=== PATIENT | male | born 1970 | race Asian ===

== ENCOUNTER 2021-02-11 09:55 | Outpatient (REF) | payer OTHER, SELFPAY ==
[2021-02-11 10:48] LABS: MANUAL DIFF FLAG NO
[2021-02-11 11:00] LABS: Basophils Absolute Auto 0.1 X10*3/uL (0.0-0.2); Basophils Percent Auto 0.9 % (0-2); Eosinophils Absolute Auto 0.2 X10*3/uL (0.0-0.4); Hematocrit 44.3 % (42-52); Hemoglobin 14.7 g/dl (14.0-18.0); Imm Gran Abs Auto 0.03 X10*3/uL (0.00-0.03); Imm Gran Pct Auto 0.6 % (0.0-0.4); Lymphocytes Absolute Auto 1.6 X10*3/uL (1.2-4.9); Lymphocytes Percent Auto 28.9 % (20-40); Mean Corpuscular HGB Conc 33.2 g/dl (31.0-36.0); Mean Corpuscular Hemoglobin 30.5 pg (27.0-33.0); Mean Corpuscular Volume 91.9 fL (80-98); Mean Platelet Volume 9.4 fL (9.4-12.4); Monocytes Absolute Auto 0.6 X10*3/uL (0.1-1.2); Monocytes Percent Auto 11.1 % (2-11); Neutrophils Percent Auto 55.5 % (45-73); Platelet Count 200 X10*3/uL (160-400); Red Blood Count 4.82 X10*6/uL (4.60-5.80); White Blood Count 5.4 X10*3/uL (4.8-10.8)
[2021-02-11 11:37] LABS: Alanine Aminotransferase 35 U/L (0-40); Albumin Level 4.6 g/dL (3.5-5.0); Alkaline Phosphatase 63 U/L (39-117); Anion Gap 9 (12-20); Aspartate Amino Transferase 26 U/L (5-37); Bilirubin Total 0.5 mg/dL (0.0-1.0); Blood Urea Nitrogen 16 mg/dL (9-16); Calcium 9.6 mg/dL (8.4-10.2); Carbon Dioxide 29 mmol/L (22-29); Chloride 106 mmol/L (96-108); Cholesterol 199 mg/dL; Estimated Glomerular Filt Rate > 60; Glucose Fasting 105 mg/dL (60-99); HDL Cholesterol 41 mg/dL; LDL Cholesterol Calculated 138 mg/dl; Potassium 4.1 mmol/L (3.3-5.1); Sodium 140 mmol/L (135-145); Total Protein 8.2 g/dL (6.5-8.0); Triglycerides 101 mg/dL
[2021-02-11 11:50] LABS: Prostate Specific Antigen Scr 0.73 ng/mL (<0.05-4.0); TSH reflex Free T4 1.68 uIU/mL (0.32-4.0)
[2021-02-11 13:03] LABS: Appearance Urine CLEAR; Color Urine YELLOW; Glucose Urine UA NEG (NEG); Leukocyte Esterase Urine NEG (NEG); Nitrite Urine NEG (NEG); Specific Gravity - Urine 1.025 (1.005-1.025); Urine Blood NEG (NEG); Urine Ketones NEG (NEG); Urine Protein NEG (NEG-TRACE)
== END 2021-02-11 09:56 | disposition home or self-care (01) ==
LOC: HO.LAB 09:55
PROVIDERS: PCP Internal Medicine; Visit Provider Internal Medicine
DX: Z00.00 Encounter for general adult medical examination without abnormal findings (principal); Z12.5 Encounter for screening for malignant neoplasm of prostate; E66.3 Overweight; I10 Essential (primary) hypertension; J30.9 Allergic rhinitis, unspecified; K21.9 Gastro-esophageal reflux disease without esophagitis
CPT/HCPCS: 36415; 80053; 80061; 81003; 84153; 84443; 85025

== ENCOUNTER 2021-04-07 16:34 | Outpatient (REF) | payer OTHER, SELFPAY ==
[2021-04-07 17:31] LABS: Influenza A PCR NEGATIVE (Negative); Influenza B PCR NEGATIVE (Negative); Resp Syncy Virus RNA Qual PCR NEGATIVE (Negative); SARS COV2 PCR INHOUSE NEGATIVE (Negative)
== END 2021-04-07 16:35 | disposition home or self-care (01) ==
LOC: HO.LNP 16:34
PROVIDERS: Visit Provider Internal Medicine
DX: R43.9 Unspecified disturbances of smell and taste (principal); Z20.822 Contact with and (suspected) exposure to COVID-19
CPT/HCPCS: 0241U

== ENCOUNTER → 2021-09-08 07:09 | Outpatient (BNVA) | payer OTHER, SELFPAY | PROVIDERS: PCP Internal Medicine; Referring Provider Internal Medicine; Visit Provider Physician Assistant | DX: Z12.11 Encounter for screening for malignant neoplasm of colon (principal); K21.9 Gastro-esophageal reflux disease without esophagitis | CPT/HCPCS: 99202 ==

== ENCOUNTER 2021-09-16 08:40 | Outpatient (REF) | payer OTHER, SELFPAY ==
--- NOTE | ~2021-09-16 | XR_ITS ---
EXAMINATION: XR CHEST CLINICAL INFORMATION: Cough COMPARISON: None TECHNIQUE: 2 views of the chest were obtained. FINDINGS: The cardiac and mediastinal contours are normal. The lungs are clear. There is no pleural effusion or pneumothorax. There are degenerative changes of the spine. There is slight loss of height of the T12 and L1 vertebral bodies questionable for mild old compression fractures. The stomach does not appear dilated. There is question of wall thickening of the stomach. XR/XR chest 2V IMPRESSION: No evidence for acute disease in the chest. Question wall thickening of the stomach.
[2021-09-16 09:32] LABS: Binax Internal Control QC Valid; Binax Now Covid-19 Ag Negative (Negative); Binax Performed by: HO.BONILM
== END 2021-09-16 08:41 | disposition home or self-care (01) ==
LOC: HO.HMGCX 08:40
PROVIDERS: Visit Provider Internal Medicine
DX: R05.9 Cough, unspecified (principal); J06.9 Acute upper respiratory infection, unspecified
CPT/HCPCS: 71046

== ENCOUNTER 2021-10-13 08:01 | Outpatient (REF) | payer OTHER, SELFPAY ==
--- NOTE | ~2021-10-13 | FL_ITS ---
EXAMINATION: XR FLUOROSCOPY UPPER GI WITH AIR CLINICAL INFORMATION: Question wall thickening of the stomach COMPARISON: Previous chest x-ray September 2021 TECHNIQUE: Upper GI was performed using thin and thick barium and effervescent granules FINDINGS: There is mild gastroesophageal reflux. There is mild mucosal irregularity of the esophagus questionable for mild esophagitis. No mass, stricture or hernia is seen. The stomach is difficult to adequately distend. There is mild fold thickening of the stomach. No mass or ulcer is appreciated. FLUOROSCOPY TIME: 1.1 minutes DOSE AREA PRODUCT: 12 flanagan per centimeter squared. 34 saved fluoroscopic images. FL/FL upper GI w air IMPRESSION: Mild gastroesophageal reflux and question mild esophagitis. Mild fold thickening of the stomach. The stomach is difficult to distend air.
== END 2021-10-13 08:02 | disposition home or self-care (01) ==
LOC: HO.XRAY 08:01
PROVIDERS: Visit Provider Internal Medicine
DX: R93.5 Abnormal findings on diagnostic imaging of other abdominal regions, including retroperitoneum (principal)
CPT/HCPCS: 74246

== ENCOUNTER 2022-02-02 08:34 | Outpatient (REF) | payer OTHER, SELFPAY ==
[2022-02-02 08:49] LABS: MANUAL DIFF FLAG NO
[2022-02-02 09:02] LABS: Basophils Percent Auto 0.8 % (0-2); Eosinophils Absolute Auto 0.2 X10*3/uL (0.0-0.4); Eosinophils Percent Auto 5.1 % (0-4); Hemoglobin 13.9 g/dl (14.0-18.0); Imm Gran Abs Auto 0.02 X10*3/uL (0.00-0.03); Imm Gran Pct Auto 0.5 % (0.0-0.4); Lymphocytes Absolute Auto 0.9 X10*3/uL (1.2-4.9); Lymphocytes Percent Auto 23.7 % (20-40); Mean Corpuscular HGB Conc 33.9 g/dl (31.0-36.0); Mean Corpuscular Hemoglobin 30.8 pg (27.0-33.0); Mean Corpuscular Volume 90.7 fL (80.0-98.0); Mean Platelet Volume 9.4 fL (9.4-12.4); Monocytes Absolute Auto 0.5 X10*3/uL (0.1-1.2); Monocytes Percent Auto 12.8 % (2-11); Neutrophils Absolute Auto 2.2 x10*3/uL (2.0-8.3); Neutrophils Percent Auto 57.1 % (45-73); Platelet Count 168 X10*3/uL (160-400); Red Blood Count 4.52 X10*6/uL (4.60-5.80); Red Cell Distribution Width 12.9 % (11.0-16.0); White Blood Count 3.8 X10*3/uL (4.8-10.8)
[2022-02-02 09:39] LABS: Alanine Aminotransferase 29 U/L (0-40); Albumin Level 4.1 g/dL (3.5-5.0); Alkaline Phosphatase 61 U/L (39-117); Anion Gap 13 (12-20); Aspartate Amino Transferase 23 U/L (5-37); Bilirubin Total 0.5 mg/dL (0.0-1.0); Blood Urea Nitrogen 16 mg/dL (9-16); Calcium 8.6 mg/dL (8.4-10.2); Carbon Dioxide 24 mmol/L (22-29); Chloride 107 mmol/L (96-108); Cholesterol 168 mg/dL; Estimated Glomerular Filt Rate > 60; Glucose Fasting 106 mg/dL (60-99); HDL Cholesterol 33 mg/dL; LDL Cholesterol Calculated 116 mg/dl; Potassium 4.1 mmol/L (3.3-5.1); Sodium 140 mmol/L (135-145); Total Protein 7.5 g/dL (6.5-8.0); Triglycerides 97 mg/dL
[2022-02-02 10:00] LABS: TSH reflex Free T4 2.55 uIU/mL (0.32-4.0)
[2022-02-02 11:43] LABS: Appearance Urine Clear; Color Urine Yellow; Glucose Urine UA Negative (Negative); Leukocyte Esterase Urine Negative (Negative); Nitrite Urine Negative (Negative); Specific Gravity - Urine 1.025 (1.005-1.025); Urine Blood Negative (Negative); Urine Ketones Negative (Negative); Urine Protein Trace mg/dL (Neg-Trace)
== END 2022-02-02 08:35 | disposition home or self-care (01) ==
LOC: HO.LAB 08:34
PROVIDERS: PCP Internal Medicine; Visit Provider Internal Medicine
DX: Z00.00 Encounter for general adult medical examination without abnormal findings (principal); E55.9 Vitamin D deficiency, unspecified; E78.00 Pure hypercholesterolemia, unspecified; I10 Essential (primary) hypertension
CPT/HCPCS: 36415; 80053; 80061; 81003; 82306; 84443; 85025

== ENCOUNTER 2022-03-09 11:02 | Day surgery (SDC) | payer OTHER, SELFPAY ==
[2022-03-04 14:29] VITALS: BMI 28.2
--- NOTE | 2022-03-06 12:49 | P.CONAN_ITS ---
Documented by User: Shilpa Briceno NP 03/06/22 12:50 HPI - Anesthesia Eval Consult details Narrative: 51yo M for Upper Endoscopy and Colonoscopy [facility] Active Problems Active Problems: All Active Problems (Updated 02/06/22 @ 09:19 by Juan Brooke MD) Pruritus (Acute) Onychomycosis (Acute) Vitamin D deficiency (Acute) Abnormal x-ray of abdomen (Acute) Impaired fasting glucose (Acute) Tendinitis (Acute) Annual physical exam (Acute) Upper respiratory tract infection (Acute) Pure hypercholesterolemia (Acute) Colon cancer screening (Acute) Overweight (BMI 25.0-29.9) (Acute) Allergic rhinitis (Acute) GERD without esophagitis (Acute) Benign essential hypertension (Acute) Past Medical History Medical History Allergic rhinitis Benign essential hypertension GERD without esophagitis Overweight (BMI 25.0-29.9) Pure hypercholesterolemia Vitamin D deficiency Family History Family History Sister Lupus Surgical History Surgical History (Updated 03/09/22 @ 12:00 by Princess Reyes RN) Hx of esophagogastroduodenoscopy Social History Social History Housing: House Alcohol intake: current Alcohol intake frequency: holidays/special occasions only Patient Tobacco Use Status: Never used Tobacco Second Hand Smoke Exposure: No Use of substances other than those prescribed or required for medical reasons: No Are you DNR?: No Advance Directives: No Advance Directives Information Provided: Yes service: No Current occupational status: employed Cognitive needs: No Hearing needs: No Vision needs: No Meds Allergies Allergy/AdvReac Type Severity Reaction Status Date / Time No Known Allergies Allergy Verified 03/09/22 12:13 Exam Exam Date and Time: March 06, 2022 1249 Height,Weight and Vital Signs: Height 5 ft 9 in Weight 86.636 kg Pertinent Lab Results Pertinent Lab Results: Laboratory Tests 02/02/22 02/02/22 08:48 08:48 WBC 3.8 L Hgb 13.9 L Hct 41.0 L Plt Count 168 Sodium 140 Potassium 4.1 Chloride 107 Carbon Dioxide 24 BUN 16 Creatinine 0.70 Assessment and Plan Assessment Anesthesia Assessment: Chart Reviewed Documented by User: Nnamdi Urbina MD 03/09/22 12:45 PMFSH Past Medical History Medical History Allergic rhinitis Benign essential hypertension GERD without esophagitis Overweight (BMI 25.0-29.9) Pure hypercholesterolemia Vitamin D deficiency Family History Family History Sister Lupus Family history of problems with anesthesia: No Surgical History Surgical History (Updated 03/09/22 @ 12:00 by Princess Reyes RN) Hx of esophagogastroduodenoscopy History of Problems with Anesthesia: No Social History Social History Housing: House Alcohol intake: current Alcohol intake frequency: holidays/special occasions only Patient Tobacco Use Status: Never used Tobacco Second Hand Smoke Exposure: No Use of substances other than those prescribed or required for medical reasons: No Are you DNR?: No Advance Directives: No Advance Directives Information Provided: Yes service: No Current occupational status: employed Cognitive needs: No Hearing needs: No Vision needs: No Meds Allergies Allergy/AdvReac Type Severity Reaction Status Date / Time No Known Allergies Allergy Verified 03/09/22 12:13 Exam Airway Mallampati Class: II TM Dist: >3cm Neck ROM: Full Loose/Missing/Broken Teeth: No Heart: rrr Lungs: clear Assessment and Plan Final Anesthetic Review Family History of Problems with Anesthesia: No History of Problems with Anesthesia: No NPO: Yes ASA Class: II Final Preanesthetic Review: No Changes in Pt Med Stat, Meds/Allgs Chart Reviewed, Consent Obtained/Reviewed and Anes Risks/Benef Reviewed Patient Risk: Intermediate Procedure Risk: Low Anesthetic Plan Anesthetic Plan: MAC: Disposition: Standard PACU
[2022-03-09 12:16] VITALS: BP 146/101; PULSE 70; RESP 15; TEMP 36.7; O2SAT 99
[2022-03-09] MEDS: Lactated Ringers 1,000 ML 100 ML IVCONT (12:23)
--- NOTE | 2022-03-09 13:46 | MHC.SHP ---
Pre-Procedural Eval Section A Date of Service: 03/09/22 The patient is an INPATIENT: No The History & Physical has been completed within 30 days and I have reviewed it.: No Section B Chief Complaint: colon cancer screening, GERD Relevant Family History (Specify if Yes): No Relevant Social History: None Present Medications: see Short Stay Collaborative assessment Medical History: Significant History (Allergic rhinitis Benign essential hypertension GERD without esophagitis Overweight (BMI 25.0-29.9) Pure hypercholesterolemia) History of Previous Operations: No relevant previous surgery Allergies: Allergies Allergy/AdvReac Type Severity Reaction Status Date / Time No Known Allergies Allergy Verified 03/09/22 12:13 Review of Systems Sugical H&P ROS: Negative: Constitution, Cardiovascular and Respiratory and Yes, Specify: Gastrointestinal (GERD) Exam Surgical H&P Exam: Normal: Heart, Normal: Lungs, Normal: Extremities and Normal: Abdomen Plan Diagnosis/Plan: Unchanged I have reviewed the history and physical and performed a pertinent physical examination on my patient. No changes have occurred unless specified.
--- NOTE | 2022-03-09 13:47 | PM.OP ---
Brief Operative Note Date of Service: 03/09/22 Pre-op diagnosis: Colon cancer screening, GERD Post-op diagnosis: other (GERD, gastritis, prominent gastric folds, colon polyp, diverticulosis, hemorrhoid) Procedure: FLEXIBLE TRANSORAL UPPER GASTROINTESTINAL ENDOSCOPY WITH BIOPSIES AND COLONOSCOPY TILL CECUM WITH SNARE POLYPECTOMY UPPER ENDOSCOPY Consent: Indications for the procedure and potential complications of bleeding, perforation, reaction to medications and missed diagnosis were discussed with the patient and informed consent was obtained. Instrument: Olympus GIF H 190 mid size upper endoscope Monitoring: Vital signs and clinical assessment, continuous EKG monitoring, Pulse oximetry, Carbon Dioxide monitoring and blood pressure monitoring were done throughout the procedure. Procedure: The patient was placed in the left lateral decubitis position and pre-procedure medications were administered and a bite block was placed. The endoscope was inserted into the mouth and advanced under direct vision to the third part of duodenum. A careful inspection was made as the upper endoscope was withdrawn including a retroflexed examination of the proximal stomach; Findings and interventions are described below. Findings: Larynx: Edema of arytenoid cartilages suggestive of LPRD Esophagus: GE junction at 40 cms, irregular Z line - biopsied to check for Mullen's. Stomach: Prominent gastric folds in the body of the stomach - biopsies were obtained. Mild gastric antral erythema. Biopsies were obtained. Grade 2 flap valve on retroflexed examination of the cardia. Duodenum: Normal bulb and descending duodenum Intervention: Biopsies as noted above COLONOSCOPY PROCEDURE NOTE Consent: Indications for the procedure and potential complications of bleeding, perforation, reaction to medications and missed diagnosis were discussed with the patient and informed consent was obtained. Instrument: Olympus PCF H 190 L variable stiffness pediatric colonoscope Monitoring: Vital signs and clinical assessment, intermittent blood pressure monitoring, continuous EKG monitoring, Pulse oximetry and Carbon Dioxide monitoring were done throughout the procedure. Colon withdrawl time was 18 minutes. Procedure: The patient was placed in the left lateral decubitis position and pre-procedure medications were administered. After a digital rectal examination of the ano-rectum, the video colonoscope was inserted into the rectum and advanced through the colon to the cecum. The colonoscope was slowly withdrawn in a retrograde panoramic fashion and the colon mucosa was carefully examined including a retroflexed view of the rectum. Findings and interventions are described below. Procedure Difficulty: : Without difficulty Findings: Terminal Ileum: Not evaluated Cecum: Partially evaluated due to undigested vegetable matter which could not be suctioned. A 10-12 mm sessile polyp adjacent to the appendicular orifice removed with a hot snare. Ascending Colon: Normal Transverse Colon: Normal Descending Colon: Normal Sigmoid Colon: Moderate diverticulosis Rectum: Normal Ano-rectum: Moderate internal hemorrhoids Colon preparation: Good in the transverse and left colon and fair in the cecum and right colon Impression and Post Procedure Diagnosis: Endoscopy Findings: LARYNX: Changes suggestive of LPRD ESOPHAGUS: GE junction at 40 cms, irregular Z line - biopsied to check for Mullen's. STOMACH: Prominent gastric folds in the body of the stomach - biopsies were obtained. Mild gastric antral erythema. Biopsies were obtained. Colonoscopy Findings: One medium sized polyp removed Moderate diverticulosis seen in the sigmoid colon Moderate hemorrhoids on retroflexed exam. Plan: Await pathology results Patient has an appointment on 03/23/22 in the GI Clinic with MARILUZ Moncada . Repeat Colonoscopy interval based on path results - in 3 years if polyps are adenomatous and due to fair prep. Above findings were reviewed with the patient and colon polyps and GERD handouts were given in the discharge area Surgeon: Carson Rios MD Anesthesia: MAC Was an Mortgage Funder used for this Procedure?: No Mortgage Funder: Shaji Horn Estimated blood loss (mL): 0 Pathology: other ( A: GASTRIC ANTRUM BXS R/O BARRETTS B: GASTRIC BODY BXS C:GE JUNCTION BXS R/O BARRETTS D: CECAL POLYP) Condition: stable Disposition: PACU
--- NOTE | 2022-03-09 13:47 | W.PM.OPN ---
Operative Note Operative Note Date of Service: 03/09/22 Narrative: Pre-op diagnosis: Colon cancer screening, GERD Post-op diagnosis:?other (GERD, gastritis, prominent gastric folds, colon polyp, diverticulosis, hemorrhoid) Procedure: FLEXIBLE TRANSORAL UPPER GASTROINTESTINAL ENDOSCOPY WITH BIOPSIES AND COLONOSCOPY TILL CECUM WITH SNARE POLYPECTOMY UPPER ENDOSCOPY Consent:?Indications for the procedure and potential complications of bleeding, perforation, reaction to medications and missed diagnosis were discussed with the patient and informed consent was obtained. Instrument:?Olympus GIF H 190 mid size upper endoscope Monitoring: Vital signs and clinical assessment, continuous EKG monitoring, Pulse oximetry, Carbon Dioxide monitoring and blood pressure monitoring were done throughout the procedure. Procedure:?The patient was placed in the left lateral decubitis position and pre-procedure medications were administered and a bite block was placed. The endoscope was inserted into the mouth and advanced under direct vision to the third part of duodenum. A careful inspection was made as the upper endoscope was withdrawn including a retroflexed examination of the proximal stomach; Findings and interventions are described below. Findings: Larynx:? Edema of arytenoid cartilages suggestive of LPRD Esophagus:?GE junction at 40 cms, irregular Z line - biopsied to check for Mullen's. Stomach:?Prominent gastric folds in the body of the stomach - biopsies were obtained. Mild gastric antral erythema. Biopsies were obtained. Grade 2 flap valve on retroflexed examination of the cardia. Duodenum:?Normal bulb and descending duodenum Intervention:?Biopsies as noted above COLONOSCOPY PROCEDURE NOTE Consent:?Indications for the procedure and potential complications of bleeding, perforation, reaction to medications and missed diagnosis were discussed with the patient and informed consent was obtained. Instrument:?Olympus PCF H 190 L variable stiffness pediatric colonoscope Monitoring:?Vital signs and clinical assessment, intermittent blood pressure monitoring, continuous EKG monitoring, Pulse oximetry and Carbon Dioxide monitoring were done throughout the procedure. Colon withdrawl time was 18 minutes. Procedure:?The patient was placed in the left lateral decubitis position and pre-procedure medications were administered. After a digital rectal examination of the ano-rectum, the video colonoscope was inserted into the rectum and advanced through the colon to the cecum. The colonoscope was slowly withdrawn in a retrograde panoramic fashion and the colon mucosa was carefully examined including a retroflexed view of the rectum. Findings and interventions are described below. Procedure Difficulty:?: Without difficulty Findings: Terminal Ileum: Not evaluated Cecum:? Partially evaluated due to undigested vegetable matter which could not be suctioned. A 10-12 mm sessile polyp adjacent to the appendicular orifice removed with a hot snare. Ascending Colon:??Normal Transverse Colon:??Normal Descending Colon:? Normal Sigmoid Colon:??Moderate diverticulosis Rectum:??Normal Ano-rectum:??Moderate internal hemorrhoids Colon preparation:? Good in the transverse and left colon and fair in the cecum and right colon Impression and Post Procedure Diagnosis: Endoscopy Findings: LARYNX: Changes suggestive of LPRD ESOPHAGUS: GE junction at 40 cms, irregular Z line - biopsied to check for Mullen's. STOMACH:? Prominent gastric folds in the body of the stomach - biopsies were obtained. Mild gastric antral erythema. Biopsies were obtained. Colonoscopy Findings: One medium sized polyp removed Moderate diverticulosis seen in the sigmoid colon Moderate hemorrhoids on retroflexed exam. Plan: Await pathology results Patient has an appointment on 03/23/22 in the GI Clinic with MARILUZ Moncada . Repeat Colonoscopy interval based on path results - in 3 years if polyps are adenomatous and due to fair prep. Above findings were reviewed with the patient and colon polyps and GERD handouts were given in the discharge area. Pt was advised to increase Omeprazole to 20 mg twice daily since he continues to have GERD symptoms and cough. Surgeon: Carson Rios MD Anesthesia:?MAC Was an Classified Copy Control Clerk used for this Procedure?:?No Classified Copy Control Clerk:?Shaji Horn Estimated blood loss (mL):?0 Pathology:?other ( A: GASTRIC ANTRUM BXS R/O BARRETTS? B: GASTRIC BODY BXS? C:GE JUNCTION BXS R/O BARRETTS? D: CECAL POLYP) Condition:?stable Disposition:?PACU
[2022-03-09 14:40] VITALS: BP 123/84; PULSE 67; RESP 16; TEMP 36.4; O2SAT 100
[2022-03-09 14:55] VITALS: BP 130/84; PULSE 62; RESP 16; O2SAT 99
[2022-03-09 15:10] VITALS: BP 136/100; PULSE 67; RESP 16; TEMP 36.4; O2SAT 99
--- NOTE | 2022-03-09 16:08 | PC.NURSE ---
PATIENT STATED HIS RIDE WAS DOWNSTAIRS AND THE FUEL TESTING TECHNICIAN BROUGHT PATIENT DOWN TO THE MAIN EXTRANCE. PT GOT UP AND REPORTEDLY WENT TO HIS OWN CAR AND DROVE AWAY.
== END 2022-03-09 16:11 | disposition home or self-care (01) ==
PROVIDERS: PCP Internal Medicine; Visit Provider Internal Medicine Gastroenterology
PROC: (CPT 45385; principal; 2022-03-09 13:40)
DX: Z12.11 Encounter for screening for malignant neoplasm of colon (principal); D12.0 Benign neoplasm of cecum; K57.30 Diverticulosis of large intestine without perforation or abscess without bleeding; K64.8 Other hemorrhoids; K21.9 Gastro-esophageal reflux disease without esophagitis; K29.50 Unspecified chronic gastritis without bleeding; B96.81 Helicobacter pylori [H. pylori] as the cause of diseases classified elsewhere; I10 Essential (primary) hypertension; E78.00 Pure hypercholesterolemia, unspecified; J30.9 Allergic rhinitis, unspecified; E66.3 Overweight; Z68.28 Body mass index [BMI] 28.0-28.9, adult; Z79.51 Long term (current) use of inhaled steroids; Z79.899 Other long term (current) drug therapy
CPT/HCPCS: 45385; 43239; 88305; 88342

== ENCOUNTER → 2022-03-23 08:35 | Outpatient (BNVA) | payer OTHER, SELFPAY | PROVIDERS: PCP Internal Medicine; Visit Provider Physician Assistant | DX: A04.8 Other specified bacterial intestinal infections (principal); K63.5 Polyp of colon; K64.9 Unspecified hemorrhoids; K57.30 Diverticulosis of large intestine without perforation or abscess without bleeding | CPT/HCPCS: 99212 ==

== ENCOUNTER 2022-04-27 16:29 | Outpatient (REF) | payer OTHER, SELFPAY ==
[2022-04-27 17:19] LABS: Influenza A PCR NEGATIVE (Negative); Influenza B PCR NEGATIVE (Negative); Resp Syncy Virus RNA Qual PCR POSITIVE (Negative); SARS COV2 PCR INHOUSE NEGATIVE (Negative)
== END 2022-04-27 16:30 | disposition home or self-care (01) ==
LOC: HO.LNP 16:29
PROVIDERS: Visit Provider Internal Medicine
DX: Z20.822 Contact with and (suspected) exposure to COVID-19 (principal); R43.9 Unspecified disturbances of smell and taste
CPT/HCPCS: 0241U

== ENCOUNTER → 2022-05-04 07:53 | Outpatient (BNVA) | payer OTHER, SELFPAY | PROVIDERS: PCP Internal Medicine; Referring Provider Internal Medicine; Visit Provider Physician Assistant | DX: Z11.0 Encounter for screening for intestinal infectious diseases (principal) | CPT/HCPCS: 83013; 99211 ==

== ENCOUNTER 2022-05-04 16:06 | Outpatient (REF) | payer OTHER, SELFPAY ==
[2022-05-05 11:43] LABS: H Pylori Breath Test Negative (Negative)
== END 2022-05-04 16:07 | disposition home or self-care (01) ==
LOC: HO.LNP 16:06
PROVIDERS: Visit Provider Physician Assistant
DX: Z13.89 Encounter for screening for other disorder (principal)
CPT/HCPCS: 83013

== ENCOUNTER 2022-08-06 11:27 | Outpatient (REF) | payer OTHER, SELFPAY ==
[2022-08-06 11:38] LABS: MANUAL DIFF FLAG NO
[2022-08-06 12:54] LABS: Basophils Percent Auto 0.9 % (0-2); Eosinophils Absolute Auto 0.1 X10*3/uL (0.0-0.4); Eosinophils Percent Auto 2.8 % (0-4); Hematocrit 44.4 % (42.0-52.0); Hemoglobin 14.6 g/dl (14.0-18.0); Imm Gran Abs Auto 0.04 X10*3/uL (0.00-0.03); Imm Gran Pct Auto 0.9 % (0.0-0.4); Lymphocytes Absolute Auto 0.9 X10*3/uL (1.2-4.9); Lymphocytes Percent Auto 18.7 % (20-40); Mean Corpuscular HGB Conc 32.9 g/dl (31.0-36.0); Mean Corpuscular Volume 91.4 fL (80.0-98.0); Mean Platelet Volume 9.5 fL (9.4-12.4); Monocytes Absolute Auto 0.4 X10*3/uL (0.1-1.2); Monocytes Percent Auto 9.2 % (2-11); Neutrophils Absolute Auto 3.2 x10*3/uL (2.0-8.3); Neutrophils Percent Auto 67.5 % (45-73); Platelet Count 180 X10*3/uL (160-400); Red Blood Count 4.86 X10*6/uL (4.60-5.80); Red Cell Distribution Width 12.9 % (11.0-16.0); White Blood Count 4.7 X10*3/uL (4.8-10.8)
[2022-08-06 13:05] LABS: Appearance Urine Clear; Color Urine Yellow; Glucose Urine UA Negative (Negative); Leukocyte Esterase Urine Negative (Negative); Nitrite Urine Negative (Negative); Specific Gravity - Urine 1.025 (1.005-1.025); Urine Blood Negative (Negative); Urine Ketones Negative (Negative); Urine Protein Trace mg/dL (Neg-Trace)
[2022-08-06 14:02] LABS: Alanine Aminotransferase 30 U/L (0-40); Albumin Level 4.3 g/dL (3.5-5.0); Alkaline Phosphatase 64 U/L (39-117); Anion Gap 13 (12-20); Aspartate Amino Transferase 23 U/L (5-37); Bilirubin Total 0.7 mg/dL (0.0-1.0); Blood Urea Nitrogen 16 mg/dL (9-16); Calcium 8.6 mg/dL (8.4-10.2); Carbon Dioxide 27 mmol/L (22-29); Chloride 105 mmol/L (96-108); Cholesterol 172 mg/dL; Estimated Glomerular Filt Rate > 60; Glucose Fasting 95 mg/dL (60-99); HDL Cholesterol 34 mg/dL; LDL Cholesterol Calculated 120 mg/dl; Potassium 4.4 mmol/L (3.3-5.1); Sodium 141 mmol/L (135-145); Total Protein 7.8 g/dL (6.5-8.0); Triglycerides 90 mg/dL
[2022-08-06 14:04] LABS: Estimated Average Glucose 120 mg/dL; Hemoglobin A1C 150.8151 umol/L; Hemoglobin A1c % 5.8 %
[2022-08-06 14:19] LABS: TSH reflex Free T4 1.68 uIU/mL (0.32-4.0); Vitamin D 25-OH Total 31.5 ng/mL (>30)
== END 2022-08-06 11:28 | disposition home or self-care (01) ==
LOC: HO.LAB 11:27
PROVIDERS: PCP Internal Medicine; Visit Provider Internal Medicine
DX: E78.00 Pure hypercholesterolemia, unspecified (principal); E55.9 Vitamin D deficiency, unspecified; I10 Essential (primary) hypertension; R73.01 Impaired fasting glucose
CPT/HCPCS: 36415; 80053; 80061; 81003; 82306; 83036; 84443; 85025

== ENCOUNTER 2022-08-13 09:49 | Outpatient (REF) | payer OTHER, SELFPAY ==
--- NOTE | ~2022-08-13 | XR_ITS ---
EXAMINATION: X-RAY RIGHT ELBOW X-RAY LEFT ELBOW CLINICAL INFORMATION: Pain. COMPARISON: None. TECHNIQUE: 3 views of each elbow. FINDINGS: No evidence of acute fractures or subluxation. Degenerative osteophytes are noted in the medial and lateral epicondyles of both elbows, larger on the left side. No erosions or chondrocalcinosis. No joint effusion. No unexpected radiopaque foreign bodies. XR/XR elbow RT min 3V IMPRESSION: 1. No acute fractures or subluxation. 2. Mild degenerative osteoarthritis of both elbows.
--- NOTE | ~2022-08-13 | XR_ITS ---
EXAMINATION: XR LUMBOSACRAL SPINE CLINICAL INFORMATION: Low back pain. COMPARISON: None TECHNIQUE: Three views of the lumbosacral spine. FINDINGS: Age indeterminate compression deformities at T12, L1 and L2. Minimal grade 1 degenerative retrolisthesis of L5 on S1. Moderate intervertebral disc height loss at L5-S1 with facet arthropathy and some degree of neural foraminal encroachment/central canal stenosis. Small multilevel anterior osteophytes. SI joints are symmetric. No significant soft tissue findings. XR/XR lumbar spine 2-3V IMPRESSION: 1. Age indeterminate compression deformities at T12, L1 and L2. Correlate for point tenderness. 2. Moderate spondylosis at L5-S1 with some degree of central canal stenosis and neural foraminal encroachment. If indicated, consider further evaluation with an MR of the lumbar spine. The report will be called to the ordering clinician by a [facility] Physician Character Artist.
--- NOTE | ~2022-08-13 | XR_ITS ---
EXAMINATION: X-RAY RIGHT ELBOW X-RAY LEFT ELBOW CLINICAL INFORMATION: Pain. COMPARISON: None. TECHNIQUE: 3 views of each elbow. FINDINGS: No evidence of acute fractures or subluxation. Degenerative osteophytes are noted in the medial and lateral epicondyles of both elbows, larger on the left side. No erosions or chondrocalcinosis. No joint effusion. No unexpected radiopaque foreign bodies. XR/XR elbow LT min 3V IMPRESSION: 1. No acute fractures or subluxation. 2. Mild degenerative osteoarthritis of both elbows.
== END 2022-08-13 09:50 | disposition home or self-care (01) ==
LOC: HO.XRAY 09:49
PROVIDERS: PCP Internal Medicine; Visit Provider Internal Medicine
DX: M54.50 Low back pain, unspecified (principal); M25.521 Pain in right elbow; M25.522 Pain in left elbow
CPT/HCPCS: 72100; 73080

== ENCOUNTER 2022-10-08 07:25 | Outpatient (REF) | payer OTHER, SELFPAY ==
--- NOTE | ~2022-10-08 | MR_ITS ---
EXAMINATION: MR LUMBAR SPINE WITHOUT CONTRAST CLINICAL INFORMATION: Low back pain COMPARISON: Lumbar spine radiographs 08/13/2022 TECHNIQUE: MRI of the lumbar spine was obtained using routine sequences without contrast. FINDINGS: Redemonstrated chronic upper endplate fracture deformities at T12, L1, and L2 with associated Schmorl's nodes and resultant mild central height loss. There is mild anterior wedging at T12 and L1. There is focal minimal kyphotic angulation at T12-L1. There is chronic subjacent fatty endplate change associated with the chronic fracture deformities with minimal marginal edema associated with the T12 superior endplate Schmorl's node. No new compression fracture deformity. Normal lumbar lordosis is preserved. Trace retrolisthesis of L5 on S1. There is no suspicious osseous lesion. L2 level disc desiccation with partial mineralization of the T12-L1 disc space where there is mild disc height loss. Mild L2-L3 and L5-S1 disc height loss with mixed type I/II Modic endplate change at L5-S1. Ventral disc osteophytes at the thoracolumbar junction.There are multilevel degenerative changes with level by level detail as follows: L1-L2: Trace annular disc bulge. No spinal canal or neural foraminal stenosis. L2-L3: Small annular disc bulge with mild bilateral facet arthrosis. No spinal canal or neural foraminal stenosis. L3-L4: Mild bilateral facet arthrosis without spinal canal or neural foraminal stenosis. L4-L5: Annular disc bulge with superimposed broad-based central disc protrusion and mild bilateral facet arthrosis. No spinal canal stenosis. Minimal right without specific and left neural foraminal encroachment. L5-S1: Trace retrolisthesis with annular disc bulge and superimposed broad-based central disc protrusion. Mild to moderate bilateral facet arthrosis and ligamentum flavum thickening. No spinal canal stenosis, noting asymmetric left subarticular zone narrowing and abutment along the traversing left S1 nerve root. Mild to moderate bilateral neural foraminal stenosis with contact along the exiting L5 nerve roots. The conus medullaris terminates at the level of L1-L2. The distal spinal cord is normal in appearance. . No epidural fluid collection, hematoma, or mass. No significant abnormalities of the paraspinal musculature. Limited evaluation of the intra-abdominal structures without significant abnormalities. The abdominal aorta is of normal contour and caliber. MR/MR lumbar spine wo con IMPRESSION: 1. Chronic upper endplate fracture deformities at T12, L1, and L2 with associated superior endplate Schmorl's nodes and resultant mild central height loss. No new compression fracture deformity. 2. Mild multilevel lumbar spondylosis without significant spinal canal stenosis. At L5-S1 a broad-based central disc protrusion causes asymmetric left subarticular zone narrowing with abutment along the traversing left S1 nerve root. Mild to moderate bilateral L5-S1 neural foraminal stenosis with contact along the exiting L5 nerve roots.
== END 2022-10-08 07:26 | disposition home or self-care (01) ==
LOC: HO.MRI 07:25
PROVIDERS: PCP Internal Medicine; Visit Provider Nurse Practitioner Family
DX: M54.50 Low back pain, unspecified (principal)
CPT/HCPCS: 72148

== ENCOUNTER → 2022-10-15 10:18 | Outpatient (BNVA) | payer OTHER, SELFPAY | PROVIDERS: PCP Internal Medicine; Visit Provider Physician Assistant | DX: M77.11 Lateral epicondylitis, right elbow (principal); M77.12 Lateral epicondylitis, left elbow | CPT/HCPCS: 20550; 20551; 99202; J1100 ==

== ENCOUNTER 2022-11-27 08:00 | Outpatient (RCR) | payer OTHER, SELFPAY ==
--- NOTE | 2022-09-18 08:46 | MHC.PT.EP ---
[facility] [place] Office [place] Office [place] Office [address] Riaz Lora [address] [phone] F: [phone] F: [phone] F: [phone] F: [phone] Physical Therapy Plan of Care Date of Evaluation: Date of Surgery: N/A Diagnosis: low back pain Assessment: pt is a 51 y/o male presenting to physical therapy w/ referring diagnosis of low back pain. pt does have 3 chronic compression fractures localized to T12, L1 and L2. He was educated in a core and pelvic stability program. Impairments include pain, decreased range of motion, decreased strength, impaired functional mobility, impaired postural awareness, and altered ambulation mechanics. pt is a good candidate for skilled PT due to age, potential remediation of impairments, typical disease/condition progression and prognosis, comorbidities, and motivation. pt would benefit from skilled PT intervention to provide a tailored strengthening and stretching exercise program, functional training, gait training, postural re-training, neuromuscular re-education, modalities as needed for pain, equipment safety demonstration. Frequency and Duration: The patient will be seen 1x/wk for 2 wks Short Term Goals: pt will be I w/ HEP to promote self-management of condition. pt will demo proper core bracing w/ functional mobility to protect spine. 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 Manual therapy to restore motion and function. Therapeutic exercise to improve strength and flexibility. Neuromuscular re-education for posture and balance. Therapeutic activities to return to functional activities of daily living. Electronically signed by: Anel Franks PT, DPT Please sign and return to therapist. Thank you for your referral.
--- NOTE | 2022-11-27 08:32 | MHC.PT.DC ---
[facility] [place] Office [place] Office [place] Office [address] Riaz Lora [address] [phone] F: [phone] F: [phone] F: [phone] F: [phone] Physical Therapy Discharge Report Diagnosis: low back pain Date of Surgery: N/A Date of Evaluation: 09/18/22 Date of Discharge: 11/27/22 Treatments to Date: 3 Cancellations to Date: 0 No Shows to Date: 0 Discharge Status: Improved Function Independent with HEP Discharge Summary: The patient reported he is noticing an improvement in his pain. He is independent with his exercise program. He was educated in neutral spine for bed mobility, lifting mechanics, and sitting posture. He would like to be discharged from physical therapy at this time. He is now discharged per his request to his home exercise program. Electronically signed by: Anel Nelson PT, DPT Please sign and return to therapist. Thank you for your referral.
== END 2022-11-27 08:32 | disposition home or self-care (01) ==
LOC: HO.PT 08:00
PROVIDERS: PCP Internal Medicine; Visit Provider Nurse Practitioner Family
DX: M54.50 Low back pain, unspecified (principal)
CPT/HCPCS: 97110; 97161; 97530

== ENCOUNTER 2023-02-09 08:50 | Outpatient (REF) | payer OTHER, SELFPAY ==
[2023-02-09 09:11] LABS: MANUAL DIFF FLAG NO
[2023-02-09 09:57] LABS: Basophils Absolute Auto 0.1 X10*3/uL (0.0-0.2); Eosinophils Absolute Auto 0.2 X10*3/uL (0.0-0.4); Eosinophils Percent Auto 3.4 % (0-4); Hematocrit 42.9 % (42.0-52.0); Hemoglobin 14.4 g/dl (14.0-18.0); Imm Gran Abs Auto 0.04 X10*3/uL (0.00-0.03); Imm Gran Pct Auto 0.8 % (0.0-0.4); Lymphocytes Absolute Auto 1.1 X10*3/uL (1.2-4.9); Mean Corpuscular HGB Conc 33.6 g/dl (31.0-36.0); Mean Corpuscular Hemoglobin 31.3 pg (27.0-33.0); Mean Corpuscular Volume 93.3 fL (80.0-98.0); Monocytes Absolute Auto 0.5 X10*3/uL (0.1-1.2); Monocytes Percent Auto 9.3 % (2-11); Neutrophils Absolute Auto 3.3 x10*3/uL (2.0-8.3); Neutrophils Percent Auto 64.5 % (45-73); Platelet Count 198 X10*3/uL (160-400); Red Cell Distribution Width 13.2 % (11.0-16.0); White Blood Count 5.1 X10*3/uL (4.8-10.8)
[2023-02-09 10:52] LABS: Appearance Urine Clear; Color Urine Yellow; Glucose Urine UA Negative (Negative); Leukocyte Esterase Urine Negative (Negative); Nitrite Urine Negative (Negative); PH 5.5 (5.0-9.0); Specific Gravity - Urine 1.025 (1.005-1.025); Urine Blood Negative (Negative); Urine Ketones Negative (Negative); Urine Protein Negative (Neg-Trace)
[2023-02-09 11:59] LABS: Alanine Aminotransferase 27 U/L (0-40); Alkaline Phosphatase 60 U/L (39-117); Anion Gap 12 (12-20); Aspartate Amino Transferase 20 U/L (5-37); Bilirubin Total 0.8 mg/dL (0.0-1.0); Blood Urea Nitrogen 15 mg/dL (9-16); Calcium 9.2 mg/dL (8.4-10.2); Carbon Dioxide 25 mmol/L (22-29); Chloride 107 mmol/L (96-108); Cholesterol 158 mg/dL (<200); Estimated Glomerular Filt Rate > 60; Glucose Fasting 115 mg/dL (60-99); HDL Cholesterol 39 mg/dL (>40); LDL Cholesterol Calculated 111 mg/dL (<100); Potassium 4.2 mmol/L (3.3-5.1); Sodium 140 mmol/L (135-145); Total Protein 7.6 g/dL (6.5-8.0); Triglycerides 44 mg/dL (<150); Vitamin D 25-OH Total 33.4 ng/mL (>30)
== END 2023-02-09 08:51 | disposition home or self-care (01) ==
LOC: HO.LAB 08:50
PROVIDERS: PCP Internal Medicine; Visit Provider Internal Medicine
DX: R30.0 Dysuria (principal); E78.00 Pure hypercholesterolemia, unspecified; E55.9 Vitamin D deficiency, unspecified; I10 Essential (primary) hypertension
CPT/HCPCS: 36415; 80053; 80061; 81003; 82306; 85025

== ENCOUNTER 2023-02-17 08:54 | Outpatient (AMB) | payer OTHER, SELFPAY ==
--- NOTE | 2023-02-17 08:58 | A.OFFPC_ITS ---
Vital Signs 02/17/23 09:01 Height 5 ft 6 in Weight 185 lb BMI 29.9 BP 160/98 H Blood Pressure Location Lt brachial Position Sitting Intake Visit Reasons: 6mth f/u Intake Note: Patient here for a 6 month follow up Childcare Provider Required: No Accompanied by: Self / Same As Patient Allergies No Known Allergies Allergy (Verified 02/17/23 09:08) Medication List - Last Reconciled 02/17/23 by Juan Brooke MD cholecalciferol (vitamin D3) 50 mcg PO DAILY 90 days fluticasone propionate 50 mcg/actuation 1 spray intranasal DAILY loratadine 10 mg PO DAILY PRN 90 days losartan 25 mg PO DAILY nabumetone 500 mg PO BID PRN 30 days omeprazole 20 mg PO DAILY 90 days Tobacco use date assessed: 10/08/22 Dental Screening Dental Screen Date: 02/17/23 Did you have a dental visit in the last 12 months?: Yes Did you have a dental problem in the last 6 months where you did not have access to dental care?: No Was dental information given to patient?: Patient has dentist HPI 6mth f/u HPI Details Patient comes in today for his follow up visit States that he has been experiencing increased pain over his right knee for the past few weeks now Notes that his knee pain feels worse when he is walking and when he puts his weight on his knee Does not recall any recent injury or trauma to his knee and denies any history of knee injury States that he has not been able to sleep well at night lately due to the pain Has not noticed any swelling of his knee He denies any headaches or dizziness Denies any chest pains, no SOB No nausea/vomiting, no abdominal pain No change in bowel habits noted Needs a few of his Rx refilled Had his follow up labs done last week - to discuss his results [facility] Medical History (Updated 02/17/23 @ 09:46 by Juan Brooke MD) Lumbar spondylosis Obesity (BMI 30-39.9) H. 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 occupational status: employed 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[employer] Current occupational exposures/hazards: No Cognitive needs: No Hearing needs: No Vision needs: No Questionnaire Thrive Questionnaire Date Thrive assessed: 10/08/22 ROB-7 AMB Questionnaire ROB-7 Date ROB - 7 assessed: 02/17/23 Feeling nervous, anxious, or on edge: 0 = Not at all Not being able to stop or control worryin = Not at all Worrying too much about different things: 0 = Not at all Trouble relaxin = Not at all Being so restless that it is hard to sit still: 0 = Not at all Becoming easily annoyed or irritable: 0 = Not at all Feeling afraid as if something awful might happen: 0 = Not at all Total ROB-7 score (0-4 normal; 5-9 mild; 10-14 moderate; 15-21 severe): 0 Source: Developed by Drs. Steven Oquendo, Aminta Rodriguez, Eliu Roe and colleagues, with an educational deneen from [email or web address]. Review of Systems Const Reports difficulty sleeping (lately - due to increasing pain in the right knee), Reports fatigue, Denies fever(s) and Denies headache(s) ENT Denies dysphagia, Denies dizziness, Denies otalgia, Denies headache(s), Denies neck pain, Denies odynophagia and Denies sore throat Card Denies chest pain, Denies rapid heart rate, Denies irregular heart rhythm, Denies palpitations and Denies dyspnea Resp Denies cough, Denies dyspnea and Denies wheezing GI Denies abdominal pain, Denies constipation, Denies dysphagia, Denies heartburn, Denies diarrhea, Denies nausea, Denies odynophagia and Denies vomiting Musc Reports back pain (recurrent, over the lower back ), Reports arthralgias (increasing over the right knee), Denies joint swelling and Denies neck pain Skin/Breast Denies rash Neuro Denies dizziness, Denies headache(s) and Denies paresthesias Endo Reports fatigue and Denies palpitations Aller/Immun Reports seasonal rhinorrhea (mostly in the spring) and Denies wheezing Physical exam (Primary Care) Vital Signs: Last Vital Signs BP 160/98 H 02/17/23 09:01 BMI result Body Mass Index 29.9 Tobacco/Smoking Status: Tobacco use Status Tobacco use date assessed 10/08/22 02/17/23 09:00 Patient Tobacco Use Status Never used Tobacco 02/17/23 09:00 e-Cigarette/Vaping Use Never Used 02/17/23 09:00 Thrive Assessment: Date of Thrive Assessment Date Thrive assessed 10/08/22 02/17/23 09:00 Const General: no acute distress and alert HENMT Ears: TM's normal bilaterally and EAC's normal Throat: Yes posterior oropharynx normal and Yes tonsils normal Neck Neck: Yes no lymphadenopathy and Yes supple Resp Auscultation: clear to auscultation bilaterally, no rales and no wheezes Cardio Rate: regular rate Rhythm: regular rhythm Heart sounds: no murmurs GI Palpation (GI): Soft to palpation and nontender Auscultation: normal bowel sounds Back/Spine/Pelvis Thoracic/Lumbar Spine: lumbar spinal tenderness Skin Rashes: no rashes Extrem General: Yes no clubbing, cyanosis or edema Right lower extremity: knee Details: tenderness Location: of the pre-patellar area and of the infrapatellar area and normal ROM; no swelling Assessment and Plan Assessment & Plan (1) Right knee pain: Code(s): M25.561 - Pain in right knee Qualifiers: Chronicity: acute Qualified Code(s): M25.561 - Pain in right knee Plan: Is most likely due to patellar tendinitis or osteoarthritis Will send patient for x-rays of the right knee for further evaluation Will start him for now on Meloxicam 15 mg QD with food PRN for pain Will refer him again to orthopedics for further evaluation and management; may benefit from cortisone injection if appropriate but advised that it will be up to orthopedics to decide if it is an option or not (2) Benign essential hypertension: Code(s): I10 - Essential (primary) hypertension Plan: Reinforced low sodium diet - goal is systolic BP of 120 mm or less His BP is high today - patient states that this is most likely due to the fact that he has not been able to sleep well for a few days now due to his knee pain Will continue him on Losartan 25 mg QD for now He is advised to monitor his blood pressure closely for the next week or two - BP monitor Rx sent to pharmacy (3) Pure hypercholesterolemia: Code(s): E78.00 - Pure hypercholesterolemia, unspecified Plan: Results of his labs done last week reviewed and discussed with patient - advised that his cholesterol levels have improved slightly from previous Reinforced low cholesterol diet He still does not really require cholesterol-lowering Rx at this time Will recheck his labs and fasting lipids in 6 months for follow up (4) GERD without esophagitis: Comment: EGD- Barretts surveillance- r/o esophagitis, PUD, non ulcer dyspepsia- avoid culprits- continue ppi- daily Code(s): K21.9 - Gastro-esophageal reflux disease without esophagitis Plan: Dietary restrictions reinforced Continue Omeprazole 20 mg QD PRN - Rx refilled (5) H. pylori infection: Comment: Quadruple therapy SHAHID 6 weeks Code(s): A04.8 - Other specified bacterial intestinal infections Plan: (+) H. pylori on Bx from EGD in March 2022 - S/P treatment with 14 days of quadruple therapy (Bismuth subsalicylate, Metronidazole, Tetracycline and Omeprazole) (6) Impaired fasting glucose: Code(s): R73.01 - Impaired fasting glucose Plan: HgbA1c was normal at 5.8% when checked a few months ago FBS is again elevated on his recent labs at 115 mg/dl; will continue to monitor his blood sugar regularly for now and recheck his HgbA1c in 6 months Reinforced low calorie/low carb diet (7) Allergic rhinitis: Code(s): J30.9 - Allergic rhinitis, unspecified Qualifiers: Allergic rhinitis trigger: unspecified Allergic rhinitis seasonality: unspecified Qualified Code(s): J30.9 - Allergic rhinitis, unspecified Plan: Continue Loratadine 10 mg QD PRN and Fluticasone 50 mcg nasal spray QD PRN - Rx refilled (8) Vitamin D deficiency: Code(s): E55.9 - Vitamin D deficiency, unspecified Plan: Corrected - continue Vitamin D3 2000 units QD (9) Lumbar spondylosis: Code(s): M47.816 - Spondylosis without myelopathy or radiculopathy, lumbar region Plan: Patient has been experiencing recurrent low back pain since he slipped on ice/snow and fell on his driveway a couple of years ago Lumbar spine x-rays done in August 2022 revealed (+) age indeterminate compression deformities at T12, L1 and L2 and moderate spondylosis at L5-S1 with some degree of central canal stenosis and neural foraminal encroachment Lumbar spine MRI done in October 2022 revealed chronic upper endplate fracture deformities at T12, L1, and L2 with associated superior endplate Schmorl's nodes and resultant mild central height loss. No new compression fracture deformity. Also (+) mild multilevel lumbar spondylosis without significant spinal canal stenosis. At L5-S1, a broad-based central disc protrusion causes asymmetric left subarticular zone narrowing with abutment along the traversing left S1 nerve root. Mild to moderate bilateral L5-S1 neural foraminal stenosis with contact along the exiting L5 nerve roots Advised that if his low back pain continues to increase or progress, can consider referring him to neurosurgery for further evaluation and management Patient states that his low back pain seems to have calmed down a lot lately and he wishes to hold off on referral for now but will call if his back starts to act up again Reinforced activity and weight-lifting restrictions to avoid aggravating his lower back injury (10) Lateral epicondylitis of both elbows: Code(s): M77.11 - Lateral epicondylitis, right elbow; M77.12 - Lateral epicondylitis, left elbow Plan: Resolved - states that his elbow pain have improved significantly with cortisone injections from orthopedics a few months ago and are no longer bothering him lately (11) Overweight (BMI 25.0-29.9): Code(s): E66.3 - Overweight Plan: Reinforced diet/exercise as tolerated/lose weight Plan To return in 6 months for his next annual physical examination Orders: Orders Hemoglobin A1c 6 Months R73.01 - Impaired fasting glucose UA CC w/rflx Micro + Cult 6 Months R30.0 - Dysuria Vitamin D 25-OH Total 6 Months E55.9 - Vitamin D deficiency, unspecified XR knee RT 4V Today M25.561 - Pain in right knee Complete Blood Count Auto Diff 6 Months I10 - Essential (primary) hypertension Comprehensive Medicine Bow. Panel Fast 6 Months E78.00 - Pure hypercholesterolemia, unspecified Lipid Panel 6 Months E78.00 - Pure hypercholesterolemia, unspecified TSH reflex Free T4 6 Months E78.00 - Pure hypercholesterolemia, unspecified Prostate Specific Antigen Scr 6 Months Z00.00 - Encounter for general adult medical examination without abnormal findings Referrals Orthopedics Referral M25.561 - Pain in right knee Medications: New blood pressure monitor As directed 1 ea 0RF I10 - Essential (primary) hypertension meloxicam Take with food, only as needed 15 mg PO DAILY PRN 15 tabs 0RF knee pain Refilled fluticasone propionate 50 mcg/actuation administer into each nostril 1 spray intranasal DAILY 16 grams 5RF losartan 25 mg PO DAILY 90 tabs 1RF I10 - Essential (primary) hypertension cholecalciferol (vitamin D3) 50 mcg PO DAILY 90 days 90 caps 3RF E55.9 - Vitamin D deficiency, unspecified omeprazole 20 mg PO DAILY 90 days 90 caps 3RF Coding Level of Care Code Est Pt Level 4 (16534) Diagnoses Acute pain of right knee M25.561 Chronicity: acute Benign essential hypertension I10 Pure hypercholesterolemia E78.00 GERD without esophagitis K21.9 H. pylori infection A04.8 Impaired fasting glucose R73.01 Allergic rhinitis, unspecified seasonality, unspecified trigger J30.9 Allergic rhinitis trigger: unspecified Allergic rhinitis seasonality: unspecified Vitamin D deficiency E55.9 Lumbar spondylosis M47.816 Lateral epicondylitis of both elbows M77.11; M77.12 Overweight (BMI 25.0-29.9) E66.3
[2023-02-17 09:01] VITALS: BP 160/98; BMI 29.9
== END 2023-02-17 09:28 | disposition home or self-care (01) ==
PROVIDERS: PCP Internal Medicine; Visit Provider Internal Medicine
DX: I10 Essential (primary) hypertension (principal); K21.9 Gastro-esophageal reflux disease without esophagitis; E55.9 Vitamin D deficiency, unspecified; M25.561 Pain in right knee; E78.00 Pure hypercholesterolemia, unspecified; A04.8 Other specified bacterial intestinal infections; R73.01 Impaired fasting glucose; J30.9 Allergic rhinitis, unspecified; M47.816 Spondylosis without myelopathy or radiculopathy, lumbar region; M77.11 Lateral epicondylitis, right elbow; M77.12 Lateral epicondylitis, left elbow; E66.3 Overweight
CPT/HCPCS: 99214

== ENCOUNTER 2023-02-17 09:38 | Outpatient (REF) | payer OTHER, SELFPAY ==
--- NOTE | ~2023-02-17 | XR_ITS ---
EXAMINATION: XR KNEE, RIGHT CLINICAL INFORMATION: Pain. COMPARISON: None available. TECHNIQUE: AP, lateral, tunnel, and sunrise views of the right knee. FINDINGS: Bony alignment and mineralization are normal. The lateral, medial and patellofemoral joint space compartments are well-maintained. No fracture, dislocation or unusual degenerative change is seen. There is a moderate right knee joint effusion. An enthesophyte is seen at the upper pole of the patella at the quadriceps tendon insertion. No foreign body is seen. XR/XR knee RT 4V IMPRESSION: 1. No fracture, dislocation or unusual degenerative change is seen. 2. A moderate right knee joint effusion is seen.
== END 2023-02-17 09:39 | disposition home or self-care (01) ==
LOC: HO.XRAY 09:38
PROVIDERS: PCP Internal Medicine; Visit Provider Internal Medicine
DX: M25.561 Pain in right knee (principal)
CPT/HCPCS: 73564

== ENCOUNTER 2023-04-07 08:04 | Outpatient (REF) | payer MEDICAID, SELFPAY ==
--- NOTE | ~2023-04-07 | XR_ITS ---
EXAMINATION: XR KNEE AP STANDING CLINICAL INFORMATION: Pain COMPARISON: Right knee radiograph from 02/17/2023 TECHNIQUE: AP bilateral standing view of the knees was obtained. FINDINGS: No acute visible fracture or dislocation. Mild narrowing of the bilateral medial femorotibial compartments. Soft tissues are unremarkable. XR/XR knee standing BI IMPRESSION: 1. No acute visible fracture or dislocation. 2. Mild narrowing of the bilateral medial femorotibial compartments.
== END 2023-04-07 08:05 | disposition home or self-care (01) ==
LOC: HO.HOSX 08:04
PROVIDERS: Visit Provider Physician Assistant
DX: M17.11 Unilateral primary osteoarthritis, right knee (principal); M25.562 Pain in left knee
CPT/HCPCS: 73565; 99212

== ENCOUNTER 2023-04-07 09:14 | Outpatient (AMB) | payer MEDICAID, SELFPAY ==
--- NOTE | 2023-04-07 09:24 | A.OFFVIS_ITS ---
Intake Vital Signs 04/07/23 09:26 Height 5 ft 6 in Weight 185 lb BMI 29.9 Intake Visit Reasons: new prob- Pain in right knee Intake Note: Rain Morgan a 52 year old male presents today as a new patient for an evaluation of right knee pain. Patient reports pain presented suddenly about 2 months ago. Pain is located at the anterior aspect of knee. States his pain increases with walking. He was seen by his PCP who referred him to orthopedic. He was prescribed meloxicam by PCP which does not provide him relief. Denies injury. 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 He states he has pain at the anterior aspect of his knee which is aggravated with walking, standing and stair use. He was seen by his PCP who prescribed meloxicam which did not provide him any relief and he was referred our office. He denies any knee locking or giving out. He has not had any injury in the past. 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 [facility] Medical History (Updated 04/07/23 @ 09:48 by Cleveland Rodriguez PA-C) Lumbar spondylosis Obesity (BMI 30-39.9) H. 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 Lateral retropatellar tenderness present. Full ROM with crepitus. Negative Conner?s. No ligamentous laxity. NVI. Results Reviewed Results Reviewed: Xrays were obtained in the office today and personally reviewed by me of the right knee show milf of oa Assessment & Plan Assessment & Plan (1) Patellofemoral arthritis of right knee: Code(s): M17.11 - Unilateral primary osteoarthritis, right knee Plan We discussed options which include PT, NSAIDs and injections. The patient will defer on the injection today and proceed with PT and NSAIDs. He was also fit for a Genumed knee brace in the office today. If symptoms persist, the patient will contact me for an injection, otherwise, PRN. Orders: Orders PT Evaluation and Treatment Today M17.11 - Unilateral primary osteoarthritis, right knee XR knee standing BI Today M25.561 - Pain in right knee, M25.562 - Pain in left knee Patient Instructions: Scribed for Cleveland Rodriguez PA-C, by Damien Cruz medical front desk specialist, on 04/07/2023 at 9:30 AM LC. Cleveland Spivey PA-C, have personally reviewed and agree with the information entered by the scribe. Coding Level of Care Code Est Pt Level 3 (71663) Diagnoses Patellofemoral arthritis of right knee M17.11
[2023-04-07 09:26] VITALS: BMI 29.9
== END 2023-04-07 10:12 | disposition home or self-care (01) ==
PROVIDERS: PCP Internal Medicine; Visit Provider Physician Assistant
DX: M17.11 Unilateral primary osteoarthritis, right knee (principal)
CPT/HCPCS: 99213

== ENCOUNTER 2023-06-16 08:07 | Outpatient (AMB) | payer OTHER, SELFPAY ==
--- NOTE | 2023-06-16 08:50 | AM.OFFWIN_ITS ---
Intake Vital Signs 06/16/23 09:05 Height 5 ft 6 in Weight 190 lb BMI 30.7 BP 120/84 Blood Pressure Location Rt brachial Position Sitting Pulse 78 Pulse Source Pulse Oximeter Temp 97.4 F Temp Source Temporal Artery Scan Pulse Oximetry (%) 98 Oxygen Delivery Method Room Air Intake Visit Reasons: EP RT side pain [id number] Intake Note: Pt is here c/o right side abdominal pain that started two weeks ago. Patient Tobacco Use Status: Never used Tobacco Allergies No Known Allergies Allergy (Verified 06/16/23 09:19) Do you need a note to return to daycare/school/sports/work: Yes HPI EP RT side pain [id number] HPI Details 52-year-old male presents to the office for a sick visit. Patient is complaining of abdominal pain for the past 2 weeks. Pain is constant and on on the right side of the abdomen. He was taking nonsteroidals for pain in his foot. No fevers or chills. No nausea or vomiting. No change in bowel habits. [facility] Medical History (Updated 04/07/23 @ 09:48 by Cleveland Rodriguez PA-C) Lumbar spondylosis Obesity (BMI 30-39.9) H. 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 Current occupational exposures/hazards: No Cognitive needs: No Hearing needs: No Vision needs: No Physical Exam Vital Signs: Last Vital Signs Temp 97.4 F 06/16/23 09:05 Pulse 78 06/16/23 09:05 BP 120/84 06/16/23 09:05 Pulse Ox 98 06/16/23 09:05 Oxygen Delivery Method Room Air 06/16/23 09:05 BMI result Body Mass Index 30.7 Const General: cooperative and healthy appearing Nutritional Appearance: well nourished Orientation/consciousness: patient oriented x3 Limitations: no limitations HEENT Head: Yes normal to inspection Eyes General: appearance normal, both eyes and all related structures Neck Neck: Yes normal visual inspection Chest Chest palpation & inspection: normal palpation of entire chest wall Resp Effort & Inspection: normal respiratory effort Neuro General: patient oriented x3 Results AMB Urinalysis, Automated UA Leukoctes 0 Aydin/uL Last Edit by Mary Estrada CMA on 06/16/23 09:30 UA Nitrite Negative Last Edit by Mary Estrada CMA on 06/16/23 09:30 UA Urobilinogen 0.2 mg/dL Last Edit by Mary Estrada, KYLAH on 06/16/23 09:30 UA Protein 0 mg/dL Last Edit by Mary Estrada, KYLAH on 06/16/23 09:30 UA pH 6.0 Last Edit by Mary Estrada, KYLAH on 06/16/23 09:30 UA Blood 0 Al/uL Last Edit by Mary Estrada, KYLAH on 06/16/23 09:30 UA Specific [place] 1.030 Last Edit by Mary Estrada CMA on 06/16/23 09:3 0 UA Ketone Negative Last Edit by Mary Estrada CMA on 06/16/23 09:30 UA Bilirubin 0 mg/dL Last Edit by Mary Estrada CMA on 06/16/23 09:30 UA Glucose 0 mg/dL Last Edit by Mary Estrada CMA on 06/16/23 09:30 Results Reviewed Results Reviewed: Laboratory Last Values Urine pH (Auto) 6.0 06/16/23 09:28 Specific [place] (Auto) 1.030 06/16/23 09:28 Urine Protein (Auto) 0 mg/dL 06/16/23 09:28 Glucose (UA)(Auto) 0 mg/dL 06/16/23 09:28 Urine Ketones (Auto) Negative 06/16/23 09:28 Urine Blood (Auto) 0 Al/uL 06/16/23 09:28 Urine Nitrite (Auto) Negative 06/16/23 09:28 Urine Bilirubin (Auto) 0 mg/dL 06/16/23 09:28 Urine Urobilinogen (Auto) 0.2 mg/dL 06/16/23 09:28 Leukocyte Esterase (Auto) 0 Aydin/uL 06/16/23 09:28 Assessment & Plan Assessment & Plan (1) Abdominal pain: Code(s): R10.9 - Unspecified abdominal pain Plan: Could represent gastritis. Patient was asked to discontinue the nonsteroidals. Ppi called in. Blood work was done to assess the liver functions. Orders: Orders AMB Urinalysis Automated Today Z13.9 - Encounter for screening, unspecified Basic Metabolic Panel Today R10.9 - Unspecified abdominal pain Complete Blood Count no Diff Today R10.9 - Unspecified abdominal pain Liver Panel Today R10.9 - Unspecified abdominal pain Erythrocyte Sedimentation Rate Today R10.9 - Unspecified abdominal pain Coding Level of Care Code Est Pt Level 3 (97897) Diagnoses Abdominal pain R10.9
[2023-06-16 09:05] VITALS: BP 120/84; PULSE 78; TEMP 36.3; O2SAT 98; BMI 30.7
== END 2023-06-16 09:41 | disposition home or self-care (01) ==
PROVIDERS: PCP Internal Medicine; Visit Provider Internal Medicine
DX: R10.9 Unspecified abdominal pain (principal)
CPT/HCPCS: 81003; 99213

== ENCOUNTER 2023-06-16 09:36 | Outpatient (REF) | payer OTHER, SELFPAY ==
[2023-06-16 11:46] LABS: Hematocrit 42.9 % (42.0-52.0); Hemoglobin 14.4 g/dl (14.0-18.0); Mean Corpuscular HGB Conc 33.6 g/dl (31.0-36.0); Mean Corpuscular Hemoglobin 30.5 pg (27.0-33.0); Mean Corpuscular Volume 90.9 fL (80.0-98.0); Mean Platelet Volume 9.5 fL (9.4-12.4); Platelet Count 209 X10*3/uL (160-400); Red Blood Count 4.72 X10*6/uL (4.60-5.80); Red Cell Distribution Width 12.9 % (11.0-16.0); White Blood Count 5.7 X10*3/uL (4.8-10.8)
[2023-06-16 12:20] LABS: Erythrocyte Sedimentation Rate 10 MM/HR (0-15)
[2023-06-16 12:24] LABS: Alanine Aminotransferase 30 U/L (0-40); Albumin Level 4.2 g/dL (3.5-5.0); Alkaline Phosphatase 60 U/L (39-117); Anion Gap 12 (12-20); Aspartate Amino Transferase 21 U/L (5-37); Bilirubin Direct 0.1 mg/dL (0.0-0.5); Bilirubin Total 0.4 mg/dL (0.0-1.0); Blood Urea Nitrogen 18 mg/dL (9-16); Calcium 9.2 mg/dL (8.4-10.2); Carbon Dioxide 23 mmol/L (22-29); Chloride 108 mmol/L (96-108); Estimated Glomerular Filt Rate > 60; Glucose Random 135 mg/dL (60-115); Potassium 4.1 mmol/L (3.3-5.1); Sodium 139 mmol/L (135-145); Total Protein 7.8 g/dL (6.5-8.0)
== END 2023-06-16 09:37 | disposition home or self-care (01) ==
LOC: HO.HMGCLDS 09:36
PROVIDERS: Internal Medicine; PCP Internal Medicine; Visit Provider Internal Medicine
DX: R10.9 Unspecified abdominal pain (principal)
CPT/HCPCS: 36415; 80048; 80076; 85027; 85652

== ENCOUNTER 2023-06-30 14:05 | Outpatient (AMB) | payer OTHER, SELFPAY ==
--- NOTE | 2023-06-30 14:10 | MHC.OFFWIV ---
Intake Vital Signs 06/30/23 14:12 Height 5 ft 6 in Weight 193 lb BMI 31.1 BP 140/80 H Blood Pressure Location Lt brachial Position Sitting Pulse 76 Pulse Source Pulse Oximeter Temp 97.9 F Temp Source Oral Pulse Oximetry (%) 98 Intake Visit Reasons: EP RT Lower RT side/back pain Intake Note: pt is here for c.o right lower abd pain, goes into back. pt denies injury Patient Tobacco Use Status: Never used Tobacco Allergies No Known Allergies Allergy (Verified 06/30/23 15:12) Medication List - Last Reconciled 06/30/23 by Sergio Colbert MD blood pressure monitor As directed cholecalciferol (vitamin D3) 50 mcg PO DAILY 90 days fluticasone propionate 50 mcg/actuation 1 spray intranasal DAILY loratadine 10 mg PO DAILY PRN 90 days losartan 25 mg PO DAILY nabumetone 500 mg PO BID PRN 30 days pantoprazole 40 mg PO DAILY Do you need a note to return to daycare/school/sports/work: Yes HPI EP RT Lower RT side/back pain HPI Details 52 yr old male presents to the office for a sick visit. Continues to have discomfirt in the right side of the abdomen. PPI started in the last visit has not been effective. He stopped the NSAIDS he was taking for back pain. No belching or burping. BM are regular [facility] Medical History (Updated 04/07/23 @ 09:48 by Cleveland Rodriguez PA-C) Lumbar spondylosis Obesity (BMI 30-39.9) H. 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 occupational status: employed 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 Current occupational exposures/hazards: No Cognitive needs: No Hearing needs: No Vision needs: No Physical Exam Vital Signs: Last Vital Signs Temp 97.9 F 06/30/23 14:12 Pulse 76 06/30/23 14:12 BP 140/80 H 06/30/23 14:12 Pulse Ox 98 06/30/23 14:12 BMI result Body Mass Index 31.1 Const General: cooperative and healthy appearing Nutritional Appearance: well nourished Orientation/consciousness: patient oriented x3 Limitations: no limitations HEENT Head: Yes normal to inspection Eyes General: appearance normal, both eyes and all related structures Neck Neck: Yes normal visual inspection Chest Chest palpation & inspection: normal palpation of entire chest wall Resp Effort & Inspection: normal respiratory effort GI Other: Abd: BS well heard. No organomegaly. Neuro General: patient oriented x3 Assessment & Plan Assessment & Plan (1) Abdominal pain: Code(s): R10.9 - Unspecified abdominal pain Plan: Previous visit revd. BW was in range. Todays physical exam is benign. I have asked him to follow up with his PCP for further testing including an ultrasound. He wanted the tests from here, I encouraged him to see his PCP. Coding Level of Care Code Est Pt Level 3 (39698) Diagnoses Abdominal pain R10.9
[2023-06-30 14:12] VITALS: BP 140/80; PULSE 76; TEMP 36.6; O2SAT 98; BMI 31.1
== END 2023-06-30 16:04 | disposition home or self-care (01) ==
PROVIDERS: PCP Internal Medicine; Visit Provider Internal Medicine
DX: R10.9 Unspecified abdominal pain (principal)
CPT/HCPCS: 99213

== ENCOUNTER 2023-07-01 13:56 | Outpatient (REF) | payer OTHER, SELFPAY ==
[2023-07-01 14:04] LABS: MANUAL DIFF FLAG NO
[2023-07-01 14:45] LABS: Basophils Percent Auto 0.8 % (0-2); Eosinophils Absolute Auto 0.1 X10*3/uL (0.0-0.4); Eosinophils Percent Auto 2.3 % (0-4); Hematocrit 44.1 % (42.0-52.0); Hemoglobin 14.5 g/dl (14.0-18.0); Imm Gran Abs Auto 0.06 X10*3/uL (0.00-0.03); Imm Gran Pct Auto 1.2 % (0.0-0.4); Lymphocytes Absolute Auto 1.2 X10*3/uL (1.2-4.9); Lymphocytes Percent Auto 24.5 % (20-40); Mean Corpuscular HGB Conc 32.9 g/dl (31.0-36.0); Mean Corpuscular Hemoglobin 30.2 pg (27.0-33.0); Mean Corpuscular Volume 91.9 fL (80.0-98.0); Mean Platelet Volume 9.2 fL (9.4-12.4); Monocytes Absolute Auto 0.5 X10*3/uL (0.1-1.2); Monocytes Percent Auto 9.8 % (2-11); Neutrophils Percent Auto 61.4 % (45-73); Platelet Count 208 X10*3/uL (160-400); White Blood Count 4.8 X10*3/uL (4.8-10.8)
[2023-07-01 14:57] LABS: Appearance Urine Clear; Color Urine Yellow; Glucose Urine UA Negative (Negative); Leukocyte Esterase Urine Negative (Negative); Nitrite Urine Negative (Negative); Urine Blood Negative (Negative); Urine Ketones Negative (Negative); Urine Protein Negative (Neg-Trace)
[2023-07-01 15:27] LABS: Alanine Aminotransferase 24 U/L (0-40); Albumin Level 4.3 g/dL (3.5-5.0); Alkaline Phosphatase 65 U/L (39-117); Anion Gap 10 (12-20); Aspartate Amino Transferase 18 U/L (5-37); Bilirubin Total 0.4 mg/dL (0.0-1.0); Blood Urea Nitrogen 19 mg/dL (9-16); Calcium 9.4 mg/dL (8.4-10.2); Carbon Dioxide 28 mmol/L (22-29); Chloride 104 mmol/L (96-108); Estimated Glomerular Filt Rate > 60; Glucose Random 161 mg/dL (60-115); Sodium 138 mmol/L (135-145); Total Protein 8.2 g/dL (6.5-8.0)
== END 2023-07-01 13:57 | disposition home or self-care (01) ==
LOC: HO.LAB 13:56
PROVIDERS: PCP Internal Medicine; Visit Provider Internal Medicine
DX: R30.0 Dysuria (principal); R10.9 Unspecified abdominal pain; D64.9 Anemia, unspecified
CPT/HCPCS: 36415; 80053; 81003; 85025

== ENCOUNTER 2023-07-02 08:35 | Outpatient (REF) | payer OTHER, SELFPAY ==
--- NOTE | ~2023-07-02 | US_ITS ---
EXAMINATION: US ABDOMEN COMPLETE CLINICAL INFORMATION: Abdominal pain. COMPARISON: None available. TECHNIQUE: Real-time imaging of the abdominal viscera. FINDINGS: PANCREAS: Head and body the pancreas are normal. The tail is not well visualized due to bowel gas. ABDOMINAL AORTA: The proximal, mid, and distal segments are normal in caliber. INFERIOR VENA CAVA: Visualized portions are normal. LIVER: Liver echotexture is increased. The liver is normal in size. The liver contour is normal. No focal hepatic lesion. There is no intrahepatic biliary duct dilatation seen. GALLBLADDER: Normal. The gallbladder is physiologically distended without evidence of stones, sludge, polyps, wall thickening or pericholecystic fluid. COMMON BILE DUCT: Normal in caliber measuring 0.2 cm in diameter. RIGHT KIDNEY: Mild fullness of the right renal pelvis. No definite hydronephrosis. No renal calculi or focal parenchymal lesions. The kidney measures 12 cm in maximum dimension. LEFT KIDNEY: Normal. No hydronephrosis. No renal calculi or focal parenchymal lesions. The kidney measures 13 cm in maximum dimension. SPLEEN: Normal. The spleen measures 10.6 cm in maximum dimension. FREE FLUID: None. US/US abdomen complete IMPRESSION: Echogenic liver. Differential would include fatty infiltration and hepatocellular disease. Mild fullness of the right renal pelvis. Limited visualization of the tail of the pancreas.
--- NOTE | ~2023-07-02 | US_ITS ---
EXAMINATION: US pelvic, LIMITED/FOLLOW UP CLINICAL INFORMATION: Right lower quadrant pain COMPARISON: None available. TECHNIQUE: Grayscale and color imaging of the right lower quadrant using a linear and curved transducer FINDINGS: No abnormality in the right lower quadrant is a seen by ultrasound. No hernia. No mass. Appendix not seen. US/US pelvic limited IMPRESSION: No right lower quadrant abnormality seen by ultrasound.
== END 2023-07-02 08:36 | disposition home or self-care (01) ==
LOC: HO.HMGCX 08:35
PROVIDERS: PCP Internal Medicine; Visit Provider Internal Medicine
DX: R10.9 Unspecified abdominal pain (principal)
CPT/HCPCS: 76700; 76857

== ENCOUNTER 2023-07-07 13:48 | Outpatient (AMB) | payer OTHER, SELFPAY ==
[2023-07-07 13:52] VITALS: BP 124/86; PULSE 84; O2SAT 96; BMI 31.1
--- NOTE | 2023-07-07 13:52 | A.OFFPC_ITS ---
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 Required: No Accompanied by: Self / Same As Patient Allergies No Known Allergies Allergy (Verified 07/07/23 14:23) Medication List - Last Reconciled 07/07/23 by Juan Brooke MD blood pressure monitor As directed cholecalciferol (vitamin D3) 50 mcg PO DAILY 90 days fluticasone propionate 50 mcg/actuation 1 spray intranasal DAILY loratadine 10 mg PO DAILY PRN 90 days losartan 25 mg PO DAILY meloxicam 15 mg PO DAILY PRN pantoprazole 40 mg PO DAILY Tobacco use date assessed: 07/07/23 Dental Screening Dental Screen Date: 07/07/23 Did you have a dental visit in the last 12 months?: Yes Did you have a dental problem in the last 6 months where you did not have access to dental care?: No Was dental information given to patient?: Patient has dentist HPI abdominal pain HPI Details Patient comes in today for further evaluation/follow up of his right- sided abdominal pain and discomfort, which he states has been going on for 2 to 3 weeks now Notes that the pain feels more prominent when he is lying down in bed at night and with straining although he does not recall any recent injury or trauma to the right side of his abdomen States that he works at a [employer] and is on his feet and moving around constantly all day long He recently had some labs and abdominal and pelvic US done - labs came back okay but US showed (+) fullness of the right renal pelvis and echogenic liver States that the pain is not affected when he eats or drinks or moves his bowels or bladder He denies any fever Denies any nausea or vomiting Adds that he has been experiencing recurrent multiple joint pains and low back pain and that his Nabumetone has not been helping - would like to try getting something stronger [facility] Medical History Lumbar spondylosis Obesity (BMI 30-39.9) H. 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 1. Little interest or pleasure in doing things: not at all 2. Feeling down, depressed, or hopeless: not at all 3. Trouble falling or staying asleep, or sleeping too much: not at all 4. Feeling tired or having little energy: not at all 5. Poor appetite or overeating: not at all 6. Feeling bad about yourself - or that you are a failure or have let yourself or your family down: not at all 7. Trouble concentrating on things, such as reading the newspaper or watching television: not at all 8. Moving or speaking so slowly that other people could have noticed. Or the opposite - being so fidgety or restless that you have been moving around a lot more than usual: not at all 9. Thoughts that you would be better off or of hurting yourself in some way: not at all Total score: 0 Depression Screening Interpretation: Negative Depression Screening Done: Yes [id number] - PHQ-9 Billing: Yes Source: Developed by Drs. Steven Oquendo, Aminta Rodriguez, Eliu Roe and colleagues, with an educational deneen from [employer]. Thrive Questionnaire Date Thrive assessed: 07/07/23 I am a: Patient What is your living situation today?: I have a steady place to live Within the past 12 months, did the food you bought not last and you didn't have the money to get more?: Never true Within the past 12 months, did you worry whether your food would run out before you got money to buy more?: Never true Do you have trouble paying for medicines?: No Do you have trouble getting transportation to medical appointments?: No Do you have trouble paying your heating and electricity bill?: No Do you have trouble taking care of your child, family member or friend?: No Do you have trouble with day-to-day activities such as bathing, preparing meals, shopping, managing finances, etc.?: No Are you currently unemployed and looking for a job?: No Are you interested in more education?: No Please select the resources that you would like help with: None Currently or been in a relationship where the following occur: no concerns reported THRIVE Score: 0 AUDIT C Alcohol Use Questionnaire (AUDIT-C) 1. How often do you have a drink containing alcohol?: Never 2. How many drinks containing alcohol do you have on a typical day when you are drinking?: 1 or 2 3. How often do you have six or more drinks on one occasion?: Never Total Score: 0 Score Reviewed/Action Taken: Yes ROB-7 AMB Questionnaire ROB-7 Date ROB - 7 assessed: 07/07/23 Feeling nervous, anxious, or on edge: 0 = Not at all Not being able to stop or control worryin = Not at all Worrying too much about different things: 0 = Not at all Trouble relaxin = Not at all Being so restless that it is hard to sit still: 0 = Not at all Becoming easily annoyed or irritable: 0 = Not at all Feeling afraid as if something awful might happen: 0 = Not at all Total ROB-7 score (0-4 normal; 5-9 mild; 10-14 moderate; 15-21 severe): 0 Source: Developed by Drs. Steven Oquendo, Aminta Rodriguez, Eliu Roe and colleagues, with an educational deneen from [employer]. Review of Systems Const Denies chills, Denies fatigue, Denies fever(s), Denies headache(s) and Denies weight loss ENT Denies dysphagia, Denies dizziness, Denies otalgia, Denies headache(s), Denies neck pain, Denies odynophagia and Denies sore throat Card Denies chest pain, Denies palpitations and Denies dyspnea Resp Denies cough and Denies dyspnea GI Reports abdominal pain (right-sided - see HPI for details), Denies hematochezia, Denies constipation, Denies dysphagia, Denies heartburn, Denies diarrhea, Denies nausea, Denies odynophagia and Denies vomiting Denies hematuria, Denies dysuria, Denies nocturia and Denies urinary frequency Musc Reports back pain (over the lower back), Reports arthralgias (involving multiple joints, including both knees and elbows) and Denies neck pain Skin/Breast Denies rash Neuro Denies dizziness and Denies headache(s) Endo Denies fatigue and Denies palpitations Physical exam (Primary Care) Vital Signs: Last Vital Signs Pulse 84 07/07/23 13:52 BP 124/86 07/07/23 13:52 Pulse Ox 96 07/07/23 13:52 Oxygen Delivery Method Room Air 07/07/23 13:52 BMI result Body Mass Index 31.1 Tobacco/Smoking Status: Tobacco use Status Tobacco use date assessed 07/07/23 07/07/23 13:53 Patient Tobacco Use Status Never used Tobacco 07/07/23 13:53 e-Cigarette/Vaping Use Never Used 07/07/23 13:53 PHQ-9: PHQ-9 Score PHQ-9: Total score 0 07/07/23 13:59 Depression Screening Interpretation: Negative Thrive Assessment: Date of Thrive Assessment Date Thrive assessed 07/07/23 07/07/23 13:53 Currently or been in a relationship where the following occur: no concerns reported Const General: no acute distress and alert Neck Neck: Yes no lymphadenopathy and Yes supple Resp Auscultation: clear to auscultation bilaterally, no rales and no wheezes Cardio Rate: regular rate Rhythm: regular rhythm Heart sounds: no murmurs GI Palpation (GI): Soft to palpation, Tenderness to palpation present (GI) (over the entire right side of the abdomen), no guarding, not rigid, No hepatosplenomegaly present, no masses and No Rebound tenderness present General: Yes no CVA tenderness Back/Spine/Pelvis Back: no CVA tenderness Thoracic/Lumbar Spine: lumbar spinal tenderness Skin Rashes: no rashes Extrem General: Yes no clubbing, cyanosis or edema Results Reviewed Results Reviewed: Laboratory Tests 06/16/23 07/01/23 07/01/23 09:45 14:03 14:03 WBC 4.8 Hgb 14.5 Hct 44.1 Plt Count 208 ESR 10 Sodium 138 Potassium 4.0 Creatinine 0.80 Estimated GFR > 60 Random Glucose 161 H Calcium 9.4 Total Bilirubin 0.4 AST 18 ALT Total Protein Ur Specific [place] Urine Protein Urine Glucose (UA) Urine Blood Urine Nitrite Ur Leukocyte Esterase 07/01/23 07/01/23 07/01/23 14:03 14:03 14:27 WBC Hgb Hct Plt Count ESR Sodium Potassium Creatinine Estimated GFR Random Glucose Calcium Total Bilirubin AST ALT 24 Total Protein 8.2 H Ur Specific [place] 1.020 Urine Protein Negative Urine Glucose (UA) Urine Blood Urine Nitrite Ur Leukocyte Esterase 07/01/23 14:27 WBC Hgb Hct Plt Count ESR Sodium Potassium Creatinine Estimated GFR Random Glucose Calcium Total Bilirubin AST ALT Total Protein Ur Specific [place] Urine Protein Urine Glucose (UA) Negative Urine Blood Negative Urine Nitrite Negative Ur Leukocyte Esterase Negative Assessment and Plan Assessment & Plan (1) Right sided abdominal pain: Code(s): R10.9 - Unspecified abdominal pain (2) Renal pelvis enlarged on ultrasound: Code(s): R93.41 - Abnormal radiologic findings on diagnostic imaging of renal pelvis, ureter, or bladder (3) Lumbar spondylosis: Code(s): M47.816 - Spondylosis without myelopathy or radiculopathy, lumbar region Plan: Reinforced activity and weight-lifting restrictions (4) Arthralgia: Code(s): M25.50 - Pain in unspecified joint Qualifiers: Joint pain location: unspecified Qualified Code(s): M25.50 - Pain in unspecified joint Plan Patient is advised that his labs done last week all came out normal/unrevealing His pelvic US done recently came out normal/negative; abdominal US revealed (+) echogenic liver and also (+) fullness of the right renal pelvis, which raises some concerns Will send patient for abdominal and pelvic CT MARIZOL for further evaluation Will have him continue for now on Pantoprazole 40 mg QD Per request, will switch him from Nabumetone 500 mg BID to Meloxicam 15 mg QD PRN with food for his joint pains as he states that Nabumetone have not helped much Have also advised him to try some OTC Salonpas patches PRN for symptomatic relief To return as scheduled in August 2023 for his annual physical examination Orders: Orders CT abdomen pelvis wo IV con Today R10.9 - Unspecified abdominal pain, R93.41 - Abnormal radiologic findings on diagnostic imaging of renal pelvis, ureter, or bladder Medications: New meloxicam take with food 15 mg PO DAILY PRN 30 tabs 1RF joint pain Discontinued nabumetone Discontinued Reason: Doctor's Order 500 mg PO BID 30 days PRN 60 tabs 3RF for joint pain Coding Level of Care Code Est Pt Level 4 (11453) Diagnoses Right sided abdominal pain R10.9 Renal pelvis enlarged on ultrasound R93.41 Lumbar spondylosis M47.816 Arthralgia, unspecified joint M25.50 Joint pain location: unspecified
== END 2023-07-07 14:21 | disposition home or self-care (01) ==
PROVIDERS: PCP Internal Medicine; Visit Provider Internal Medicine
DX: R10.9 Unspecified abdominal pain (principal); R93.41 Abnormal radiologic findings on diagnostic imaging of renal pelvis, ureter, or bladder; M47.816 Spondylosis without myelopathy or radiculopathy, lumbar region; M25.50 Pain in unspecified joint
CPT/HCPCS: 99214

== ENCOUNTER 2023-07-08 14:00 | Outpatient (RCR) | payer OTHER, SELFPAY ==
--- NOTE | 2023-06-10 08:48 | MHC.PT.EP ---
[facility] [place] Office [place] Office [place] Office [address] [phone] F: [phone] F: [phone] F: [phone] F: [phone] Physical Therapy Plan of Care Date of Evaluation: 06/09/23 Date of Surgery: Diagnosis: PF OA of R knee Assessment: Pt is a 52 y/o male referred to PT for eval and treat of PF OA of R knee resulting in decreased tolerance and ability for standing and walking for duration secondary to decreased R knee and B hip strength, increased quad and hamstring tissue tension, mild gait abnormality, and pain. Pt is deemed an appropriate candidate to receive skilled PT services to address their physical impairments in order to improve their functional ability. Frequency and Duration: The patient will be seen 1 x / wk x 5 wks. Short Term Goals: initiate home program improve baseline pain with standing for duration to < 2/10; initial: 3/10. Building Services Engineer Goals: I with home program. Pt will be able to stand > 1 hour with managed Sx. Improve LEFI outcome measure by at least 9 points. Improve B hip abd MMT by at least 1/2 MMT grade. Improve R knee ext strength by at least 1/2 MMT grade. Treatment Plan: Modalities to reduce pain, spasms and effusion. Manual therapy to restore motion and function. Therapeutic exercise to improve strength and flexibility. Neuromuscular re-education for posture and balance. Therapeutic activities to return to functional activities of daily living. Electronically signed by: José Miguel Ward PT. Please sign and return to therapist. Thank you for your referral.
--- NOTE | 2023-09-10 10:18 | MHC.PT.DC ---
[facility] [place] Office [place] Office [place] Office [address] Riaz Lora [address] [phone] F: [phone] F: [phone] F: [phone] F: [phone] Physical Therapy Discharge Report Diagnosis: PF OA of R knee Date of Surgery: Date of Evaluation: 06/09/23 Date of Discharge: 09/10/23 Treatments to Date: 2 Cancellations to Date: No Shows to Date: Discharge Status: Patient Elected to Stop Discharge Summary: Pt tolerated review of hep and some progression; trialed bike w/o pain- He will try a bike at his gym. No adverse effects. Electronically signed by: José Miguel Ward PT. Please sign and return to therapist. Thank you for your referral.
== END 2023-10-25 13:15 | disposition home or self-care (01) ==
LOC: HO.PT 14:00
PROVIDERS: PCP Internal Medicine; Visit Provider Physician Assistant
DX: M17.11 Unilateral primary osteoarthritis, right knee (principal)
CPT/HCPCS: 97110; 97161

== ENCOUNTER 2023-08-04 13:46 | Outpatient (REF) | payer OTHER, SELFPAY ==
[2023-08-04 14:09] LABS: MANUAL DIFF FLAG NO
[2023-08-04 15:16] LABS: Basophils Percent Auto 0.5 % (0-2); Eosinophils Absolute Auto 0.1 X10*3/uL (0.0-0.4); Eosinophils Percent Auto 2.4 % (0-4); Hematocrit 41.6 % (42.0-52.0); Hemoglobin 13.8 g/dl (14.0-18.0); Imm Gran Abs Auto 0.06 X10*3/uL (0.00-0.03); Lymphocytes Absolute Auto 1.2 X10*3/uL (1.2-4.9); Lymphocytes Percent Auto 20.4 % (20-40); Mean Corpuscular HGB Conc 33.2 g/dl (31.0-36.0); Mean Corpuscular Hemoglobin 29.9 pg (27.0-33.0); Mean Platelet Volume 8.9 fL (9.4-12.4); Monocytes Absolute Auto 0.5 X10*3/uL (0.1-1.2); Monocytes Percent Auto 9.1 % (2-11); Neutrophils Absolute Auto 3.8 x10*3/uL (2.0-8.3); Neutrophils Percent Auto 66.6 % (45-73); Platelet Count 231 X10*3/uL (160-400); Red Blood Count 4.62 X10*6/uL (4.60-5.80); Red Cell Distribution Width 13.2 % (11.0-16.0); White Blood Count 5.7 X10*3/uL (4.8-10.8)
[2023-08-04 16:06] LABS: Estimated Average Glucose 126 mg/dL
[2023-08-04 17:16] LABS: Appearance Urine Clear; Color Urine Yellow; Glucose Urine UA Negative (Negative); Leukocyte Esterase Urine Negative (Negative); Nitrite Urine Negative (Negative); Specific Gravity - Urine 1.015 (1.005-1.025); Urine Blood Negative (Negative); Urine Ketones Negative (Negative); Urine Protein Negative (Neg-Trace)
[2023-08-04 17:41] LABS: Alanine Aminotransferase 33 U/L (0-40); Alkaline Phosphatase 60 U/L (39-117); Anion Gap 11 (12-20); Aspartate Amino Transferase 25 U/L (5-37); Bilirubin Total 0.4 mg/dL (0.0-1.0); Blood Urea Nitrogen 15 mg/dL (9-16); Calcium 9.2 mg/dL (8.4-10.2); Carbon Dioxide 27 mmol/L (22-29); Chloride 105 mmol/L (96-108); Cholesterol 172 mg/dL (<200); Estimated Glomerular Filt Rate > 60; Glucose Fasting 86 mg/dL (60-99); HDL Cholesterol 34 mg/dL (>40); LDL Cholesterol Calculated 118 mg/dL (<100); Potassium 3.9 mmol/L (3.3-5.1); Sodium 139 mmol/L (135-145); Total Protein 7.8 g/dL (6.5-8.0); Triglycerides 103 mg/dL (<150)
[2023-08-04 17:57] LABS: Prostate Specific Antigen Scr 0.86 ng/mL (<0.05-4.0)
[2023-08-04 18:01] LABS: TSH reflex Free T4 1.81 uIU/mL (0.32-4.0); Vitamin D 25-OH Total 41.8 ng/mL (>30)
== END 2023-08-04 13:47 | disposition home or self-care (01) ==
LOC: HO.LAB 13:46
PROVIDERS: PCP Internal Medicine; Visit Provider Internal Medicine
DX: Z00.00 Encounter for general adult medical examination without abnormal findings (principal); Z12.5 Encounter for screening for malignant neoplasm of prostate; R73.01 Impaired fasting glucose; R30.0 Dysuria; E78.00 Pure hypercholesterolemia, unspecified; E55.9 Vitamin D deficiency, unspecified; I10 Essential (primary) hypertension
CPT/HCPCS: 36415; 80053; 80061; 81003; 82306; 83036; 84153; 84443; 85025

== ENCOUNTER 2023-08-19 09:01 | Outpatient (AMB) | payer OTHER, SELFPAY ==
[2023-08-19 09:04] VITALS: BP 130/84; PULSE 75; O2SAT 99; BMI 29.8
--- NOTE | 2023-08-19 09:04 | MHC.PC.OV ---
Vital Signs 08/19/23 09:04 Height 5 ft 6 in Weight 184 lb 8 oz BMI 29.8 BP 130/84 Blood Pressure Location Lt brachial Position Sitting Pulse 75 Pulse Source Pulse Oximeter Pulse Oximetry (%) 99 Oxygen Delivery Method Room Air Intake Visit Reasons: Annual exam Relay Checker Required: No Accompanied by: Self / Same As Patient Allergies No Known Allergies Allergy (Verified 08/19/23 09:22) Medication List - Last Reconciled 08/19/23 by Juan Brooke MD blood pressure monitor As directed cholecalciferol (vitamin D3) 50 mcg PO DAILY 90 days fluticasone propionate 50 mcg/actuation 1 spray intranasal DAILY loratadine 10 mg PO DAILY PRN 90 days losartan 25 mg PO DAILY meloxicam 15 mg PO DAILY PRN pantoprazole 40 mg PO DAILY Tobacco use date assessed: 08/19/23 Dental Screening Dental Screen Date: 08/19/23 Did you have a dental visit in the last 12 months?: No Did you have a dental problem in the last 6 months where you did not have access to dental care?: No Was dental information given to patient?: No HPI Annual exam HPI Details Patient comes in today for his annual physical examination States that he feels okay except for increased right knee pain and aching often lately Relates that he has arthritis in both knees (seen on knee x-rays done a few months ago) and thinks that his arthritis in the right knee is acting up now Still takes Meloxicam as needed but states that it has not helped much over the past few days He denies any headaches or dizziness Denies any chest pains, no SOB No nausea/vomiting; states that he still has some right-sided abdominal pain but the pain has subsided somewhat and has been more tolerable lately He is scheduled for abdominal CT next month on 09/08/2023 for further evaluation of his abdominal symptoms No change in bowel habits noted Denies any acute urinary symptoms Had his follow up labs done a couple of weeks ago - to discuss his results He is up-to-date with his colon cancer screening - will be due for repeat colonoscopy next year (2024) [facility] Medical History Lumbar spondylosis Obesity (BMI 30-39.9) H. 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 1. Little interest or pleasure in doing things: not at all 2. Feeling down, depressed, or hopeless: not at all 3. Trouble falling or staying asleep, or sleeping too much: not at all 4. Feeling tired or having little energy: not at all 5. Poor appetite or overeating: not at all 6. Feeling bad about yourself - or that you are a failure or have let yourself or your family down: not at all 7. Trouble concentrating on things, such as reading the newspaper or watching television: not at all 8. Moving or speaking so slowly that other people could have noticed. Or the opposite - being so fidgety or restless that you have been moving around a lot more than usual: not at all 9. Thoughts that you would be better off or of hurting yourself in some way: not at all Total score: 0 Depression Screening Interpretation: Negative Depression Screening Done: Yes 62437 - PHQ-9 Billing: Yes Source: Developed by Drs. Steven Oquendo, Aminta Rodriguez, Eliu Roe and colleagues, with an educational deneen from [employer]. Thrive Questionnaire Date Thrive assessed: 08/19/23 I am a: Patient What is your living situation today?: I have a steady place to live Within the past 12 months, did the food you bought not last and you didn't have the money to get more?: Never true Within the past 12 months, did you worry whether your food would run out before you got money to buy more?: Never true Do you have trouble paying for medicines?: No Do you have trouble getting transportation to medical appointments?: No Do you have trouble paying your heating and electricity bill?: No Do you have trouble taking care of your child, family member or friend?: No Do you have trouble with day-to-day activities such as bathing, preparing meals, shopping, managing finances, etc.?: No Are you currently unemployed and looking for a job?: No Are you interested in more education?: No Please select the resources that you would like help with: None Currently or been in a relationship where the following occur: no concerns reported THRIVE Score: 0 AUDIT C Alcohol Use Questionnaire (AUDIT-C) 1. How often do you have a drink containing alcohol?: Never 2. How many drinks containing alcohol do you have on a typical day when you are drinking?: 1 or 2 3. How often do you have six or more drinks on one occasion?: Never Total Score: 0 Score Reviewed/Action Taken: Yes ROB-7 AMB Questionnaire ROB-7 Date ROB - 7 assessed: 08/19/23 Feeling nervous, anxious, or on edge: 0 = Not at all Not being able to stop or control worryin = Not at all Worrying too much about different things: 0 = Not at all Trouble relaxin = Not at all Being so restless that it is hard to sit still: 0 = Not at all Becoming easily annoyed or irritable: 0 = Not at all Feeling afraid as if something awful might happen: 0 = Not at all Total ROB-7 score (0-4 normal; 5-9 mild; 10-14 moderate; 15-21 severe): 0 Source: Developed by Drs. Steven Oquendo, Aminta Rodriguez, Eliu Roe and colleagues, with an educational deneen from [employer]. Review of Systems Const Denies chills, Denies fatigue, Denies fever(s), Denies headache(s), Denies malaise and Denies weakness Eyes Denies blurry vision, Denies change in vision, Denies irritation and Denies itchy eyes ENT Denies dysphagia, Denies dizziness, Denies otalgia, Denies headache(s), Denies nasal congestion, Denies neck pain, Denies odynophagia and Denies sore throat Card Denies chest pain, Denies rapid heart rate, Denies irregular heart rhythm, Denies palpitations and Denies dyspnea Resp Denies chest congestion, Denies cough, Denies dyspnea and Denies wheezing GI Reports abdominal pain (over the right side of the abdomen - see HPI), Denies bloating, Denies constipation, Denies dysphagia, Denies heartburn, Denies diarrhea, Denies nausea, Denies odynophagia and Denies vomiting Denies hematuria, Denies difficulty urinating, Denies dysuria, Denies urinary frequency and Denies urinary urgency Musc Reports back pain (occasionally), Reports arthralgias (increased over the right knee lately), Denies joint swelling, Denies muscle weakness and Denies neck pain Skin/Breast Denies change in pigmentation, Denies lesions, Denies rash and Denies unusual bruising Neuro Denies dizziness, Denies headache(s), Denies paresthesias and Denies weakness Endo Denies fatigue and Denies palpitations Aller/Immun Denies itchy eyes and Denies wheezing Physical exam (Primary Care) Vital Signs: Last Vital Signs Pulse 75 08/19/23 09:04 BP 130/84 08/19/23 09:04 Pulse Ox 99 08/19/23 09:04 Oxygen Delivery Method Room Air 08/19/23 09:04 BMI result Body Mass Index 29.8 Tobacco/Smoking Status: Tobacco use Status Tobacco use date assessed 08/19/23 08/19/23 09:07 Patient Tobacco Use Status Never used Tobacco 08/19/23 09:07 e-Cigarette/Vaping Use Never Used 08/19/23 09:07 PHQ-9: PHQ-9 Score PHQ-9: Total score 0 08/19/23 09:27 Depression Screening Interpretation: Negative Thrive Assessment: Date of Thrive Assessment Date Thrive assessed 08/19/23 08/19/23 09:07 Currently or been in a relationship where the following occur: no concerns reported Const General: no acute distress, alert and awake Orientation/consciousness: patient oriented x3 HENMT Head: Yes normocephalic and Yes atraumatic Ears: external ears normal, TM's normal bilaterally and EAC's normal General nose exam: No nasal discharge present Face and sinus: Yes normal facial exam and Yes sinuses nontender Teeth and gingiva: dentition normal Throat: Yes posterior oropharynx normal and Yes tonsils normal (no TP congestion) Eyes Eyelids: Yes eyelids normal Conjunctivae: conjunctivae normal Pupils: Equal, round and reactive pupils present EOM: EOMs intact bilaterally Neck Neck: Yes no lymphadenopathy and Yes supple Thyroid: Thyroid normal Resp Auscultation: clear to auscultation bilaterally, no rales and no wheezes Cardio Rate: regular rate Rhythm: regular rhythm Heart sounds: no murmurs GI Palpation (GI): Soft to palpation, Tenderness to palpation present (GI) (mild - over the right side of the abdomen), no guarding, not rigid, No hepatosplenomegaly present and No Rebound tenderness present Auscultation: normal bowel sounds General: Yes no CVA tenderness Back/Spine/Pelvis Back: no CVA tenderness Thoracic/Lumbar Spine: thoracic and lumbar spine normal to inspection and lumbar spinal tenderness (mild) Skin Lesions: no lesions Rashes: no rashes Neuro General: patient oriented x3, moves all extremities, no focal motor deficits and CN's II-XI intact bilaterally Cranial nerves: Yes Equal, round and reactive pupils present Cognition (Neuro): normal cognition Gait exam (Neuro): Normal gait present Extrem General: Yes no clubbing, cyanosis or edema Right lower extremity: knee Details: tenderness Location: of the pre-patellar area and crepitus (mild) Location: at the patella Results Reviewed Results Reviewed: Laboratory Tests 08/04/23 08/04/23 14:06 Unknown WBC 5.7 Hgb 13.8 L Hct 41.6 L Plt Count 231 Sodium 139 Potassium 3.9 Creatinine 0.67 Estimated GFR > 60 Fasting Glucose 86 Hemoglobin A1c % 6.0 Calcium 9.2 AST 25 ALT 33 Triglycerides 103 Cholesterol 172 LDL Cholesterol, Calc 118 H HDL Cholesterol 34 L PSA Screen 0.86 25-OH Vitamin D Total 41.8 TSH 1.81 Urine pH 7.0 Ur Specific [place] 1.015 Urine Protein Negative Urine Glucose (UA) Negative Urine Blood Negative Urine Nitrite Negative Ur Leukocyte Esterase Negative Assessment and Plan Assessment & Plan (1) Annual physical exam: Code(s): Z00.00 - Encounter for general adult medical examination without abnormal findings Plan: Results of his labs done a couple of weeks ago reviewed and discussed with patient He is up-to-date with his colon cancer screening - will be due for repeat colonoscopy next year (2024) (2) Right sided abdominal pain: Code(s): R10.9 - Unspecified abdominal pain Plan: US done recently revealed (+) mild fullness of the right renal pelvis; also (+) hepatosteatosis and no other abnormalities noted He is scheduled for abdominal and pelvic CT next month on 09/08/2023 for further evaluation (3) Renal pelvis enlarged on ultrasound: Code(s): R93.41 - Abnormal radiologic findings on diagnostic imaging of renal pelvis, ureter, or bladder Plan: He is scheduled for abdominal and pelvic CT next month on 09/08/2023 for further evaluation (4) Lumbar spondylosis: Code(s): M47.816 - Spondylosis without myelopathy or radiculopathy, lumbar region Plan: Patient has been experiencing recurrent low back pain since he slipped on ice/snow and fell on his driveway a couple of years ago Lumbar spine x-rays done in August 2022 revealed (+) age indeterminate compression deformities at T12, L1 and L2 and moderate spondylosis at L5-S1 with some degree of central canal stenosis and neural foraminal encroachment Lumbar spine MRI done in October 2022 revealed chronic upper endplate fracture deformities at T12, L1, and L2 with associated superior endplate Schmorl's nodes and resultant mild central height loss. No new compression fracture deformity. Also (+) mild multilevel lumbar spondylosis without significant spinal canal stenosis. At L5-S1, a broad-based central disc protrusion causes asymmetric left subarticular zone narrowing with abutment along the traversing left S1 nerve root. Mild to moderate bilateral L5-S1 neural foraminal stenosis with contact along the exiting L5 nerve roots He is again advised that if his low back pain continues to increase or progress, can consider referring him to neurosurgery for further evaluation and management Patient states that his low back pain has calmed down a lot since and will call if his back starts to act up again Reinforced activity and weight-lifting restrictions to avoid aggravating his lower back injury (5) Arthralgia: Code(s): M25.50 - Pain in unspecified joint Qualifiers: Joint pain location: unspecified Qualified Code(s): M25.50 - Pain in unspecified joint Plan: Reports experiencing increased pain in his right knee lately X-rays of the knee done back in April 2023 revealed (+) mild narrowing of the bilateral medial femorotibial compartments Will start him for now on Diclofenac 1% topical gel to the right knee QID PRN; continue Meloxicam 15 mg QD PRN Advised that if this still does not get his knee pain to calm down, will then need to consider referring to orthopedics for consideration for cortisone injection (6) Benign essential hypertension: Code(s): I10 - Essential (primary) hypertension Plan: Reinforced low sodium diet - goal is systolic BP of 120 mm or less Continue Losartan 25 mg QD He is reminded to continue monitoring his blood pressure regularly (7) Pure hypercholesterolemia: Code(s): E78.00 - Pure hypercholesterolemia, unspecified Plan: Reinforced low cholesterol diet He still does not really require cholesterol-lowering Rx at this time although his numbers have gone up slightly from previous Will recheck his labs and fasting lipids in a few months for follow up (8) GERD without esophagitis: Comment: EGD- Barretts surveillance- r/o esophagitis, PUD, non ulcer dyspepsia- avoid culprits- continue ppi- daily Code(s): K21.9 - Gastro-esophageal reflux disease without esophagitis Plan: Dietary restrictions reinforced Continue Omeprazole 20 mg QD PRN (9) Impaired fasting glucose: Code(s): R73.01 - Impaired fasting glucose Plan: Advised that his HgbA1c has increased slightly to 6.0% on his recent labs (was normal previously at 5.8% a few months ago) Reinforced low calorie/low carb diet - advised that he now has borderline diabetes and should try to watch his diet better - diabetic info provided to patient Advised that exercising can help but he states that it would be difficult at this time due to his knee issue (10) Allergic rhinitis: Code(s): J30.9 - Allergic rhinitis, unspecified Qualifiers: Allergic rhinitis seasonality: unspecified Allergic rhinitis trigger: unspecified Qualified Code(s): J30.9 - Allergic rhinitis, unspecified Plan: Continue Loratadine 10 mg QD PRN and Fluticasone 50 mcg nasal spray QD PRN (11) Vitamin D deficiency: Code(s): E55.9 - Vitamin D deficiency, unspecified Plan: Corrected - continue Vitamin D3 2000 units QD (12) Overweight (BMI 25.0-29.9): Code(s): E66.3 - Overweight Plan: Reinforced diet/exercise as tolerated/lose weight Plan Follow up as scheduled next month after his abdominal and pelvic CT is done Medications: New diclofenac sodium 1% (Arthritis Pain (diclofenac)) apply to single knee, ankle, foot as needed for pain; for foot includes sole/toes/top of foot 4 grams topical QID PRN 100 grams 3RF joint pain Coding Level of Care Code Est Pt Prev Care 40-64y(97687) Diagnoses Annual physical exam Z00.00 Right sided abdominal pain R10.9 Renal pelvis enlarged on ultrasound R93.41 Lumbar spondylosis M47.816 Arthralgia, unspecified joint M25.50 Joint pain location: unspecified Benign essential hypertension I10 Pure hypercholesterolemia E78.00 GERD without esophagitis K21.9 Impaired fasting glucose R73.01 Allergic rhinitis, unspecified seasonality, unspecified trigger J30.9 Allergic rhinitis seasonality: unspecified Allergic rhinitis trigger: unspecified Vitamin D deficiency E55.9 Overweight (BMI 25.0-29.9) E66.3
== END 2023-08-19 10:09 | disposition home or self-care (01) ==
PROVIDERS: PCP Internal Medicine; Visit Provider Internal Medicine
DX: Z00.00 Encounter for general adult medical examination without abnormal findings (principal); R10.9 Unspecified abdominal pain; R93.41 Abnormal radiologic findings on diagnostic imaging of renal pelvis, ureter, or bladder; M47.816 Spondylosis without myelopathy or radiculopathy, lumbar region; M25.50 Pain in unspecified joint; I10 Essential (primary) hypertension; E78.00 Pure hypercholesterolemia, unspecified; K21.9 Gastro-esophageal reflux disease without esophagitis; R73.01 Impaired fasting glucose; J30.9 Allergic rhinitis, unspecified; E55.9 Vitamin D deficiency, unspecified; E66.3 Overweight
CPT/HCPCS: 99396

== ENCOUNTER 2023-08-26 10:20 | Outpatient (AMB) | payer OTHER, SELFPAY ==
--- NOTE | 2023-08-26 10:23 | A.OFFVIS_ITS ---
Intake Vital Signs 08/26/23 10:38 Height 5 ft 6 in Weight 184 lb BMI 29.7 Intake Visit Reasons: ov- Pain in right knee Intake Note: Rain Morgan a 52 year old male presents today for a follow up of right knee pain. Patient reports PT helped a little as well as the genumed knee brace however brace causes itchiness. He continues to have pain and would like to discuss cortisone injection. Search Engine Optimizer Required: Yes Search Engine Optimizer Name: Marisela Edwards ID#[id number] Allergies No Known Allergies Allergy (Verified 08/26/23 10:36) HPI ov- Pain in right knee HPI Details 52-year-old male who returns to the [facility] today with an restoration officer for a follow-up of right knee pain. He had attended physical therapy and used a knee brace which provided him mild relief. He currently states he has pain in his knee as well as itchiness due to the brace. He would like to discuss about having a cortisone injection. [facility] Medical History Lumbar spondylosis Obesity (BMI 30-39.9) H. 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 Lateral retropatellar tenderness present. Full ROM with crepitus. Negative Conner?s. No ligamentous laxity. NVI. Office Procedures Joint Injection/Drain Joint Injection/Drain Primary Site: right knee Prep: site was prepped using aseptic technique, ethochloride spray was applied and injection warnings given Injected: 80 mg of, DepoMedrol, with 8 mL of, 1% plain lidocaine and in the joint Approach Used: anterolateral Procedure: The patient tolerated the procedure well and there was some relief with the local anesthesia Coding 50508 - Glenohumeral/Tronchanteric Bursa/Intraarticular Procedure code (CPT) selection complete Assessment & Plan Assessment & Plan (1) Patellofemoral arthritis of right knee: Code(s): M17.11 - Unilateral primary osteoarthritis, right knee Plan We discussed options today which include steroid injection. They did consent to move forward with the right knee injection, which was tolerated well. I recommended rest, ice and elevation and OTC anti-inflammatories PRN for discomfort. If symptoms persist or worsens over the next 6-8 weeks, patient will contact the office, otherwise follow-up as needed. Patient Instructions: Scribed for Cleveland Rodriguez PA-C, by Damien Cruz medical billing coordinator, on 08/26/2023 at 10:30 AM LC. Cleveland Spivey PA-C, have personally reviewed and agree with the information entered by the scribe. Coding Level of Care Code Est Pt Level 3 (67395) Diagnoses Patellofemoral arthritis of right knee M17.11 CPT Codes Coding - Joint 7: 91061 - Glenohumeral/Tronchanteric Bursa/Intraarticular ([id number])
[2023-08-26 10:38] VITALS: BMI 29.7
== END 2023-08-26 11:39 | disposition home or self-care (01) ==
LOC: HO.HOS 10:20
PROVIDERS: PCP Internal Medicine; Visit Provider Physician Assistant
DX: M17.11 Unilateral primary osteoarthritis, right knee (principal)
CPT/HCPCS: 20610; 99213

== ENCOUNTER → 2023-08-26 10:20 | Outpatient (BNVA) | payer OTHER, SELFPAY | PROVIDERS: PCP Internal Medicine; Visit Provider Physician Assistant | DX: M17.11 Unilateral primary osteoarthritis, right knee (principal) | CPT/HCPCS: 20610; 99212; J1040 ==

== ENCOUNTER 2023-09-08 07:45 | Outpatient (REF) | payer OTHER, SELFPAY ==
--- NOTE | ~2023-09-08 | CT_ITS ---
EXAMINATION: CT ABDOMEN AND PELVIS WITH CONTRAST CLINICAL INFORMATION: Ultrasound revealed right renal pelvis fullness. COMPARISON: Abdominal ultrasound 07/02/2023. TECHNIQUE: Multidetector volumetric images were obtained from the superior aspect of the liver through the pubic symphysis following administration 85 mL of Omnipaque 350 intravenous contrast. Sagittal and coronal reformatted images were obtained on the technologist's workstation. Oral contrast: No This CT examination was performed using dose optimization techniques as appropriate, variously including the following: *Automated exposure control *Adjustment of mA and/or kV according to patient size (this includes techniques or standardized protocols for targeted exams where dose is matched to indication/reason for exam; i.e. extremities or head) *Use of iterative reconstruction technique DLP: 351 mGy-cm FINDINGS: LUNG BASES: The visualized lung bases are unremarkable. LIVER, GALLBLADDER, AND BILIARY TREE: The liver is normal in size, shape, and attenuation. No focal hepatic lesion or biliary ductal dilatation is present. The gallbladder is unremarkable with no evidence of radiopaque gallstones, gallbladder wall thickening, or obvious pericholecystic inflammatory changes. PANCREAS: No discrete mass or ductal dilatation. SPLEEN: Spleen appears normal. ADRENAL GLANDS: No adrenal mass. KIDNEYS AND URETERS: The kidneys are normal in size, shape, and attenuation. No hydronephrosis, hydroureter, or calculi seen. No perinephric stranding. BLADDER: Unremarkable. GASTROINTESTINAL TRACT: Small and large bowel are normal in caliber. Mild colonic diverticulosis without evidence of acute diverticulitis. The appendix is normal. ABDOMINAL WALL: No significant hernia is appreciated. LYMPH NODES: No lymphadenopathy. VASCULAR: Minimal aortoiliac atherosclerosis. No aortic aneurysm. Retroaortic left renal vein. PELVIC VISCERA: Unremarkable. OSSEOUS STRUCTURES: Degenerative changes in the spine. CT/CT abdomen pelvis w IV con IMPRESSION: No hydronephrosis. Fleischner guidelines were followed.
[2023-09-08] MEDS: iohexoL 350 MG/ML 100 ML INFUS..BTL IV (10:30)
== END 2023-09-08 07:46 | disposition home or self-care (01) ==
LOC: HO.CT 07:45
PROVIDERS: PCP Internal Medicine; Visit Provider Internal Medicine
DX: R10.9 Unspecified abdominal pain (principal)
CPT/HCPCS: 74177; Q9967

== ENCOUNTER 2023-09-15 14:26 | Outpatient (AMB) | payer OTHER, SELFPAY ==
[2023-09-15 14:30] VITALS: BP 140/92; PULSE 78; O2SAT 97
--- NOTE | 2023-09-15 14:30 | A.OFFPC_ITS ---
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: No Allergies No Known Allergies Allergy (Verified 09/16/23 04:44) Medication List - Last Reconciled 09/16/23 by Juan Brooke MD amoxicillin-pot clavulanate 875-125 mg 1 tab PO BID 10 days blood pressure monitor As directed cholecalciferol (vitamin D3) 50 mcg PO DAILY 90 days diclofenac sodium 1% (Arthritis Pain (diclofenac)) 4 grams topical QID PRN fluticasone propionate 50 mcg/actuation 1 spray intranasal DAILY loratadine 10 mg PO DAILY PRN 90 days losartan 25 mg PO DAILY meloxicam 15 mg PO DAILY PRN pantoprazole 40 mg PO DAILY Tobacco use date assessed: 09/15/23 Dental Screening Dental Screen Date: 08/19/[address] scan follow up HPI Details Patient comes in today mainly to follow up on his abdominal CT results - abdominal CT was done last week to further evaluate a rifht renal pelvis fullness seen on US back in June 2023 Patient adds that he has been experiencing increasing chest congestion and on and off cough for almost a week now Feels that his chest is tight at times and that his cough is mostly non- productive States that his throat also feels sore at times He has been using his Fluticasone nasal spray and taking his Loratadine for the past couple of weeks but states that these do not help with his current symptoms - states that he will need these refilled for his allergies He denies any fever, headaches or dizziness Denies any chest pains No nausea/vomiting, no abdominal pain No change in bowel habits noted PFSH Medical History Lumbar spondylosis Obesity (BMI 30-39.9) H. 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 occupational status: employed Current occupation: [employer] Current occupational exposures/hazards: No Cognitive needs: No Hearing needs: No Vision needs: No Questionnaire Thrive Questionnaire Date Thrive assessed: 08/19/23 AUDIT C Alcohol Use Questionnaire (AUDIT-C) 1. How often do you have a drink containing alcohol?: Never 2. How many drinks containing alcohol do you have on a typical day when you are drinking?: 1 or 2 3. How often do you have six or more drinks on one occasion?: Never Total Score: 0 Score Reviewed/Action Taken: Yes ROB-7 AMB Questionnaire ROB-7 Date ROB - 7 assessed: 08/19/23 Source: Developed by Drs. Steven Oquendo, Aminta Rodriguez, Eliu Roe and colleagues, with an educational deneen from [employer]. Review of Systems Const Denies chills, Denies fatigue, Denies fever(s) and Denies headache(s) ENT Denies dysphagia, Denies dizziness, Denies otalgia, Denies headache(s), Reports nasal congestion (on and off), Denies odynophagia and Reports sore throat (on and off) Card Denies chest pain, Denies palpitations and Denies dyspnea Resp Reports chest congestion (states that his chest feels tight at times), Reports cough (recurrent, non-productive), Denies excessive phlegm production, Denies pain with cough, Denies dyspnea and Denies wheezing GI Denies abdominal pain, Denies constipation, Denies dysphagia, Denies heartburn, Denies diarrhea, Denies nausea, Denies odynophagia and Denies vomiting Denies dysuria, Denies nocturia and Denies urinary frequency Musc Reports back pain (on and off) Skin/Breast Denies rash Neuro Denies dizziness and Denies headache(s) Endo Denies fatigue and Denies palpitations Aller/Immun Denies wheezing Physical exam (Primary Care) Vital Signs: Last Vital Signs Pulse 78 09/15/23 14:30 BP 140/92 H 09/15/23 14:30 Pulse Ox 97 09/15/23 14:30 Oxygen Delivery Method Room Air 09/15/23 14:30 BMI result Body Mass Index 30.0 Tobacco/Smoking Status: Tobacco use Status Tobacco use date assessed 09/15/23 09/15/23 14:35 Patient Tobacco Use Status Never used Tobacco 09/15/23 14:35 e-Cigarette/Vaping Use Never Used 09/15/23 14:35 Thrive Assessment: Date of Thrive Assessment Date Thrive assessed 08/19/23 09/15/23 14:35 Const General: no acute distress and alert HENMT Ears: TM's normal bilaterally and EAC's normal Throat: Yes posterior oropharynx normal and Yes tonsils normal (no TP congestion) Neck Neck: Yes no lymphadenopathy and Yes supple Thyroid: Thyroid normal Resp Auscultation: no crackles, no rales, rhonchi (scattered) throughout, no wheezes, diminished lung sounds (slightly) bilateral and bronchial breath sounds (occasional) bilateral Cardio Rate: regular rate Rhythm: regular rhythm Heart sounds: no murmurs GI Palpation (GI): Soft to palpation and nontender Auscultation: normal bowel sounds Back/Spine/Pelvis Thoracic/Lumbar Spine: lumbar spinal tenderness Skin Rashes: no rashes Extrem General: Yes no clubbing, cyanosis or edema Assessment and Plan Assessment & Plan (1) Renal pelvis enlarged on ultrasound: Code(s): R93.41 - Abnormal radiologic findings on diagnostic imaging of renal pelvis, u reter, or bladder Plan: Results of his abdominal and pelvic CT done last week reviewed and discussed with patient - he is reassured that his CT came back normal and the pelvic fullness on his right kidney seen on previous US is not present Advised that no other follow up exams or interventions are indicated (2) Bronchitis: Code(s): J40 - Bronchitis, not specified as acute or chronic Plan: Will start him on Augmentin 875 mg BID x 10 days (3) Lumbar spondylosis: Code(s): M47.816 - Spondylosis without myelopathy or radiculopathy, lumbar region Plan: Reinforced activity and weight-lifting restrictions to avoid aggravating his lower back injury States that his low back pain has been fairly well-controlled lately (4) Benign essential hypertension: Code(s): I10 - Essential (primary) hypertension Plan: Reinforced low sodium diet - goal is systolic BP of 120 mm or less Continue Losartan 25 mg QD He is reminded to continue monitoring his blood pressure regularly (5) Pure hypercholesterolemia: Code(s): E78.00 - Pure hypercholesterolemia, unspecified Plan: Reinforced low cholesterol diet He still does not really require cholesterol-lowering Rx at this time although his numbers have gone up slightly from previous Will recheck his labs and fasting lipids in 6 months for follow up (6) GERD without esophagitis: Comment: EGD- Barretts surveillance- r/o esophagitis, PUD, non ulcer dyspepsia- avoid culprits- continue ppi- daily Code(s): K21.9 - Gastro-esophageal reflux disease without esophagitis Plan: Dietary restrictions reinforced Continue Omeprazole 20 mg QD PRN (7) Impaired fasting glucose: Code(s): R73.01 - Impaired fasting glucose Plan: He is reminded that his HgbA1c has increased slightly to 6.0% on his recent labs (was normal previously at 5.8%) Reinforced low calorie/low carb diet (8) Allergic rhinitis: Code(s): J30.9 - Allergic rhinitis, unspecified Qualifiers: Allergic rhinitis trigger: unspecified Allergic rhinitis seasonality: unspecified Qualified Code(s): J30.9 - Allergic rhinitis, unspecified Plan: Continue Loratadine 10 mg QD PRN and Fluticasone 50 mcg nasal spray QD PRN - Rx refilled (9) Vitamin D deficiency: Code(s): E55.9 - Vitamin D deficiency, unspecified Plan: Continue Vitamin D3 2000 units QD (10) Overweight (BMI 25.0-29.9): Code(s): E66.3 - Overweight Plan: Reinforced diet/exercise as tolerated/lose weight Plan To return in 6 months for his next annual physical examination Orders: Orders Comprehensive [place]. Panel Fast 6 Months E78.00 - Pure hypercholesterolemia, unspecified TSH reflex Free T4 6 Months E78.00 - Pure hypercholesterolemia, unspecified Vitamin D 25-OH Total 6 Months E55.9 - Vitamin D deficiency, unspecified Prostate Specific Antigen Scr 6 Months Z00.00 - Encounter for general adult medical examination without abnormal findings Complete Blood Count Auto Diff 6 Months D64.9 - Anemia, unspecified Lipid Panel 6 Months E78.00 - Pure hypercholesterolemia, unspecified UA CC w/rflx Micro + Cult 6 Months R30.0 - Dysuria Medications: New amoxicillin-pot clavulanate 875-125 mg 1 tab PO BID 10 days 20 tabs 0RF Refilled fluticasone propionate 50 mcg/actuation administer into each nostril 1 spray intranasal DAILY 16 grams 5RF Coding Level of Care Code Est Pt Level 4 (08687) Diagnoses Renal pelvis enlarged on ultrasound R93.41 Bronchitis J40 Lumbar spondylosis M47.816 Benign essential hypertension I10 Pure hypercholesterolemia E78.00 GERD without esophagitis K21.9 Impaired fasting glucose R73.01 Allergic rhinitis, unspecified seasonality, unspecified trigger J30.9 Allergic rhinitis trigger: unspecified Allergic rhinitis seasonality: unspecified Vitamin D deficiency E55.9 Overweight (BMI 25.0-29.9) E66.3
== END 2023-09-15 15:05 | disposition home or self-care (01) ==
PROVIDERS: PCP Internal Medicine; Visit Provider Internal Medicine
DX: R93.41 Abnormal radiologic findings on diagnostic imaging of renal pelvis, ureter, or bladder (principal); J40 Bronchitis, not specified as acute or chronic; M47.816 Spondylosis without myelopathy or radiculopathy, lumbar region; I10 Essential (primary) hypertension; E78.00 Pure hypercholesterolemia, unspecified; K21.9 Gastro-esophageal reflux disease without esophagitis; R73.01 Impaired fasting glucose; J30.9 Allergic rhinitis, unspecified; E55.9 Vitamin D deficiency, unspecified; E66.3 Overweight
CPT/HCPCS: 99214

== ENCOUNTER 2023-10-12 08:01 | Outpatient (AMB) | payer OTHER, SELFPAY ==
[2023-10-12 08:36] VITALS: BP 144/90; PULSE 77; TEMP 36.1; O2SAT 97
--- NOTE | 2023-10-12 08:36 | AM.OFFWIN_ITS ---
Intake Vital Signs 10/12/23 08:36 Height 5 ft 6 in Weight 186 lb BMI 30.0 BP 144/90 H Blood Pressure Location Rt brachial Position Sitting Pulse 77 Pulse Source Pulse Oximeter Temp 97.0 F Temp Source Temporal Artery Scan Pulse Oximetry (%) 97 Oxygen Delivery Method Room Air Intake Visit Reasons: EP sore throat / coughing Intake Note: pt is here today for sore throat coughing started 1 week ago Patient Tobacco Use Status: Never used Tobacco Allergies No Known Allergies Allergy (Verified 10/12/23 08:42) Medication List - Last Reconciled 10/12/23 by NAS Ramos blood pressure monitor As directed cholecalciferol (vitamin D3) 50 mcg PO DAILY 90 days diclofenac sodium 1% (Arthritis Pain (diclofenac)) 4 grams topical QID PRN fluticasone propionate 50 mcg/actuation 1 spray intranasal DAILY loratadine 10 mg PO DAILY PRN 90 days losartan 25 mg PO DAILY meloxicam 15 mg PO DAILY PRN pantoprazole 40 mg PO DAILY Do you need a note to return to daycare/school/sports/work: No HPI HPI Comments History of Present Illness Details Patient is a 52-year-old male in today for a sick visit. He states that for the past 7 days he has developed symptoms of sore throat, cough, chills, chest tightness. He has used [id number] DayQuil NyQuil with mild effect. Denies shortness of breath, chest pain, nausea, vomiting, diarrhea. He has many sick contacts at work, elderly population. In office rapid strep negative. Will obtain URI swab. Patient likely has viral upper respiratory infection. [facility] Medical History Lumbar spondylosis Obesity (BMI 30-39.9) H. 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 occupational status: employed Current occupation: [employer] Current occupational exposures/hazards: No Cognitive needs: No Hearing needs: No Vision needs: No Review of Systems Const All systems reviewed & are unremarkable except as noted in HPI and below Physical Exam Vital Signs: BMI result Body Mass Index 30.0 Const Other: Appearance: Alert.? Oriented X3.? Head: Normocephalic. Eyes: Pupils equal, round and reactive to light.? ENT: Pharynx erythema to uvula and anterior pillar. + clear nasal discharge. TM intact and pearly flanagan. Neck: Normal inspection.? Neck supple.?Full ROM. CVS: Normal heart rate and rhythm.? Pulses normal.? Respiratory: No respiratory distress.? Breath sounds normal.? Neuro: Oriented X 3.? Results AMB Rapid Strep AMB Rapid Strep Negative Last Edit by Perfecto Yang CMA on 10/12/23 08 :52 Assessment & Plan Assessment & Plan (1) Upper respiratory tract infection: Comment: Obtained URI swab in office. Will give patient prednisone and albuterol. Patient has been advised he can utilize [id number] cepacol throat drops. Cough may also be adversely affected by GERD. Code(s): J06.9 - Acute upper respiratory infection, unspecified Qualifiers: URI type: unspecified URI Qualified Code(s): J06.9 - Acute upper respiratory infection, unspecified Plan: Take your medications as prescribed. If you were prescribed antibiotics today, it is important that you take your medication to their entirety, do not skip any doses, do not finish them early. Follow-up with your primary care provider this week. Return to the emergency department with new or worsening symptoms. Such as fevers, chills, chest pain, shortness of breath, nausea, vomiting, dizziness, headache, vision changes, lethargy In case of emergency call 911 Plan follow up with PCP. Orders: Orders AMB Rapid Strep Screen Today Z13.9 - Encounter for screening, unspecified SARS-CoV2/FLU/RSV Today J06.9 - Acute upper respiratory infection, unspecified Medications: New benzocaine-menthol 15-3.6 mg (Cepacol Sore Throat (benzocaine-menthol)) 1 ethan mucous membrane Q2-4H PRN 16 ea 0RF sore throat prednisone 20 mg PO BID 10 tabs 0RF benzonatate 100 mg PO BID PRN 20 caps 0RF cough albuterol sulfate 90 mcg/actuation 2 puffs inhalation Q6H PRN 6.7 grams 0RF shortness of breath or wheezing Coding Level of Care Code Est Pt Level 3 (04002) Diagnoses Upper respiratory tract infection, unspecified type J06.9 URI type: unspecified URI Time Spent (min) 27
== END 2023-10-12 09:15 | disposition home or self-care (01) ==
PROVIDERS: PCP Internal Medicine; Visit Provider Nurse Practitioner Primary Care
DX: J06.9 Acute upper respiratory infection, unspecified (principal); J02.9 Acute pharyngitis, unspecified
CPT/HCPCS: 87880; 99213

== ENCOUNTER 2023-10-12 10:26 | Outpatient (REF) | payer OTHER, SELFPAY ==
[2023-10-12 11:16] LABS: Influenza A PCR NEGATIVE (Negative); Influenza B PCR NEGATIVE (Negative); Resp Syncy Virus RNA Qual PCR NEGATIVE (Negative); SARS COV2 PCR INHOUSE NEGATIVE (Negative)
== END 2023-10-12 10:27 | disposition home or self-care (01) ==
LOC: HO.LNP 10:26
PROVIDERS: Visit Provider Nurse Practitioner Primary Care
DX: J06.9 Acute upper respiratory infection, unspecified (principal)
CPT/HCPCS: 0241U

== ENCOUNTER 2023-10-20 15:08 | Outpatient (AMB) | payer OTHER, SELFPAY ==
[2023-10-20 15:24] VITALS: BP 132/90; PULSE 78; TEMP 36.7; O2SAT 97
--- NOTE | 2023-10-20 15:24 | MHC.OFFWIV ---
Intake Vital Signs 10/20/23 15:24 Height 5 ft 6 in Weight 186 lb BMI 30.0 BP 132/90 H Blood Pressure Location Rt brachial Position Sitting Pulse 78 Pulse Source Pulse Oximeter Temp 98.0 F Temp Source Temporal Artery Scan Pulse Oximetry (%) 97 Intake Visit Reasons: EST/cough and runny nose (lobby masked) Intake Note: pt is here for cough and runny nose Patient Tobacco Use Status: Never used Tobacco Allergies No Known Allergies Allergy (Verified 10/20/23 15:24) Do you need a note to return to daycare/school/sports/work: No HPI HPI Comments History of Present Illness Details 52 y/o male patient who presents to walk in clinic with c/o URI symptoms x 7 days now. Pt was seen here on 10/11 for similar concerns and was treated with Prednisone and cough medicine. Today Pt reports not feeling any better. SARs was negative last week. [facility] Medical History Lumbar spondylosis Obesity (BMI 30-39.9) H. 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 Current occupational exposures/hazards: No Cognitive needs: No Hearing needs: No Vision needs: No Review of Systems Const All systems reviewed & are unremarkable except as noted in HPI and below Physical Exam Vital Signs: Last Vital Signs Temp 98.0 F 10/20/23 15:24 Pulse 78 10/20/23 15:24 BP 132/90 H 10/20/23 15:24 Pulse Ox 97 10/20/23 15:24 BMI result Body Mass Index 30.0 Const General: comfortable and no acute distress Nutritional Appearance: overweight Orientation/consciousness: patient oriented x3 HEENT Head: Yes normocephalic Ears: external ears normal and TM's normal bilaterally General nose exam: Normal nasal mucous membranes and turbinates present Face and sinus: Yes sinuses nontender Mouth: moist mucous membranes and Abnormal oral and palatal mucosa present erythematous (upper palate) and white patches Resp Effort & Inspection: normal respiratory effort and able to speak in complete sentences Auscultation: clear to auscultation bilaterally, no crackles, no rales, no rhonchi and no wheezes Cardio Rate: regular rate Rhythm: regular rhythm Neuro General: patient oriented x3 Assessment & Plan Assessment & Plan (1) Acute nasopharyngitis (common cold): Code(s): J00 - Acute nasopharyngitis [common cold] Plan: - Will start abx today. - Rest and hydrate with warm fluids and honey - Acetaminophen for pain relief. Medications: New amoxicillin-pot clavulanate 875-125 mg 1 tab PO Q12H 10 days 20 tabs 0RF J00 - Acute nasopharyngitis [common cold] Coding Level of Care Code Est Pt Level 3 (26604) Diagnoses Acute nasopharyngitis (common cold) J00 Time Spent (min) 15
== END 2023-10-20 16:13 | disposition home or self-care (01) ==
PROVIDERS: PCP Internal Medicine; Visit Provider Nurse Practitioner Family
DX: J00 Acute nasopharyngitis [common cold] (principal)
CPT/HCPCS: 99213

== ENCOUNTER 2023-10-28 16:16 | Outpatient (AMB) | payer OTHER, SELFPAY ==
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
[2023-10-28 16:20] VITALS: BP 138/90; PULSE 78; TEMP 36.7; O2SAT 98
== END 2023-10-28 16:35 | disposition home or self-care (01) ==
PROVIDERS: PCP Internal Medicine; Visit Provider Nurse Practitioner Family
DX: T30.0 Burn of unspecified body region, unspecified degree (principal)
CPT/HCPCS: 99213

== ENCOUNTER 2023-12-13 08:37 | Outpatient (AMB) | payer OTHER, SELFPAY ==
--- NOTE | 2023-12-13 08:41 | A.OFFVIS_ITS ---
Vital Signs 12/13/23 08:53 Height 5 ft 6 in Weight 186 lb BMI 30.0 Intake Visit Reasons: O/V RT knee s/p injection 08/26/23 Intake Note: Rain Morgan a 52 year old male who presents today for a follow up of right knee pain, requesting a cortisone injection. Patient reports last injection on 08/26/23 provided him with relief, stating his pain returned about 2-3 weeks ago. He also requesting knee exercises as well as prescribed topical cream. 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: Yes Computer Recycling Worker Name: Steve ID#[id number] Allergies No Known Allergies Allergy (Verified 12/13/23 08:48) Medication List - Last Reconciled 12/13/23 by Cleveland Rodriguez PA-C albuterol sulfate 90 mcg/actuation 2 puffs inhalation Q6H PRN blood pressure monitor As directed cholecalciferol (vitamin D3) 50 mcg PO DAILY 90 days diclofenac sodium 1% (Arthritis Pain (diclofenac)) 4 grams topical QID PRN fluticasone propionate 50 mcg/actuation 1 spray intranasal DAILY loratadine 10 mg PO DAILY PRN 90 days losartan 25 mg PO DAILY meloxicam 15 mg PO DAILY PRN pantoprazole 40 mg PO DAILY HPI HPI O/V RT knee s/p injection 08/26/23: Details: 53-year-old male who returns to the office today for a follow-up of right knee pain. He had his last injection on 08/26/23 that provided him relief until about 3 weeks ago. He would like to repeat the injection today. He would also like to have knee exercises as well as a prescription of topical cream. [facility] Medical History Lumbar spondylosis Obesity (BMI 30-39.9) H. 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 Lateral retropatellar tenderness present. Full ROM with crepitus. Negative Conner?s. No ligamentous laxity. NVI. Office Procedures Joint Injection/Drain Joint Injection/Drain Primary Site: right knee Prep: site was prepped using aseptic technique, ethochloride spray was applied and injection warnings given Injected: 80 mg of, DepoMedrol, with 8 mL of, 1% plain lidocaine and in the joint Approach Used: anterolateral Procedure: The patient tolerated the procedure well and there was some relief with the local anesthesia Coding 49331 - Glenohumeral/Tronchanteric Bursa/Intraarticular Procedure code (CPT) selection complete Assessment & Plan Assessment & Plan (1) Patellofemoral arthritis of right knee: Code(s): M17.11 - Unilateral primary osteoarthritis, right knee Category: Medical Plan We discussed options today, which include steroid injection. The patient did consent to move forward with the right knee injection, which was tolerated well. I recommended rest, ice, and elevation and OTC anti-inflammatories as needed for discomfort. He was given a handout of knee exercises and a prescription for compound cream was also sent to the office today. If symptoms persist or worsen over the next 6-8 weeks, patient will contact the office, otherwise follow-up as needed. Patient Instructions: Scribed for Cleveland Rodriguez PA-C, by Damien Cruz back office medical assistant, on 12/13/2023 at 8:30 AM EST.? I, Cleveland Rordiguez PA-C, have personally reviewed and agree with the information entered by the scribe. Coding Level of Care Code Est Pt Level 3 (67705) Diagnoses Patellofemoral arthritis of right knee M17.11 CPT Codes Coding - Joint 7: 91925 - Glenohumeral/Tronchanteric Bursa/Intraarticular ([id number])
== END 2023-12-13 09:25 | disposition home or self-care (01) ==
PROVIDERS: PCP Internal Medicine; Visit Provider Physician Assistant
DX: M17.11 Unilateral primary osteoarthritis, right knee (principal)
CPT/HCPCS: 20610; 99213

== ENCOUNTER → 2023-12-13 08:37 | Outpatient (BNVA) | payer OTHER, SELFPAY | PROVIDERS: PCP Internal Medicine; Visit Provider Physician Assistant | DX: M17.11 Unilateral primary osteoarthritis, right knee (principal) | CPT/HCPCS: 20610; 99212; J1010 ==

== ENCOUNTER 2024-01-12 10:04 | Outpatient (AMB) | payer OTHER, SELFPAY ==
--- NOTE | 2024-01-12 10:05 | A.OFFPC_ITS ---
Intake Visit Reasons: CoughFeelingSick Allergies No Known Allergies Allergy (Verified 01/12/24 10:31) Medication List - Last Reconciled 01/12/24 by Juan Brooke MD albuterol sulfate 90 mcg/actuation 2 puffs inhalation Q6H PRN blood pressure monitor As directed cholecalciferol (vitamin D3) 50 mcg PO DAILY 90 days diclofenac sodium 1% (Arthritis Pain (diclofenac)) 4 grams topical QID PRN fluticasone propionate 50 mcg/actuation 1 spray intranasal DAILY loratadine 10 mg PO DAILY PRN 90 days losartan 25 mg PO DAILY meloxicam 15 mg PO DAILY PRN pantoprazole 40 mg PO DAILY Tobacco use date assessed: 09/15/23 Dental Screening Dental Screen Date: 08/19/23 HPI CoughFeelingSick HPI Details Patient's follow up visit / consultation today is done over video conference ([email or web address]) - this is a TELEHEALTH visit Patient's current medications have been reviewed and verified with patient and/or caregiver/proxy and have been updated accordingly in the medication list Patient states that he's had increased cough/cold symptoms for over a week now Feels that he's had a mild fever lately but denies any chills Relates (+) mild sore throat but he denies any dysphagia or increased SOB States that he has been coughing a lot lately but he is only coughing up minimal thicl whitish to yellowish phlegm at times; cough also seems to be worse at night Thinks that he may have caught a cold because of the extremes of temperature that he is exposed to everyday - 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 Steven Oquendo, Aminta Rodriguez, Eliu Roe and colleagues, with an educational deneen from [employer]. Review of Systems Const Denies chills, Reports fatigue, Reports fever(s) (mild) and Reports headache(s) (on and off) ENT Denies dysphagia, Denies dizziness, Denies otalgia, Reports headache(s) (on and off), Reports nasal congestion, Denies neck pain, Denies odynophagia, Denies sinus pain and Reports sore throat (mild) Card Denies chest pain, Denies palpitations and Denies dyspnea Resp Reports chest congestion (mild), Reports cough (coughs up thick whitish to yellowish phlegm, cough feels worse at night), Denies dyspnea and Denies wheezing GI Denies abdominal pain, Denies constipation, Denies dysphagia, Denies heartburn, Denies diarrhea and Denies odynophagia Denies dysuria, Denies nocturia and Denies urinary frequency Musc Reports back pain (on and off lately), Denies arthralgias and Denies neck pain Skin/Breast Denies rash Neuro Denies dizziness and Reports headache(s) (on and off) Endo Reports fatigue and Denies palpitations Aller/Immun Denies wheezing Physical exam (Primary Care) Vital Signs: Physical examination is not performed as visit / consultation today is done over videoconference - Telehealth visit All physical findings indicated here, if present, are as per patient's and / or caregivers / proxy's report and visual inspection over videoconference, if appropriate or applicable Tobacco/Smoking Status: Tobacco use Status Tobacco use date assessed 09/15/23 01/12/24 10:06 Patient Tobacco Use Status Never used Tobacco 01/12/24 10:06 e-Cigarette/Vaping Use Never Used 01/12/24 10:06 Thrive Assessment: Date of Thrive Assessment Date Thrive assessed 08/19/23 01/12/24 10:06 Telehealth Telehealth Telehealth Platform: Other (please specify) ([employer]) Location of provider rendering services: practice address Location of patient: address on file Patient Identification confirmed using: Name, : Yes Telehealth method: video (Facetime) Patient verbally consented to treatment: Yes Patient verbally consented to billing insurance company: Yes Patient informed of any privacy concerns related to visit: Yes Minutes spent on Phone/Video with Pt.: 16 Assessment and Plan Assessment & Plan (1) Acute bronchitis: Code(s): J20.9 - Acute bronchitis, unspecified Qualifiers: Bronchitis organism: unspecified organism Qualified Code(s): J20.9 - Acute bronchitis, unspecified Plan: Will start patient empirically on Azithromycin QD x 5 days Have advised him to continue on his current OTC cough/cold meds PRN for symptomatic relief and to call if his symptoms persist or get worse despite his Rx Plan Follow up as scheduled in March 2024 Medications: Refilled azithromycin (Zithromax Z-Parveen) 2 pills day one then 1 pill per day x 4 days 250 mg PO DAILY 5 days 6 tabs 0RF Coding Level of Care Code Tele Est Pt Level 3 (88553) Diagnoses Acute bronchitis, unspecified organism J20.9 Bronchitis organism: unspecified organism
== END 2024-01-12 10:50 | disposition home or self-care (01) ==
LOC: HO.HMGH 10:04
PROVIDERS: PCP Internal Medicine; Visit Provider Internal Medicine
DX: J20.9 Acute bronchitis, unspecified (principal)
CPT/HCPCS: 99213

== ENCOUNTER 2024-02-16 14:50 | Outpatient (AMB) | payer OTHER, SELFPAY ==
--- NOTE | 2024-02-16 14:52 | AM.OFFWIN_ITS ---
Intake Vital Signs 02/16/24 14:54 Height 5 ft 6 in Weight 187 lb BMI 30.2 BP 144/98 H Blood Pressure Location Rt brachial Position Sitting Pulse 81 Pulse Source Pulse Oximeter Temp 98.3 F Temp Source Oral Pulse Oximetry (%) 97 Oxygen Delivery Method Room Air Intake Visit Reasons: EP-coughing, rolling nose, sour throat Intake Note: PT c/o cough, runny nose, sore throat. Started 1 week ago Patient Tobacco Use Status: Never used Tobacco Allergies No Known Allergies Allergy (Verified 02/16/24 14:54) Do you need a note to return to daycare/school/sports/work: No HPI HPI Comments History of Present Illness Details Patient is a 53-year-old male complaining of 2 weeks of a dry cough and a sore throat. States he has some minor sinus pain and minor headaches. He denies any shortness of breath, nausea, vomiting, diarrhea or fevers or ear pain. He denies any sick contacts at home. He is not tested for COVID. He has been taking NyQuil with some relief. He denies a history of asthma or COPD. [facility] Medical History Lumbar spondylosis Obesity (BMI 30-39.9) H. 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 Current occupational exposures/hazards: No Cognitive needs: No Hearing needs: No Vision needs: No Review of Systems Const All systems reviewed & are unremarkable except as noted in HPI and below Physical Exam Vital Signs: Last Vital Signs Temp 98.3 F 02/16/24 14:54 Pulse 81 02/16/24 14:54 BP 144/98 H 02/16/24 14:54 Pulse Ox 97 02/16/24 14:54 Oxygen Delivery Method Room Air 02/16/24 14:54 BMI result Body Mass Index 30.2 Const General: cooperative, healthy appearing, comfortable and no acute distress Orientation/consciousness: patient oriented x3 Limitations: no limitations HEENT Head: Yes normal to inspection Ears: hearing grossly normal bilaterally, external ears normal and TM's normal bilaterally General nose exam: Normal external nose present, Normal nares present and No nasal discharge present Face and sinus: Yes normal facial exam and Yes sinuses nontender Mouth: Normal oral and palatal mucosa present and moist mucous membranes Throat: Yes tonsils normal, Yes uvula midline and Yes posterior oropharynx abnormal (Erythema) Eyes General: appearance normal, both eyes and all related structures Neck Neck: Yes normal visual inspection Resp Effort & Inspection: normal respiratory effort, able to speak in complete senten raymundo, no respiratory distress, not tachypneic, no tripod positioning and no use of accessory muscles Auscultation: clear to auscultation bilaterally Cardio Rate: regular rate Rhythm: regular rhythm Heart sounds: normal S1 and S2 Skin General skin exam: no rashes or lesions noted Neuro General: patient oriented x3 Extrem General: Yes normal to inspection and Yes no clubbing, cyanosis or edema Results AMB Rapid Strep AMB Rapid Strep Negative Last Edit by Micah Avendano CMA on 02/16/24 15:08 Assessment & Plan Assessment & Plan (1) Atypical pneumonia: Code(s): J18.9 - Pneumonia, unspecified organism Plan: Rapid strep in office negative, sent flu COVID and RSV. Sent z-barney for likely walking pneumonia. Recommended patient continue with [id number] medications for symptomatic care. Plan See above Orders: Orders SARS-CoV2/FLU/RSV Today J06.9 - Acute upper respiratory infection, unspecified AMB Rapid Strep Screen Today Z13.9 - Encounter for screening, unspecified Medications: New azithromycin For 250 mg dose pack: take 500 mg today (day 1), then 250 mg for 4 days (days 2-5) PO 6 tabs 0RF Coding Level of Care Code Est Pt Level 3 (84682) Diagnoses Atypical pneumonia J18.9
[2024-02-16 14:54] VITALS: BP 144/98; PULSE 81; TEMP 36.8; O2SAT 97; BMI 30.2
== END 2024-02-16 15:14 | disposition home or self-care (01) ==
PROVIDERS: PCP Internal Medicine; Visit Provider Physician Assistant
DX: J18.9 Pneumonia, unspecified organism (principal); J02.9 Acute pharyngitis, unspecified
CPT/HCPCS: 87880; 99213

== ENCOUNTER 2024-02-16 15:07 | Outpatient (REF) | payer OTHER, SELFPAY ==
[2024-02-16 17:31] LABS: Influenza A PCR NEGATIVE (Negative); Influenza B PCR NEGATIVE (Negative); Resp Syncy Virus RNA Qual PCR NEGATIVE (Negative); SARS COV2 PCR INHOUSE NEGATIVE (Negative)
== END 2024-02-16 15:08 | disposition home or self-care (01) ==
LOC: HO.LAB 15:07
PROVIDERS: Visit Provider Physician Assistant
DX: J06.9 Acute upper respiratory infection, unspecified (principal)
CPT/HCPCS: 0241U

== ENCOUNTER 2024-02-23 13:46 | Outpatient (AMB) | payer OTHER, SELFPAY ==
--- NOTE | 2024-02-23 13:52 | AM.OFFWIN_ITS ---
Intake Vital Signs 02/23/24 13:53 Height 5 ft 6 in Weight 187 lb BMI 30.2 BP 128/90 H Blood Pressure Location Rt brachial Position Sitting Pulse 73 Pulse Source Pulse Oximeter Temp 98.1 F Temp Source Oral Pulse Oximetry (%) 98 Oxygen Delivery Method Room Air Intake Visit Reasons: EP cough, runny nose Intake Note: pt c/o cough and runny nose. Started 2 weeks ago Patient Tobacco Use Status: Never used Tobacco Allergies No Known Allergies Allergy (Verified 02/23/24 13:53) Do you need a note to return to daycare/school/sports/work: No HPI EP cough, runny nose HPI Details This note is constructed using voice recognition software. While every effort has been made to ensure accuracy, surgical elastic knitter errors may have been included. The patient is a 53 year old male who presents to the clinic today with ongoing cough and runny nose. He was treated last in the clinic on 02/16/2024 for walking pneumonia with azithromycin. He notes since that time his symptoms have drastically improved. He denies fever, chills, dyspnea, ear pain, body aches. He has not tried anything additional to make it better other than the antibiotics initially prescribed for the pneumonia. Cough seems to be worse when he lays down to go to bed at night. ON LICENSE OF [facility] Medical History Lumbar spondylosis Obesity (BMI 30-39.9) H. 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 Current occupational exposures/hazards: No Cognitive needs: No Hearing needs: No Vision needs: No Review of Systems Const All systems reviewed & are unremarkable except as noted in HPI and below Physical Exam Vital Signs: Last Vital Signs Temp 98.1 F 02/23/24 13:53 Pulse 73 02/23/24 13:53 BP 128/90 H 02/23/24 13:53 Pulse Ox 98 02/23/24 13:53 Oxygen Delivery Method Room Air 02/23/24 13:53 BMI result Body Mass Index 30.2 Const General: cooperative, healthy appearing, comfortable and no acute distress Orientation/consciousness: patient oriented x3 Limitations: no limitations HEENT Head: Yes normal to inspection Ears: hearing grossly normal bilaterally, external ears normal and TM abnormal retracted General nose exam: Normal external nose present, No nasal discharge present and Abnormal mucous membranes and turbinates present boggy and pale Face and sinus: Yes normal facial exam and Yes sinuses nontender Mouth: Normal oral and palatal mucosa present and moist mucous membranes Throat: Yes tonsils normal, Yes uvula midline, Yes posterior oropharynx abnormal (Erythema), Yes postnasal drainage and Yes cobblestoning Eyes General: appearance normal, both eyes and all related structures Neck Neck: Yes normal visual inspection Resp Effort & Inspection: normal respiratory effort, able to speak in complete sentences, Actively coughing, no respiratory distress, not tachypneic, no tripod positioning and no use of accessory muscles Auscultation: clear to auscultation bilaterally Cardio Rate: regular rate Rhythm: regular rhythm Heart sounds: normal S1 and S2 Skin General skin exam: no rashes or lesions noted Neuro General: patient oriented x3 Extrem General: Yes normal to inspection and Yes no clubbing, cyanosis or edema Assessment & Plan Assessment & Plan (1) Allergic rhinitis: Code(s): J30.9 - Allergic rhinitis, unspecified Qualifiers: Allergic rhinitis trigger: unspecified Allergic rhinitis seasonality: unspecified Qualified Code(s): J30.9 - Allergic rhinitis, unspecified Plan: Supportive measures encouraged and reviewed. Advised patient to try a Flonase nasal spray and second-generation antihistamine such as Zyrtec, Claritin, Marcela or similar. Advised consideration of sinus rinse if needed. Advised patient to follow up with primary care provider with worsening or failure to resolve. Plan See above for full details and plan. Orders: Orders SARS-CoV2/FLU/RSV Today J06.9 - Acute upper respiratory infection, unspecified Coding Level of Care Code Est Pt Level 3 (23631) Diagnoses Allergic rhinitis, unspecified seasonality, unspecified trigger J30.9 Allergic rhinitis trigger: unspecified Allergic rhinitis seasonality: unspecified
[2024-02-23 13:53] VITALS: BP 128/90; PULSE 73; TEMP 36.7; O2SAT 98; BMI 30.2
== END 2024-02-23 14:30 | disposition home or self-care (01) ==
PROVIDERS: PCP Internal Medicine; Visit Provider Registered Nurse
DX: J30.9 Allergic rhinitis, unspecified (principal)

== ENCOUNTER 2024-02-23 13:46 | Outpatient (REF) | payer OTHER, SELFPAY ==
[2024-02-23 17:33] LABS: Influenza A PCR NEGATIVE (Negative); Influenza B PCR NEGATIVE (Negative); Resp Syncy Virus RNA Qual PCR NEGATIVE (Negative); SARS COV2 PCR INHOUSE NEGATIVE (Negative)
== END 2024-02-23 13:47 | disposition home or self-care (01) ==
LOC: HO.LAB 13:46
PROVIDERS: Registered Nurse; PCP Internal Medicine
DX: J06.9 Acute upper respiratory infection, unspecified (principal); J30.9 Allergic rhinitis, unspecified
CPT/HCPCS: 0241U; 99212

== ENCOUNTER 2024-03-08 09:25 | Outpatient (REF) | payer OTHER, SELFPAY ==
[2024-03-08 09:56] LABS: MANUAL DIFF FLAG NO
[2024-03-08 10:29] LABS: Basophils Absolute Auto 0.1 X10*3/uL (0.0-0.2); Basophils Percent Auto 1.2 % (0-2); Eosinophils Absolute Auto 0.3 X10*3/uL (0.0-0.4); Eosinophils Percent Auto 6.5 % (0-4); Hematocrit 42.3 % (42.0-52.0); Imm Gran Abs Auto 0.05 X10*3/uL (0.00-0.03); Imm Gran Pct Auto 1.2 % (0.0-0.4); Lymphocytes Absolute Auto 1.1 X10*3/uL (1.2-4.9); Lymphocytes Percent Auto 26.8 % (20-40); Mean Corpuscular HGB Conc 33.1 g/dl (31.0-36.0); Mean Corpuscular Hemoglobin 30.2 pg (27.0-33.0); Mean Corpuscular Volume 91.4 fL (80.0-98.0); Mean Platelet Volume 9.3 fL (9.4-12.4); Monocytes Absolute Auto 0.6 X10*3/uL (0.1-1.2); Monocytes Percent Auto 13.8 % (2-11); Neutrophils Absolute Auto 2.1 x10*3/uL (2.0-8.3); Neutrophils Percent Auto 50.5 % (45-73); Platelet Count 190 X10*3/uL (160-400); Red Blood Count 4.63 X10*6/uL (4.60-5.80); Red Cell Distribution Width 13.5 % (11.0-16.0); White Blood Count 4.1 X10*3/uL (4.8-10.8)
[2024-03-08 10:45] LABS: Appearance Urine Clear; Color Urine Yellow; Glucose Urine UA Negative (Negative); Leukocyte Esterase Urine Negative (Negative); Nitrite Urine Negative (Negative); Specific Gravity - Urine 1.025 (1.005-1.025); Urine Blood Negative (Negative); Urine Ketones Negative (Negative); Urine Protein Negative (Neg-Trace)
[2024-03-08 10:58] LABS: Alanine Aminotransferase 24 U/L (0-40); Alkaline Phosphatase 60 U/L (39-117); Anion Gap 12 (12-20); Aspartate Amino Transferase 19 U/L (5-37); Bilirubin Total 0.6 mg/dL (0.0-1.0); Blood Urea Nitrogen 16 mg/dL (9-16); Calcium 8.9 mg/dL (8.4-10.2); Carbon Dioxide 24 mmol/L (22-29); Chloride 109 mmol/L (96-108); Cholesterol 167 mg/dL (<200); Estimated Glomerular Filt Rate > 60; Glucose Fasting 103 mg/dL (60-99); HDL Cholesterol 32 mg/dL (>40); LDL Cholesterol Calculated 117 mg/dL (<100); Potassium 4.2 mmol/L (3.3-5.1); Sodium 141 mmol/L (135-145); Total Protein 7.6 g/dL (6.5-8.0); Triglycerides 91 mg/dL (<150)
[2024-03-08 11:10] LABS: Prostate Specific Antigen Scr 0.79 ng/mL (<0.05-4.0)
[2024-03-08 11:17] LABS: TSH reflex Free T4 3.24 uIU/mL (0.32-4.0); Vitamin D 25-OH Total 44.8 ng/mL (>30)
== END 2024-03-08 09:26 | disposition home or self-care (01) ==
LOC: HO.LAB 09:25
PROVIDERS: PCP Internal Medicine; Visit Provider Internal Medicine
DX: Z00.00 Encounter for general adult medical examination without abnormal findings (principal); E55.9 Vitamin D deficiency, unspecified; E78.00 Pure hypercholesterolemia, unspecified; D64.9 Anemia, unspecified; R30.0 Dysuria
CPT/HCPCS: 36415; 80053; 80061; 81003; 82306; 84153; 84443; 85025

== ENCOUNTER 2024-03-20 09:01 | Outpatient (AMB) | payer OTHER, SELFPAY ==
[2024-03-20 09:07] VITALS: BP 132/84; PULSE 76; O2SAT 98; BMI 30.9
--- NOTE | 2024-03-20 09:07 | MHC.PC.OV ---
Vital Signs 03/20/24 09:07 Height 5 ft 6 in Weight 191 lb 6 oz BMI 30.9 BP 132/84 Blood Pressure Location Lt brachial Position Sitting Pulse 76 Pulse Source Pulse Oximeter Pulse Oximetry (%) 98 Oxygen Delivery Method Room Air Intake Visit Reasons: 6 months f/u [employer] Truck [employer] Required: No Accompanied by: Self / Same As Patient Allergies No Known Allergies Allergy (Verified 03/20/24 09:19) Medication List - Last Reconciled 03/20/24 by Juan Brooke MD albuterol sulfate 90 mcg/actuation 2 puffs inhalation Q6H PRN blood pressure monitor As directed cholecalciferol (vitamin D3) 50 mcg PO DAILY 90 days diclofenac sodium 1% (Arthritis Pain (diclofenac)) 4 grams topical QID PRN fluticasone propionate 50 mcg/actuation 1 spray intranasal DAILY loratadine 10 mg PO DAILY PRN 90 days losartan 25 mg PO DAILY meloxicam 15 mg PO DAILY PRN pantoprazole 40 mg PO DAILY Tobacco use date assessed: 03/20/24 Dental Screening Dental Screen Date: 03/20/24 Did you have a dental visit in the last 12 months?: Yes Did you have a dental problem in the last 6 months where you did not have access to dental care?: No Was dental information given to patient?: Patient has dentist HPI 6 months f/u HPI Details Patient comes in today for his follow up visit States that he feels okay except for increased right knee pain often lately He denies any headaches or dizziness Denies any chest pains, no SOB although he still has on and off non-productive cough, which I have noticed during his visit today He denies any sore throat or fever and states that his chest does not feel congested No nausea/vomiting, no abdominal pain No change in bowel habits noted Needs a couple of his Rx refilled He had his follow up labs done last week - to discuss his results [facility] Medical History (Updated 03/20/24 @ 09:46 by Juan Brooke MD) Obesity, class 1 Lumbar spondylosis Obesity (BMI 30-39.9) H. 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 occupational status: employed Current occupation: [employer], [employer] Current occupational exposures/hazards: No Cognitive needs: No Hearing needs: No Vision needs: No Questionnaire PHQ-9 Over the last 2 weeks, how often have you been bothered by any of the following problems? 1. Little interest or pleasure in doing things: not at all 2. Feeling down, depressed, or hopeless: not at all 3. Trouble falling or staying asleep, or sleeping too much: not at all 4. Feeling tired or having little energy: not at all 5. Poor appetite or overeating: not at all 6. Feeling bad about yourself - or that you are a failure or have let yourself or your family down: not at all 7. Trouble concentrating on things, such as reading the newspaper or watching television: not at all 8. Moving or speaking so slowly that other people could have noticed. Or the opposite - being so fidgety or restless that you have been moving around a lot more than usual: not at all 9. Thoughts that you would be better off or of hurting yourself in some way: not at all Total score: 0 Depression Screening Interpretation: Negative Depression Screening Done: Yes 67022 - PHQ-9 Billing: Yes Source: Developed by Drs. Steven Oquendo, Aminta Rodriguez, lEiu Roe and colleagues, with an educational deneen from [employer]. Thrive Questionnaire Date Thrive assessed: 03/20/24 I am a: Patient What is your living situation today?: I have a steady place to live Within the past 12 months, did the food you bought not last and you didn't have the money to get more?: Never true Within the past 12 months, did you worry whether your food would run out before you got money to buy more?: Never true Do you have trouble paying for medicines?: No Do you have trouble getting transportation to medical appointments?: No Do you have trouble paying your heating and electricity bill?: No Do you have trouble taking care of your child, family member or friend?: No Do you have trouble with day-to-day activities such as bathing, preparing meals, shopping, managing finances, etc.?: No Are you currently unemployed and looking for a job?: Yes Are you interested in more education?: No Please select the resources that you would like help with: None Currently or been in a relationship where the following occur: No concerns reported THRIVE Score: 0 AUDIT C Alcohol Use Questionnaire (AUDIT-C) 1. How often do you have a drink containing alcohol?: Never 2. How many drinks containing alcohol do you have on a typical day when you are drinking?: 1 or 2 3. How often do you have six or more drinks on one occasion?: Never Total Score: 0 Score Reviewed/Action Taken: Yes ROB-7 AMB Questionnaire ROB-7 Date ORB - 7 assessed: 03/20/24 Feeling nervous, anxious, or on edge: 0 = Not at all Not being able to stop or control worryin = Not at all Worrying too much about different things: 0 = Not at all Trouble relaxin = Not at all Being so restless that it is hard to sit still: 0 = Not at all Becoming easily annoyed or irritable: 0 = Not at all Feeling afraid as if something awful might happen: 0 = Not at all Total ROB-7 score (0-4 normal; 5-9 mild; 10-14 moderate; 15-21 severe): 0 Source: Developed by Drs. Steven Oquendo, Aminta Rodriguez, Eliu Roe and colleagues, with an educational deneen from [employer]. Review of Systems Const Denies chills, Denies fatigue, Denies fever(s) and Denies headache(s) ENT Denies dysphagia, Denies dizziness, Denies otalgia, Denies headache(s), Denies neck pain, Denies odynophagia and Denies sore throat Card Denies chest pain, Denies palpitations and Denies dyspnea Resp Denies chest congestion, Reports cough (on and off, non-productive), Denies dyspnea and Denies wheezing GI Denies abdominal pain, Denies constipation, Denies dysphagia, Denies heartburn, Denies diarrhea, Denies nausea, Denies odynophagia and Denies vomiting Denies dysuria, Denies nocturia and Denies urinary frequency Musc Denies back pain, Reports arthralgias (increased over the right knee lately) and Denies neck pain Skin/Breast Denies rash Neuro Denies dizziness and Denies headache(s) Endo Denies fatigue and Denies palpitations Aller/Immun Denies wheezing Physical exam (Primary Care) Vital Signs: Last Vital Signs Pulse 76 03/20/24 09:07 BP 132/84 03/20/24 09:07 Pulse Ox 98 03/20/24 09:07 Oxygen Delivery Method Room Air 03/20/24 09:07 BMI result Body Mass Index 30.9 Tobacco/Smoking Status: Tobacco use Status Tobacco use date assessed 03/20/24 03/20/24 09:11 Patient Tobacco Use Status Never used Tobacco 03/20/24 09:11 e-Cigarette/Vaping Use Never Used 03/20/24 09:11 PHQ-9: PHQ-9 Score PHQ-9: Total score 0 03/20/24 09:14 Depression Screening Interpretation: Negative Thrive Assessment: Date of Thrive Assessment Date Thrive assessed 03/20/24 03/20/24 09:11 Currently or been in a relationship where the following occur: No concerns reported Const General: no acute distress and alert HENMT Ears: TM's normal bilaterally and EAC's normal Throat: Yes posterior oropharynx normal and Yes tonsils normal (no TP congestion) Neck Neck: Yes no lymphadenopathy and Yes supple Thyroid: Thyroid normal Resp Auscultation: clear to auscultation bilaterally, no rales and no wheezes Cardio Rate: regular rate Rhythm: regular rhythm Heart sounds: no murmurs GI Palpation (GI): Soft to palpation and nontender Auscultation: normal bowel sounds General: Yes no CVA tenderness Back/Spine/Pelvis Back: no CVA tenderness Thoracic/Lumbar Spine: No lumbar spinal tenderness Skin Rashes: no rashes Extrem General: Yes no clubbing, cyanosis or edema Right lower extremity: knee Details: tenderness Location: of the patella Details: superiorly and of the pre-patellar area and normal ROM; no swelling Office Procedures Flu Questionnaire Does the patient have a severe egg allergy?: No Immunizations Fluarix Triv [id number] (PF) 45 mcg (15 mcg x 3)/0.5 mL IM syringe Performing Provider: Juan Brooke MD [facility] [place] [facility] [place] Documented (not given) by: LUKE Shafer on 03/20/24 09:14 Reason Not Given: Received Previously Results Reviewed Results Reviewed: Laboratory Tests 03/08/24 03/08/24 09:33 09:54 WBC 4.1 L Hgb 14.0 Hct 42.3 Plt Count 190 Sodium 141 Potassium 4.2 Creatinine 0.77 Estimated GFR > 60 Fasting Glucose 103 H Calcium 8.9 AST 19 ALT 24 Triglycerides 91 Cholesterol 167 LDL Cholesterol, Calc 117 H HDL Cholesterol 32 L PSA Screen 0.79 25-OH Vitamin D Total 44.8 TSH 3.24 Ur Specific [place] 1.025 Urine Protein Negative Urine Glucose (UA) Negative Urine Blood Negative Urine Nitrite Negative Ur Leukocyte Esterase Negative Coding Level of Care Code Est Pt Level 4 (71146) Complex EM visit Add On G2211 Diagnoses Benign essential hypertension I10 Pure hypercholesterolemia E78.00 GERD without esophagitis K21.9 Impaired fasting glucose R73.01 Allergic rhinitis, unspecified seasonality, unspecified trigger J30.9 Allergic rhinitis trigger: unspecified Allergic rhinitis seasonality: unspecified Vitamin D deficiency E55.9 Upper respiratory tract infection, unspecified type J06.9 URI type: unspecified URI Lumbar spondylosis M47.816 Patellofemoral arthritis of right knee M17.11 Obesity, class 1 E66.811 Assessment & Plan Assessment & Plan (1) Benign essential hypertension: Code(s): I10 - Essential (primary) hypertension Category: Medical Plan: Reinforced low sodium diet - goal is systolic BP of 120 mm or less Continue Losartan 25 mg QD He is reminded to continue monitoring his blood pressure regularly (2) Pure hypercholesterolemia: Code(s): E78.00 - Pure hypercholesterolemia, unspecified Category: Medical Plan: Results of his labs done last week reviewed and discussed with patient Reinforced low cholesterol diet Will recheck his labs and fasting lipids in 6 months for follow up (3) GERD without esophagitis: Comment: EGD- Barretts surveillance- r/o esophagitis, PUD, non ulcer dyspepsia- avoid culprits- continue ppi- daily Code(s): K21.9 - Gastro-esophageal reflux disease without esophagitis Category: Medical Plan: Dietary restrictions reinforced Continue Pantoprazole 40 mg QD - Rx refilled Follow up with GI as scheduled (4) Impaired fasting glucose: Code(s): R73.01 - Impaired fasting glucose Category: Medical Plan: His FBS is still slightly elevated at 103 mg/dl on his labs done last week; his HgbA1c was at 6.0% when last checked back in July 2023 Reinforced low calorie/low carb diet; exercise as tolerated Will recheck his HgbA1c in 6 months for follow up (5) Allergic rhinitis: Code(s): J30.9 - Allergic rhinitis, unspecified Category: Medical Qualifiers: Allergic rhinitis trigger: unspecified Allergic rhinitis seasonality: unspecified Qualified Code(s): J30.9 - Allergic rhinitis, unspecified Plan: Continue Loratadine 10 mg QD PRN and Fluticasone 50 mcg nasal spray QD PRN (6) Vitamin D deficiency: Code(s): E55.9 - Vitamin D deficiency, unspecified Category: Medical Plan: Continue Vitamin D3 2000 units QD (7) Upper respiratory tract infection: Comment: Obtained URI swab in office. Will give patient prednisone and albuterol. Patient has been advised he can utilize [id number] cepacol throat drops. Cough may also be adversely affected by GERD. Code(s): J06.9 - Acute upper respiratory infection, unspecified Category: Medical Qualifiers: URI type: unspecified URI Qualified Code(s): J06.9 - Acute upper respiratory infection, unspecified Plan: Patient still has a recurrent/lingering non-productive cough at this time Have advised him that possible causes may be due to allergies or GERD - he is encouraged to continue on his allergy Rx as well as his Pantoprazole Will start him again on a 5 day course of Azithromycin, which will hopefully clear up his cough and respiratory symptoms completely but have advised him against taking any more Abx in the future unless it is absolutely indicated (8) Lumbar spondylosis: Code(s): M47.816 - Spondylosis without myelopathy or radiculopathy, lumbar region Category: Medical Plan: Reinforced activity and weight-lifting restrictions to avoid aggravating his low back pain He has been experiencing recurrent low back pain since he slipped on ice/snow and fell on his driveway a couple of years ago Lumbar spine x-rays done in August 2022 revealed (+) age indeterminate compression deformities at T12, L1 and L2 and moderate spondylosis at L5-S1 with some degree of central canal stenosis and neural foraminal encroachment Lumbar spine MRI done in October 2022 revealed chronic upper endplate fracture deformities at T12, L1, and L2 with associated superior endplate Schmorl's nodes and resultant mild central height loss. No new compression fracture deformity. Also (+) mild multilevel lumbar spondylosis without significant spinal canal stenosis. At L5-S1, a broad-based central disc protrusion causes asymmetric left subarticular zone narrowing with abutment along the traversing left S1 nerve root. Mild to moderate bilateral L5-S1 neural foraminal stenosis with contact along the exiting L5 nerve roots He is again advised that if his low back pain continues to increase or progress, we can consider referring him to neurosurgery for further evaluation and management Patient states that his low back pain has calmed down a lot since and he will call if his back pain starts to act up again (9) Patellofemoral arthritis of right knee: Code(s): M17.11 - Unilateral primary osteoarthritis, right knee Category: Medical Plan: X-rays of both knee done back in 04/2023 revealed (+) mild narrowing of the bilateral medial femorotibial compartments He has received cortisone injection into his right knee with orthopedics in the past, most recently in December 2023 Continue topical Dicofenac 1% apply to the right knee QID PRN for symptomatic relief As he is on his feet all day when he is at work, have advised him to try wearing a knee brace for added support and this may help keep his knee pain from flaring up too much He is advised to reach out again to orthopedics if his knee pain persists as he may need to get another cortisone injection again soon Follow up with orthopedics as scheduled (10) Obesity, class 1: Code(s): E66.811 - Obesity, class 1 Category: Medical Plan: Reinforced diet/exercise as tolerated/lose weight - he has gained a few pounds since his last visit and he has been cautioned about this Plan To return in 6 months for his next annual physical examination Orders: Orders Influenza [id number] Immunization Today Z23 - Encounter for immunization Lipid Panel 6 Months E78.00 - Pure hypercholesterolemia, unspecified, Z00.00 - Encounter for general adult medical examination without abnormal findings Comprehensive [place]. Panel Fast 6 Months E78.00 - Pure hypercholesterolemia, unspecified, Z00.00 - Encounter for general adult medical examination without abnormal findings Vitamin D 25-OH Total 6 Months E55.9 - Vitamin D deficiency, unspecified, Z00.00 - Encounter for general adult medical examination without abnormal findings Complete Blood Count Auto Diff 6 Months D64.9 - Anemia, unspecified, Z00.00 - Encounter for general adult medical examination without abnormal findings TSH reflex Free T4 6 Months E78.00 - Pure hypercholesterolemia, unspecified, Z00.00 - Encounter for general adult medical examination without abnormal findings UA CC w/rflx Micro + Cult 6 Months R30.0 - Dysuria, Z00.00 - Encounter for general adult medical examination without abnormal findings Hemoglobin A1c 6 Months E11.9 - Type 2 diabetes mellitus without complications, Z00.00 - Encounter for general adult medical examination without abnormal findings Medications: New azithromycin take 500 mg today (day 1), then 250 mg for 4 days (days 2-5) PO 6 tabs 0RF Refilled pantoprazole 40 mg PO DAILY 90 tabs 1RF diclofenac sodium 1% (Arthritis Pain (diclofenac)) apply to single knee, ankle, foot as needed for pain; for foot includes sole/toes/top of foot 4 grams topical QID PRN 100 grams 3RF joint pain
== END 2024-03-20 09:44 | disposition home or self-care (01) ==
PROVIDERS: PCP Internal Medicine; Visit Provider Internal Medicine
DX: I10 Essential (primary) hypertension (principal); E78.00 Pure hypercholesterolemia, unspecified; K21.9 Gastro-esophageal reflux disease without esophagitis; R73.01 Impaired fasting glucose; J30.9 Allergic rhinitis, unspecified; E55.9 Vitamin D deficiency, unspecified; J06.9 Acute upper respiratory infection, unspecified; M47.816 Spondylosis without myelopathy or radiculopathy, lumbar region; M17.11 Unilateral primary osteoarthritis, right knee; E66.811 Obesity, class 1; Z23 Encounter for immunization

== ENCOUNTER → 2024-03-20 09:01 | Outpatient (BNVA) | payer OTHER, SELFPAY | PROVIDERS: PCP Internal Medicine; Visit Provider Internal Medicine | DX: I10 Essential (primary) hypertension (principal); E78.00 Pure hypercholesterolemia, unspecified; K21.9 Gastro-esophageal reflux disease without esophagitis; R73.01 Impaired fasting glucose; J30.9 Allergic rhinitis, unspecified; E55.9 Vitamin D deficiency, unspecified; M47.816 Spondylosis without myelopathy or radiculopathy, lumbar region; M17.11 Unilateral primary osteoarthritis, right knee; E66.811 Obesity, class 1 | CPT/HCPCS: 90471; 96127; 99212 ==

== ENCOUNTER 2024-04-12 09:23 | Outpatient (AMB) | payer OTHER, SELFPAY ==
--- NOTE | 2024-04-12 09:43 | A.OFFVIS_ITS ---
Intake Visit Reasons: OV- RT knee s/p injection 12/13/23 Intake Note: Rain Morgan a 53 year old male who presents today for a follow up of right knee, last injection on 12/13/23. Patient reports injection helped for a couple of months. He would like to discuss moving forward with injections. Allergies No Known Allergies Allergy (Verified 04/12/24 09:53) Medication List - Last Reconciled 04/12/24 by Cleveland Rodriguez PA-C albuterol sulfate 90 mcg/actuation 2 puffs inhalation Q6H PRN blood pressure monitor As directed cholecalciferol (vitamin D3) 50 mcg PO DAILY 90 days diclofenac sodium 1% (Arthritis Pain (diclofenac)) 4 grams topical QID PRN fluticasone propionate 50 mcg/actuation 1 spray intranasal DAILY loratadine 10 mg PO DAILY PRN 90 days losartan 25 mg PO DAILY meloxicam 15 mg PO DAILY PRN pantoprazole 40 mg PO DAILY HPI HPI OV- RT knee s/p injection 12/13/23: Details: 53-year-old male who returns to the office today for a follow-up of right knee pain. He continues to have pain in his right knee that is aggravated with standing. He also experiences a sharp pain with twisting and pivoting motions. He had a right knee injection on 12/13/23 that provided him relief for about 2 months. He would like to repeat the injection. [facility] Medical History (Updated 03/20/24 @ 10:52 by Juan Brooke MD) Renal pelvis enlarged on ultrasound Obesity, class 1 Lumbar spondylosis Obesity (BMI 30-39.9) H. 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 occupational status: employed Current occupation: [employer] Current occupational exposures/hazards: No Cognitive needs: No Hearing needs: No Vision needs: No Review of Systems Const All systems reviewed & are unremarkable except as noted in HPI and below Physical Exam Extrem Other: Right knee: Skin intact, no erythema or joint effusion. Lateral retropatellar tenderness present. Full ROM with crepitus. Negative Conner?s. No ligamentous laxity. NVI. Office Procedures AMB Joint Injection/Aspiration Joint Injection/Aspiration Primary Site: right knee Prep: site was prepped using aseptic technique, ethochloride spray was applied and injection warnings given Injected: 80 mg of, DepoMedrol, with 8 mL of, 1% plain lidocaine and in the joint Approach Used: anterolateral Procedure: The patient tolerated the procedure well and there was some relief with the local anesthesia Coding 35852 - Glenohumeral/Tronchanteric Bursa/Intraarticular Procedure code (CPT) selection complete Assessment & Plan Assessment & Plan (1) Patellofemoral arthritis of right knee: Code(s): M17.11 - Unilateral primary osteoarthritis, right knee Category: Medical Plan We discussed options today, which include steroid injection. The patient did consent to move forward with the right knee injection, which was tolerated well. I recommended rest, ice, and elevation and OTC anti-inflammatories as needed for discomfort. An MRI of the right knee was ordered to further evaluate the source of his pain. If symptoms persist or worsens over the next 6-8 weeks, patient will contact the office, otherwise follow-up as needed. Orders: Orders MR knee RT wo con Today M17.11 - Unilateral primary osteoarthritis, right knee Patient Instructions: Scribed for Cleveland Rodriguez PA-C, by Damien Cruz medical physiologist, on 04/12/2024 at 9:30 AM EST.? I, Cleveland Rodriguez PA-C, have personally reviewed and agree with the information entered by the scribe. Coding Level of Care Code Est Pt Level 3 (17583) Complex EM visit Add On G2211 Diagnoses Patellofemoral arthritis of right knee M17.11 CPT Codes Coding - Joint 7: 37173 - Glenohumeral/Tronchanteric Bursa/Intraarticular ([id number])
== END 2024-04-12 09:58 | disposition home or self-care (01) ==
LOC: HO.HOS 09:24
PROVIDERS: PCP Internal Medicine; Visit Provider Physician Assistant
DX: M17.11 Unilateral primary osteoarthritis, right knee (principal)
CPT/HCPCS: 20610; 99213

== ENCOUNTER → 2024-04-12 09:23 | Outpatient (BNVA) | payer OTHER, SELFPAY | PROVIDERS: PCP Internal Medicine; Visit Provider Physician Assistant | DX: M17.11 Unilateral primary osteoarthritis, right knee (principal) | CPT/HCPCS: 20610; 99212; J1010; J2003 ==

== ENCOUNTER 2024-05-18 11:17 | Outpatient (AMB) | payer OTHER, SELFPAY ==
[2024-05-18 11:49] VITALS: BP 150/96; PULSE 74; O2SAT 98
--- NOTE | 2024-05-18 11:49 | MHC.OFFWIV ---
Intake Vital Signs 05/18/24 11:49 Weight 190 lb BP 150/96 H Blood Pressure Location Rt brachial Position Sitting Pulse 74 Pulse Source Pulse Oximeter Pulse Oximetry (%) 98 Oxygen Delivery Method Room Air Intake Visit Reasons: EP-cough, sore throat Intake Note: Patient here for cough that has been present for a couple of days. Patient Tobacco Use Status: Never used Tobacco Allergies No Known Allergies Allergy (Verified 05/18/24 11:50) Do you need a note to return to daycare/school/sports/work: No HPI EP-cough, sore throat HPI Details This note is constructed using voice recognition software. While every effort has been made to ensure accuracy, hotel staff member errors may have been included. The patient is a 53 year old male who presents to the clinic today with cough, congestion for the past 2 days. He denies fever, chills, shortness of breath, sore throat, ear aches. He does report some body aches. He has been taking cough syrup with Moderate effect. Symptoms remained about the same since onset. [facility] Medical History (Updated 05/18/24 @ 12:38 by Alba Paulson NP) Renal pelvis enlarged on ultrasound Obesity, class 1 Lumbar spondylosis Obesity (BMI 30-39.9) H. 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 Current occupational exposures/hazards: No Cognitive needs: No Hearing needs: No Vision needs: No Review of Systems Const All systems reviewed & are unremarkable except as noted in HPI and below Physical Exam Vital Signs: Last Vital Signs Pulse 74 05/18/24 11:49 BP 150/96 H 05/18/24 11:49 Pulse Ox 98 05/18/24 11:49 Oxygen Delivery Method Room Air 05/18/24 11:49 Const General: cooperative, healthy appearing, comfortable and no acute distress Orientation/consciousness: patient oriented x3 Limitations: no limitations HEENT Head: Yes normal to inspection Ears: hearing grossly normal bilaterally, external ears normal and TM's normal bilaterally General nose exam: Normal external nose present, Normal nares present and No nasal discharge present Face and sinus: Yes normal facial exam and Yes sinuses nontender Mouth: Normal oral and palatal mucosa present and moist mucous membranes Throat: Yes tonsils normal, Yes uvula midline and Yes posterior oropharynx abnormal (Erythema) Eyes General: appearance normal, both eyes and all related structures Neck Neck: Yes normal visual inspection Resp Effort & Inspection: normal respiratory effort, able to speak in complete sentences, Actively coughing, no respiratory distress, not tachypneic, no tripod positioning and no use of accessory muscles Auscultation: clear to auscultation bilaterally Cardio Jugular venous distension: no JVD Rate: regular rate Rhythm: regular rhythm Heart sounds: S1 normal heart sound present, S2 normal heart sound present, no click, no gallops, no murmurs and no rubs Skin General skin exam: no rashes or lesions noted, elasticity normal and turgor normal Neuro General: patient oriented x3 Extrem General: Yes normal to inspection and Yes no clubbing, cyanosis or edema Assessment & Plan Assessment & Plan (1) Upper respiratory tract infection: Code(s): J06.9 - Acute upper respiratory infection, unspecified Qualifiers: URI type: unspecified URI Qualified Code(s): J06.9 - Acute upper respiratory infection, unspecified Plan: Viral swab obtained to rule out Covid, Influenza, and RSV based on symptoms. Advised mask wearing while symptomatic and quarantine per current CDC guidelines. Reviewed at home support methods including hydration, humidification, vix vapor rub, sinus rinse, and otc treatment options. Advised follow up with worsening symptoms such as dyspnea at rest, which would require emergent evaluation. Plan See above for full details and plan. Orders: Orders SARS-CoV2/FLU/RSV Today J06.9 - Acute upper respiratory infection, unspecified Coding Level of Care Code Est Pt Level 3 (24745) Diagnoses Upper respiratory tract infection, unspecified type J06.9 URI type: unspecified URI
== END 2024-05-18 12:31 | disposition home or self-care (01) ==
PROVIDERS: PCP Internal Medicine; Visit Provider Registered Nurse
DX: J06.9 Acute upper respiratory infection, unspecified (principal)

== ENCOUNTER 2024-05-18 11:17 | Outpatient (REF) | payer OTHER, SELFPAY ==
--- OUTSIDE RECORDS SUMMARY | 2024-05-18 12:32 | XMS_ITS ---
Author Organization [facility] Address [address] [facility] [place] [address] Care Team Providers Care Critical Care Physician Assistant Name Role Phone Maritza Dawson Unavailable [phone] ALLERGIES, ADVERSE REACTIONS, ALERTS None MEDICATIONS Medication Code Code System Start Date Stop Date Route Dosage Directions Fill Instructions LOSARTAN POTASSIUM 25 MG TAB RxNorm 11/11/2022 PROBLEMS Problem Name Code Code System Start Date End Date Stat us Essential (primary) hypertension 92035600 [facility] Active Otalgia, right ear 444499732 [facility] 04/26/2024 Active ENCOUNTERS Encounter Diagnosis Code Code System Date Stat us Sprain of other specified pa rts of right knee, initial encounter 79814269516028444 [facility] 02/10/2023 Active IMMUNIZATIONS * None VITAL SIGNS Code Code System Vitals Name Date Value and Un its 8462-4 [facility] Blood Pressure-Diastolic 02/10/2023 98 mmHg 8480-6 [facility] Blood Pressure-Systolic 02/10/2023 1 42 mmHg 8867-4 [facility] Heart Rate 02/10/2023 83 /min 9279-1 [facility] Respiratory Rate 02/10/2023 18 /min 8310-5 [facility] Body Temperature 02/10/2023 98.0 F 83347-4 [facility] Oxygen Saturation 02/10/2023 97 % SOCIAL HISTORY * None PROCEDURES * None MEDICAL EQUIPMENT * Patient has no history of implantable devices ASSESSMENT * None TREATMENT PLAN Type Description Date MEDICATION Take 600 mg tablet 02/10/2023 ORDERS You were evaluated f or an injury to your knee. Use a neoprene sleeve (you can purchase this at a pharmacy, [employer] or [employer]) for the next 7-10 days. Use Motrin/Advil (ibuprofen) 400-600 mg every 6 to 8 hours as needed for pain if not contra-indicated. In addition, You can use Tylenol (acetaminophen) 650 mg every 6 hrs as needed for pain. Do not take more than 3000 mg in one day! Use intermittent ice 4 or 5 times a day, 20 minutes at a time, for a few days. Elevate the extremity as much as possible Go to the ED for increased or uncontrolled pain, numbness, tingling, or weakness of extremities. Please see the orthopedist in follow-up if not improving over the next week. Please call to make an appointment. The two offices below will take same day urgent care visits. [facility] Address: [address], [place] [address] [facility] Address: [address] [facility] [address], [place] [address] 02/10/2023 APPOINTMENT If not feeling jed r in 3 day(s), please see your primary care physician. If you do not have a primary care physician, please return to this clinic. 02/10/2023 Lab Tests None GOALS * None HEALTH CONCERNS * No Health Concerns FUNCTIONAL AND COGNITIVE STATUS * None CONSULTATION NOTES * None DISCHARGE SUMMARY NOTES * None HISTORY AND PHYSICAL NOTES * None IMAGING NOTES * None LABORATORY REPORT NARRATIVE NOTES * None PATHOLOGY REPORT NARRATIVE NOTES * None PROGRESS NOTES * None
--- OUTSIDE RECORDS SUMMARY | 2024-05-18 12:32 | XMS_ITS ---
Author Organization [facility] Address 5 [facility] [place] [address] Care Team Providers Care Aluminum Container Tester Name Role Phone Maritza Dawson Unavailable [phone] ALLERGIES, ADVERSE REACTIONS, ALERTS None MEDICATIONS Medication Code Code System Start Date Stop Date Route Dosage Directions Fill Instructions LOSARTAN POTASSIUM 25 MG TAB RxNorm 11/11/2022 PROBLEMS Problem Name Code Code System Start Date End Date Stat us Essential (primary) hypertension 97952861 [facility] Active Otalgia, right ear 349208544 [facility] 04/26/2024 Active ENCOUNTERS Encounter Diagnosis Code Code System Date Stat us Otalgia, right ear 907852248 [facility] 04/26/2024 Active IMMUNIZATIONS * None VITAL SIGNS Code Code System Vitals Name Date Value and Un its 8462-4 [facility] Blood Pressure-Diastolic 04/26/2024 93 mmHg 8480-6 [facility] Blood Pressure-Systolic 04/26/2024 1 38 mmHg 8867-4 inc Heart Rate 04/26/2024 81 /min 9279-1 [facility] Respiratory Rate 04/26/2024 18 /min 8310-5 [facility] Body Temperature 04/26/2024 97.2 F 45210-0 [facility] Oxygen Saturation 04/26/2024 97 % SOCIAL HISTORY * None PROCEDURES * None MEDICAL EQUIPMENT * Patient has no history of implantable devices ASSESSMENT * None TREATMENT PLAN Type Description Date ORDERS As discussed your sy mptoms are likely due to a blocked eustachian tube which helps to drain fluid from your inner ear into the back of your throat. Your packet of patient and information will help further describe your diagnosis. As discussed, you should buy a saline nasal spray and use it in your nose as needed at least 3 times a day. Also use Claritin daily for the next 5 to 7 days. If your symptoms do not improve in 5 to 7 days then you should make an appointment with an web search evaluator for further evaluationEar, Nose & Throat of [id number] [place], [phone] 04/26/2024 APPOINTMENT If not feeling jed r in 3 day(s), please see your primary care physician. If you do not have a primary care physician, please return to this clinic. 04/26/2024 Lab Tests None GOALS * None HEALTH CONCERNS * No Health Concerns FUNCTIONAL AND COGNITIVE STATUS * None CONSULTATION NOTES * None DISCHARGE SUMMARY NOTES * None HISTORY AND PHYSICAL NOTES * Patient: JAZMINE GILLETTE, Sex: M (ID# [id number]) Date of : 1970 (53 years) Visit on 04/26/2024 (Log# [id number]) Historian: Self History of Present Illness: Complaint: The patient presents with a chief complaint of ear pain of the left ear and right ear since 1 day ago. Review of Systems: The patient complains of the following recent symptoms: ENT and Mouth: ear pain: See HPI The patient denies the following recent symptoms: Constitutional: denies fever Neurological: denies headache Psychiatric: denies anxiety/nerves, depression, sleep difficulties Eyes: denies eye pain Respiratory: denies congestion, cough GI: denies diarrhea, nausea, vomiting Musculoskeletal: denies swelling Allergies: patient specifies no known allergies Medications: LOSARTAN POTASSIUM 25 MG TAB: LOSARTAN POTASSIUM 25 MG TAB 25 MG Problem List: Essential (primary) hypertension (status Active) Surgeries: patient specifies no surgeries Social History: Tobacco Use: denies Alcohol: denies Street / Unprescribed Drugs: denies Vitals: 03:44 PM (04/26/2024)Temperature: 97.2 ?F, Pulse: 81 BPM, BP: 138/93, Respirations: 18/min, O2 Saturation: 97%, O2 Delivery: RAFirst entered 04/26/2024 15:44 by Michelle Palomino Physical Exam: The following exam elements were documented to be normal: ENT: oropharynx and tonsils without swelling, erythema, lesion, exudate. ENT: tympanic membranes normal bilaterally. ENT: external ear canal normal bilaterally. General: well developed, well nourished, and in no apparent distress. Lymph: no cervical lymphadenopathy. Diagnoses: Otalgia, right ear (H92.01) Discharge Instructions: Eustachian Tube Dysfunction Plan: If not feeling better in 3 day(s), please see your primary care physician. If you do not have a primary care physician, please return to this clinic. As discussed your symptoms are likely due to a blocked eustachian tube which helps to drain fluid from your inner ear into the back of your throat. Your packet of patient and information will help further describe your diagnosis. As discussed, you should buy a saline nasal spray and use it in your nose as needed at least 3 times a day. Also use Claritin daily for the next 5 to 7 days. If your symptoms do not improve in 5 to 7 days then you should make an appointment with an web search evaluator for further evaluation [facility], N[facility] & Throat of [address] [phone] Visit discharged at 04/26/2024 4:01:02 PM by Maritza Dawson PA-C Signed electronically by Maritza Dawson PA-C on 04/26/2024 4:01:02 PM IMAGING NOTES * None LABORATORY REPORT NARRATIVE NOTES * None PATHOLOGY REPORT NARRATIVE NOTES * None PROGRESS NOTES * None
--- OUTSIDE RECORDS SUMMARY | 2024-05-18 12:33 | XMS_ITS ---
Author Organization [facility] Address [address] [facility] [place] [address] Care Team Providers Care Telecom Engineer Name Role Phone Michelle Palomino Unavailable [phone] ALLERGIES, ADVERSE REACTIONS, ALERTS None MEDICATIONS Medication Code Code System Start Date Stop Date Route Dosage Directions Fill Instructions LOSARTAN POTASSIUM 25 MG TAB RxNorm 11/11/2022 PROBLEMS Problem Name Code Code System Start Date End Date Stat us Essential (primary) hypertension 32133658 [facility] Active Otalgia, right ear 867985295 [facility] 04/26/2024 Active ENCOUNTERS Encounter Diagnosis Code Code System Date Stat us Pain in right knee 35060832 [facility] 11/16/2023 Active IMMUNIZATIONS * None VITAL SIGNS Code Code System Vitals Name Date Value and Un its 8462-4 [facility] Blood Pressure-Diastolic 11/16/2023 88 mmHg 8480-6 [facility] Blood Pressure-Systolic 11/16/2023 1 34 mmHg 8867-4 inc Heart Rate 11/16/2023 79 /min 9279-1 [facility] Respiratory Rate 11/16/2023 18 /min 8310-5 [facility] Body Temperature 11/16/2023 96.9 F 28550-6 [facility] Oxygen Saturation 11/16/2023 96 % SOCIAL HISTORY * None PROCEDURES Code Code System Procedure Date Status Notes L1820 Cpt4 Knee orthosis, Hinged 11/16/2023 complete d MEDICAL EQUIPMENT * Patient has no history of implantable devices ASSESSMENT * None TREATMENT PLAN Type Description Date MEDICATION Take 50 mg tablet 11/16/2023 APPOINTMENT If not feeling jed r in 3 day(s), please see your primary care physician. If you do not have a primary care physician, please return to this clinic. 11/16/2023 Lab Tests None GOALS * None HEALTH CONCERNS * No Health Concerns FUNCTIONAL AND COGNITIVE STATUS * None CONSULTATION NOTES * None DISCHARGE SUMMARY NOTES * None HISTORY AND PHYSICAL NOTES * None IMAGING NOTES * /Eastern History: atraumatic pain. 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 No joint effusion is evident.No acutefracture or subluxation is evident on provided views.There is ossification of the extensor mechanism No radiodense foreign bodies are identified.IMPRESSION:No acute osseous abnormality. LABORATORY REPORT NARRATIVE NOTES * None PATHOLOGY REPORT NARRATIVE NOTES * None PROGRESS NOTES * None
[2024-05-18 18:12] LABS: Influenza A PCR NEGATIVE (Negative); Influenza B PCR NEGATIVE (Negative); Resp Syncy Virus RNA Qual PCR NEGATIVE (Negative); SARS COV2 PCR INHOUSE POSITIVE (Negative)
== END 2024-05-18 11:18 | disposition home or self-care (01) ==
LOC: HO.LAB 11:17
PROVIDERS: Registered Nurse; PCP Internal Medicine
DX: J06.9 Acute upper respiratory infection, unspecified (principal); Z11.52 Encounter for screening for COVID-19
CPT/HCPCS: 0241U; 99212

== ENCOUNTER 2024-05-19 07:12 | Outpatient (REF) | payer OTHER, SELFPAY ==
--- NOTE | ~2024-05-19 | MR_ITS ---
EXAMINATION: MR KNEE WITHOUT CONTRAST RIGHT CLINICAL INFORMATION: Unilateral primary osteoarthritis, right knee M17.11. All over right knee pain since few years. Sometimes numbness. COMPARISON: XR Right knee 02/17/2023 TECHNIQUE: MRI of the knee without contrast was performed using routine sequences on a high-field scanner. FINDINGS: MENISCI: Medial Meniscus: Complex tearing of the meniscal body Lateral Meniscus: Intact LIGAMENTS: Cruciate: Intact Collateral: Intact. Semimembranosus tendinopathy with superficial fluid extending distally which could also be due to rupture of a small Li's cyst. EXTENSOR MECHANISM: Intact. Enthesophyte at the superior pole of the patella. ARTICULAR CARTILAGE/BONE: Patellofemoral Compartment: Peripheral cartilage thinning at the medial aspect of the medial trochlea. Medial Compartment: Cartilage thinning and surface irregularity throughout the weightbearing aspect with foci of full-thickness loss of the femoral condyle and tibia with underlying marrow edema. Small marginal osteophytes. Lateral Compartment: Normal JOINT FLUID AND BURSAE: Small joint effusion. Mild synovitis, localized at the junction of the medial patellar facet and medial trochlea. MR/MR knee RT wo con IMPRESSION: 1. Complex tearing of the medial meniscus body with moderate medial compartment osteoarthritis. 2. Mild patellofemoral compartment osteoarthritis. Small joint effusion with mild synovitis. Localized synovitis at the junction of the medial patellar facet and medial trochlea. 3. Semimembranosus tendinopathy with possible rupture of a small Li's cyst. Electronically signed by: Shelton Brock MD 05/25/2024 10:55 AM LC
--- OUTSIDE RECORDS SUMMARY | 2024-05-19 07:14 | XMS_ITS ---
Author Organization [facility] Address [address] [facility] [address] Care Team Providers Care Cook Vegetable Name Role Phone Michelle Palomino Unavailable [phone] ALLERGIES, ADVERSE REACTIONS, ALERTS None MEDICATIONS Medication Code Code System Start Date Stop Date Route Dosage Directions Fill Instructions LOSARTAN POTASSIUM 25 MG TAB RxNorm 11/11/2022 PROBLEMS Problem Name Code Code System Start Date End Date Stat us Essential (primary) hypertension 12917571 [facility] Active Otalgia, right ear 061921870 [facility] 04/26/2024 Active ENCOUNTERS Encounter Diagnosis Code Code System Date Stat us Pain in right knee 02015100 [facility] 11/16/2023 Active IMMUNIZATIONS * None VITAL SIGNS Code Code System Vitals Name Date Value and Un its 8462-4 [facility] Blood Pressure-Diastolic 11/16/2023 88 mmHg 8480-6 [facility] Blood Pressure-Systolic 11/16/2023 1 34 mmHg 8867-4 inc Heart Rate 11/16/2023 79 /min 9279-1 [facility] Respiratory Rate 11/16/2023 18 /min 8310-5 [facility] Body Temperature 11/16/2023 96.9 F 54408-5 [facility] Oxygen Saturation 11/16/2023 96 % SOCIAL [...] /Eastern History: atraumatic pain. 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
--- OUTSIDE RECORDS SUMMARY | 2024-05-19 07:14 | XMS_ITS ---
Author Organization [facility] Address [address] [facility] [place] [address] Care Team Providers Care Accounting File Clerk Name Role Phone Maritza Dawson Unavailable [phone] ALLERGIES, ADVERSE REACTIONS, ALERTS None MEDICATIONS Medication Code Code System Start Date Stop Date Route Dosage Directions Fill Instructions LOSARTAN POTASSIUM 25 MG TAB RxNorm 11/11/2022 PROBLEMS Problem Name Code Code System Start Date End Date Stat us Essential (primary) hypertension 01587844 [facility] Active Otalgia, right ear 827776811 [facility] 04/26/2024 Active ENCOUNTERS Encounter Diagnosis Code Code System Date Stat us Sprain of other specified pa rts of right knee, initial encounter 32370143053276376 [facility] 02/10/2023 Active IMMUNIZATIONS * None VITAL SIGNS Code Code System Vitals Name Date Value and Un its 8462-4 [facility] Blood Pressure-Diastolic 02/10/2023 98 mmHg 8480-6 [facility] Blood Pressure-Systolic 02/10/2023 1 42 mmHg 8867-4 [facility] Heart Rate 02/10/2023 83 /min 9279-1 [facility] Respiratory Rate 02/10/2023 18 /min 8310-5 [facility] Body Temperature 02/10/2023 98.0 F 59645-4 [facility] Oxygen Saturation 02/10/2023 97 % SOCIAL HISTORY * None PROCEDURES * None MEDICAL EQUIPMENT * Patient has no history of implantable devices ASSESSMENT * None TREATMENT PLAN Type Description Date MEDICATION Take 600 mg tablet 02/10/2023 ORDERS You were evaluated f or an injury to your knee. Use a neoprene sleeve (you can purchase this at a pharmacy, [employer] or [employer]) for the next 7-10 days. Use Motrin/Advil [...] will take same day urgent care visits. [facility] Address: [address], [place] [address] [facility] Address: [address] [facility] [address], [place] [address] 02/10/2023 APPOINTMENT If not feeling jed r [...]
--- OUTSIDE RECORDS SUMMARY | 2024-05-19 07:14 | XMS_ITS ---
Author Organization [facility] Address [address] [facility] [place] [address] Care Team Providers Care Superintendent Concrete Mixing Plant Name Role Phone Maritza Dawson Unavailable [phone] ALLERGIES, ADVERSE REACTIONS, ALERTS None MEDICATIONS Medication Code Code System Start Date Stop Date Route Dosage Directions Fill Instructions LOSARTAN POTASSIUM 25 MG TAB RxNorm 11/11/2022 PROBLEMS Problem Name Code Code System Start Date End Date Stat us Essential (primary) hypertension 01151587 [facility] Active Otalgia, right ear 045723207 [facility] 04/26/2024 Active ENCOUNTERS Encounter Diagnosis Code Code System Date Stat us Otalgia, right ear 221560332 [facility] 04/26/2024 Active IMMUNIZATIONS * None VITAL SIGNS Code Code System Vitals Name Date Value and Un its 8462-4 [facility] Blood Pressure-Diastolic 04/26/2024 93 mmHg 8480-6 [facility] Blood Pressure-Systolic 04/26/2024 1 38 mmHg 8867-4 [facility] Heart Rate 04/26/2024 81 /min 9279-1 [facility] Respiratory Rate 04/26/2024 18 /min 8310-5 [facility] Body Temperature 04/26/2024 97.2 F 51530-4 [facility] Oxygen Saturation 04/26/2024 97 % SOCIAL [...] you should make an appointment with an green chain offbearer for further evaluationEar, Nose & Throat of [id number] [place], [phone] 04/26/2024 APPOINTMENT If not feeling jed r [...] * Patient: JAZMINE GILLETTE, Sex: M (ID# [id number]) Date of : 1970 (53 years) Visit on 04/26/2024 (Log# [id number]) Historian: Self History of Present Illness: Complaint: [...] you should make an appointment with an green chain offbearer for further evaluation [facility], N[facility] & Throat of [address] [phone] Visit discharged at 04/26/2024 4:01:02 PM by Maritza Dawson PA-C Signed electronically by Maritza Dawson PA-C on 04/26/2024 4:01:02 PM IMAGING NOTES * None LABORATORY REPORT NARRATIVE NOTES * None PATHOLOGY REPORT NARRATIVE NOTES * None PROGRESS NOTES * None
--- OUTSIDE RECORDS SUMMARY | 2024-05-19 07:15 | XMS_ITS ---
Author Organization [facility] Address 5 [facility] [place] [address] Care Team Providers Care Kelp Or Seagrass Gatherer Name Role Phone Maritza Dawson Unavailable [phone] ALLERGIES, ADVERSE REACTIONS, ALERTS None MEDICATIONS Medication Code Code System Start Date Stop Date Route Dosage Directions Fill Instructions LOSARTAN POTASSIUM 25 MG TAB RxNorm 11/11/2022 PROBLEMS Problem Name Code Code System Start Date End Date Stat us Essential (primary) hypertension 51349307 [facility] Active Otalgia, right ear 730356071 [facility] 04/26/2024 Active ENCOUNTERS Encounter Diagnosis Code Code System Date Stat us Otalgia, right ear 178099114 [facility] 04/26/2024 Active IMMUNIZATIONS * None VITAL SIGNS Code Code System Vitals Name Date Value and Un its 8462-4 [facility] Blood Pressure-Diastolic 04/26/2024 93 mmHg 8480-6 [facility] Blood Pressure-Systolic 04/26/2024 1 38 mmHg 8867-4 [facility] Heart Rate 04/26/2024 81 /min 9279-1 [facility] Respiratory Rate 04/26/2024 18 /min 8310-5 [facility] Body Temperature 04/26/2024 97.2 F 29299-4 [facility] Oxygen Saturation 04/26/2024 97 % SOCIAL HISTORY [...] you should make an appointment with an manager of learning for further evaluationEar, Nose & Throat of [id number] [place] [facility], [phone] 04/26/2024 APPOINTMENT If not feeling jed r [...] * Patient: JAZMINE GILLETTE, Sex: M (ID# [id number]) Date of : 1970 (53 years) Visit on 04/26/2024 (Log# [id number]) Historian: Self History of Present Illness: Complaint: [...] you should make an appointment with an manager of learning for further evaluation Ear, Nose & Throat of [address] [phone] Visit discharged at 04/26/2024 4:01:02 PM by Maritza Dawson PA-C Signed electronically by Maritza Dawson PA-C on 04/26/2024 4:01:02 PM IMAGING NOTES * None LABORATORY REPORT NARRATIVE NOTES * None PATHOLOGY REPORT NARRATIVE NOTES * None PROGRESS NOTES * None
--- OUTSIDE RECORDS SUMMARY | 2024-05-19 07:15 | XMS_ITS ---
Author Organization [facility] Address 5 [facility] [place] [address] Care Team Providers Care Medical Numerical Control Operator Name Role Phone Maritza Dawson Unavailable [phone] ALLERGIES, ADVERSE REACTIONS, ALERTS None MEDICATIONS Medication Code Code System Start Date Stop Date Route Dosage Directions Fill Instructions LOSARTAN POTASSIUM 25 MG TAB RxNorm 11/11/2022 PROBLEMS Problem Name Code Code System Start Date End Date Stat us Essential (primary) hypertension 77208982 [facility] Active Otalgia, right ear 373161244 [facility] 04/26/2024 Active ENCOUNTERS Encounter Diagnosis Code Code System Date Stat us Sprain of other specified pa rts of right knee, initial encounter 04064772256611075 [facility] 02/10/2023 Active IMMUNIZATIONS * None VITAL SIGNS Code Code System Vitals Name Date Value and Un its 8462-4 [facility] Blood Pressure-Diastolic 02/10/2023 98 mmHg 8480-6 [facility] Blood Pressure-Systolic 02/10/2023 1 42 mmHg 8867-4 [facility] Heart Rate 02/10/2023 83 /min 9279-1 [facility] Respiratory Rate 02/10/2023 18 /min 8310-5 [facility] Body Temperature 02/10/2023 98.0 F 61568-6 [facility] Oxygen Saturation 02/10/2023 97 % SOCIAL HISTORY * None PROCEDURES * None MEDICAL EQUIPMENT * Patient has no history of implantable devices ASSESSMENT * None TREATMENT PLAN Type Description Date MEDICATION Take 600 mg tablet 02/10/2023 ORDERS You were evaluated f or an injury to your knee. Use a neoprene sleeve (you can purchase this at a pharmacy, [employer] or [employer]) for the next 7-10 days. Use Motrin/Advil [...] will take same day urgent care visits. [facility] Address: [address], [place] [address] [facility] Address: [address] [facility] [address], [place] [address] 02/10/2023 APPOINTMENT If not feeling jed r [...]
--- OUTSIDE RECORDS SUMMARY | 2024-05-19 07:15 | XMS_ITS ---
Author Organization [facility] Address [address] [facility] [place] [address] Care Team Providers Care Charge Rn Name Role Phone Michelle Palomino Unavailable [phone] ALLERGIES, ADVERSE REACTIONS, ALERTS None MEDICATIONS Medication Code Code System Start Date Stop Date Route Dosage Directions Fill Instructions LOSARTAN POTASSIUM 25 MG TAB RxNorm 11/11/2022 PROBLEMS Problem Name Code Code System Start Date End Date Stat us Essential (primary) hypertension 74199210 [facility] Active Otalgia, right ear 803419682 [facility] 04/26/2024 Active ENCOUNTERS Encounter Diagnosis Code Code System Date Stat us Pain in right knee 55009374 [facility] 11/16/2023 Active IMMUNIZATIONS * None VITAL SIGNS Code Code System Vitals Name Date Value and Un its 8462-4 [facility] Blood Pressure-Diastolic 11/16/2023 88 mmHg 8480-6 [facility] Blood Pressure-Systolic 11/16/2023 1 34 mmHg 8867-4 inc Heart Rate 11/16/2023 79 /min 9279-1 [facility] Respiratory Rate 11/16/2023 18 /min 8310-5 inc Body Temperature 11/16/2023 96.9 F 84558-0 [facility] Oxygen Saturation 11/16/2023 96 % SOCIAL [...] /Eastern History: atraumatic pain. 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
== END 2024-05-19 07:13 | disposition home or self-care (01) ==
LOC: HO.MRI 07:12
PROVIDERS: PCP Internal Medicine; Visit Provider Physician Assistant
DX: M17.11 Unilateral primary osteoarthritis, right knee (principal)
CPT/HCPCS: 73721

== ENCOUNTER 2024-05-23 12:52 | Outpatient (AMB) | payer OTHER, SELFPAY ==
--- OUTSIDE RECORDS SUMMARY | 2024-05-23 12:54 | XMS_ITS ---
Author Organization [facility] Address [address] [facility] [place] [address] Care Team Providers Care Architectural Sales Consultant Name Role Phone Maritza Dawson Unavailable [phone] ALLERGIES, ADVERSE REACTIONS, ALERTS None MEDICATIONS Medication Code Code System Start Date Stop Date Route Dosage Directions Fill Instructions LOSARTAN POTASSIUM 25 MG TAB RxNorm 11/11/2022 PROBLEMS Problem Name Code Code System Start Date End Date Stat us Essential (primary) hypertension 91547088 [facility] Active Otalgia, right ear 033271424 [facility] 04/26/2024 Active ENCOUNTERS Encounter Diagnosis Code Code System Date Stat us Sprain of other specified pa rts of right knee, initial encounter 10739123686223751 [facility] 02/10/2023 Active IMMUNIZATIONS * None VITAL SIGNS Code Code System Vitals Name Date Value and Un its 8462-4 [facility] Blood Pressure-Diastolic 02/10/2023 98 mmHg 8480-6 [facility] Blood Pressure-Systolic 02/10/2023 1 42 mmHg 8867-4 [facility] Heart Rate 02/10/2023 83 /min 9279-1 [facility] Respiratory Rate 02/10/2023 18 /min 8310-5 [facility] Body Temperature 02/10/2023 98.0 F 56321-3 [facility] Oxygen Saturation 02/10/2023 97 % SOCIAL HISTORY * None PROCEDURES * None MEDICAL EQUIPMENT * Patient has no history of implantable devices ASSESSMENT * None TREATMENT PLAN Type Description Date MEDICATION Take 600 mg tablet 02/10/2023 ORDERS You were evaluated f or an injury to your knee. Use a neoprene sleeve (you can purchase this at a pharmacy, [employer] or [employer]) for the next 7-10 days. Use Motrin/Advil [...] will take same day urgent care visits. [facility] Address: [address], [place] [address] [facility] Address: [address] [facility] [address], [place] [address] 02/10/2023 APPOINTMENT If not feeling jed r [...]
--- OUTSIDE RECORDS SUMMARY | 2024-05-23 12:54 | XMS_ITS ---
Author Organization [facility] Address [address] [facility] [place] [address] Care Team Providers Care Windows Software Developer Name Role Phone Maritza Dawson Unavailable [phone] ALLERGIES, ADVERSE REACTIONS, ALERTS None MEDICATIONS Medication Code Code System Start Date Stop Date Route Dosage Directions Fill Instructions LOSARTAN POTASSIUM 25 MG TAB RxNorm 11/11/2022 PROBLEMS Problem Name Code Code System Start Date End Date Stat us Essential (primary) hypertension 16250150 [facility] Active Otalgia, right ear 374261916 [facility] 04/26/2024 Active ENCOUNTERS Encounter Diagnosis Code Code System Date Stat us Otalgia, right ear 378277631 [facility] 04/26/2024 Active IMMUNIZATIONS * None VITAL SIGNS Code Code System Vitals Name Date Value and Un its 8462-4 [facility] Blood Pressure-Diastolic 04/26/2024 93 mmHg 8480-6 [facility] Blood Pressure-Systolic 04/26/2024 1 38 mmHg 8867-4 [facility] Heart Rate 04/26/2024 81 /min 9279-1 [facility] Respiratory Rate 04/26/2024 18 /min 8310-5 [facility] Body Temperature 04/26/2024 97.2 F 11486-4 [facility] Oxygen Saturation 04/26/2024 97 % SOCIAL HISTORY [...] you should make an appointment with an offbearer sewer pipe for further evaluationEar, Nose & Throat of [id number], [phone] 04/26/2024 APPOINTMENT If not feeling jed r [...] * Patient: JAZMINE GILLETTE, Sex: M (ID# [id number]) Date of : 1970 (53 years) Visit on 04/26/2024 (Log# [id number]) Historian: Self History of Present Illness: Complaint: [...] you should make an appointment with an offbearer sewer pipe for further evaluation [facility], [facility] Thro[facility] of [address] [phone] Visit discharged at 04/26/2024 4:01:02 PM by Maritza Dawson PA-C Signed electronically by Maritza Dawson PA-C on 04/26/2024 4:01:02 PM IMAGING NOTES * None LABORATORY REPORT NARRATIVE NOTES * None PATHOLOGY REPORT NARRATIVE NOTES * None PROGRESS NOTES * None
--- OUTSIDE RECORDS SUMMARY | 2024-05-23 12:54 | XMS_ITS ---
Author Organization [facility] Address [address] [facility] [place] [address] Care Team Providers Care Warehouse Examiner Name Role Phone Maritza Dawson Unavailable [phone] ALLERGIES, ADVERSE REACTIONS, ALERTS None MEDICATIONS Medication Code Code System Start Date Stop Date Route Dosage Directions Fill Instructions LOSARTAN POTASSIUM 25 MG TAB RxNorm 11/11/2022 PROBLEMS Problem Name Code Code System Start Date End Date Stat us Essential (primary) hypertension 65682466 [facility] Active Otalgia, right ear 207762229 [facility] 04/26/2024 Active ENCOUNTERS Encounter Diagnosis Code Code System Date Stat us Otalgia, right ear 660262254 [facility] 04/26/2024 Active IMMUNIZATIONS * None VITAL SIGNS Code Code System Vitals Name Date Value and Un its 8462-4 [facility] Blood Pressure-Diastolic 04/26/2024 93 mmHg 8480-6 [facility] Blood Pressure-Systolic 04/26/2024 1 38 mmHg 8867-4 [facility] Heart Rate 04/26/2024 81 /min 9279-1 [facility] Respiratory Rate 04/26/2024 18 /min 8310-5 [facility] Body Temperature 04/26/2024 97.2 F 49810-4 [facility] Oxygen Saturation 04/26/2024 97 % SOCIAL HISTORY [...] you should make an appointment with an tailor men's ready to wear for further evaluationEar, Nose & Throat of [id number], [phone] 04/26/2024 APPOINTMENT If not feeling jed r [...] * Patient: JAZMINE GILLETTE, Sex: M (ID# [id number]) Date of : 1970 (53 years) Visit on 04/26/2024 (Log# [id number]) Historian: Self History of Present Illness: Complaint: [...] you should make an appointment with an tailor men's ready to wear for further evaluation Ear, Nose & Throat of [address] [phone] Visit discharged at 04/26/2024 4:01:02 PM by Maritza Dawson PA-C Signed electronically by Maritza Dawson PA-C on 04/26/2024 4:01:02 PM IMAGING NOTES * None LABORATORY REPORT NARRATIVE NOTES * None PATHOLOGY REPORT NARRATIVE NOTES * None PROGRESS NOTES * None
--- OUTSIDE RECORDS SUMMARY | 2024-05-23 12:54 | XMS_ITS ---
Author Organization [facility] Address [address] [facility] [place] [address] Care Team Providers Care Carpenter And Joiner Name Role Phone Michelle Palomino Unavailable [phone] ALLERGIES, ADVERSE REACTIONS, ALERTS None MEDICATIONS Medication Code Code System Start Date Stop Date Route Dosage Directions Fill Instructions LOSARTAN POTASSIUM 25 MG TAB RxNorm 11/11/2022 PROBLEMS Problem Name Code Code System Start Date End Date Stat us Essential (primary) hypertension 41743624 [facility] Active Otalgia, right ear 380701667 [facility] 04/26/2024 Active ENCOUNTERS Encounter Diagnosis Code Code System Date Stat us Pain in right knee 91372152 [facility] 11/16/2023 Active IMMUNIZATIONS * None VITAL SIGNS Code Code System Vitals Name Date Value and Un its 8462-4 [facility] Blood Pressure-Diastolic 11/16/2023 88 mmHg 8480-6 [facility] Blood Pressure-Systolic 11/16/2023 1 34 mmHg 8867-4 inc Heart Rate 11/16/2023 79 /min 9279-1 [facility] Respiratory Rate 11/16/2023 18 /min 8310-5 inc Body Temperature 11/16/2023 96.9 F 32496-9 [facility] Oxygen Saturation 11/16/2023 96 % SOCIAL [...] /Eastern History: atraumatic pain. 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
--- OUTSIDE RECORDS SUMMARY | 2024-05-23 12:55 | XMS_ITS ---
Author Organization [facility] Address [address] [facility] [place] [address] Care Team Providers Care Play Therapist Name Role Phone Maritza Dawson Unavailable [phone] ALLERGIES, ADVERSE REACTIONS, ALERTS None MEDICATIONS Medication Code Code System Start Date Stop Date Route Dosage Directions Fill Instructions LOSARTAN POTASSIUM 25 MG TAB RxNorm 11/11/2022 PROBLEMS Problem Name Code Code System Start Date End Date Stat us Essential (primary) hypertension 47326665 [facility] Active Otalgia, right ear 071687745 [facility] 04/26/2024 Active ENCOUNTERS Encounter Diagnosis Code Code System Date Stat us Sprain of other specified pa rts of right knee, initial encounter 91949234832984037 [facility] 02/10/2023 Active IMMUNIZATIONS * None VITAL SIGNS Code Code System Vitals Name Date Value and Un its 8462-4 [facility] Blood Pressure-Diastolic 02/10/2023 98 mmHg 8480-6 [facility] Blood Pressure-Systolic 02/10/2023 1 42 mmHg 8867-4 [facility] Heart Rate 02/10/2023 83 /min 9279-1 [facility] Respiratory Rate 02/10/2023 18 /min 8310-5 [facility] Body Temperature 02/10/2023 98.0 F 27433-4 [facility] Oxygen Saturation 02/10/2023 97 % SOCIAL HISTORY * None PROCEDURES * None MEDICAL EQUIPMENT * Patient has no history of implantable devices ASSESSMENT * None TREATMENT PLAN Type Description Date MEDICATION Take 600 mg tablet 02/10/2023 ORDERS You were evaluated f or an injury to your knee. Use a neoprene sleeve (you can purchase this at a pharmacy, [employer] or [employer]) for the next 7-10 days. Use Motrin/Advil [...] will take same day urgent care visits. [facility] Address: [address], [place] [address] [facility] Address: [address] [facility] [address], [place] [address] 02/10/2023 APPOINTMENT If not feeling jed r [...]
--- OUTSIDE RECORDS SUMMARY | 2024-05-23 12:55 | XMS_ITS ---
Author Organization [facility] Address [address] [facility] [place] [address] Care Team Providers Care Guest Services Coordinator Name Role Phone Michelle Palomino Unavailable [phone] ALLERGIES, ADVERSE REACTIONS, ALERTS None MEDICATIONS Medication Code Code System Start Date Stop Date Route Dosage Directions Fill Instructions LOSARTAN POTASSIUM 25 MG TAB RxNorm 11/11/2022 PROBLEMS Problem Name Code Code System Start Date End Date Stat us Essential (primary) hypertension 46231255 [facility] Active Otalgia, right ear 857351625 [facility] 04/26/2024 Active ENCOUNTERS Encounter Diagnosis Code Code System Date Stat us Pain in right knee 35395039 [facility] 11/16/2023 Active IMMUNIZATIONS * None VITAL SIGNS Code Code System Vitals Name Date Value and Un its 8462-4 [facility] Blood Pressure-Diastolic 11/16/2023 88 mmHg 8480-6 [facility] Blood Pressure-Systolic 11/16/2023 1 34 mmHg 8867-4 inc Heart Rate 11/16/2023 79 /min 9279-1 [facility] Respiratory Rate 11/16/2023 18 /min 8310-5 inc Body Temperature 11/16/2023 96.9 F 54103-7 [facility] Oxygen Saturation 11/16/2023 96 % SOCIAL [...] /Eastern History: atraumatic pain. 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
--- NOTE | 2024-05-23 14:00 | MHC.OFFWIV ---
Intake Vital Signs 05/23/24 14:06 Height 5 ft 6 in Weight 190 lb BMI 30.7 BP 140/90 H Blood Pressure Location Lt brachial Position Sitting Pulse 76 Pulse Source Pulse Oximeter Temp 98.0 F Temp Source Oral Pulse Oximetry (%) 98 Oxygen Delivery Method Room Air Intake Visit Reasons: EP cough, runny nose Intake Note: Patient here for cough and congestion, he does have covid and has been trying mucinex which is not really helping. Patient Tobacco Use Status: Never used Tobacco Allergies No Known Allergies Allergy (Verified 05/23/24 14:14) Medication List - Last Reconciled 05/23/24 by Sergio Colbert MD albuterol sulfate 90 mcg/actuation 2 puffs inhalation Q6H PRN blood pressure monitor As directed cholecalciferol (vitamin D3) 50 mcg PO DAILY 90 days diclofenac sodium 1% (Arthritis Pain (diclofenac)) 4 grams topical QID PRN fluticasone propionate 50 mcg/actuation 1 spray intranasal DAILY loratadine 10 mg PO DAILY PRN 90 days losartan 25 mg PO DAILY meloxicam 15 mg PO DAILY PRN pantoprazole 40 mg PO DAILY Do you need a note to return to daycare/school/sports/work: No HPI EP cough, runny nose HPI Details Patient presents for a sick visit. Reporting symptoms of sinus congestion, sore throat and difficulty swallowing. Low-grade fever. No family member is sick. No recent travel. Patient reports symptoms of malaise and fatigue. [facility] Medical History (Updated 05/18/24 @ 12:38 by Alba Paulson NP) Renal pelvis enlarged on ultrasound Obesity, class 1 Lumbar spondylosis Obesity (BMI 30-39.9) H. 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 occupational status: employed 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 Current occupational exposures/hazards: No Cognitive needs: No Hearing needs: No Vision needs: No Physical Exam Vital Signs: Last Vital Signs Temp 98.0 F 05/23/24 14:06 Pulse 76 05/23/24 14:06 BP 140/90 H 05/23/24 14:06 Pulse Ox 98 05/23/24 14:06 Oxygen Delivery Method Room Air 05/23/24 14:06 BMI result Body Mass Index 30.7 Const General: cooperative and healthy appearing Nutritional Appearance: well nourished Orientation/consciousness: patient oriented x3 Limitations: no limitations HEENT Head: Yes normal to inspection Eyes General: appearance normal, both eyes and all related structures Neck Neck: Yes normal visual inspection Chest Chest palpation & inspection: normal palpation of entire chest wall Resp Effort & Inspection: normal respiratory effort Neuro General: patient oriented x3 Assessment & Plan Assessment & Plan (1) Upper respiratory tract infection: Code(s): J06.9 - Acute upper respiratory infection, unspecified Qualifiers: URI type: unspecified URI Qualified Code(s): J06.9 - Acute upper respiratory infection, unspecified Plan: Antibiotics ordered. Increase fluid intake. Tylenol for aches and pains. If symptoms worsen, follow-up here for a recheck. Coding Level of Care Code Est Pt Level 3 (46324) Diagnoses Upper respiratory tract infection, unspecified type J06.9 URI type: unspecified URI
[2024-05-23 14:06] VITALS: BP 140/90; PULSE 76; TEMP 36.7; O2SAT 98; BMI 30.7
== END 2024-05-23 14:21 | disposition home or self-care (01) ==
PROVIDERS: PCP Internal Medicine; Visit Provider Internal Medicine
DX: J06.9 Acute upper respiratory infection, unspecified (principal)

== ENCOUNTER → 2024-05-23 12:52 | Outpatient (BNVA) | payer OTHER, SELFPAY | PROVIDERS: PCP Internal Medicine; Visit Provider Internal Medicine | DX: J06.9 Acute upper respiratory infection, unspecified (principal); R05.9 Cough, unspecified | CPT/HCPCS: 99212 ==

== ENCOUNTER → 2024-07-06 10:20 | Outpatient (BNVA) | payer OTHER, SELFPAY | PROVIDERS: PCP Internal Medicine; Visit Provider Orthopaedic Surgery | DX: M17.11 Unilateral primary osteoarthritis, right knee (principal) | CPT/HCPCS: 99212 ==

== ENCOUNTER 2024-08-14 08:58 | Outpatient (AMB) | payer OTHER, SELFPAY ==
--- NOTE | 2024-08-14 09:16 | A.OFFVIS_ITS ---
Intake Visit Reasons: OV- RT knee s/p injection 04/12/24 Intake Note: Rain Morgan is a 53 year old male who presents today for a follow up of right knee OA, last injection 04/12/24. Patient reports his last injection did not provide him with much relief. He would like to discuss repeat of injection. Family Resource Specialist Name: Jayda ID#[id number] Allergies No Known Allergies Allergy (Verified 08/14/24 09:22) Medication List - Last Reconciled 08/15/24 by Cleveland Rodriguez PA-C albuterol sulfate 90 mcg/actuation 2 puffs inhalation Q6H PRN blood pressure monitor As directed cholecalciferol (vitamin D3) 50 mcg PO DAILY 90 days diclofenac sodium 1% (Arthritis Pain (diclofenac)) 4 grams topical QID PRN fluticasone propionate 50 mcg/actuation 1 spray intranasal DAILY loratadine 10 mg PO DAILY PRN 90 days losartan 25 mg PO DAILY meloxicam 15 mg PO DAILY PRN pantoprazole 40 mg PO DAILY prednisone 60 mg (3 x 20 mg) PO DAILY HPI HPI OV- RT knee s/p injection 04/12/24: Details: 53-year-old gentleman returns to the office today for right knee pain. He was previously seen by Dr. Gonzalez were date discuss gel injections and a medial rail car unloader brace. The patient states he is going to be fit for the brace this week. He continues to have discomfort with prolonged standing and stair activities. [facility] Medical History (Updated 07/06/24 @ 15:56 by Fabrizio Gonzalez MD) Renal pelvis enlarged on ultrasound Obesity, class 1 Lumbar spondylosis Obesity (BMI 30-39.9) H. 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 occupational status: employed Current occupation: [employer] Current occupational exposures/hazards: No Cognitive needs: No Hearing needs: No Vision needs: No Review of Systems Const All systems reviewed & are unremarkable except as noted in HPI and below Physical Exam Const General: cooperative and no acute distress Orientation/consciousness: patient oriented x3 Resp Effort & Inspection: normal respiratory effort and able to speak in complete sentences Cardio Peripheral pulses: Peripheral pulses 2+ throughout Neuro General: patient oriented x3 Extrem Other: 0-130 degrees of motion with trace effusion. Tenderness to palpation medial compartment. Otherwise benign exam. Assessment & Plan Assessment & Plan (1) Localized osteoarthritis of right knee: Code(s): M17.11 - Unilateral primary osteoarthritis, right knee Category: Medical Plan: We discussed options today which include cortisone injection versus gel injections. He is interested in the gel injections today which have been ordered. He is also going to receive the medial rail car unloader brace this week. I will see him back once the gel injections are approved. Coding Level of Care Code Est Pt Level 3 (62016) Complex EM visit Add On G2211 Diagnoses Localized osteoarthritis of right knee M17.11
== END 2024-08-14 10:55 | disposition home or self-care (01) ==
PROVIDERS: PCP Internal Medicine; Visit Provider Physician Assistant
DX: M17.11 Unilateral primary osteoarthritis, right knee (principal)
CPT/HCPCS: 99213; G2211

== ENCOUNTER → 2024-08-14 08:58 | Outpatient (BNVA) | payer OTHER, SELFPAY | PROVIDERS: PCP Internal Medicine; Visit Provider Physician Assistant | DX: M17.11 Unilateral primary osteoarthritis, right knee (principal) | CPT/HCPCS: 99212 ==

== ENCOUNTER 2024-09-13 08:54 | Outpatient (AMB) | payer OTHER, SELFPAY ==
--- NOTE | 2024-09-13 09:00 | A.OFFVIS_ITS ---
Intake Visit Reasons: INJ- RT knee Euflexxa #1 Allergies No Known Allergies Allergy (Verified 09/13/24 09:07) HPI HPI INJ- RT knee Euflexxa #1: Details: 53-year-old gentleman returns to the office today for right knee euflexx #1 PFSH Medical History (Updated 07/06/24 @ 15:56 by Fabrizio Gonzalez MD) Renal pelvis enlarged on ultrasound Obesity, class 1 Lumbar spondylosis Obesity (BMI 30-39.9) H. 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 Lateral retropatellar tenderness present. Full ROM with crepitus. Negative Conner?s. No ligamentous laxity. NVI. Office Procedures AMB Joint Injection/Aspiration Joint Injection/Aspiration Details: euflexxa #1 Primary Site: right knee Prep: site was prepped using aseptic technique, ethochloride spray was applied and injection warnings given Injected: in the joint Approach Used: anterolateral Procedure: The patient tolerated the procedure well Coding 13445 - Glenohumeral/Tronchanteric Bursa/Intraarticular Procedure code (CPT) selection complete Assessment & Plan Assessment & Plan (1) Localized osteoarthritis of right knee: Code(s): M17.11 - Unilateral primary osteoarthritis, right knee Category: Medical Plan: We discussed options today, which include steroid injection. The patient did consent to move forward with the injection, which was tolerated well.? I recommended rest, ice and elevation and OTC antiinflammatories prn for disc omfort. He will return in 1 week for Euflexxa #2. Coding Level of Care Code Procedure Only Diagnoses Localized osteoarthritis of right knee M17.11 CPT Codes Coding - Joint 7: 42058 - Glenohumeral/Tronchanteric Bursa/Intraarticular ([id number])
== END 2024-09-13 09:14 | disposition home or self-care (01) ==
LOC: HO.HOS 08:55
PROVIDERS: PCP Internal Medicine; Visit Provider Physician Assistant
DX: M17.11 Unilateral primary osteoarthritis, right knee (principal)
CPT/HCPCS: 20610

== ENCOUNTER → 2024-09-13 08:54 | Outpatient (BNVA) | payer OTHER, SELFPAY | PROVIDERS: PCP Internal Medicine; Visit Provider Physician Assistant | DX: M17.11 Unilateral primary osteoarthritis, right knee (principal) | CPT/HCPCS: 20610; J7323 ==

== ENCOUNTER 2024-09-20 09:04 | Outpatient (AMB) | payer OTHER, SELFPAY ==
--- NOTE | 2024-09-20 09:19 | A.OFFVIS_ITS ---
Vital Signs 09/20/24 09:20 Height 5 ft 6 in Weight 190 lb BMI 30.7 Intake Visit Reasons: INJ- RT knee Euflexxa #2 Allergies No Known Allergies Allergy (Verified 09/20/24 09:20) HPI HPI INJ- RT knee Euflexxa #2: Details: 53-year-old gentleman returns to the office today for right knee euflexx #2 PFSH Medical History (Updated 07/06/24 @ 15:56 by Fabrizio Gonzalez MD) Renal pelvis enlarged on ultrasound Obesity, class 1 Lumbar spondylosis Obesity (BMI 30-39.9) H. 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 Lateral retropatellar tenderness present. Full ROM with crepitus. Negative Conner?s. No ligamentous laxity. NVI. Office Procedures AMB Joint Injection/Aspiration Joint Injection/Aspiration Details: #2 eufelxxa Primary Site: right knee Prep: site was prepped using aseptic technique, ethochloride spray was applied and injection warnings given Injected: in the joint Approach Used: anterolateral Procedure: The patient tolerated the procedure well Coding 89498 - Glenohumeral/Tronchanteric Bursa/Intraarticular Procedure code (CPT) selection complete Assessment & Plan Assessment & Plan (1) Localized osteoarthritis of right knee: Code(s): M17.11 - Unilateral primary osteoarthritis, right knee Category: Medical Plan: We discussed options today, which include steroid injection. The patient did consent to move forward with #2 euflexxa, which was tolerated well.? I recommend ed rest, ice and elevation and OTC antiinflammatories prn for discomfort. He will return in 1 week for Euflexxa #3. Coding Level of Care Code Procedure Only Diagnoses Localized osteoarthritis of right knee M17.11 CPT Codes Coding - Joint 7: 87009 - Glenohumeral/Tronchanteric Bursa/Intraarticular ([id number])
[2024-09-20 09:20] VITALS: BMI 30.7
== END 2024-09-20 09:32 | disposition home or self-care (01) ==
LOC: HO.HOS 09:04
PROVIDERS: PCP Internal Medicine; Visit Provider Physician Assistant
DX: M17.11 Unilateral primary osteoarthritis, right knee (principal)
CPT/HCPCS: 20610

== ENCOUNTER → 2024-09-20 09:04 | Outpatient (BNVA) | payer OTHER, SELFPAY | PROVIDERS: PCP Internal Medicine; Visit Provider Physician Assistant | DX: M17.11 Unilateral primary osteoarthritis, right knee (principal) | CPT/HCPCS: 20610; J7323 ==

== ENCOUNTER 2024-09-27 09:28 | Outpatient (AMB) | payer OTHER, SELFPAY ==
--- NOTE | 2024-09-27 09:32 | A.OFFVIS_ITS ---
Intake Visit Reasons: INJ- RT knee Euflexxa #3 Intake Note: Rain Morgan is a 53 year old male who presents today for his third right knee Euflexxa injection. He reports that he is not yet having significant relief. Allergies No Known Allergies Allergy (Verified 09/27/24 09:33) HPI HPI INJ- RT knee Euflexxa #3: Details: Rain Morgan is a 53 year old male who presents today for his third right knee Euflexxa injection. He reports that he is not yet having significant relief. [facility] Medical History (Updated 07/06/24 @ 15:56 by Fabrizio Gonzalez MD) Renal pelvis enlarged on ultrasound Obesity, class 1 Lumbar spondylosis Obesity (BMI 30-39.9) H. 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 Current occupational exposures/hazards: No Cognitive needs: No Hearing needs: No Vision needs: No Review of Systems Const All systems reviewed & are unremarkable except as noted in HPI and below Office Procedures AMB Joint Injection/Aspiration Joint Injection/Aspiration Secondary Site: right knee Prep: site was prepped using aseptic technique, ethochloride spray was applied and injection warnings given Coding Details: Euflexxa injection 3 - Large joint Procedure code (CPT) selection complete Assessment & Plan Assessment & Plan (1) Localized osteoarthritis of right knee: Code(s): M17.11 - Unilateral primary osteoarthritis, right knee Category: Medical Plan 1. Osteoarthritis of right knee The risks and benefits of a injection including but not limited to risk of damage to blood vessels, nerves, tendons, infection, skin bleaching, failure to improve symptoms, increased pain, and possible need for further injections or other intervention were discussed with the patient and the patient wishes to proceed with the steroid injection. Once consent was obtained, I aseptically prepped the area over the anterolateral joint line of the right knee. I then injected the right knee with Euflexxa. The patient tolerated the procedure well with no complications. If the patient continues to experience symptoms over the following few weeks or months, they can make an appointment to return and discuss alternative treatment measures, such as physical therapy. Follow-up prn Coding Level of Care Code Procedure Only Diagnoses Localized osteoarthritis of right knee M17.11 CPT Codes Coding - 54198 Large joint: 35202 - Large joint ([id number])
== END 2024-09-27 09:41 | disposition home or self-care (01) ==
LOC: HO.HOS 09:28
PROVIDERS: PCP Internal Medicine
DX: M17.11 Unilateral primary osteoarthritis, right knee (principal)
CPT/HCPCS: 20610

== ENCOUNTER → 2024-09-27 09:28 | Outpatient (BNVA) | payer OTHER, SELFPAY | PROVIDERS: PCP Internal Medicine | DX: M17.11 Unilateral primary osteoarthritis, right knee (principal) | CPT/HCPCS: 20610; J7323 ==

== ENCOUNTER 2024-10-03 08:45 | Outpatient (AMB) | payer OTHER, SELFPAY ==
[2024-10-03 08:48] VITALS: BP 126/82; PULSE 73; O2SAT 98; BMI 30.4
--- NOTE | 2024-10-03 08:48 | MHC.PC.OV ---
Vital Signs 10/03/24 08:48 Height 5 ft 6 in Weight 188 lb 6 oz BMI 30.4 BP 126/82 Blood Pressure Location Lt brachial Position Sitting Pulse 73 Pulse Source Pulse Oximeter Pulse Oximetry (%) 98 Oxygen Delivery Method Room Air Intake Visit Reasons: Annual Exam Forcer Maker Required: No Accompanied by: Self / Same As Patient Allergies No Known Allergies Allergy (Verified 10/03/24 09:10) Medication List - Last Reconciled 10/03/24 by Juan Brooke MD albuterol sulfate 90 mcg/actuation 2 puffs inhalation Q6H PRN blood pressure monitor As directed cholecalciferol (vitamin D3) 50 mcg PO DAILY 90 days diclofenac sodium 1% (Arthritis Pain (diclofenac)) 4 grams topical QID PRN fluticasone propionate 50 mcg/actuation 1 spray intranasal DAILY loratadine 10 mg PO DAILY PRN 90 days losartan 25 mg PO DAILY meloxicam 15 mg PO DAILY PRN pantoprazole 40 mg PO DAILY prednisone 60 mg (3 x 20 mg) PO DAILY Tobacco use date assessed: 10/03/24 Dental Screening Dental Screen Date: 10/03/24 Did you have a dental visit in the last 12 months?: Yes Did you have a dental problem in the last 6 months where you did not have access to dental care?: No Was dental information given to patient?: Patient has dentist HPI Annual Exam HPI Details Patient comes in today for his annual physical examination States that he feels okay He denies any headaches or dizziness Denies any chest pains, no SOB No nausea/vomiting, no abdominal pain No change in bowel habits noted Denies any acute urinary symptoms Needs a couple of his Rx refilled He was not able to get his labs done prior to his appointment today - states that he will try to get them done tomorrow morning He had his screening colonoscopy last done in 03/2022 and was recommended for repeat colonoscopy in 3 years ~ 03/2025 COUNT INCLUDES THE [facility] Medical History Renal pelvis enlarged on ultrasound Obesity, class 1 Lumbar spondylosis Obesity (BMI 30-39.9) H. 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 occupational status: employed Current occupation: [employer], [employer] Current occupational exposures/hazards: No Cognitive needs: No Hearing needs: No Vision needs: No Questionnaire PHQ-9 Over the last 2 weeks, how often have you been bothered by any of the following problems? 1. Little interest or pleasure in doing things: not at all 2. Feeling down, depressed, or hopeless: not at all 3. Trouble falling or staying asleep, or sleeping too much: not at all 4. Feeling tired or having little energy: not at all 5. Poor appetite or overeating: not at all 6. Feeling bad about yourself - or that you are a failure or have let yourself or your family down: not at all 7. Trouble concentrating on things, such as reading the newspaper or watching television: not at all 8. Moving or speaking so slowly that other people could have noticed. Or the opposite - being so fidgety or restless that you have been moving around a lot more than usual: not at all 9. Thoughts that you would be better off or of hurting yourself in some way: not at all Total score: 0 Depression Screening Interpretation: Negative Depression Screening Done: Yes 29321 - PHQ-9 Billing: Yes Source: Developed by Drs. Steven Oquendo, Aminta Rodriguez, Eliu Roe and colleagues, with an educational deneen from [employer]. Thrive Questionnaire Date Thrive assessed: 10/03/24 I am a: Patient What is your living situation today?: I have a steady place to live Within the past 12 months, did the food you bought not last and you didn't have the money to get more?: Often true Within the past 12 months, did you worry whether your food would run out before you got money to buy more?: Often true Do you have trouble paying for medicines?: Yes Do you have trouble getting transportation to medical appointments?: Yes Do you have trouble paying your heating and electricity bill?: Yes Do you have trouble taking care of your child, family member or friend?: Yes Do you have trouble with day-to-day activities such as bathing, preparing meals, shopping, managing finances, etc.?: Yes Are you currently unemployed and looking for a job?: Yes Are you interested in more education?: Yes Please select the resources that you would like help with: None Currently or been in a relationship where the following occur: No concerns reported THRIVE Score: 4 AUDIT C Alcohol Use Questionnaire (AUDIT-C) 1. How often do you have a drink containing alcohol?: Never 2. How many drinks containing alcohol do you have on a typical day when you are drinking?: 1 or 2 3. How often do you have six or more drinks on one occasion?: Never Total Score: 0 Score Reviewed/Action Taken: Yes ROB-7 AMB Questionnaire ROB-7 Date ROB - 7 assessed: 10/03/24 Feeling nervous, anxious, or on edge: 0 = Not at all Not being able to stop or control worryin = Not at all Worrying too much about different things: 0 = Not at all Trouble relaxin = Not at all Being so restless that it is hard to sit still: 0 = Not at all Becoming easily annoyed or irritable: 0 = Not at all Feeling afraid as if something awful might happen: 0 = Not at all Total ROB-7 score (0-4 normal; 5-9 mild; 10-14 moderate; 15-21 severe): 0 Source: Developed by Drs. Steven Oquendo, Aminta Rodriguez, Eliu Roe and colleagues, with an educational deneen from [employer]. Review of Systems Const Denies chills, Denies fatigue, Denies fever(s), Denies headache(s), Denies malaise and Denies weakness Eyes Denies blurry vision, Denies change in vision, Denies irritation and Denies itchy eyes ENT Denies dysphagia, Denies dizziness, Denies otalgia, Denies headache(s), Denies nasal congestion, Denies neck pain, Denies odynophagia and Denies sore throat Card Denies rapid heart rate, Denies irregular heart rhythm, Denies palpitations and Denies dyspnea Resp Denies chest congestion, Denies cough, Denies dyspnea and Denies wheezing GI Denies abdominal pain, Denies bloating, Denies constipation, Denies dysphagia, Denies heartburn, Denies diarrhea, Denies nausea, Denies odynophagia and Denies vomiting Denies hematuria, Denies difficulty urinating, Denies dysuria, Denies urinary frequency and Denies urinary urgency Musc Denies back pain, Denies arthralgias, Denies joint swelling, Denies muscle weakness and Denies neck pain Skin/Breast Denies change in pigmentation, Denies lesions, Denies rash and Denies unusual bruising Neuro Denies dizziness, Denies headache(s), Denies paresthesias and Denies weakness Endo Denies fatigue and Denies palpitations Aller/Immun Denies itchy eyes and Denies wheezing Physical exam (Primary Care) Vital Signs: Last Vital Signs Pulse 73 10/03/24 08:48 BP 126/82 10/03/24 08:48 Pulse Ox 98 10/03/24 08:48 Oxygen Delivery Method Room Air 10/03/24 08:48 BMI result Body Mass Index 30.4 Tobacco/Smoking Status: Tobacco use Status Tobacco use date assessed 10/03/24 10/03/24 08:54 Patient Tobacco Use Status Never used Tobacco 10/03/24 08:54 e-Cigarette/Vaping Use Never Used 10/03/24 08:54 PHQ-9: PHQ-9 Score PHQ-9: Total score 0 10/03/24 09:16 Depression Screening Interpretation: Negative Thrive Assessment: Date of Thrive Assessment Date Thrive assessed 10/03/24 10/03/24 08:54 Currently or been in a relationship where the following occur: No concerns reported Const General: no acute distress, alert and awake Orientation/consciousness: patient oriented x3 HENMT Head: Yes normocephalic and Yes atraumatic Ears: external ears normal, TM's normal bilaterally and EAC's normal General nose exam: No nasal discharge present Face and sinus: Yes normal facial exam and Yes sinuses nontender Teeth and gingiva: dentition normal Throat: Yes posterior oropharynx normal and Yes tonsils normal (no TP congestion) Eyes Eyelids: Yes eyelids normal Conjunctivae: conjunctivae normal Pupils: Equal, round and reactive pupils present EOM: EOMs intact bilaterally Neck Neck: Yes no lymphadenopathy and Yes supple Thyroid: Thyroid normal Resp Auscultation: clear to auscultation bilaterally, no rales and no wheezes Cardio Rate: regular rate Rhythm: regular rhythm Heart sounds: no murmurs GI Palpation (GI): Soft to palpation, nontender and No hepatosplenomegaly present Auscultation: normal bowel sounds General: Yes no CVA tenderness Back/Spine/Pelvis Back: no CVA tenderness Thoracic/Lumbar Spine: thoracic and lumbar spine normal to inspection Skin Lesions: no lesions Rashes: no rashes Neuro General: patient oriented x3, moves all extremities, no focal motor deficits and CN's II-XI intact bilaterally Cranial nerves: Yes Equal, round and reactive pupils present Cognition (Neuro): normal cognition Gait exam (Neuro): Normal gait present Extrem General: Yes no clubbing, cyanosis or edema Coding Level of Care Code Est Pt Prev Care 40-64y(69012) Diagnoses Annual physical exam Z00.00 Benign essential hypertension I10 Pure hypercholesterolemia E78.00 GERD without esophagitis K21.9 Impaired fasting glucose R73.01 Allergic rhinitis, unspecified seasonality, unspecified trigger J30.9 Allergic rhinitis seasonality: unspecified Allergic rhinitis trigger: unspecified Vitamin D deficiency E55.9 Lumbar spondylosis M47.816 Patellofemoral arthritis of right knee M17.11 Obesity, class 1 E66.811 Additional Codes PHQ-9 - 90167 - PHQ-9 Billing: Yes ([id number]) Assessment & Plan Assessment & Plan (1) Annual physical exam: Code(s): Z00.00 - Encounter for general adult medical examination without abnormal findings Category: Medical Plan: Check labs He had his screening colonoscopy last done in 03/2022 and was recommended for repeat colonoscopy in 3 years ~ 03/2025 Will refer him to GI for repeat colonoscopy at his next follow up appt in the fall (2) Benign essential hypertension: Code(s): I10 - Essential (primary) hypertension Category: Medical Plan: Reinforced low sodium diet - goal is systolic BP of 120 mm or less Continue Losartan 25 mg QD He is reminded to continue monitoring his blood pressure regularly (3) Pure hypercholesterolemia: Code(s): E78.00 - Pure hypercholesterolemia, unspecified Category: Medical Plan: He was not able to get his labs done prior to his appointment today - states that he will try to get them done tomorrow morning Reinforced low cholesterol diet Will recheck his labs and fasting lipids again in 6 months for follow up (4) GERD without esophagitis: Comment: EGD- Barretts surveillance- r/o esophagitis, PUD, non ulcer dyspepsia- avoid culprits- continue ppi- daily Code(s): K21.9 - Gastro-esophageal reflux disease without esophagitis Category: Medical Plan: Dietary restrictions reinforced Continue Pantoprazole 40 mg QD Follow up with GI as scheduled (5) Impaired fasting glucose: Code(s): R73.01 - Impaired fasting glucose Category: Medical Plan: His FBS was still slightly elevated at 103 mg/dl on his labs done previously; his HgbA1c was at 6.0% when last checked back in July 2023 Reinforced low calorie/low carb diet; exercise as tolerated We will wait and see how his FBS and HgbA1c are when he gets his labs done tomorrow and will address them accordingly, depending on his results (6) Allergic rhinitis: Code(s): J30.9 - Allergic rhinitis, unspecified Category: Medical Qualifiers: Allergic rhinitis seasonality: unspecified Allergic rhinitis trigger: unspecified Qualified Code(s): J30.9 - Allergic rhinitis, unspecified Plan: Continue Loratadine 10 mg QD PRN and Fluticasone 50 mcg nasal spray QD PRN - Rx refilled (7) Vitamin D deficiency: Code(s): E55.9 - Vitamin D deficiency, unspecified Category: Medical Plan: Continue Vitamin D3 2000 units QD (8) Lumbar spondylosis: Code(s): M47.816 - Spondylosis without myelopathy or radiculopathy, lumbar region Category: Medical Plan: Reinforced activity and weight-lifting restrictions to avoid aggravating his low back pain He has been experiencing recurrent low back pain since he slipped on ice/snow and fell on his driveway a couple of years ago Lumbar spine x-rays done in August 2022 revealed (+) age indeterminate compression deformities at T12, L1 and L2 and moderate spondylosis at L5-S1 with some degree of central canal stenosis and neural foraminal encroachment Lumbar spine MRI done in October 2022 revealed chronic upper endplate fracture deformities at T12, L1, and L2 with associated superior endplate Schmorl's nodes and resultant mild central height loss. No new compression fracture deformity. Also (+) mild multilevel lumbar spondylosis without significant spinal canal stenosis. At L5-S1, a broad-based central disc protrusion causes asymmetric left subarticular zone narrowing with abutment along the traversing left S1 nerve root. Mild to moderate bilateral L5-S1 neural foraminal stenosis with contact along the exiting L5 nerve roots Patient states that his low back pain has calmed down a lot since then and he will call if his back pain starts to act up again He has been advised that if his low back pain gets worse, we can consider referring him to neurosurgery for further evaluation and management (9) Patellofemoral arthritis of right knee: Code(s): M17.11 - Unilateral primary osteoarthritis, right knee Category: Medical Plan: X-rays of both knee done back in 04/2023 revealed (+) mild narrowing of the bilateral medial femorotibial compartments He has received cortisone injection into his right knee with orthopedics in the past, most recently in December 2023 Knee MRI done on 05/19/2024 revealed (+) complex tearing of the medial meniscus body with moderate medial compartment osteoarthritis and mild patellofemoral compartment osteoarthritis He was seen by orthopedics last week and had his third Euflexxa injection - patient feels that the injections do help but only partially Continue topical Dicofenac 1% apply to the right knee QID PRN for symptomatic relief As he is on his feet all day when he is at work, we have also advised him to try wearing a knee brace for added support and this may help keep his knee pain from flaring up too much Follow up with orthopedics as scheduled (10) Obesity, class 1: Code(s): E66.811 - Obesity, class 1 Category: Medical Plan: Reinforced diet/exercise as tolerated/lose weight Plan Follow up in 6 months Orders: Orders Complete Blood Count Auto Diff 6 Months D64.9 - Anemia, unspecified Lipid Panel 6 Months E78.00 - Pure hypercholesterolemia, unspecified Comprehensive [place]. Panel Fast 6 Months E78.00 - Pure hypercholesterolemia, unspecified Medications: Refilled fluticasone propionate 50 mcg/actuation administer into each nostril 1 spray intranasal DAILY 16 grams 5RF loratadine 10 mg PO DAILY 90 days PRN 90 tabs 3RF allergy symptoms J30.9 - Allergic rhinitis, unspecified
== END 2024-10-03 09:24 | disposition home or self-care (01) ==
LOC: HO.HMCH 08:46
PROVIDERS: PCP Internal Medicine; Visit Provider Internal Medicine
DX: Z00.00 Encounter for general adult medical examination without abnormal findings (principal); I10 Essential (primary) hypertension; E66.811 Obesity, class 1; Z68.30 Body mass index [BMI] 30.0-30.9, adult; E78.00 Pure hypercholesterolemia, unspecified; K21.9 Gastro-esophageal reflux disease without esophagitis; R73.01 Impaired fasting glucose; J30.9 Allergic rhinitis, unspecified; E55.9 Vitamin D deficiency, unspecified; M47.816 Spondylosis without myelopathy or radiculopathy, lumbar region; M17.11 Unilateral primary osteoarthritis, right knee

== ENCOUNTER → 2024-10-03 08:45 | Outpatient (BNVA) | payer OTHER, SELFPAY | PROVIDERS: PCP Internal Medicine; Visit Provider Internal Medicine | DX: Z00.00 Encounter for general adult medical examination without abnormal findings (principal); I10 Essential (primary) hypertension; E78.00 Pure hypercholesterolemia, unspecified; K21.9 Gastro-esophageal reflux disease without esophagitis; R73.01 Impaired fasting glucose; J30.9 Allergic rhinitis, unspecified; E55.9 Vitamin D deficiency, unspecified; M47.816 Spondylosis without myelopathy or radiculopathy, lumbar region; M17.11 Unilateral primary osteoarthritis, right knee; E66.811 Obesity, class 1; Z68.30 Body mass index [BMI] 30.0-30.9, adult; Z79.899 Other long term (current) drug therapy | CPT/HCPCS: 96127; 99396 ==

== ENCOUNTER 2024-10-04 09:10 | Outpatient (REF) | payer OTHER, SELFPAY ==
[2024-10-04 09:31] LABS: MANUAL DIFF FLAG NO
[2024-10-04 10:31] LABS: Basophils Absolute Auto 0.1 X10*3/uL (0.0-0.2); Basophils Percent Auto 1.2 % (0-2); Eosinophils Absolute Auto 0.2 X10*3/uL (0.0-0.4); Eosinophils Percent Auto 4.1 % (0-4); Hematocrit 40.8 % (42.0-52.0); Hemoglobin 13.7 g/dl (14.0-18.0); Imm Gran Abs Auto 0.03 X10*3/uL (0.00-0.03); Imm Gran Pct Auto 0.7 % (0.0-0.4); Lymphocytes Percent Auto 23.6 % (20-40); Mean Corpuscular HGB Conc 33.6 g/dl (31.0-36.0); Mean Corpuscular Hemoglobin 30.4 pg (27.0-33.0); Mean Corpuscular Volume 90.5 fL (80.0-98.0); Mean Platelet Volume 9.3 fL (9.4-12.4); Monocytes Absolute Auto 0.5 X10*3/uL (0.1-1.2); Monocytes Percent Auto 11.6 % (2-11); Neutrophils Absolute Auto 2.4 x10*3/uL (2.0-8.3); Neutrophils Percent Auto 58.8 % (45-73); Platelet Count 184 X10*3/uL (160-400); Red Blood Count 4.51 X10*6/uL (4.60-5.80); Red Cell Distribution Width 13.3 % (11.0-16.0); White Blood Count 4.2 X10*3/uL (4.8-10.8)
[2024-10-04 10:46] LABS: Estimated Average Glucose 131 mg/dL; Hemoglobin A1C 155.0569 umol/L; Hemoglobin A1c % 6.2 % (<6.0); Total Hemoglobin (HGBA1C) 3543.9301 umol/L
[2024-10-04 11:04] LABS: Appearance Urine Clear; Color Urine Yellow; Glucose Urine UA Negative (Negative); Leukocyte Esterase Urine Negative (Negative); Nitrite Urine Negative (Negative); Specific Gravity - Urine 1.025 (1.005-1.025); Urine Blood Negative (Negative); Urine Ketones Negative (Negative); Urine Protein Negative (Neg-Trace)
[2024-10-04 11:15] LABS: Alanine Aminotransferase 32 U/L (0-40); Albumin Level 4.2 g/dL (3.5-5.0); Alkaline Phosphatase 66 U/L (39-117); Anion Gap 9 (12-20); Aspartate Amino Transferase 24 U/L (5-37); Bilirubin Total 0.6 mg/dL (0.0-1.0); Blood Urea Nitrogen 15 mg/dL (9-16); Calcium 8.8 mg/dL (8.4-10.2); Carbon Dioxide 24 mmol/L (22-29); Chloride 108 mmol/L (96-108); Cholesterol 179 mg/dL (<200); Estimated Glomerular Filt Rate > 60; Glucose Fasting 100 mg/dL (60-99); HDL Cholesterol 41 mg/dL (>40); LDL Cholesterol Calculated 126 mg/dL (<100); Potassium 3.9 mmol/L (3.3-5.1); Sodium 137 mmol/L (135-145); Total Protein 7.5 g/dL (6.5-8.0); Triglycerides 62 mg/dL (<150)
[2024-10-04 11:20] LABS: TSH reflex Free T4 3.91 uIU/mL (0.32-4.0); Vitamin D 25-OH Total 39.5 ng/mL (>30)
== END 2024-10-04 09:11 | disposition home or self-care (01) ==
LOC: HO.LAB 09:10
PROVIDERS: PCP Internal Medicine; Visit Provider Internal Medicine
DX: Z00.00 Encounter for general adult medical examination without abnormal findings (principal); E78.00 Pure hypercholesterolemia, unspecified; D64.9 Anemia, unspecified; R30.0 Dysuria; E55.9 Vitamin D deficiency, unspecified; E11.9 Type 2 diabetes mellitus without complications
CPT/HCPCS: 36415; 80053; 80061; 81003; 82306; 83036; 84443; 85025

== ENCOUNTER 2024-12-28 09:17 | Outpatient (AMB) | payer OTHER, SELFPAY ==
--- NOTE | 2024-12-28 09:23 | MHC.OFFVIS ---
Vital Signs 12/28/24 09:28 Height 5 ft 6 in Weight 188 lb BMI 30.3 Intake Visit Reasons: OV- RT knee Euflexxa f/u Intake Note: Rain Morgan is a 53 year old male who presents today for a follow up of his right knee status post Euflexxa Series 09/13-09/27. Patient reports he is still having constant pain. Pain increases while ambulating stairs and at night. Has tried braces, with no relief. Allergies No Known Allergies Allergy (Verified 12/28/24 09:27) HPI HPI OV- RT knee Euflexxa f/u: Details: This is a 54-year-old gentleman who comes in today for his right knee. He had previously gotten Euflexxa injections which he states were not helpful. He has had steroid injections as well in the past. He has a history of impaired fasting glucose. He does not appear to take medication for diabetes however. He also has a history of hypertension, asthma, GERD and hypercholesterolemia. 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 Is complaint continues to be medial-sided right knee pain. He has states that his pain is present with almost all activities and that he limps while he works and is unable to walk long distances. He feels this is compromised quality of his life. This has been going on for years. He had an MRI and proximally 9 months ago which showed medial compartment osteoarthritis as well as medial meniscus tearing. His symptoms are worse throughout the day. [facility] Medical History Renal pelvis enlarged on ultrasound Obesity, class 1 Lumbar spondylosis Obesity (BMI 30-39.9) H. 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 occupational status: employed 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 Current occupational exposures/hazards: No Cognitive needs: No Hearing needs: No Vision needs: No Physical Exam Vital Signs: BMI result Body Mass Index 30.3 Extrem Other: 0-130 degrees of motion with trace effusion. Tenderness to palpation medial compartment. He has 2+ dorsalis pedis pulse in his skin is clean and healthy appearing. He is stable to varus and valgus stress. Results Reviewed Results Reviewed: I personally reviewed the MR images. Complex tearing of medial meniscus body with moderate to severe medial compartment osteoarthritis. Assessment & Plan Assessment & Plan (1) Localized osteoarthritis of right knee: Code(s): M17.11 - Unilateral primary osteoarthritis, right knee Category: Medical Plan: This is a pleasant 54-year-old gentleman with right knee medial compartment osteoarthritis. He has a good candidate for unicompartmental arthroplasty. I discussed this with him. He has tried injections with brief improvement only. I do not think he would benefit from physical therapy or bracing but I did discuss this with him. He is looking for a more permanent solution. I had a long discussion regarding treatment options and explained the unicompartmental arthroplasty to him. I think this is a good solution for him. He is active and has mild varus knees but good motion. I discussed the risks, benefits and alternatives including but not limited to the risk of pain, infection, stiffness, aseptic loosening and the potential need for further surgery as well as potential medical complications such as blood clots, pulmonary embolism and cardiac complications. I answered his questions to the best of my abilities. We will begin the preoperative clearance process. Orders: Orders CT knee RT wo IV con Today M17.11 - Unilateral primary osteoarthritis, right knee Coding Level of Care Code Est Pt Level 4 (26706) Diagnoses Localized osteoarthritis of right knee M17.11
[2024-12-28 09:28] VITALS: BMI 30.3
== END 2024-12-28 10:17 | disposition home or self-care (01) ==
LOC: HO.HOS 09:18
PROVIDERS: PCP Internal Medicine; Visit Provider Orthopaedic Surgery
DX: M17.11 Unilateral primary osteoarthritis, right knee (principal)
CPT/HCPCS: 99214

== ENCOUNTER → 2024-12-28 09:17 | Outpatient (BNVA) | payer OTHER, SELFPAY | PROVIDERS: PCP Internal Medicine; Visit Provider Orthopaedic Surgery | DX: M17.11 Unilateral primary osteoarthritis, right knee (principal) | CPT/HCPCS: 99212 ==

== ENCOUNTER 2025-01-11 13:18 | Outpatient (AMB) | payer OTHER, SELFPAY ==
--- NOTE | 2025-01-11 13:30 | MHC.PC.OV ---
Vital Signs 01/11/25 13:31 01/11/25 14:19 Height 5 ft 6 in Weight 187 lb BMI 30.2 BP 150/90 H 160/96 H Blood Pressure Location Lt brachial Lt brachial Position Sitting Sitting Pulse 78 Pulse Source Pulse Oximeter Pulse Oximetry (%) 98 Oxygen Delivery Method Room Air Intake Visit Reasons: Elaina REID w/Dr. Gonzalez 03/06/25 Youth Minister Required: Yes Youth Minister Language: Martiniquais - Traditional Accompanied by: Self / Same As Patient Allergies No Known Allergies Allergy (Verified 01/11/25 13:50) Medication List - Last Reconciled 01/11/25 by Eboni Yao PA-C albuterol sulfate 90 mcg/actuation 2 puffs inhalation Q6H PRN betamethasone dipropionate 0.05% 1 appl topical BID 14 days blood pressure monitor As directed cholecalciferol (vitamin D3) 50 mcg PO DAILY 90 days diclofenac sodium 1% (Arthritis Pain (diclofenac)) 4 grams topical QID PRN fluticasone propionate 50 mcg/actuation 1 spray intranasal DAILY loratadine 10 mg PO DAILY PRN 90 days losartan 50 mg PO DAILY 90 days meloxicam 15 mg PO DAILY PRN pantoprazole 40 mg PO DAILY Tobacco use date assessed: 01/11/25 Dental Screening Dental Screen Date: 01/11/25 Did you have a dental visit in the last 12 months?: Yes Did you have a dental problem in the last 6 months where you did not have access to dental care?: No Was dental information given to patient?: Patient has dentist HPI Elaina REID w/Dr. Gonzalez 03/06/25 HPI Details 54-year-old male with past medical history of hypertension, GERD, hypercholesterolemia, impaired fasting glucose, obesity last seen 09/[address] Brooke coming in for preoperative visit. Patient is scheduled to have right UKA with Dr. Gonzalez 03/06/2025. Mandarin oakes machine operator was used for the duration of this visit. Hypertension: Currently on Losartan and blood pressure elevated in the office today which he attributes to anxiety. Plan for 1 week nurse visit to recheck BP. Consider increase in Losartan. Impaired fasting glucose: Ordered for A1c not currently on medical management. Patient dose also have an active fungal infection on the feet and Clotrimazole was given today. [facility] Medical History Renal pelvis enlarged on ultrasound Obesity, class 1 Lumbar spondylosis Obesity (BMI 30-39.9) H. 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 Current occupational exposures/hazards: No Cognitive needs: No Hearing needs: No Vision needs: No Questionnaire Thrive Questionnaire Date Thrive assessed: 01/11/25 I am a: Patient What is your living situation today?: I have a steady place to live Within the past 12 months, did the food you bought not last and you didn't have the money to get more?: Often true Within the past 12 months, did you worry whether your food would run out before you got money to buy more?: Often true Do you have trouble paying for medicines?: Yes THRIVE Score: 2 ROB-7 AMB Questionnaire ROB-7 Date ROB - 7 assessed: 01/11/25 Source: Developed by Drs. Steven Oquendo, Aminta Rodriguez, Eliu Roe and colleagues, with an educational deneen from [employer]. Review of Systems Const Denies body aches, Denies fatigue, Denies fever(s), Denies frequent falls, Denies headache(s) and Denies weakness Eyes Reports no additional complaints and Denies change in vision ENT Denies dysphagia, Denies dizziness, Denies facial pain, Denies headache(s), Denies nasal congestion and Denies odynophagia Card Denies chest pain, Denies syncope, Denies irregular heart rhythm, Denies leg edema, Denies lightheadedness and Denies dyspnea Resp Denies cough and Denies dyspnea GI Denies abdominal pain, Denies dysphagia, Denies dyspepsia, Denies diarrhea, Denies nausea, Denies odynophagia and Denies vomiting Denies dysuria, Denies urinary frequency, Denies urinary hesitancy and Denies urinary urgency Musc Details: right knee pain Denies back pain and Denies myalgias Skin/Breast Details: Itching between the toes Reports system reviewed and no additional complaints, except as documented Neuro Denies dizziness, Denies syncope, Denies frequent falls, Denies headache(s) and Denies weakness Psych Reports no additional complaints Endo Denies fatigue Physical exam (Primary Care) Vital Signs: Last Vital Signs Pulse 78 01/11/25 13:31 BP 160/96 H 01/11/25 14:19 Pulse Ox 98 01/11/25 13:31 Oxygen Delivery Method Room Air 01/11/25 13:31 BMI result Body Mass Index 30.2 Tobacco/Smoking Status: Tobacco use Status Tobacco use date assessed 01/11/25 01/11/25 13:39 Patient Tobacco Use Status Never used Tobacco 01/11/25 13:39 e-Cigarette/Vaping Use Never Used 01/11/25 13:39 Thrive Assessment: Date of Thrive Assessment Date Thrive assessed 01/11/25 01/11/25 13:39 Const General: cooperative, healthy appearing, comfortable and no acute distress Orientation/consciousness: patient oriented x3 HENMT Head: Yes normocephalic Ears: hearing grossly normal bilaterally General nose exam: Normal external nose present Eyes General: appearance normal, both eyes and all related structures Conjunctivae: conjunctivae normal Neck Neck: Yes full ROM and Yes no lymphadenopathy Resp Effort & Inspection: normal respiratory effort Auscultation: clear to auscultation bilaterally, no crackles, no rales, no rhonchi and no wheezes Cardio Rate: regular rate Rhythm: regular rhythm Skin Other: Skin cracking between the toes of bilateral feet with mild erythema General skin exam: no rashes or lesions noted Neuro General: patient oriented x3 Gait exam (Neuro): Normal gait present Extrem General: Yes normal to inspection, Yes full ROM and No edema Psych Affect: normal affect Attitude: cooperative Insight: Good insight present (Psych) Judgement: Good judgement present (Psych) Coding Level of Care Code Est Pt Level 4 (60306) Diagnoses Pre-op evaluation Z01.818 Athletes foot B35.3 Benign essential hypertension I10 Assessment & Plan Assessment & Plan (1) Pre-op evaluation: Code(s): Z01.818 - Encounter for other preprocedural examination Category: Medical Plan: Regarding preop clearance, the patient is at moderate risk for proposed surgery due to age and comorbidities. Reviewed with the patient that no surgery is completely free of risk and that this examination is to assist the surgeon in reviewing informed consent. Ordered for blood work and EKG to be completed prior to pre-operative clearance is given. BP not well controlled today, plan for nurse visit to follow up on blood pressure and consider increase in Losartan for better control. He does also have an active fungal infection on bilateral feet which needs to resolve prior to surgery as well, plan to recheck in 1 week (2) Athletes foot: Code(s): B35.3 - Tinea pedis Category: Medical Plan: Patient was given prescription for clotrimazole to be used for athlete's foot. This infection should be resolved prior to surgery. (3) Benign essential hypertension: Code(s): I10 - Essential (primary) hypertension Category: Medical Plan: Blood pressure not well controlled in the office today on losartan 50 mg. Plan for 1 week follow up with the nurses for blood pressure check. Patient to continue to monitor blood pressure at home once daily and bring this log to your next visit. Plan This note was constructed using voice recognition software. While every effort has been made to ensure accuracy and vp strategic planning, still areas may have been included sometimes these areas may affect the content or meeting of the given symptoms. Total time spent caring for the patient today was 20 minutes. This includes time spent before the visit reviewing the chart, time spent during the visit, and time spent after the visit and documentation. Patient was informed and verbally consented to the use of an ambient scribe for clinic note documentation during this visit. Orders: Orders Complete Blood Count Auto Diff Today Z01.818 - Encounter for other preprocedural examination ECG 12 lead EKG Today Z01.818 - Encounter for other preprocedural examination Comprehensive Met. Panel Today Z01.818 - Encounter for other preprocedural examination Hemoglobin A1c Today Z01.818 - Encounter for other preprocedural examination Medications: New clotrimazole 1% (Athlete's Foot (clotrimazole)) 1 appl topical BID 15 grams 0RF
[2025-01-11 13:31] VITALS: BP 150/90; PULSE 78; O2SAT 98; BMI 30.2
[2025-01-11 14:19] VITALS: BP 160/96
== END 2025-01-11 14:33 | disposition home or self-care (01) ==
LOC: HO.HMCH 13:19
DX: Z01.818 Encounter for other preprocedural examination (principal); B35.3 Tinea pedis; I10 Essential (primary) hypertension

== ENCOUNTER → 2025-01-11 13:18 | Outpatient (REF) | payer OTHER, SELFPAY ==
--- NOTE | 2025-01-11 14:44 | ECG_ITS ---
Test Reason : PREOP Blood Pressure : */* mmHG Vent. Rate : 81 BPM Atrial Rate : 81 BPM P-R Int : 168 ms QRS Dur : 98 ms QT Int : 360 ms P-R-T Axes : 74 41 66 degrees QTcB Int : 418 ms Normal sinus rhythm Nonspecific ST and T wave abnormality Abnormal ECG No previous ECGs available Referred By: Eboni Yao Electronically Signed By: LELAND LOJA
== END ==
LOC: HO.CARD 13:18
PROVIDERS: PCP Internal Medicine
DX: Z01.818 Encounter for other preprocedural examination (principal); I10 Essential (primary) hypertension; K21.9 Gastro-esophageal reflux disease without esophagitis; E78.00 Pure hypercholesterolemia, unspecified; R73.01 Impaired fasting glucose; E66.9 Obesity, unspecified; B35.3 Tinea pedis; Z68.30 Body mass index [BMI] 30.0-30.9, adult; Z79.899 Other long term (current) drug therapy
CPT/HCPCS: 93005; 99212

== ENCOUNTER → 2025-01-11 14:44 | Outpatient (BNV) | payer OTHER, SELFPAY | PROVIDERS: PCP Internal Medicine; Visit Provider Internal Medicine | DX: R94.31 Abnormal electrocardiogram [ECG] [EKG] (principal); Z01.810 Encounter for preprocedural cardiovascular examination | CPT/HCPCS: 93010 ==

== ENCOUNTER 2025-01-18 09:23 | Outpatient (REF) | payer OTHER, SELFPAY ==
[2025-01-18 09:54] LABS: MANUAL DIFF FLAG NO
[2025-01-18 10:15] LABS: Hematocrit 41.4 % (42.0-52.0); Hemoglobin 13.9 g/dl (14.0-18.0); Imm Gran Abs Auto 0.03 X10*3/uL (0.00-0.03); Imm Gran Pct Auto 0.7 % (0.0-0.4); Lymphocytes Absolute Auto 1.2 X10*3/uL (1.2-4.9); Mean Corpuscular HGB Conc 33.6 g/dl (31.0-36.0); Mean Corpuscular Hemoglobin 30.4 pg (27.0-33.0); Mean Corpuscular Volume 90.6 fL (80.0-98.0); NRBC Abs Auto 0.000 X10*3/uL (0.0-0.012); NRBC Pct Auto 0.0 /100WBC (0.0-0.2); Platelet Count 177 X10*3/uL (160-400); Red Blood Count 4.57 X10*6/uL (4.60-5.80); White Blood Count 4.5 X10*3/uL (4.8-10.8)
[2025-01-18 10:33] LABS: Hemoglobin A1C 158.1398 umol/L; Total Hemoglobin (HGBA1C) 3723.4102 umol/L
[2025-01-18 10:44] LABS: Alanine Aminotransferase 28 U/L (0-40); Albumin Level 4.4 g/dL (3.5-5.0); Alkaline Phosphatase 65 U/L (39-117); Anion Gap 10 (12-20); Aspartate Amino Transferase 24 U/L (5-37); Blood Urea Nitrogen 16 mg/dL (9-16); Calcium 8.6 mg/dL (8.4-10.2); Carbon Dioxide 27 mmol/L (22-29); Chloride 107 mmol/L (96-108); Estimated Glomerular Filt Rate > 60; Potassium 4.0 mmol/L (3.3-5.1); Sodium 140 mmol/L (135-145); Total Protein 7.7 g/dL (6.5-8.0)
== END 2025-01-18 09:24 | disposition home or self-care (01) ==
LOC: HO.LAB 09:23
PROVIDERS: PCP Internal Medicine
DX: Z01.818 Encounter for other preprocedural examination (principal)
CPT/HCPCS: 36415; 80053; 83036; 85025; 99499

== ENCOUNTER → 2025-02-01 09:36 | Outpatient (BNVA) | payer OTHER, SELFPAY | DX: I10 Essential (primary) hypertension (principal) | CPT/HCPCS: 99211 ==

== ENCOUNTER 2025-02-03 07:27 | Outpatient (REF) | payer OTHER, SELFPAY ==
--- NOTE | ~2025-02-03 | CT_ITS ---
CLINICAL HISTORY: M17.11 - Unilateral primary osteoarthritis, right knee --- Additional Notes or Special Instructions: Preoperative planning CT right lower extremity without contrast Comparison: MR/ME/SR - MR KNEE WITHOUT IV CONTRAST RIGHT - 05/19/24 07:25 EST CR/SR - XR KNEE 4 OR MORE VIEWS RIGHT - 02/17/23 10:13 EDT Findings: No fracture or dislocation. No aggressive osseous lesion. Mild degenerative change of hip, pubic symphysis and right sacroiliac joint. Moderate to severe medial tibiofemoral compartment joint space narrowing. Mild tricompartmental osteophytosis. Suprapatellar enthesophyte. Mild degenerative change of the ankle. Calcaneal enthesophytes There is no hip or ankle joint effusion. Small2 knee joint effusion There is no fluid collection. The muscles are normal in attenuation and bulk. Unremarkable limited evaluation of the vasculature. No acute intrapelvic pathology. Impression: Moderate to severe degenerative change in the medial tibiofemoral compartment. This document has been electronically signed by: Ruth Booker MD on 02/06/2025 22:29:16
== END 2025-02-03 07:28 | disposition home or self-care (01) ==
LOC: HO.CT 07:27
PROVIDERS: PCP Internal Medicine; Visit Provider Orthopaedic Surgery
DX: M17.11 Unilateral primary osteoarthritis, right knee (principal)
CPT/HCPCS: 73700

== ENCOUNTER → 2025-02-03 07:28 | Outpatient (BNV) | payer OTHER, SELFPAY | PROVIDERS: PCP Internal Medicine; Visit Provider Radiology Diagnostic Radiology | DX: M17.11 Unilateral primary osteoarthritis, right knee (principal) | CPT/HCPCS: 73700 ==

== ENCOUNTER 2025-02-08 08:54 | Outpatient (REF) | payer OTHER, SELFPAY ==
[2025-02-08 11:37] LABS: Appearance Urine Clear; Glucose Urine UA Negative (Negative); PH 8.0 (5.0-9.0); Specific Gravity - Urine 1.010 (1.005-1.025)
== END 2025-02-08 08:55 | disposition home or self-care (01) ==
LOC: HO.LAB 08:54
PROVIDERS: PCP Internal Medicine
DX: I10 Essential (primary) hypertension (principal); R35.89 Other polyuria; R35.0 Frequency of micturition
CPT/HCPCS: 81003; 99211

== ENCOUNTER → 2025-02-16 09:46 | Outpatient (BNVA) | payer OTHER, SELFPAY | PROVIDERS: PCP Internal Medicine | DX: I10 Essential (primary) hypertension (principal) | CPT/HCPCS: 99211 ==

== ENCOUNTER 2025-02-21 08:31 | Outpatient (AMB) | payer OTHER, SELFPAY ==
[2025-02-21 08:36] VITALS: BP 166/98; PULSE 72; O2SAT 98; BMI 27.2
--- NOTE | 2025-02-21 08:36 | HO.NEPHOV_ITS ---
Vital Signs 02/21/25 08:36 Height 5 ft 9 in Weight 184 lb BMI 27.2 BP 166/98 H Blood Pressure Location Lt brachial Position Sitting Pulse 72 Pulse Source Pulse Oximeter Pulse Oximetry (%) 98 Oxygen Delivery Method Room Air Intake Visit Reasons: INP: Essential (primary) hypertension Auto Headlight Mechanic Required: Yes Auto Headlight Mechanic Name: [id number] Dexter Accompanied by: Self / Same As Patient Allergies adhesive tape Allergy (Intermediate, Verified 02/21/25 08:39) Itching/blisters Medication List - Last Reconciled 02/21/25 by Brennon Anna MD amlodipine 5 mg PO DAILY blood pressure monitor As directed cholecalciferol (vitamin D3) 50 mcg PO DAILY 90 days clotrimazole 1% (Athlete's Foot (clotrimazole)) 1 appl topical BID PRN diclofenac sodium 1% (Arthritis Pain (diclofenac)) 4 grams topical QID PRN doxepin orally bedtime PRN; as needed for insomnia/sleep fluticasone propionate 50 mcg/actuation 1 spray intranasal DAILY PRN [Folding Front Wheeled walker Duration: 99 days] loratadine 10 mg PO DAILY PRN 90 days losartan-hydrochlorothiazide 100-12.5 mg 1 tab PO DAILY meloxicam 15 mg PO DAILY PRN pantoprazole 40 mg PO DAILY HPI Comments Details: Pleasant 54-year-old man referred for evaluation of hypertension. He was on losartan 25 mg a day. Recently blood pressure has been elevated. Currently he is on losartan 100 mg with HCTZ 12.5 mg along with amlodipine. Blood pressure is still suboptimal. He is here for further evaluation. Renal function has been stable. He has knee pain currently undergoing orthopedic procedure. He tells me that the pain does increase his blood pressure and he is also anxious about the pain. [facility] Medical History (Updated 02/08/25 @ 10:23 by Eboni Yao PA-C) Renal pelvis enlarged on ultrasound Lumbar spondylosis Obesity (BMI 30-39.9) H. pylori infection Vitamin D deficiency Pure hypercholesterolemia Allergic rhinitis GERD without esophagitis Benign essential hypertension Surgical History Hx of tonsillectomy Hx of colonoscopy (~03/2022) Hx of esophagogastroduodenoscopy Family History Sister Lupus Social History Housing: House Are you a primary adult caregiver to a significant other at home: No Do you presently have visiting nurse or other home services: No Alcohol intake: current Alcohol intake frequency: does not drink Patient Tobacco Use Status: Never used Tobacco e-Cigarette/Vaping Use: Never Used Second Hand Smoke Exposure: No service: No Current occupational status: employed 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, [employer] Current occupational exposures/hazards: No Cognitive needs: No Hearing needs: No Vision needs: No Review of Systems Const Denies anorexia, Denies fever(s) and Denies weakness Eyes Denies blurry vision Card Denies no additional complaints and Denies dyspnea Resp Reports no additional complaints, Reports cough and Denies dyspnea GI Denies melena and Denies diarrhea Denies hematuria Musc Denies tingling Skin/Breast Denies rash Neuro Denies focal weakness, Denies tingling, Denies tremor(s) and Denies weakness Physical Exam Exam Exam: Repeat blood pressure 140/100 mm Hg. Symmetrical in both upper extremities. No orthostatic changes. Vital Signs: Last Vital Signs Pulse 72 02/21/25 08:36 BP 166/98 H 02/21/25 08:36 Pulse Ox 98 02/21/25 08:36 Oxygen Delivery Method Room Air 02/21/25 08:36 BMI result Body Mass Index 27.2 Comfortable Neck supple no JVD. Lungs entry equal no rales. Heart S1-S2 heard no gallop or rub. Abdomen soft nontender. Neuro alert awake oriented. No asterixis. Extremities no edema. Results Reviewed Results Reviewed: Labs reviewed Nephrology Results: Urine Protein, (Neg-Trace) Negative mg/dL 02/08/25 Assessment & Plan Assessment & Plan (1) Benign essential hypertension: Code(s): I10 - Essential (primary) hypertension Category: Medical Plan Middle-aged man with difficult control hypertension. There is no obvious secondary causes at this time. However pain could be a contributing factor. Blood pressure is suboptimal. There could be a component of white coat effect based on previous readings. I will obtain a 24 hour ambulatory blood pressure monitoring. The meantime encouraged him to stand low-sodium diet Continue current medications. Based on ABP M, I will adjust medications as necessary. Further workup will be based on the outcome of the ABP M. Orders: Orders AMB 24 HR B/P Monitor PLACEMENT Today Brennon Anna MD I10 - Essential (primary) hypertension Medications: Changed From fluticasone propionate 50 mcg/actuation administer into each nostril 1 spray intranasal DAILY 16 grams 5RF To fluticasone propionate 50 mcg/actuation administer into each nostril 1 spray intranasal DAILY PRN Juan Brooke MD From clotrimazole 1% (Athlete's Foot (clotrimazole)) 1 appl topical BID 15 grams 0RF To clotrimazole 1% (Athlete's Foot (clotrimazole)) 1 appl topical BID PRN Eboni Yao PA-C From doxepin 1 to 2 capsules daily at bedtime as needed for insomnia/sleep 30 caps 1RF To doxepin orally bedtime PRN; as needed for insomnia/sleep Juan Brooke MD Coding Level of Care Code New Pt Level 4 (67392) Diagnoses Benign essential hypertension I10
== END 2025-02-21 09:01 | disposition home or self-care (01) ==
LOC: HO.HKAS 08:32
PROVIDERS: PCP Internal Medicine; Visit Provider Internal Medicine Hypertension Specialist
DX: I10 Essential (primary) hypertension (principal)
CPT/HCPCS: 99204

== ENCOUNTER → 2025-02-21 08:31 | Outpatient (BNVA) | payer OTHER, SELFPAY | PROVIDERS: PCP Internal Medicine; Visit Provider Internal Medicine Hypertension Specialist | DX: I10 Essential (primary) hypertension (principal) | CPT/HCPCS: 99202 ==

== ENCOUNTER → 2025-03-01 09:15 | Outpatient (BNVA) | payer OTHER, SELFPAY | PROVIDERS: PCP Internal Medicine; Visit Provider Internal Medicine Hypertension Specialist | DX: I10 Essential (primary) hypertension (principal) | CPT/HCPCS: 93786; 93788 ==

== ENCOUNTER 2025-03-07 10:59 | Outpatient (AMB) | payer OTHER, SELFPAY ==
[2025-03-07 11:03] VITALS: BP 142/90; PULSE 86; O2SAT 98; BMI 27.6
--- NOTE | 2025-03-07 11:03 | HO.NEPHOV ---
Vital Signs 03/07/25 11:03 Height 5 ft 9 in Weight 187 lb BMI 27.6 BP 142/90 H Blood Pressure Location Lt brachial Position Sitting Pulse 86 Pulse Source Pulse Oximeter Pulse Oximetry (%) 98 Oxygen Delivery Method Room Air Intake Visit Reasons: 24 HR ABPM FU Power Wheelchair Mechanic Required: Yes Power Wheelchair Mechanic Name: Delores [id number] Accompanied by: Self / Same As Patient Allergies adhesive tape Allergy (Intermediate, Verified 03/07/25 11:06) Itching/blisters HPI Comments Details: Pleasant 54-year-old man referred for evaluation of hypertension. He was on losartan 25 mg a day. Recently blood pressure has been elevated. Currently he is on losartan 100 mg with HCTZ 12.5 mg along with amlodipine. Blood pressure is still suboptimal. He is here for further evaluation. Renal function has been stable. He has knee pain currently undergoing orthopedic procedure. He tells me that the pain does increase his blood pressure and he is also anxious about the pain. 03/07/25 - The patient is a 54-year-old male presenting for follow-up regarding hypertension management. - 24-hour ABPM shows satisfactory control with daytime readings under 140/90 mmHg and nighttime readings under 120/80 mmHg. Average BP was 126/88 - Elevated blood pressure during office visits suggests white coat hypertension. - Scheduled for knee surgery on April 25 [facility] Medical History (Updated 02/21/25 @ 09:27 by Juan Brooke MD) Anxiety Renal pelvis enlarged on ultrasound Lumbar spondylosis Obesity (BMI 30-39.9) H. pylori infection Vitamin D deficiency Pure hypercholesterolemia Allergic rhinitis GERD without esophagitis Benign essential hypertension Surgical History Hx of tonsillectomy Hx of colonoscopy (~03/2022) Hx of esophagogastroduodenoscopy Family History Sister Lupus Social History Housing: House Are you a primary career services coordinator to a significant other at home: No Do you presently have visiting nurse or other home services: No Alcohol intake: current Alcohol intake frequency: does not drink Patient Tobacco Use Status: Never used Tobacco e-Cigarette/Vaping Use: Never Used Second Hand Smoke Exposure: No service: No Current occupational status: employed Current occupation: [employer] Current occupational exposures/hazards: No Cognitive needs: No Hearing needs: No Vision needs: No Physical Exam Vital Signs: Last Vital Signs Pulse 86 03/07/25 11:03 BP 142/90 H 03/07/25 11:03 Pulse Ox 98 03/07/25 11:03 Oxygen Delivery Method Room Air 03/07/25 11:03 BMI result Body Mass Index 27.6 Comfortable Neck supple no JVD. Lungs entry equal no rales. Heart S1-S2 heard no gallop or rub. Abdomen soft nontender. Neuro alert awake oriented. No asterixis. Extremities no edema. Office Procedures 24 B/P Monitor Interpretation Details: WEll cotrolled HTN White coat effect Present CPT: 14241 24 Hour Blood Pressure Monitor Reading Procedure code (CPT) selection complete Results Reviewed Nephrology Results: Urine Protein, (Neg-Trace) Negative mg/dL 02/08/25 Assessment & Plan Assessment & Plan (1) Benign essential hypertension: Code(s): I10 - Essential (primary) hypertension Category: Medical Plan Middle-aged man with difficult control hypertension. There is no obvious secondary causes at this time. However pain could be a contributing factor. Blood pressure is elevated in the office today. There could be a component of white coat effect based on previous readings and 24 hr ABPM 24 hour ambulatory blood pressure monitoring shows well controlled HTN encouraged him to stand low-sodium diet Continue current medications. NO changes in anti hypertensives No absolute contraindication for knee surgery from a renal/hypertension stand point Orders: Orders AMB 24 HR B/P Monitor INTERPRETATION Today I10 - Essential (primary) hypertension Coding Level of Care Code Est Pt Level 4 (04572) Diagnoses Benign essential hypertension I10 CPT Codes - CPT: 29900 24 Hour Blood Pressure Monitor Reading ([id number])
== END 2025-03-07 11:41 | disposition home or self-care (01) ==
LOC: HO.HKAS 10:59
PROVIDERS: PCP Internal Medicine; Visit Provider Internal Medicine Hypertension Specialist
DX: I10 Essential (primary) hypertension (principal)
CPT/HCPCS: 93790; 99214

== ENCOUNTER → 2025-03-07 10:59 | Outpatient (BNVA) | payer OTHER, SELFPAY | PROVIDERS: PCP Internal Medicine; Visit Provider Internal Medicine Hypertension Specialist | DX: I10 Essential (primary) hypertension (principal) | CPT/HCPCS: 99212 ==

== ENCOUNTER 2025-03-14 16:25 | Outpatient (AMB) | payer OTHER, SELFPAY ==
[2025-03-14 16:43] VITALS: BP 126/84; PULSE 72; O2SAT 98; BMI 27.4
--- NOTE | 2025-03-14 16:43 | A.OFFPC_ITS ---
Vital Signs 03/14/25 16:43 Height 5 ft 9 in Weight 185 lb 8 oz BMI 27.4 BP 126/84 Blood Pressure Location Lt brachial Position Sitting Pulse 72 Pulse Source Pulse Oximeter Pulse Oximetry (%) 98 Oxygen Delivery Method Room Air Intake Visit Reasons: BP F/U Children Counselor Required: No Accompanied by: Self / Same As Patient Allergies adhesive tape Allergy (Intermediate, Verified 03/14/25 17:42) Itching/blisters Medication List - Last Reconciled 03/15/25 by Juan Brooke MD amlodipine 5 mg PO DAILY blood pressure monitor As directed cholecalciferol (vitamin D3) 50 mcg PO DAILY 90 days clotrimazole 1% (Athlete's Foot (clotrimazole)) 1 appl topical BID PRN diclofenac sodium 1% (Arthritis Pain (diclofenac)) 4 grams topical QID PRN doxepin 10 mg PO BEDTIME PRN fluoxetine 10 mg PO DAILY 90 days fluticasone propionate 50 mcg/actuation 1 spray intranasal DAILY PRN [Folding Front Wheeled walker Duration: 99 days] loratadine 10 mg PO DAILY PRN 90 days losartan-hydrochlorothiazide 100-12.5 mg 1 tab PO DAILY meloxicam 15 mg PO DAILY PRN pantoprazole 40 mg PO DAILY Tobacco use date assessed: 03/14/25 Dental Screening Dental Screen Date: 03/14/25 Did you have a dental visit in the last 12 months?: Yes Did you have a dental problem in the last 6 months where you did not have access to dental care?: No Was dental information given to patient?: Patient has dentist HPI BP F/U HPI Details Patient comes in today for follow up of his blood pressure AND also for a preoperative medical examination for clearance for surgery at the request of Dr. Fabrizio Gonzalez He is currently scheduled for total right knee arthroplasty under general anesthesia on 04/25/2025 States that he feels okay and that his blood pressure has been under better control since the addition of Amlodipine a few weeks ago He denies any headaches or dizziness Denies any chest pains, no SOB No nausea/vomiting, no abdominal pain No change in bowel habits noted Needs a couple of his Rx refilled PFSH Medical History (Updated 03/15/25 @ 09:45 by Juan Brooke MD) Anxiety Renal pelvis enlarged on ultrasound Lumbar spondylosis Obesity (BMI 30-39.9) H. pylori infection Vitamin D deficiency Pure hypercholesterolemia Allergic rhinitis GERD without esophagitis Benign essential hypertension Surgical History Hx of tonsillectomy Hx of colonoscopy (~03/2022) Hx of esophagogastroduodenoscopy Family History Sister Lupus Social History Housing: House Are you a primary care attendant to a significant other at home: No Do you presently have visiting nurse or other home services: No Alcohol intake: current Alcohol intake frequency: does not drink Patient Tobacco Use Status: Never used Tobacco e-Cigarette/Vaping Use: Never Used Second Hand Smoke Exposure: No service: No Current occupational status: employed 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, 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 Current occupational exposures/hazards: No Cognitive needs: No Hearing needs: No Vision needs: No Questionnaire Thrive Questionnaire Date Thrive assessed: 10/03/24 Do you have trouble getting transportation to medical appointments?: Yes Do you have trouble paying your heating and electricity bill?: I choose not to answer this question Do you have trouble taking care of your child, family member or friend?: I choose not to answer this question Do you have trouble with day-to-day activities such as bathing, preparing meals, shopping, managing finances, etc.?: I choose not to answer this question Are you currently unemployed and looking for a job?: I choose not to answer this question Are you interested in more education?: I choose not to answer this question Please select the resources that you would like help with: None Currently or been in a relationship where the following occur: I choose not to answer THRIVE Score: 1 AUDIT C Alcohol Use Questionnaire (AUDIT-C) 1. How often do you have a drink containing alcohol?: Never 3. How often do you have six or more drinks on one occasion?: Never Total Score: 0 Score Reviewed/Action Taken: Yes ROB-7 AMB Questionnaire ROB-7 Date ROB - 7 assessed: 01/11/25 Feeling nervous, anxious, or on edge: 0 = Not at all Not being able to stop or control worryin = Not at all Worrying too much about different things: 0 = Not at all Trouble relaxin = Not at all Being so restless that it is hard to sit still: 0 = Not at all Becoming easily annoyed or irritable: 0 = Not at all Feeling afraid as if something awful might happen: 0 = Not at all Total ROB-7 score (0-4 normal; 5-9 mild; 10-14 moderate; 15-21 severe): 0 Source: Developed by Drs. Steven Oquendo, Aminta Rodriguez, Eliu Roe and colleagues, with an educational deneen from [employer]. Review of Systems Const Denies chills, Denies fatigue, Denies fever(s) and Denies headache(s) ENT Denies dysphagia, Denies dizziness, Denies otalgia, Denies headache(s), Denies neck pain, Denies odynophagia and Denies sore throat Card Denies rapid heart rate, Denies irregular heart rhythm, Denies palpitations and Denies dyspnea Resp Denies chest congestion, Denies cough and Denies dyspnea GI Denies abdominal pain, Denies constipation, Denies dysphagia, Denies heartburn, Denies diarrhea, Denies nausea, Denies odynophagia and Denies vomiting Denies difficulty urinating, Denies dysuria and Denies urinary frequency Musc Reports back pain (over the lower back, on and off), Reports arthralgias (increasing in the right knee) and Denies neck pain Skin/Breast Denies rash Neuro Denies dizziness, Denies headache(s) and Denies paresthesias Endo Denies fatigue and Denies palpitations Physical exam (Primary Care) Vital Signs: Last Vital Signs Pulse 72 03/14/25 16:43 BP 126/84 03/14/25 16:43 Pulse Ox 98 03/14/25 16:43 Oxygen Delivery Method Room Air 03/14/25 16:43 BMI result Body Mass Index 27.4 Tobacco/Smoking Status: Tobacco use Status Tobacco use date assessed 03/14/25 03/14/25 16:48 Patient Tobacco Use Status Never used Tobacco 03/14/25 16:48 e-Cigarette/Vaping Use Never Used 03/14/25 16:48 Thrive Assessment: Date of Thrive Assessment Date Thrive assessed 10/03/24 03/14/25 16:48 Currently or been in a relationship where the following occur: I choose not to answer Const General: no acute distress and alert HENMT Throat: Yes posterior oropharynx normal and Yes tonsils normal (no TP congestion) Neck Neck: Yes supple and No lymphadenopathy Thyroid: Thyroid normal Resp Auscultation: clear to auscultation bilaterally, no rales and no wheezes Cardio Rate: regular rate Rhythm: regular rhythm Heart sounds: no murmurs GI Palpation (GI): Soft to palpation and nontender Auscultation: normal bowel sounds General: Yes no CVA tenderness Back/Spine/Pelvis Back: no CVA tenderness Thoracic/Lumbar Spine: lumbar spinal tenderness (mild) Skin Rashes: no rashes Extrem General: Yes no clubbing, cyanosis or edema Right lower extremity: knee Details: tenderness Location: of the patella, of the pre-patellar area and of the infrapatellar area and crepitus; no swelling Office Procedures Flu Questionnaire Does the patient have a severe egg allergy?: No Does the patient have severe life threatening allergies?: No Does the patient have a fever or illness today?: No Has the patient ever had Guillain-[place] Syndrome?: No Has the patient ever had any past reaction to a flu shot?: No Immunizations Fluarix [id number] (PF) 45 mcg (15 mcg x 3)/0.5 mL IM syringe Performing Provider: Juan Brooke MD [facility] Administered by: Lynnette Otoole CMA on 03/14/25 17:21 Dose Route Admin Location Dispensed Lot Number Expiration Date [facility] Cigarette Carton Sealer 0.5 mL IM Left Deltoid 0.5 mL [id number] 12/04/25 [id number] [place] VIS Given Date VIS Provided VIS Publication Date 03/14/25 Single Vaccine 24 Eligibility Eligibility Date Funding Source Not [facility] Eligible 03/14/25 Private Coding Level of Care Code Est Pt Level 4 (56101) Diagnoses Preoperative examination Z01.818 Patellofemoral arthritis of right knee M17.11 Benign essential hypertension I10 Pure hypercholesterolemia E78.00 GERD without esophagitis K21.9 Impaired fasting glucose R73.01 Allergic rhinitis, unspecified seasonality, unspecified trigger J30.9 Allergic rhinitis trigger: unspecified Allergic rhinitis seasonality: unspecified Vitamin D deficiency E55.9 Lumbar spondylosis M47.816 Insomnia, unspecified type G47.00 Insomnia type: unspecified Anxiety F41.9 Obesity, class 1 E66.811 Assessment & Plan Assessment & Plan (1) Preoperative examination: Code(s): Z01.818 - Encounter for other preprocedural examination Category: Medical Plan: Patient presents with acceptable risks for planned intermediate cardiac-risk procedure He currently appears to be medically optimized and has no contraindications to undergo planned right knee surgery but he is instructed to go and get some labs done MARIZOL to complete his preop evaluation EKG done in the office a couple of months ago (January 2025) revealed NSR with non-specific ST-T wave changes (2) Patellofemoral arthritis of right knee: Code(s): M17.11 - Unilateral primary osteoarthritis, right knee Category: Medical Plan: He is scheduled for total right knee arthroplasty under general anesthesia on 04/25/[address] Fabrizio Gonzalez at [facility] X-rays of both knee done back in 04/2023 revealed (+) mild narrowing of the bilateral medial femorotibial compartments Knee MRI done on 05/19/2024 revealed (+) complex tearing of the medial meniscus body with moderate medial compartment osteoarthritis and mild patellofemoral compartment osteoarthritis CT of the knee done last month confirmed (+) moderate to severe degenerative change in the medial tibiofemoral compartment Continue Meloxicam 15 mg QD PRN for pain but he is advised to start holding this about 7 days prior to his scheduled surgery (3) Benign essential hypertension: Code(s): I10 - Essential (primary) hypertension Category: Medical Plan: Reinforced low sodium diet - goal is systolic BP of 120 mm or less Continue Losartan-HCT 100-12.5 mg QD and Amlodipine 5 mg QD He is reminded to continue monitoring his blood pressure regularly (4) Pure hypercholesterolemia: Code(s): E78.00 - Pure hypercholesterolemia, unspecified Category: Medical Plan: Reinforced low cholesterol diet (5) GERD without esophagitis: Comment: EGD- Barretts surveillance- r/o esophagitis, PUD, non ulcer dyspepsia- avoid culprits- continue ppi- daily Code(s): K21.9 - Gastro-esophageal reflux disease without esophagitis Category: Medical Plan: Dietary restrictions reinforced Continue Pantoprazole 40 mg QD Follow up with GI as scheduled (6) Impaired fasting glucose: Code(s): R73.01 - Impaired fasting glucose Category: Medical Plan: His serum glucose was most recently still slightly elevated at 104 mg/dl on his labs done a couple of months ago; his HgbA1c was at 6.0% when last checked at the time Reinforced low calorie/low carb diet (7) Allergic rhinitis: Code(s): J30.9 - Allergic rhinitis, unspecified Category: Medical Qualifiers: Allergic rhinitis trigger: unspecified Allergic rhinitis seasonality: unspecified Qualified Code(s): J30.9 - Allergic rhinitis, unspecified Plan: Continue Loratadine 10 mg QD PRN and Fluticasone 50 mcg nasal spray QD PRN (8) Vitamin D deficiency: Code(s): E55.9 - Vitamin D deficiency, unspecified Category: Medical Plan: Continue Vitamin D3 2000 units QD (9) Lumbar spondylosis: Code(s): M47.816 - Spondylosis without myelopathy or radiculopathy, lumbar region Category: Medical Plan: Reinforced activity and weight-lifting restrictions to avoid aggravating his low back pain He has been experiencing recurrent low back pain since he slipped on ice/snow and fell on his driveway a couple of years ago Lumbar spine x-rays done in August 2022 revealed (+) age indeterminate compression deformities at T12, L1 and L2 and moderate spondylosis at L5-S1 with some degree of central canal stenosis and neural foraminal encroachment Lumbar spine MRI done in October 2022 revealed chronic upper endplate fracture deformities at T12, L1, and L2 with associated superior endplate Schmorl's nodes and resultant mild central height loss. No new compression fracture deformity. Also (+) mild multilevel lumbar spondylosis without significant spinal canal stenosis. At L5-S1, a broad-based central disc protrusion causes asymmetric left subarticular zone narrowing with abutment along the traversing left S1 nerve root. Mild to moderate bilateral L5-S1 neural foraminal stenosis with contact along the exiting L5 nerve roots Patient states that his low back pain has calmed down a lot since then and he will call if his back pain starts to act up again He has been advised that if his low back pain gets worse, we can consider referring him to neurosurgery for further evaluation and management (10) Insomnia: Code(s): G47.00 - Insomnia, unspecified Category: Medical Qualifiers: Insomnia type: unspecified Qualified Code(s): G47.00 - Insomnia, unspecified Plan: Sleep hygiene reinforced Continue Doxepin 10 mg Q HS PRN (11) Anxiety: Code(s): F41.9 - Anxiety disorder, unspecified Category: Medical Plan: Continue Fluoxetine 10 mg QD - Rx refilled (12) Obesity, class 1: Code(s): E66.811 - Obesity, class 1 Category: Medical Plan: Reinforced diet/exercise as tolerated/lose weight Plan Patient is currently medically optimized and does not have any absolute contraindications to undergo right knee arthroplasty as planned next month He will go and get some follow up labs done and if these do not show any unexpected results or abnormal results, will then formally clear him for surgery As requested, flu vaccine given today Follow up as scheduled in May 2025 Orders: Orders Influenza [id number] Immunization 03/14/25 Z23 - Encounter for immunization Complete Blood Count Auto Diff Today D64.9 - Anemia, unspecified, Z01.818 - Encounter for other preprocedural examination Hemoglobin A1c Today R73.01 - Impaired fasting glucose Comprehensive Met. Panel Today Z01.818 - Encounter for other preprocedural examination UA CC w/rflx Micro + Cult Today R30.0 - Dysuria, Z01.818 - Encounter for other preprocedural examination Medications: Changed From fluoxetine 10 mg PO DAILY 30 tabs 1RF 30 days F41.9 - Anxiety disorder, unspecified To fluoxetine 10 mg PO DAILY 90 tabs 1RF 90 days F41.9 - Anxiety disorder, unspecified Refilled pantoprazole 40 mg PO DAILY 90 tabs 1RF
== END 2025-03-14 17:23 | disposition home or self-care (01) ==
PROVIDERS: PCP Internal Medicine; Visit Provider Internal Medicine
DX: Z23 Encounter for immunization (principal)

== ENCOUNTER → 2025-03-14 16:25 | Outpatient (BNVA) | payer OTHER, SELFPAY | PROVIDERS: PCP Internal Medicine; Visit Provider Internal Medicine | DX: Z01.818 Encounter for other preprocedural examination (principal); M17.11 Unilateral primary osteoarthritis, right knee; I10 Essential (primary) hypertension; E78.00 Pure hypercholesterolemia, unspecified; K21.9 Gastro-esophageal reflux disease without esophagitis; R73.01 Impaired fasting glucose; J30.9 Allergic rhinitis, unspecified; E55.9 Vitamin D deficiency, unspecified; M47.816 Spondylosis without myelopathy or radiculopathy, lumbar region; G47.00 Insomnia, unspecified; F41.9 Anxiety disorder, unspecified; E66.811 Obesity, class 1; R30.0 Dysuria; D64.9 Anemia, unspecified; Z23 Encounter for immunization; Z68.27 Body mass index [BMI] 27.0-27.9, adult | CPT/HCPCS: 90471; 90656; 99212 ==

== ENCOUNTER 2025-03-15 09:21 | Outpatient (REF) | payer OTHER, SELFPAY ==
[2025-03-15 09:45] LABS: MANUAL DIFF FLAG NO
[2025-03-15 10:13] LABS: Hematocrit 41.5 % (42.0-52.0); Hemoglobin 14.8 g/dl (14.0-18.0); Imm Gran Abs Auto 0.03 X10*3/uL (0.00-0.03); Imm Gran Pct Auto 0.7 % (0.0-0.4); Lymphocytes Absolute Auto 1.1 X10*3/uL (1.2-4.9); Mean Corpuscular HGB Conc 35.7 g/dl (31.0-36.0); Mean Corpuscular Hemoglobin 31.6 pg (27.0-33.0); Mean Corpuscular Volume 88.5 fL (80.0-98.0); NRBC Abs Auto 0.000 X10*3/uL (0.0-0.012); NRBC Pct Auto 0.0 /100WBC (0.0-0.2); Platelet Count 183 X10*3/uL (160-400); Red Blood Count 4.69 X10*6/uL (4.60-5.80); White Blood Count 4.3 X10*3/uL (4.8-10.8)
[2025-03-15 10:48] LABS: Appearance Urine Clear; Glucose Urine UA Negative (Negative); PH 6.5 (5.0-9.0); Specific Gravity - Urine 1.020 (1.005-1.025)
[2025-03-15 10:51] LABS: Alanine Aminotransferase 45 U/L (0-40); Albumin Level 4.5 g/dL (3.5-5.0); Alkaline Phosphatase 65 U/L (39-117); Anion Gap 10 (12-20); Aspartate Amino Transferase 27 U/L (5-37); Blood Urea Nitrogen 16 mg/dL (9-16); Calcium 9.0 mg/dL (8.4-10.2); Carbon Dioxide 26 mmol/L (22-29); Chloride 109 mmol/L (96-108); Cholesterol 163 mg/dL (<200); Estimated Glomerular Filt Rate > 60; HDL Cholesterol 33 mg/dL (>40); Potassium 4.0 mmol/L (3.3-5.1); Sodium 141 mmol/L (135-145); Total Protein 7.8 g/dL (6.5-8.0); Triglycerides 99 mg/dL (<150)
== END 2025-03-15 09:22 | disposition home or self-care (01) ==
LOC: HO.LAB 09:21
PROVIDERS: PCP Internal Medicine; Visit Provider Internal Medicine
DX: Z01.818 Encounter for other preprocedural examination (principal); E78.00 Pure hypercholesterolemia, unspecified; D64.9 Anemia, unspecified; R73.01 Impaired fasting glucose; R30.0 Dysuria
CPT/HCPCS: 36415; 80053; 80061; 81003; 83036; 85025

== ENCOUNTER → 2025-03-16 10:32 | Outpatient (BNVA) | payer OTHER, SELFPAY | PROVIDERS: PCP Internal Medicine | DX: Z01.818 Encounter for other preprocedural examination (principal) ==

== ENCOUNTER 2025-03-20 14:27 | Outpatient (AMB) | payer OTHER, SELFPAY ==
--- NOTE | 2025-03-20 14:56 | MHC.PC.OV ---
Vital Signs 03/20/25 14:57 Height 5 ft 9 in Weight 189 lb 8 oz BMI 28.0 BP 132/70 Blood Pressure Location Lt brachial Position Sitting Pulse 80 Pulse Source Pulse Oximeter Temp 97.5 F Temp Source Temporal Artery Scan Pulse Oximetry (%) 97 Oxygen Delivery Method Room Air Intake Visit Reasons: back and knee pain Intake Note: Patient is here to follow up on Back and knee pain. Meterman Required: No Organ Pipe Finisher: Not Required per policy Accompanied by: Self / Same As Patient Allergies adhesive tape Allergy (Intermediate, Verified 03/20/25 15:38) Itching/blisters Medication List - Last Reconciled 03/20/25 by Xavier Hoover PA-C amlodipine 5 mg PO DAILY blood pressure monitor As directed cholecalciferol (vitamin D3) 50 mcg PO DAILY 90 days clotrimazole 1% (Athlete's Foot (clotrimazole)) 1 appl topical BID PRN diclofenac sodium 1% (Arthritis Pain (diclofenac)) 4 grams topical QID PRN doxepin 10 mg PO BEDTIME PRN fluoxetine 10 mg PO DAILY 90 days fluticasone propionate 50 mcg/actuation 1 spray intranasal DAILY PRN [Folding Front Wheeled walker Duration: 99 days] loratadine 10 mg PO DAILY PRN 90 days losartan-hydrochlorothiazide 100-12.5 mg 1 tab PO DAILY meloxicam 15 mg PO DAILY PRN pantoprazole 40 mg PO DAILY Tobacco use date assessed: 03/20/25 Dental Screening Dental Screen Date: 03/14/25 HPI back and knee pain HPI Details Patient is 54-year-old male here today for problem visit. This is the 1st time I am meeting this 54-year-old male with a past medical history significant for hyperlipidemia, hypertension, osteoarthritis and GERD. He reports over the last 2 3 weeks he has been having low back pain. He reports this has been to in the past and got an injection which has helped him relieve his pain. He does use meloxicam though have not been effective. He is interested in seeing a back specialist/pain management to give him an injection. [facility] Medical History (Updated 03/20/25 @ 15:41 by Xavier Hoover PA-C) Anxiety Renal pelvis enlarged on ultrasound Lumbar spondylosis Obesity (BMI 30-39.9) H. pylori infection Vitamin D deficiency Pure hypercholesterolemia Allergic rhinitis GERD without esophagitis Benign essential hypertension Surgical History Hx of tonsillectomy Hx of colonoscopy (~03/2022) Hx of esophagogastroduodenoscopy Family History Sister Lupus Social History Housing: House Are you a primary hiv/aids care nurse to a significant other at home: No Do you presently have visiting nurse or other home services: No Alcohol intake: current Alcohol intake frequency: does not drink Patient Tobacco Use Status: Never used Tobacco e-Cigarette/Vaping Use: Never Used Second Hand Smoke Exposure: No service: No Current occupational status: employed 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, 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 Current occupational exposures/hazards: No Cognitive needs: No Hearing needs: No Vision needs: No Questionnaire Thrive Questionnaire Date Thrive assessed: 10/03/24 I am a: Patient What is your living situation today?: I have a steady place to live Within the past 12 months, did the food you bought not last and you didn't have the money to get more?: Often true Within the past 12 months, did you worry whether your food would run out before you got money to buy more?: Often true Do you have trouble paying for medicines?: Yes Do you have trouble getting transportation to medical appointments?: Yes Do you have trouble paying your heating and electricity bill?: I choose not to answer this question Do you have trouble taking care of your child, family member or friend?: I choose not to answer this question Do you have trouble with day-to-day activities such as bathing, preparing meals, shopping, managing finances, etc.?: I choose not to answer this question Are you currently unemployed and looking for a job?: I choose not to answer this question Are you interested in more education?: I choose not to answer this question Please select the resources that you would like help with: None Currently or been in a relationship where the following occur: I choose not to answer THRIVE Score: 3 ORB-7 AMB Questionnaire ROB-7 Date ROB - 7 assessed: 01/11/25 Source: Developed by Drs. Steven Oquendo, Aminta Rodriguez, Eliu Roe and colleagues, with an educational deneen from [employer]. Review of Systems Const Denies headache(s) Eyes Denies loss of vision ENT Denies vertigo, Denies dizziness, Denies headache(s) and Denies sore throat Card Denies chest pain, Denies leg edema and Denies lightheadedness Resp Denies cough, Denies hemoptysis and Denies wheezing GI Denies abdominal pain, Denies melena, Denies constipation, Denies diarrhea and Denies vomiting Denies dysuria, Denies urinary frequency and Denies urinary urgency Musc Reports back pain, Denies arthralgias, Denies joint swelling, Denies numbness and Denies tingling Neuro Denies Abnormal speech present, Denies behavioral changes, Denies vertigo, Denies dizziness, Denies headache(s), Denies loss of vision, Denies memory loss, Denies numbness and Denies tingling Psych Denies anxiety, Denies behavioral changes, Denies depression, Denies memory loss and Denies panic attacks Raji/Lymph Denies easy bleeding and Denies easy bruising Aller/Immun Denies wheezing Physical exam (Primary Care) Vital Signs: Last Vital Signs Temp 97.5 F 03/20/25 14:57 Pulse 80 03/20/25 14:57 BP 132/70 03/20/25 14:57 Pulse Ox 97 03/20/25 14:57 Oxygen Delivery Method Room Air 03/20/25 14:57 BMI result Body Mass Index 28.0 Tobacco/Smoking Status: Tobacco use Status Tobacco use date assessed 03/20/25 03/20/25 14:57 Patient Tobacco Use Status Never used Tobacco 03/20/25 14:57 e-Cigarette/Vaping Use Never Used 03/20/25 14:57 Thrive Assessment: Date of Thrive Assessment Date Thrive assessed 10/03/24 03/20/25 14:57 Currently or been in a relationship where the following occur: I choose not to answer Const General: healthy appearing, no acute distress, alert and awake Nutritional Appearance: well nourished Orientation/consciousness: oriented to person, oriented to place and oriented to time HENMT Ears: TM's normal bilaterally General nose exam: Normal nasal mucous membranes and turbinates present Eyes Conjunctivae: conjunctivae normal Sclerae: sclerae normal Pupils: Equal, round and reactive pupils present Neck Neck: Yes no lymphadenopathy and Yes no JVD Thyroid: Thyroid normal Carotids: no bruits Resp Effort & Inspection: normal respiratory effort and not tachypneic Auscultation: no crackles, no rales, no rhonchi and no wheezes Cardio Rate: regular rate Rhythm: regular rhythm Heart sounds: no murmurs and normal S1 and S2 GI Palpation (GI): Soft to palpation, nontender, no hepatomegaly and no splenomegaly Auscultation: normal bowel sounds Skin General skin exam: no rashes or lesions noted and dry skin Neuro General: oriented to person, oriented to place and oriented to time Cranial nerves: Yes Equal, round and reactive pupils present Speech: No Abnormal speech present Gait exam (Neuro): Normal gait present Motor exam (neuro): no tremor noted Extrem Right upper extremity: full ROM Left upper extremity: full ROM Right lower extremity: full ROM; no edema Left lower extremity: full ROM; no edema Psych Mental Status: mental status grossly normal Speech and movement: Normal speech and movement present Affect: normal affect Attitude: cooperative Thought process: Normal thought process present Coding Level of Care Code Est Pt Level 3 (28929) Diagnoses Lumbar spine pain M54.50 Assessment & Plan Assessment & Plan (1) Lumbar spine pain: Code(s): M54.50 - Low back pain, unspecified Category: Medical Plan: Patient has acute on chronic low back pain. He has gotten injections in the past in his interested in seeing pain management for injection in his low back to help him with his pain. Orders: Referrals Pain Management Referral M54.50 - Low back pain, unspecified
[2025-03-20 14:57] VITALS: BP 132/70; PULSE 80; TEMP 36.4; O2SAT 97; BMI 28.0
== END 2025-03-20 15:43 | disposition home or self-care (01) ==
LOC: HO.HMCH 14:28
PROVIDERS: PCP Internal Medicine; Visit Provider Physician Assistant
DX: M54.50 Low back pain, unspecified (principal)

== ENCOUNTER → 2025-03-20 14:27 | Outpatient (BNVA) | payer OTHER, SELFPAY | PROVIDERS: PCP Internal Medicine; Visit Provider Physician Assistant | DX: I10 Essential (primary) hypertension (principal); E78.5 Hyperlipidemia, unspecified; K21.9 Gastro-esophageal reflux disease without esophagitis; M54.50 Low back pain, unspecified | CPT/HCPCS: 99212 ==

== ENCOUNTER → 2025-04-05 18:34 | Outpatient (BNV) | payer OTHER, SELFPAY | PROVIDERS: PCP Internal Medicine; Visit Provider Radiology Diagnostic Radiology | DX: S83.241A Other tear of medial meniscus, current injury, right knee, initial encounter (principal); M76.51 Patellar tendinitis, right knee; M94.261 Chondromalacia, right knee; M17.11 Unilateral primary osteoarthritis, right knee | CPT/HCPCS: 73721 ==

== ENCOUNTER 2025-04-05 18:35 | Outpatient (REF) | payer OTHER, SELFPAY ==
--- NOTE | ~2025-04-05 | MR_ITS ---
CLINICAL HISTORY: M17.11 - Unilateral primary osteoarthritis, right knee MR right knee without contrast Comparison: CT/SR - CT KNEE RT WO IV CON - 02/03/25 07:44 EDT MR/RI/SR - MR KNEE WITHOUT IV CONTRAST RIGHT - 05/19/24 07:25 EST CR/SR - XR KNEE 4 OR MORE VIEWS RIGHT - 02/17/23 10:13 EDT Findings: There is a tear of the body of the medial meniscus with signal abnormality which extends into the anterior and posterior horns, similar to the prior study. There is signal abnormality in the lateral meniscus without definitive tear. The anterior cruciate ligament is increased in size and signal, greater than on the prior study. There is increased signal in the posterior cruciate ligament without discontinuity, unchanged. The medial and lateral collateral ligaments are intact without periligamentous edema. No edema in the posterior lateral corner. The extensor mechanism is intact. Suprapatellar enthesophyte. Mild increased signal in the patellar tendon at its insertion upon the patella, greater than on the prior study. Trace joint fluid. No Li's cyst. There is increased signal within semimembranosus tendon, similar to the prior studies There is a moderate amount of subchondral edema in the medial tibiofemoral compartment involving the medial femoral condyle and medial tibial plateau, similar to the prior study. There is edema in the proximal tibia centered upon lateral tibial spine with associated cystic change, new. 4 mm cystic lesion of the insertion of the anterior cruciate ligament/anterior horn of the lateral meniscus (series 12, image 16) There is full-thickness chondromalacia in the medial tibiofemoral compartment. Partial-thickness chondromalacia in the patellofemoral and lateral tibiofemoral compartments. Impression: Tear of the medial meniscus, similar to the prior study. Anterior cruciate ligament mucoid degeneration, greater than on the prior study. Posterior cruciate ligament partial tear versus mucoid degeneration, unchanged. Mild patellar tendinopathy. Semimembranosus tendinopathy with partial tear, similar to the prior study. Moderate subchondral edema in the medial tibiofemoral compartment with full-thickness chondromalacia, similar to the prior study. New edema and cystic change in the proximal tibia at the lateral tibial spine, degenerative. This document has been electronically signed by: Ruth Booker MD on 04/05/2025 20:22:08
== END 2025-04-05 18:36 | disposition home or self-care (01) ==
LOC: HO.MRI 18:35
PROVIDERS: PCP Internal Medicine; Visit Provider Orthopaedic Surgery
DX: M17.11 Unilateral primary osteoarthritis, right knee (principal)
CPT/HCPCS: 73721

== ENCOUNTER 2025-04-11 14:27 | Outpatient (REF) | payer OTHER, SELFPAY | END 2025-04-11 14:28 | disposition home or self-care (01) | LOC: HO.MRI 14:27 | PROVIDERS: PCP Internal Medicine; Visit Provider Orthopaedic Surgery | DX: Z13.89 Encounter for screening for other disorder (principal) ==

== ENCOUNTER 2025-04-19 09:07 | Outpatient (REF) | payer OTHER, SELFPAY ==
[2025-04-19 10:50] LABS: Hematocrit 40.9 % (42.0-52.0); Hemoglobin 13.8 g/dl (14.0-18.0); Mean Corpuscular HGB Conc 33.7 g/dl (31.0-36.0); Mean Corpuscular Hemoglobin 30.6 pg (27.0-33.0); Mean Corpuscular Volume 90.7 fL (80.0-98.0); NRBC Abs Auto 0.000 X10*3/uL (0.0-0.012); NRBC Pct Auto 0.0 /100WBC (0.0-0.2); Platelet Count 179 X10*3/uL (160-400); Red Blood Count 4.51 X10*6/uL (4.60-5.80); White Blood Count 4.2 X10*3/uL (4.8-10.8)
[2025-04-19 12:01] LABS: Anion Gap 10 (12-20); Blood Urea Nitrogen 21 mg/dL (9-16); Calcium 9.1 mg/dL (8.4-10.2); Carbon Dioxide 28 mmol/L (22-29); Chloride 106 mmol/L (96-108); Estimated Glomerular Filt Rate > 60; Potassium 4.0 mmol/L (3.3-5.1); Sodium 140 mmol/L (135-145)
== END 2025-04-19 09:08 | disposition home or self-care (01) ==
LOC: HO.LAB 09:07
PROVIDERS: Absent Provider Internal Medicine; PCP Internal Medicine; Visit Provider Physician Assistant
DX: Z01.818 Encounter for other preprocedural examination (principal); M17.11 Unilateral primary osteoarthritis, right knee
CPT/HCPCS: 36415; 80048; 85027; 99212

== ENCOUNTER 2025-04-19 09:07 | Outpatient (AMB) | payer OTHER, SELFPAY ==
--- NOTE | 2025-04-19 09:11 | MHC.OFFVIS ---
Vital Signs 04/19/25 09:26 Height 5 ft 9 in Weight 189 lb BMI 27.9 Intake Visit Reasons: Pre-Op:(Biomet)RUKAw/NE 04/25/25 Intake Note: Eddie is a 54 year old male who presents today for a pre op appointment for his R UKA 04/25/25 NE. Patient was given the pain management form to sign. Preschool Assistant Services: Preschool Assistant Present ([id number] ) Allergies adhesive tape Allergy (Intermediate, Verified 04/19/25 09:19) Itching/blisters HPI HPI Pre-Op:(Biomet)RUKAw/NE 04/25/25: Details: Mr. Hernandez is a 54-year-old male with a history of end-stage osteoarthritis of the right knee who is scheduled for a unicompartment knee arthroplasty. They have experienced progressive knee pain for greater than two years, primarily localized to the medial compartment. Pain is described as aching/sharp/throbbing, worsened by prolonged standing, walking, and stair climbing. Conservative treatments including physical therapy, NSAIDs, bracing, activity modification, and corticosteroid injections provided only temporary or minimal relief. The patient reports significant limitations in daily activities and decreased quality of life due to pain and stiffness. No recent history of trauma or infection. They are otherwise in their usual state of health. The patient was seen on 03/14/[address] Brooke, his PCP for preoperative clearance. Dr. Brooke states that the patient is currently medically optimized and has no absolute contraindications to undergo planned right knee unicompartment arthroplasty under general anesthesia and can proceed with surgery. Additionally, patient presented with acceptable risks for planned intermediate cardiac risk procedure. Patient appears to be medically optimized and has no contraindications to undergo planned procedure. An EKG was performed in January of 2025 in the PCP office which revealed NSR with nonspecific ST T wave changes Patient was also seen at [facility] with Dr. Anna for preoperative clearance on 03/07/2025. ?no absolute contraindication for knee surgery from a renal/hypertension standpoint. Lastly, the patient had his PAT on 02/02/2025 in which the following notes has been made: High BP: Has been following with PCP and Nephrology for BP management. BP now optimized. Cleared for surgery by PCP and renal. Fungal infection on both feet PCP prescribed clotrimazole at 01/11/2025 visit. PFSH Medical History (Updated 04/04/25 @ 08:24 by Deisy Madden RN) White coat syndrome with hypertension Anxiety Renal pelvis enlarged on ultrasound Lumbar spondylosis Obesity (BMI 30-39.9) H. pylori infection Vitamin D deficiency Pure hypercholesterolemia Allergic rhinitis GERD without esophagitis Benign essential hypertension Surgical History Hx of tonsillectomy Hx of colonoscopy (~03/2022) Hx of esophagogastroduodenoscopy Family History Sister Lupus Social History Housing: House Are you a primary medicare nurse to a significant other at home: No Do you presently have visiting nurse or other home services: No Alcohol intake: current Alcohol intake frequency: does not drink Patient Tobacco Use Status: Never used Tobacco e-Cigarette/Vaping Use: Never Used Second Hand Smoke Exposure: No service: No Current occupational status: employed Current occupation: [employer], [employer] Current occupational exposures/hazards: No Cognitive needs: No Hearing needs: No Vision needs: No Review of Systems Const All systems reviewed & are unremarkable except as noted in HPI and below Physical Exam Vital Signs: BMI result Body Mass Index 27.9 Const General: cooperative, healthy appearing and no acute distress Resp Effort & Inspection: normal respiratory effort and able to speak in complete sentences Extrem Other: Right knee: 0-130 degrees of motion with trace effusion. Tenderness to palpation medial compartment. He has 2+ dorsalis pedis pulse in his skin is clean and healthy appearing. He is stable to varus and valgus stress. Psych Appearance: grossly normal Mental Status: mental status grossly normal Attitude: cooperative Assessment & Plan Assessment & Plan (1) Localized osteoarthritis of right knee: Code(s): M17.11 - Unilateral primary osteoarthritis, right knee Category: Medical Plan Mr. Hernandez is a 54-year-old male with a history of end-stage osteoarthritis of the right knee who is scheduled for a unicompartment knee arthroplasty. They have experienced progressive knee pain for greater than two years, primarily localized to the medial compartment. Pain is described as aching/sharp/throbbing, worsened by prolonged standing, walking, and stair climbing. Conservative treatments including physical therapy, NSAIDs, bracing, activity modification, and corticosteroid injections provided only temporary or minimal relief. The patient reports significant limitations in daily activities and decreased quality of life due to pain and stiffness. No recent history of trauma or infection. They are otherwise in their usual state of health. The patient was seen on 03/14/25 [facility] Dr. Brooke, his PCP for preoperative clearance. Dr. Brooke states that the patient is currently medically optimized and has no absolute contraindications to undergo planned right knee unicompartment arthroplasty under general anesthesia and can proceed with surgery. Additionally, patient presented with acceptable risks for planned intermediate cardiac risk procedure. Patient appears to be medically optimized and has no contraindications to undergo planned procedure. An EKG was performed in January of 2025 in the PCP office which revealed NSR with nonspecific ST T wave changes Patient was also seen at [facility] with Dr. Anna for preoperative clearance on 03/07/2025. ?no absolute contraindication for knee surgery from a renal/hypertension standpoint. Lastly, the patient had his PAT on 02/02/2025 in which the following notes has been made: High BP: Has been following with PCP and Nephrology for BP management. BP now optimized. Cleared for surgery by PCP and renal. Fungal infection on both feet PCP prescribed clotrimazole at 01/11/2025 visit. I discussed in detail the procedure and what to expect pre and post operatively. We discussed the risks, benefits and alternatives to the surgery as well as the rehabilitation course. The following topics were reviewed in detail with the patient: Risks: Risks include, but are not limited to infection, bleeding, blood clots, nerve injury, ongoing pain, ongoing swelling, ongoing stiffness, perioperative risk of injury to bones and soft tissues, prosthesis loosening or wear, anesthesia related complications, revision surgery, amputation, and mortality. Expected Benefits: Improved function, reduced pain, better quality of life. Alternatives: Continued non-operative treatment, joint injections, bracing, physical therapy or no surgery. Risks of not moving forward with surgery: Progression of joint disease and damage, worsening function, fracture, and/or pain. The patient had ample opportunity to ask questions. All questions were answered to the patient's satisfaction. The patient verbalized understanding and agreed to move forward with right knee unicompartment arthroplasty with Dr. Gonzalez. The patient demonstrates understanding of the risks, benefits and alternatives. The surgical consent form was given to the patient for additional review and signed by the patient with myself as a witness. postoperative recovery notes: -ASA for DVT ppx -[place] [facility] -Walker prescription and instruction on how to obtain was given to the patient while in the office today. -he will obtain the walker prior to surgery. -Sent for preoperative labs. Orders: Orders Basic Metabolic Panel Today Z01.818 - Encounter for other preprocedural examination Complete Blood Count no Diff Today Z01.818 - Encounter for other preprocedural examination Type and Screen Today Z01.818 - Encounter for other preprocedural examination Medications: Refilled [Folding Front Wheeled walker] Duration: 99 days 1 ea 0RF M17.11 - Unilateral primary osteoarthritis, right knee Coding Level of Care Code Global (41941) Diagnoses Localized osteoarthritis of right knee M17.11
[2025-04-19 09:26] VITALS: BMI 27.9
== END 2025-04-19 09:57 | disposition home or self-care (01) ==
LOC: HO.HOS 09:07
PROVIDERS: PCP Internal Medicine; Visit Provider Physician Assistant
DX: M17.11 Unilateral primary osteoarthritis, right knee (principal)
CPT/HCPCS: 99024

== ENCOUNTER 2025-04-23 08:48 | Outpatient (AMB) | payer OTHER, SELFPAY ==
--- NOTE | 2025-04-23 08:50 | MHC.OFFVIS ---
Vital Signs 04/23/25 08:51 Height 5 ft 9 in Weight 188 lb BMI 27.8 BP 147/91 H Blood Pressure Location Rt brachial Position Sitting Respiration 16 Pulse 82 Pulse Source Pulse Oximeter Pulse Oximetry (%) 97 Oxygen Delivery Method Room Air Intake Visit Reasons: Low Back Pain Entry Rep Required: Yes Entry Rep Name: Marycarmen [id number] Accompanied by: Self / Same As Patient Allergies adhesive tape Allergy (Intermediate, Verified 04/23/25 08:57) Itching/blisters HPI Comments Details: The patient is a 54-year-old male presenting with chronic low back pain. The back pain has been present since between 1999 and 2004, initially triggered by a fall from a roof. He has a history of significant arthritis in his back, with discogenic and degenerative changes noted on an MRI from 2022. The patient also has a chronic upper endplate fracture deformity at T12, L1, and L2, with associated Schmorl's nodes. Multilevel lumbar spondylosis is present without significant spinal canal stenosis, but with a broad-based central disc protrusion at L5-S1 causing left subarticular zone narrowing. There is mild to moderate bilateral L5-S1 neural foraminal stenosis with contact along the exiting L5 nerve roots. The patient reports that his back pain does not radiate to his legs, and he experiences separate right knee pain. 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 He has tried meloxicam without relief and previously received an injection in the back that provided temporary pain relief. 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 - Relieving factors: Previous injection provided temporary relief - Affect: No specific impact on mood or psychological wellbeing discussed - Analgesia: Currently using meloxicam without relief; previous injection provided temporary relief - Adverse Effects: None reported from current medications - Activities of Daily Living: Pain affects ability to stand for long periods, impacting 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 pylori infection Vitamin D deficiency Pure hypercholesterolemia Allergic rhinitis GERD without esophagitis Benign essential hypertension Surgical History (Updated 04/19/25 @ 10:33 by Gayatri Mendoza PA-C) Hx of tonsillectomy Hx of colonoscopy (~03/2022) Hx of esophagogastroduodenoscopy Family History Sister Lupus Social History Housing: House Are you a primary primary care nurse to a significant other at home: No Do you presently have visiting nurse or other home services: No Alcohol intake: current Alcohol intake frequency: does not drink Patient Tobacco Use Status: Never used Tobacco e-Cigarette/Vaping Use: Never Used Second Hand Smoke Exposure: No service: No Current occupational status: employed 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, 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 Current occupational exposures/hazards: No Cognitive needs: No Hearing needs: No Vision needs: No Review of Systems Const Details: - Musculoskeletal: Reports chronic low back pain, denies radiation to legs - Musculoskeletal: Reports separate right knee pain, wears knee breace All systems reviewed & are unremarkable except as noted in HPI and below Physical Exam Vital Signs: Last Vital Signs Pulse 82 04/23/25 08:51 Resp 16 04/23/25 08:51 BP 147/91 H 04/23/25 08:51 Pulse Ox 97 04/23/25 08:51 Oxygen Delivery Method Room Air 04/23/25 08:51 BMI result Body Mass Index 27.8 General: Appears afebrile. Alert and oriented. Mood and affect appropriate. Follows and participates in conversation appropriately. Respiratory effort is unlabored. No cough. Able to transition from sit to stand unassisted. Ambulates with bilaterally normal heel strike and toe off. General: Yes no CVA tenderness Back/Spine/Pelvis Other: Limited lumbar ROM due to pain. Lumbar extension and axial rotations reproduce moderate to severe pain, flexion forward reproduces mild pain. No midline TTP in cervical, thoracic or lumbar regions. Demonstrates 5/5 strength of quadriceps bilaterally as well as flexion/dorsiflexion of bilateral feet against resistance. 2+ pedal pulses bilaterally. Straight leg rise with dorsiflexion negative bilaterally. +2 patellar and achilles reflexes bilaterally. Facet loading test positive bilaterally. Dong?s, Pelvic compression and Stinchfield tests are negative bilaterally. No groin pain with I/E hip rotations. Valsalva maneuver negative. Back: no CVA tenderness Cervical Spine: cervical ROM normal, cervical muscular tenderness, No Cervical spine scars present and No Cervical spine tenderness Thoracic/Lumbar Spine: thoracic and lumbar spine normal to inspection, No Thoracic/lumbar spine scar(s), Lasegue's sign negative, straight leg raise negative bilaterally, pain with thoraco-lumbar ROM, paraspinal muscle tenderness, thoraco-lumbar ROM limited, No thoracic spinal tenderness and No lumbar spinal tenderness Sacroiliac joints: bilaterally nontender Extrem General: Yes capillary refill normal, Yes no clubbing, cyanosis or edema and Yes no calf tenderness Results Reviewed Results Reviewed: MR LUMBAR SPINE WITHOUT CONTRAST 10/08/22 CLINICAL INFORMATION: Low back pain COMPARISON: Lumbar spine radiographs 08/13/2022 TECHNIQUE: MRI of the lumbar spine was obtained using routine sequences without contrast. FINDINGS: Redemonstrated chronic upper endplate fracture deformities at T12, L1, and L2 with associated Schmorl's nodes and resultant mild central height loss. There is mild anterior wedging at T12 and L1. There is focal minimal kyphotic angulation at T12-L1. There is chronic subjacent fatty endplate change associated with the chronic fracture deformities with minimal marginal edema associated with the T12 superior endplate Schmorl's node. No new compression fracture deformity. Normal lumbar lordosis is preserved. Trace retrolisthesis of L5 on S1. There is no suspicious osseous lesion. L2 level disc desiccation with partial mineralization of the T12-L1 disc space where there is mild disc height loss. Mild L2-L3 and L5-S1 disc height loss with mixed type I/II Modic endplate change at L5-S1. Ventral disc osteophytes at the thoracolumbar junction.There are multilevel degenerative changes with level by level detail as follows: L1-L2: Trace annular disc bulge. No spinal canal or neural foraminal stenosis. L2-L3: Small annular disc bulge with mild bilateral facet arthrosis. No spinal canal or neural foraminal stenosis. L3-L4: Mild bilateral facet arthrosis without spinal canal or neural foraminal stenosis. L4-L5: Annular disc bulge with superimposed broad-based central disc protrusion and mild bilateral facet arthrosis. No spinal canal stenosis. Minimal right without specific and left neural foraminal encroachment. L5-S1: Trace retrolisthesis with annular disc bulge and superimposed broad-based central disc protrusion. Mild to moderate bilateral facet arthrosis and ligamentum flavum thickening. No spinal canal stenosis, noting asymmetric left subarticular zone narrowing and abutment along the traversing left S1 nerve root. Mild to moderate bilateral neural foraminal stenosis with contact along the exiting L5 nerve roots. The conus medullaris terminates at the level of L1-L2. The distal spinal cord is normal in appearance. . No epidural fluid collection, hematoma, or mass. No significant abnormalities of the paraspinal musculature. Limited evaluation of the intra-abdominal structures without significant abnormalities. The abdominal aorta is of normal contour and caliber. IMPRESSION: 1. Chronic upper endplate fracture deformities at T12, L1, and L2 with associated superior endplate Schmorl's nodes and resultant mild central height loss. No new compression fracture deformity. 2. Mild multilevel lumbar spondylosis without significant spinal canal stenosis. At L5-S1 a broad-based central disc protrusion causes asymmetric left subarticular zone narrowing with abutment along the traversing left S1 nerve root. Mild to moderate bilateral L5-S1 neural foraminal stenosis with contact along the exiting L5 nerve roots. XR LUMBOSACRAL SPINE 08/13/22 CLINICAL INFORMATION: Low back pain. FINDINGS: Age indeterminate compression deformities at T12, L1 and L2. Minimal grade 1 degenerative retrolisthesis of L5 on S1. Moderate intervertebral disc height loss at L5-S1 with facet arthropathy and some degree of neural foraminal encroachment/central canal stenosis. Small multilevel anterior osteophytes. SI joints are symmetric. No significant soft tissue findings. IMPRESSION: 1. Age indeterminate compression deformities at T12, L1 and L2. Correlate for point tenderness. 2. Moderate spondylosis at L5-S1 with some degree of central canal stenosis and neural foraminal encroachment. Assessment & Plan Assessment & Plan (1) Lumbar spondylosis: Code(s): M47.816 - Spondylosis without myelopathy or radiculopathy, lumbar region Category: Medical (2) Lumbar degenerative disc disease: Code(s): M51.36 - Other intervertebral disc degeneration, lumbar region Category: Medical (3) Chronic low back pain without sciatica: Code(s): M54.50 - Low back pain, unspecified; G89.29 - Other chronic pain Category: Medical Plan The plan includes performing diagnostic lumbar medial branch blocks to assess the patient's response to axial low back pain relief. If the nerve blocks provide temporary relief, further procedures such as radiofrequency ablation or peripheral nerve stimulation may be considered for longer-term pain management. The patient received educational materials about these procedures. Schedule diagnostic bilateral L3-L4 DR L5 medial branch blocks with local and fluoroscopy. Expectations, risks and benefits were reviewed. Patient is aware he will be contacted to schedule this procedure. All questions and concerns have been answered and patient agreed with the treatment plan. Follow up after injections and sooner as needed. Patient was informed and verbally consented to the use of an ambient scribe for clinic note documentation during this visit. Coding Level of Care Code New Pt Level 4 (90742) Diagnoses Lumbar spondylosis M47.816 Lumbar degenerative disc disease M51.36 Chronic low back pain without sciatica M54.50; G89.29
[2025-04-23 08:51] VITALS: BP 147/91; PULSE 82; RESP 16; O2SAT 97; BMI 27.8
== END 2025-04-23 09:18 | disposition home or self-care (01) ==
LOC: HO.PMC 08:49
PROVIDERS: PCP Physician Assistant; Referring Provider Physician Assistant; Visit Provider Nurse Practitioner Family
DX: M47.816 Spondylosis without myelopathy or radiculopathy, lumbar region (principal); M51.369 Other intervertebral disc degeneration, lumbar region without mention of lumbar back pain or lower extremity pain; M54.50 Low back pain, unspecified; G89.29 Other chronic pain
CPT/HCPCS: 99204

== ENCOUNTER → 2025-04-23 08:48 | Outpatient (BNVA) | payer OTHER, SELFPAY | PROVIDERS: PCP Physician Assistant; Referring Provider Physician Assistant; Visit Provider Nurse Practitioner Family | DX: M47.816 Spondylosis without myelopathy or radiculopathy, lumbar region (principal); M51.360 Other intervertebral disc degeneration, lumbar region with discogenic back pain only; G89.29 Other chronic pain | CPT/HCPCS: 99202 ==

== ENCOUNTER 2025-04-25 08:12 | Day surgery (SDC) | payer OTHER, SELFPAY ==
[2025-02-02 12:17] VITALS: BP 191/107; PULSE 72; RESP 20; O2SAT 98; BMI 27.8
--- NOTE | 2025-02-02 12:41 | P.CONAN_ITS ---
Documented by User: Rosie Hernandez NP 04/04/25 10:44 HPI - Anesthesia Eval Consult details Narrative: 54 yr old male for right knee replacement uni-compartmental, scheduled for re- scheduled for 04/25/25, seen in [facility] High BPs: Has been following with PCP & nephrology for BP management, BP now optimized, cleared for surgery by PCP & renal. Fungal infection on feet: PCP prescribed clotrimazole at 01/11/25 visit No recent illness No CP or SOB with minimal exercise due to job working at [employer] Active Problems Active Problems: All Active Problems (Updated 02/01/25 @ 14:10 by Deisy Madden RN) Athletes foot (Acute) Pre-op evaluation (Acute) Localized osteoarthritis of right knee (Acute) Obesity, class 1 (Acute) Atypical pneumonia (Acute) Acute bronchitis (Acute) Bronchitis (Acute) Arthralgia (Acute) Right sided abdominal pain (Acute) Abdominal pain (Acute) Patellofemoral arthritis of right knee (Acute) Right knee pain (Acute) Lateral epicondylitis of both elbows (Acute) Elbow pain (Acute) Low back pain (Acute) Recurrent nonproductive cough (Acute) Upper respiratory tract infection (Acute) Hemorrhoids (Acute) Diverticulosis of colon (Acute) Sessile colonic polyp (Acute) Pruritus (Acute) Onychomycosis (Acute) Abnormal x-ray of abdomen (Acute) Impaired fasting glucose (Acute) Tendinitis (Acute) Annual physical exam (Acute) Upper respiratory tract infection (Acute) Colon cancer screening (Acute) Overweight (BMI 25.0-29.9) (Acute) Lumbar spondylosis (Acute) Obesity (BMI 30-39.9) (Acute) H. pylori infection (Acute) Vitamin D deficiency (Acute) Pure hypercholesterolemia (Acute) Allergic rhinitis (Acute) GERD without esophagitis (Acute) Benign essential hypertension (Acute) Past Medical History Medical History White coat syndrome with hypertension Anxiety Renal pelvis enlarged on ultrasound Lumbar spondylosis Obesity (BMI 30-39.9) H. pylori infection Vitamin D deficiency Pure hypercholesterolemia Allergic rhinitis GERD without esophagitis Benign essential hypertension Family History Family History Sister Lupus Family history of problems with anesthesia: No Surgical History Surgical History Hx of tonsillectomy Hx of colonoscopy (~03/2022) Hx of esophagogastroduodenoscopy History of Problems with Anesthesia: No Social History Social History Housing: House Are you a primary home health caregiver to a significant other at home: No Do you presently have visiting nurse or other home services: No Alcohol intake: current Alcohol intake frequency: does not drink Patient Tobacco Use Status: Never used Tobacco e-Cigarette/Vaping Use: Never Used Second Hand Smoke Exposure: No Use of substances other than those prescribed or required for medical reasons: No Have you been hit, kicked, punched, or otherwise hurt by someone within the past year? If so, by whom?: No Spiritual Healthcare Practices: no Denominational Healthcare Practices: no Cultural Healthcare Practices: no Are you DNR?: No Advance Directives on File: No Poor oral hygiene: No service: No Current occupational status: employed Current occupation: [employer] Current occupational exposures/hazards: No Cognitive needs: No Hearing needs: No Vision needs: No Meds Allergies Allergy/AdvReac Type Severity Reaction Status Date / Time adhesive tape Allergy Intermediate Itching/bli Verified 04/23/25 08:57 sters Home Medications ?Medication ?Instructions ?Recorded ?Confirmed ?Last Taken ?Type clotrimazole 1 % topical cream 1 appl topical BID PRN Rash 02/21/25 04/04/25 Unknown History (Athlete's Foot (clotrimazole)) fluticasone propionate 50 1 spray intranasal DAILY PRN Nasal 02/21/25 04/04/25 Unknown History mcg/actuation nasal Congestion spray,suspension doxepin 10 mg capsule 10 mg PO BEDTIME PRN insomni a 03/15/25 04/04/25 Unknown History Exam Height,Weight and Vital Signs: Height 5 ft 9 in Weight 85.275 kg Last Vital Signs Pulse 72 02/02/25 12:17 Resp 20 02/02/25 12:17 BP 191/107 H 02/02/25 12:17 Pulse Ox 98 02/02/25 12:17 O2 Del Method Room Air 02/02/25 12:17 Pertinent Lab Results Pertinent Lab Results: Laboratory Tests 01/18/25 09:54 WBC 4.5 L RBC 4.57 L Hgb 13.9 L Hct 41.4 L Plt Count 177 Sodium 140 Potassium 4.0 BUN 16 Creatinine 0.75 Laboratory Tests 03/15/25 09:44 WBC 4.3 L RBC 4.69 Hgb 14.8 Hct 41.5 L Plt Count 183 Sodium 141 Potassium 4.0 BUN 16 Creatinine 0.69 Narrative Narrative: EKG 01/2025 Vent. Rate : 81 BPM Atrial Rate : 81 BPM P-R Int : 168 ms QRS Dur : 98 ms QT Int : 360 ms P-R-T Axes : 74 41 66 degrees QTcB Int : 418 ms Normal sinus rhythm Nonspecific ST and T wave abnormality Abnormal ECG No previous ECGs available Airway Mallampati Class: III TM Dist: >3cm Neck ROM: Full Loose/Missing/Broken Teeth: No Heart: RRR Lungs: CTAB Assessment and Plan Final Anesthetic Review Family History of Problems with Anesthesia: No History of Problems with Anesthesia: No Documented by User: Guadalupe Brown MD 04/25/25 08:32 PMFSH Past Medical History Medical History White coat syndrome with hypertension Anxiety Renal pelvis enlarged on ultrasound Lumbar spondylosis Obesity (BMI 30-39.9) H. pylori infection Vitamin D deficiency Pure hypercholesterolemia Allergic rhinitis GERD without esophagitis Benign essential hypertension Family History Family History Sister Lupus Surgical History Surgical History Hx of tonsillectomy Hx of colonoscopy (~03/2022) Hx of esophagogastroduodenoscopy Social History Social History Housing: House Are you a primary home health caregiver to a significant other at home: No Do you presently have visiting nurse or other home services: No Alcohol intake: current Alcohol intake frequency: does not drink Patient Tobacco Use Status: Never used Tobacco e-Cigarette/Vaping Use: Never Used Second Hand Smoke Exposure: No Use of substances other than those prescribed or required for medical reasons: No Have you been hit, kicked, punched, or otherwise hurt by someone within the past year? If so, by whom?: No Spiritual Healthcare Practices: no Denominational Healthcare Practices: no Cultural Healthcare Practices: no Are you DNR?: No Advance Directives on File: No Poor oral hygiene: No service: No Current occupational status: employed Current occupation: [employer] Current occupational exposures/hazards: No Cognitive needs: No Hearing needs: No Vision needs: No Meds Allergies Allergy/AdvReac Type Severity Reaction Status Date / Time adhesive tape Allergy Intermediate Itching/bli Verified 04/23/25 08:57 sters Home Medications ?Medication ?Instructions ?Recorded ?Confirmed ?Last Taken ?Type clotrimazole 1 % topical cream 1 appl topical BID PRN Rash 02/21/25 04/04/25 Unknown History (Athlete's Foot (clotrimazole)) fluticasone propionate 50 1 spray intranasal DAILY PRN Nasal 02/21/25 04/04/25 Unknown History mcg/actuation nasal Congestion spray,suspension doxepin 10 mg capsule 10 mg PO BEDTIME PRN insomni a 03/15/25 04/04/25 Unknown History Assessment and Plan Assessment Anesthesia Assessment: Anesthesia Plan Discussed and Chart Reviewed Final Anesthetic Review NPO: Yes ASA Class: II Final Preanesthetic Review: No Changes in Pt Med Stat, Meds/Allgs Chart Reviewed, Consent Obtained/Reviewed and Anes Risks/Benef Reviewed Patient Risk: Low Procedure Risk: Intermediate Anesthetic Plan Anesthetic Plan: GA, MAC:, Spinal, Neuraxial Block:, Regional Block and Agree w/ Assess. and Plan Disposition: Standard PACU
[2025-02-02 15:10] LABS: MRSA Nasal PCR NEGATIVE (Negative); SA Nasal PCR POSITIVE (Negative)
[2025-04-25] VITALS (14 sets, daily range): BP systolic 112–164; BP diastolic 69–103; PULSE 66–89; RESP 12–20; TEMP 36.1–37.3; O2SAT 96–98
--- NOTE | ~2025-04-25 | XR_ITS ---
EXAMINATION: XR KNEE 1-2 VIEWS RIGHT HISTORY: s/p rt knee unicompartment arthroplasty COMPARISON: Comparison is made with the prior examination dated 04/07/2023. FINDINGS: AP and lateral portable views of the right knee are submitted from the operating room at 5:42 PM. The patient is status post medial hemiarthroplasty. The orthopedic elements are in anatomic alignment. A small osseous density projects centrally in the joint space on the AP view may represent a loose body. Postoperative changes are noted in the soft tissues. XR/XR knee RT 2V IMPRESSION: Status post right total knee arthroplasty. Possible loose body in the central portion of the joint space. Follow-up is recommended. Electronically signed by: Steven Nixon MD 04/26/2025 07:03 AM LC MORENO
[2025-04-25] MEDS: Lactated Ringers 1,000 ML 100 ML IVCONT ×3 (09:05→22:56)
[2025-04-25 09:23] LABS: Hematocrit 42.8 % (42.0-52.0); Hemoglobin 14.6 g/dl (14.0-18.0)
--- NOTE | 2025-04-25 10:10 | MHC.SHP ---
Pre-Procedural Eval Section A - 24 Hr Update-Section A only Date of Service: 04/25/25 The patient is an INPATIENT: No Changes since office visit: No Cold of Flu in the past 2 weeks, No New Medical Problems, No Changes in Medication and No Patient answered all questions The patient has been examined within 24 hours of the surgical procedure. The History & Physical has been completed within 30 days and I have reviewed it.: Yes Section B - Complete if H&P > 30 days Chief Complaint: Unilateral primary osteoarthritis, right knee Allergies: Allergies Allergy/AdvReac Type Severity Reaction Status Date / Time adhesive tape Allergy Intermediate Itching/bli Verified 04/23/25 08:57 sters Plan I have reviewed the history and physical and performed a pertinent physical examination on my patient. No changes have occurred unless specified. Time Spent With Patient Time: Total time managing care of this patient today ____ minutes.
--- NOTE | 2025-04-25 12:36 | PM.OP ---
Brief Operative Note Date of Service: 04/25/25 Pre-op diagnosis: Right knee medial compartment OA Post-op diagnosis: same Procedure: Right knee UKA Implants: Biomet [id number] cemented UKA Surgeon: Fabrizio Gonzalez MD Anesthesia: regional and spinal Was an Automotive Metalsmith used for this Procedure?: Yes Automotive Metalsmith: Gayatri Mendoza Estimated blood loss (mL): 25 Tourniquet time (min): 100 IV fluids (mL): 1,000 Pathology: other Condition: stable Disposition: PACU
[2025-04-25] MEDS: oxyCODONE HCl ER 10 MG TAB.ER.12H PO (20:14)
[2025-04-25] MEDS: 0.9 % Sodium Chloride Flush 3 ML SYRINGE IVFLUSH (22:57)
[2025-04-26 02:58] VITALS: BP 119/75; PULSE 74; RESP 15; TEMP 36.8; O2SAT 95
--- NOTE | 2025-04-26 03:44 | PC.NURSE ---
Addendum entered by Óscar Montano RN 04/26/25 06:34: VOIDED ADDITIONAL 300ml YELLOW URINE IN URINAL AT 3PM..DENIES DISCOMFORT OVERNIGHT..RIGHT KNEE/LEG DRESSING DRY INTACT..PALPABLE PEDAL PULSES AND RIGHT FOOT PINK AND WARM Original Note: CARE ASSUMED 7PM..ALERT..ORIENTED X3...VSS....RIGHT KNEE/LOWER LEG ALISE WRAP DRY/INTACT..RIGHT FOOT WARM WITH PALPABLE PEDAL PULSES...REPORTED MINIMAL 2-3/10 SURGICAL PAIN..SCHEDULED OXYCONTIN 10MG PO PER AUG WITH RELIEF OF DISCOMFORT..RESTFUL OVERNIGHT..LR 100 CC/HR..DRINKING PO FLUIDS W/O DIFFICULTY..PER REPORT STRAIGHT CATH'D 930ML YELLOW URINE 2:30PM..VOIDED 600ML IN URINAL AT SHIFT CHANGE..HAD RECEIVED SPINAL BLOCK INTRA-OP PER REPORT..PATIENT REPORTS RETURN OF ALL SENSATION AND ABILITY TO VOID
[2025-04-26 06:12] LABS: MANUAL DIFF FLAG NO
[2025-04-26 06:17] LABS: Hematocrit 37.7 % (42.0-52.0); Hemoglobin 13.0 g/dl (14.0-18.0); Imm Gran Abs Auto 0.04 X10*3/uL (0.00-0.03); Imm Gran Pct Auto 0.4 % (0.0-0.4); Lymphocytes Absolute Auto 1.1 X10*3/uL (1.2-4.9); Mean Corpuscular HGB Conc 34.5 g/dl (31.0-36.0); Mean Corpuscular Hemoglobin 30.7 pg (27.0-33.0); Mean Corpuscular Volume 89.1 fL (80.0-98.0); NRBC Abs Auto 0.000 X10*3/uL (0.0-0.012); NRBC Pct Auto 0.0 /100WBC (0.0-0.2); Platelet Count 189 X10*3/uL (160-400); Red Blood Count 4.23 X10*6/uL (4.60-5.80); White Blood Count 9.9 X10*3/uL (4.8-10.8)
[2025-04-26 06:33] LABS: Anion Gap 12 (12-20); Blood Urea Nitrogen 15 mg/dL (9-16); Calcium 8.6 mg/dL (8.4-10.2); Carbon Dioxide 22 mmol/L (22-29); Chloride 109 mmol/L (96-108); Creatinine Clr Calc Pharmacy 132.4; Estimated Glomerular Filt Rate > 60; Potassium 3.9 mmol/L (3.3-5.1); Sodium 139 mmol/L (135-145)
[2025-04-26 07:35] VITALS: BP 135/80; PULSE 79; RESP 18; TEMP 37; O2SAT 96
[2025-04-26] MEDS: oxyCODONE HCl ER 10 MG TAB.ER.12H PO (08:02)
[2025-04-26] MEDS: Lactated Ringers 1,000 ML 100 ML IVCONT (08:02)
--- NOTE | 2025-04-26 08:13 | W.MHC.F2F ---
Service Date Service Date: 04/26/25 Encounter Date of encounter: 04/26/25 Reasons for Services Signs and symptoms assessed: Weakness, poor balance, poor gait mechanics Reason for physical therapy: home safety and mobility, therapeutic exercises, restore joint function, gait/transfer training, ADL training and energy conservation Reason for occupational therapy: home safety and mobility, therapeutic exercises, restore joint function, gait/transfer training, ADL training and energy conservation Overseeing Care: Fabrizio Gonzalez Homebound: Leaving the home is medically contraindicated at this time without the asist of a device and/or another person due th the listed conditions above and below. Reason homebound: unsteady gait / fall risk, pain with ambulation, poor balance / fall risk and unable to drive Homebound supporting statement: Pt. is considered home bound due to recent surgery. Unable to drive, poor balance, poor gait mechanics. Certification: Based on the above findings, I certify that this patient is confined to the home and needs intermittent longterm care, physical therapy and/or speech therapy, or continues to need occupational therapy. The patient is under my care, and I have initiated the establishment of the plan of care. The patient will be followed by a physician who will periodically review the plan of care. Time Spent With Patient Time: Total time managing care of this patient today ____ minutes.
--- NOTE | 2025-04-26 08:14 | PM.DS ---
DS: Providers Provider Date of Service: 04/26/25 <Cleveland Rodriguez PA-C - Last Filed: 04/26/25 08:16> Date of discharge: 04/26/25 <Cleveland Rodriguez PA-C - Last Filed: 04/26/25 08:16> Primary care physician: Juan Brooke MD <Cleveland Rodriguez PA-C - Last Filed: 04/26/25 08:16> Consults: 04/25/25 14:52 Consult to Case Management Routine Comment: home with services Consult to Hospitalist Routine Comment: Consulting Provider: [facility] Hospitalists Reason For Exam: Routine medical management <TERESA Wynne Last Filed: 04/26/25 08:16> DS: Diagnosis Discharge Diagnosis (1) Status post unicompartmental knee replacement, right: Status: Acute <TERESA Wynne Last Filed: 04/26/25 08:16> DS: Summary Hospital Course Hospital Course: The patient underwent a successful right unicompartment knee arthroplasty on 04/26/[address] Gonzalez, was transferred to PACU and then to the floor to recover. During their stay, their vitals were stable, afebrile at 98.6 . Labs were unremarkable, H/H 13.0/37.7 . POD 1 he was started on Aspirin for DVT ppx, they also received Physical Therapy services twice a day. Physical therapy should include gait training, ROM to tolerance and quad strength. He is WBAT. Prior to discharge, his clean dry and intact. The Aquacel dressing should remain intact and dry at all times. Any concerns with the dressing, please contact orthopedic office. No showering. The plan is to be discharged home with vna <TERESA Wynne Last Filed: 04/26/25 08:16> Time Attestation Discharge Coordination Time (in mins): 30 <TERESA Pichardo Last Filed: 04/26/25 08:48> Quality: Safe Use of Opioids Does Pt have an Active Cancer Diagnosis on the Problem List?: No <TERESA Pichardo Last Filed: 04/26/25 08:48> Quality: Stroke Does the patient have a stroke diagnosis?: No <Gayatri Mendoza PA-C - Last Filed: 04/26/25 08:48> Physical Exam Vital Signs: Vital Signs: Last Vital Signs Temp 98.6 F 04/26/25 07:35 Pulse 79 04/26/25 07:35 Resp 18 04/26/25 07:35 BP 135/80 04/26/25 07:35 Pulse Ox 96 04/26/25 07:35 O2 Del Method Room Air 04/26/25 07:35 BMI result Body Mass Index 27.8 <Cleveland Rodriguez PA-C - Last Filed: 04/26/25 08:16> Const: General: cooperative, healthy appearing and no acute distress <Gayatri Mendoza PA-C - Last Filed: 04/26/25 08:48> Resp: Effort & Inspection: normal respiratory effort and able to speak in complete sentences <Gayatri Mendoza PA-C - Last Filed: 04/26/25 08:48> Extrem: Other: right knee dressing is c/d/i. Able to dorsi/plantar flex. Calf is supple and nontender. Sensation intact. Pedal pulse intact. <Gayatri Mendoza PA-C - Last Filed: 04/26/25 08:48> Psych: Appearance: grossly normal <Gayatri Mendoza PA-C - Last Filed: 04/26/25 08:48> Mental Status: mental status grossly normal <Gayatri Mendoza PA-C - Last Filed: 04/26/25 08:48> Attitude: cooperative <Gayatri Mendoza PA-C - Last Filed: 04/26/25 08:48> DS: Data Data Completed and Pending Pending studies at discharge: Pending at discharge 04/25/25 12:16 Surgical [PTH] Routine <Cleveland Rodriguez PA-C - Last Filed: 04/26/25 08:16> Labs on day of discharge: Laboratory Results - last 24 hr 04/25/25 04/26/25 09:06 05:43 WBC 9.9 RBC 4.23 L Hgb 14.6 13.0 L Hct 42.8 37.7 L MCV 89.1 MCH 30.7 MCHC 34.5 RDW 13.0 Plt Count 189 MPV 9.5 Immature Gran % (Auto) 0.4 Neut % (Auto) 79.1 H Lymph % (Auto) 11.0 L Stoddard % (Auto) 9.4 Eos % (Auto) 0.0 Baso % (Auto) 0.1 Lymph # (Auto) 1.1 L [place] # (Auto) 0.9 Eos # (Auto) 0.0 Baso # (Auto) 0.0 Abs Immat Gran (auto) 0.04 H Absolute Neuts (auto) 7.9 Absolute Nucleated RBC 0.000 Nucleated RBC % (auto) 0.0 Sodium 139 Potassium 3.9 Chloride 109 H Carbon Dioxide 22 Anion Gap 12 BUN 15 Creatinine 0.69 Estim Creat Clear Calc 132.4 Estimated GFR > 60 Fasting Glucose 108 H Calcium 8.6 <Cleveland Rodriguez PA-C - Last Filed: 04/26/25 08:16> Discharge Plan Discharge Patient Disposition: Home Health Service <Cleveland Rodriguez PA-C - Last Filed: 04/26/25 08:16> Referrals: Gayatri Mendoza PA-C [Physician Industrial Registered Nurse, Orthopedics] - 1 Week Referral Note: 05/10/25 10:00 [facility] Orthopedic Surgeons Gayatri Mendoza PA-C <Cleveland Rodriguez PA-C - Last Filed: 04/26/25 08:16> Discharge Medications: New acetaminophen 325 mg Tablet 650 mg PO Q6H PRN (Reason: Pain, Mild 1-3,Fever,Headache) 30 Days Qty: 240 0RF aspirin 325 mg Tablet 325 mg PO BID 42 Days Qty: 84 0RF celecoxib 200 mg Capsule 200 mg PO BID 30 Days Qty: 60 0RF docusate sodium 100 mg Capsule 100 mg PO BID 30 Days Qty: 60 0RF oxycodone 5 mg Tablet 5 mg PO Q4H PRN (Reason: Pain, Moderate(Pain Scale 4-6)) 7 Days Qty: 42 0RF Rx Instructions: Partial Fill upon patient request. Continued losartan-hydrochlorothiazide 100-12.5 mg tablet 1 tab PO DAILY Qty: 30 0RF cholecalciferol (vitamin D3) 50 mcg (2,000 unit) capsule 50 mcg PO DAILY 90 Days Qty: 90 3RF amlodipine 5 mg tablet 5 mg PO DAILY Qty: 90 1RF (DME) blood pressure monitor Kit See Rx Instructions .Route Qty: 1 0RF Rx Instructions: As directed loratadine 10 mg tablet 10 mg PO DAILY PRN (Reason: allergy symptoms) 90 Days Qty: 90 3RF (DME) Folding Front Wheeled walker See Rx Instructions .ROUTE .MEDSUPPLY Qty: 1 0RF Rx Instructions: Duration: 99 days clotrimazole [Athlete's Foot (clotrimazole)] 1 % cream 1 appl topical BID PRN (Reason: Rash) fluticasone propionate 50 mcg/actuation spray,suspension 1 spray intranasal DAILY PRN (Reason: Nasal Congestion) Rx Instructions: administer into each nostril doxepin 10 mg capsule 10 mg PO BEDTIME PRN (Reason: insomnia) pantoprazole 40 mg tablet,delayed release (DR/EC) 40 mg PO DAILY Qty: 90 1RF fluoxetine 10 mg tablet 10 mg PO DAILY 90 Days Qty: 90 1RF Discontinued meloxicam 15 mg tablet 15 mg PO DAILY PRN (Reason: joint pain) Qty: 30 1RF Rx Instructions: take with food and only when needed for pain diclofenac sodium [Arthritis Pain (diclofenac)] 1 % gel 4 g topical QID PRN (Reason: joint pain) Qty: 100 3RF Rx Instructions: apply to single knee, ankle, foot as needed for pain; for foot includes sole/toes/top of foot <TERESA Wynne Last Filed: 04/26/25 08:16> Discharge Orders: Discharge Order (Routine); Ordered 04/26/25 Ordered By: Gayatri Mendoza <TERESA Wynne Last Filed: 04/26/25 08:16> Diet: Regular diet <TERESA Wynne Last Filed: 04/26/25 08:16> Regular diet <TERESA Pichardo Last Filed: 04/26/25 08:48> Activity on Discharge: Use cane or walker <TERESA Wynne Last Filed: 04/26/25 08:16> Use cane or walker <Gayatri Mendoza PA-C - Last Filed: 04/26/25 08:48> Activity Restrictions/Additional Instructions: -Bandage/Incision Site Care: -Ice 20mins at a time -Make sure you use a towel or cloth on your skin as a barrier -DO NOT remove the bandage -Keep Bandage clean, dry and intact -Do not get the bandage wet: -No tub bath, pools or hot tubs -If there are any concerns regarding the bandage please call orthopedics: [phone] -Knee Precautions: -Refrain from putting pillows under the knee -Keep leg straight while resting the knee -Avoid low chairs and deep couches -Use supportive shoes with nonslip soles -No driving for 6 weeks -Physical Therapy: -Patient is WBAT with the use of a walker -Range of Motion: 0-120 degrees. -Strengthening: Quadriceps and hip muscles -Walking: Gait training and gradually increasing distance with walker -Ankle pumps and incentive spirometry to limit the risk of blood clot -Diet: -Resume regular diet as tolerated. -Drink plenty of fluids and eat a high-fiber foods to avoid constipation -This is a common side effect of pain medication) -Take stool softeners as prescribed -Blood Clot Prevention: -Take the prescribed blood thinner (Aspirin) as directed for 6 weeks -Perform ankle pumps and walk frequently with the walker and assistance if needed -Report calf pain, swelling, or shortness of breath immediately <Cleveland Rodriguez PA-C - Last Filed: 04/26/25 08:16> Print Language: Mandarin Canadian <Cleveland Rodriguez PA-C - Last Filed: 04/26/25 08:16>
--- NOTE | 2025-04-26 09:19 | MHC.CM.PN ---
Addendum entered by Alba Charlton 04/26/25 13:05: P.T. NOW REC.HOME P.T. WITH A QUICK TRANSITION TO O.P., [facility] UPDATED. Addendum entered by Alba Charlton 04/26/25 10:48: DP: P.T. HAS RECOMMENDED O.P. SERVICES ON DC. [facility] UPDATED. Original Note: CM MET WITH PT AT BEDSIDE. 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 NO DME/SERVICES. PT DECLINES COMPLETING A HCP AT THIS TIME. PCP DR. MORA DP: PT HAS BEEN MEDICALLY CLEARED FOR DC HOME WITH NEW [facility] FOR P.T. SERVICES. [facility] UPDATED ON TODAY'S DC. [facility]SE WILL TRANSPORT
--- NOTE | 2025-04-26 09:19 | HO.POSTANES ---
Post Anesthesia Evaluation Post Anesthesia Evaluation Date of Service: 04/26/25 Vital Signs: Vital Signs Temp Pulse Resp BP Pulse Ox O2 Del Method 04/26/25 07:35 98.6 F 79 18 135/80 96 Room Air 04/26/25 02:58 98.2 F 74 15 119/75 95 Room Air Anesthesia: Spinal Mental Status: Awake Pain Control: Satisfactory Nausea/Vomiting: None Hydration: Adequate Anesthesia-Related Issues: No Anes. Related Issues
--- NOTE | 2025-04-27 15:13 | P.OP_ITS ---
Operative Note Operative Note Date of Service: 04/25/25 Narrative: Date of Service: 04/25/25 Pre-op diagnosis: Right knee medial compartment OA Post-op diagnosis: same Procedure: Right knee UKA Implants: Biomet 6C8 cemented UKA Surgeon: Fabrizio Gonzalez MD Anesthesia: regional and spinal Was an Upholsterer Apprentice used for this Procedure?: Yes Upholsterer Apprentice: Gayatri Mendoza Estimated blood loss (mL): 25 Tourniquet time (min): 100 IV fluids (mL): 1,000 Pathology: other Condition: stable Disposition: PACU The patient was brought to the operating room and prepped and draped in standard sterile fashion. A time-out was called to identify proper site proper procedure proper surgeon and IV antibiotics were administered. 1 g of IV tranexamic acid was administered. I began by making a medial incision to the retinaculum and performed a medial parapatellar arthrotomy. I extended the arthrotomy up to the quad tendon. The patella was protected with a salena in the notch and the knee was flexed up. There were no changes of the PFJ or lateral compartment. I performed a medial peel and placed a salena in the notch to protect the patella and a home medially to protect the MCL. Using of the bone mi of the back table I placed my tibial cutting guide. Satisfied guide was in appropriate position I placed 3 anterior pins. I then made my tibial cut through the pre fabricated guide and then a sagittal cut was made protecting the soft tissues at all times. Care was taken to protect the posterior soft tissues and I removed the bone and excess debris. I then turned my attention to the femur. Using the custom cutting block placed the block over the anterior femur and placed a anterior and distal pin. I then made my distal femoral cut. I then sized a 6 femur and placed my chamfer. I drilled my 2 lug holes and made my chamfer cuts. This was sized to avoid overhang of the anterior femur. Once my cut was made and all bony debris was removed and assessed my flexion and extension gaps and was satisfied with the balance and tightness. I therefore placed my sizing guide and sized a 6 femur. 6. I then trialed a C tibia with a 8 polyp. I was satisfied with the balance, motion and stability. One bag of Biomet bone cement was mixed on the back table with 3rd gen cementation technique. I then cemented in the femur and tibia in standard fashion while applying axial compression using a 10 tibial insert. Once the cement was hard on the back table all excess cement was removed and I trialed different inserts until I selected a #8insert. The lollipop was inserted and removed easily but not too loosely. The varus was not fully corrected. The final insert was placed. I irrigated copiously and the knee was then closed with a running Quill suture, a 3 0 Vicryl and di on the skin. Patient was then placed in sterile dressing and brought to recovery room in stable condition there were no known complications.
== END 2025-04-26 13:26 | disposition home health service (06) ==
LOC: HO.SSS 08:12 → HO.S3 13:46
PROVIDERS: Physician Assistant; PCP Internal Medicine; Visit Provider Orthopaedic Surgery
PROC: (CPT 27446; principal; 2025-04-25 10:00)
DX: M17.11 Unilateral primary osteoarthritis, right knee (principal); M25.561 Pain in right knee; M25.461 Effusion, right knee; R26.2 Difficulty in walking, not elsewhere classified; M47.816 Spondylosis without myelopathy or radiculopathy, lumbar region; I10 Essential (primary) hypertension; E78.00 Pure hypercholesterolemia, unspecified; R73.01 Impaired fasting glucose; J45.909 Unspecified asthma, uncomplicated; K21.9 Gastro-esophageal reflux disease without esophagitis; E55.9 Vitamin D deficiency, unspecified; Z86.19 Personal history of other infectious and parasitic diseases; E66.811 Obesity, class 1; Z68.30 Body mass index [BMI] 30.0-30.9, adult; Z79.51 Long term (current) use of inhaled steroids; Z79.899 Other long term (current) drug therapy; L23.1 Allergic contact dermatitis due to adhesives
CPT/HCPCS: 27446; 36415; 73560; 80048; 85014; 85018; 85025; 86850; 86900; 86901; 87640; 87641; 88305; 88311; 97110; 97161; C1713; C1776; J0131; J0665; J0690; J1100; J2003; J2151; J2250; J2704; J3010; J7120

== ENCOUNTER → 2025-04-25 08:12 | Outpatient (BNV) | payer OTHER, SELFPAY | PROVIDERS: PCP Internal Medicine; Visit Provider Orthopaedic Surgery | DX: M17.11 Unilateral primary osteoarthritis, right knee (principal) | CPT/HCPCS: 27446 ==

== ENCOUNTER → 2025-04-25 17:41 | Outpatient (BNV) | payer OTHER, SELFPAY | PROVIDERS: PCP Internal Medicine; Visit Provider Radiology Diagnostic Radiology | DX: Z96.651 Presence of right artificial knee joint (principal) | CPT/HCPCS: 73560 ==

== ENCOUNTER 2025-04-28 13:39 | Emergency (ER) | payer OTHER, SELFPAY ==
--- NOTE | ~2025-04-28 | CT_ITS ---
CLINICAL HISTORY: constipation, vomiting CT abdomen and pelvis with contrast Comparison: CT/[place]/SR - CT ABDOMEN PELVIS WITH IV CONTRAST - 09/08/23 09:59 EDT Findings: No consolidation or effusion. The gallbladder and solid organs are within normal limits. No renal stones. No bowel obstruction, pneumoperitoneum, or pneumatosis. Pelvic contents unremarkable. Normal appendix. The bones are intact. IMPRESSION: No acute findings. This document has been electronically signed by: Jeff Hernandez MD on 04/28/2025 16:46:20
--- NOTE | 2025-04-28 13:41 | ECG_ITS ---
Test Reason : CHEST PAIN Blood Pressure : */* mmHG Vent. Rate : 78 BPM Atrial Rate : 78 BPM P-R Int : 160 ms QRS Dur : 98 ms QT Int : 380 ms P-R-T Axes : 72 43 50 degrees QTcB Int : 433 ms Normal sinus rhythm Normal ECG When compared with ECG of 11-Jan-2025 14:52, No significant change was found Referred By: Clarence Zacarias Electronically Signed By: LELAND LOJA
--- NOTE | 2025-04-28 13:53 | ED.GENADULT ---
HPI - General Adult General Chief complaint: General Medical Stated complaint: chest pain recent surgery 19 vomiting Time Seen by Provider: 04/28/25 14:10 Source: patient, family, RN notes reviewed, old records reviewed and linux network engineer Mode of arrival: ambulatory Limitations: language barrier History of Present Illness ED Provider: Ronel HPI narrative: Patient is a 54-year-old Mandarin speaking male with pmhx of HTN, GERD, right knee UKA on 04/25/25 presenting emergency department with complaint of epigastric/chest pain, nausea and vomiting since the surgery. He was initially taking oxycodone for pain but was recently switched to Tylenol which did not improve his symptoms. He states that the chest pain comes and goes. He denies associated palpitations or dyspnea. Also complains of headache. He was also prescribed aspirin, Celebrex, Colace and states he has not had a bowel movements since his surgery. He reports that he is passing flatus. Emesis has been nonbloody, nonbilious. Denies fevers. MD complaint: abdominal pain, nausea, vomiting Onset (ago): day(s) Related Data Home Medications ?Medication ?Instructions ?Recorded ?Confirmed clotrimazole 1 % topical cream 1 appl topical BID PRN Rash 02/21/25 04/04/25 (Athlete's Foot (clotrimazole)) fluticasone propionate 50 1 spray intranasal DAILY PRN Nasal 02/21/25 04/04/25 mcg/actuation nasal Congestion spray,suspension doxepin 10 mg capsule 10 mg PO BEDTIME PRN insomnia 03/15/25 04/04/25 Previous Rx's ?Medication ?Instructions ?Recorded blood pressure monitor #1 ea 02/17/23 loratadine 10 mg tablet 10 mg PO DAILY PRN allergy 10/03/24 symptoms 90 days #90 tabs losartan 100 1 tab PO DAILY #30 tabs 02/01/25 mg-hydrochlorothiazide 12.5 mg tablet cholecalciferol (vitamin D3) 50 50 mcg PO DAILY 90 days #90 caps 02/13/25 mcg (2,000 unit) capsule amlodipine 5 mg tablet 5 mg PO DAILY #90 tabs 03/11/25 fluoxetine 10 mg tablet 10 mg PO DAILY 90 days #90 tabs 03/14/25 pantoprazole 40 mg tablet,delayed 40 mg PO DAILY #90 tabs 03/14/25 release Folding Front Wheeled walker #1 ea 04/19/25 acetaminophen 325 mg tablet 650 mg (2 x 325 mg) PO Q6H PRN 04/26/25 Pain, Mild 1-3,Fever,Headache 30 days #240 tabs aspirin 325 mg tablet 325 mg PO BID 42 days #84 tabs 04/26/25 celecoxib 200 mg capsule 200 mg PO BID 30 days #60 caps 04/26/25 docusate sodium 100 mg capsule 100 mg PO BID 30 days #60 caps 04/26/25 oxycodone 5 mg tablet 5 mg PO Q4H PRN Pain, 04/26/25 Moderate(Pain Scale 4-6) 7 days #42 tabs ondansetron 4 mg disintegrating 4 mg PO Q8H PRN nausea and 04/28/25 tablet vomiting #10 tabs polyethylene glycol 3350 17 gram 17 g PO DAILY PRN constipation #14 04/28/25 oral powder packet ea sennosides 8.6 mg capsule (senna) 8.6 mg PO BID PRN constipation #14 04/28/25 caps Allergies Allergy/AdvReac Type Severity Reaction Status Date / Time adhesive tape Allergy Intermediate Itching/bli Verified 04/28/25 13:58 sters Review of Systems Review of Systems: As per hPI Yes all other systems are reviewed and are negative Constitutional: Constitutional: Reports as per HPI PMFSH Past Medical History Medical History White coat syndrome with hypertension Anxiety Renal pelvis enlarged on ultrasound Lumbar spondylosis Obesity (BMI 30-39.9) H. pylori infection Vitamin D deficiency Pure hypercholesterolemia Allergic rhinitis GERD without esophagitis Benign essential hypertension Surgical History Hx of tonsillectomy Hx of colonoscopy (~03/2022) Hx of esophagogastroduodenoscopy Family History Family History Sister Lupus Social History Social History Household Members: Family Housing: House Are you a primary rn intensive care unit to a significant other at home: No Do you presently have visiting nurse or other home services: No Alcohol intake: current Alcohol intake frequency: does not drink Patient Tobacco Use Status: Never used Tobacco Smoked in Last 30 Days: No e-Cigarette/Vaping Use: Never Used Second Hand Smoke Exposure: No Use of substances other than those prescribed or required for medical reasons: No Advance Directives: No Advance Directives Information Provided: No Do you have a plan to hurt others: No Plan service: No Current occupational status: employed 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 Blood pressure normal. Heart rate normal. Respiratory rate normal. Temperature normal. Oxygen saturation normal. Const General: cooperative and no acute distress Orientation/consciousness: oriented to person, oriented to place, oriented to time and patient oriented x3 Limitations: no limitations HENMT Head: Yes normocephalic and Yes atraumatic Ears: external ears normal General nose exam: Normal external nose present Face and sinus: Yes face symmetric Mouth: oropharynx normal and moist mucous membranes Throat: Yes uvula midline Eyes Pupils: Equal, round and reactive pupils present Neck Neck: Yes normal visual inspection and Yes supple Resp Effort & Inspection: normal respiratory effort and able to speak in complete sentences Auscultation: clear to auscultation bilaterally Cardio Rate: regular rate Rhythm: regular rhythm Heart sounds: S1 normal heart sound present and S2 normal heart sound present GI Palpation (GI): Soft to palpation, Tenderness to palpation present (GI) in the epigastrum, no guarding and No Rebound tenderness present Auscultation: normoactive bowel sounds General: Yes no CVA tenderness Back/Spine/Pelvis Back: no CVA tenderness Skin General skin exam: elasticity normal and turgor normal Neuro General: oriented to person, oriented to place, oriented to time, patient oriented x3, moves all extremities, no focal motor deficits and CN's II-XI intact bilaterally Cranial nerves: Yes Equal, round and reactive pupils present Cognition (Neuro): normal cognition Extrem General: Yes full ROM, Yes no pedal edema and Yes no calf tenderness Psych Mental Status: mental status grossly normal Affect: normal affect Thought process: Normal thought process present Course Course Course Narrative: RME, this is a rapid medical exam performed by Phani Zacarias please refer to primary provider for complete H&P- 54 year old male presents for evaluation of chest pain, vomiting, and headache. Symptoms started 2 days ago. He reports knee surgery 3 days ago. Plan for cardiac workup. He also complains of headache. Medications Administered Discontinued Medications Generic Name Dose Route Start Last Admin Trade Name Freq PRN Reason Stop Dose Admin Sodium Chloride 1,000 mls @ 999 mls/hr 04/28/25 15:00 04/28/25 16:14 Ns IV 04/28/25 16:00 Infused .Q1H1M MANUEL Infusion Acetaminophen 1,000 mg in 100 mls @ 400 mls/hr 04/28/25 14:46 04/28/25 16:16 Ofirmev IV 04/28/25 15:00 Infused ONCE ONE Infusion Iohexol 100 ml 04/28/25 15:41 04/28/25 15:42 Iohexol 350 Mg/Ml 100 Ml Infus..Btl IV 04/28/25 15:42 85 ml ONCE ONE Administration Ketorolac Tromethamine 15 mg 04/28/25 16:18 04/28/25 16:46 Ketorolac Tromethamine 15 Mg/Ml Vial IVPUSH 04/28/25 16:19 15 mg ONCE ONE Administration Ondansetron HCl 4 mg 04/28/25 14:46 04/28/25 15:12 Ondansetron Hcl 4 Mg/2 Ml Vial IVPUSH 04/28/25 14:47 4 mg ONCE ONE Administration Medical Decision Making Medical Decision Making [facility] Narrative: Patient is a 54-year-old Mandarin speaking male with pmhx of HTN, GERD, right knee UKA on 04/25/25 presenting emergency department with complaint of epigastric/chest pain, nausea and vomiting since the surgery. On exam patient is awake, A+Ox3, VS WNL, afebrile, normal neurological exam without focal deficits, physical exam findings as above. Given reported symptoms and physical exam findings, initial differential includes but is not limited to constipation, obstruction, viral illness, COVID, flu, electrolyte abnormality, dehydration. Unlikely ACS. EKG shows normal sinus rhythm. Labs unremarkable, troponin negative. Viral serology negative. CT A/P is without evidence of bowel obstruction, perforation, abscess, pneumoperitoneum. Moderate stool burden noted. My interpretation is in agreement with the radiologist's interpretation. Results discussed with patient and family with telephone [employer] linux network engineer and all questions answered. Feel symptoms likely due to constipation which was likely caused by oxycodone prescribed post-op. Will add Miralax and senna, will also send prescription for zofran for nausea. Advised follow up with ortho on Wednesday. Advised follow up with PCP as well. Return precautions discussed. Patient and family verbalized understanding of and agreement with plan. Telephone [employer] linux network engineer was utilized for all interactions, assessments, and discussions. Differential Diagnosis Differential Diagnoses: The differential diagnosis associated with the presentation includes as per [facility] Admission/Observation Consideration of admission/observation: Escalation of care including admission/observation considered Patient would have been admitted to the hospital and transferred to appropriate facility had their clinical presentation warranted hospital admission. Lab Data [facility] Lab Attestation statement: I reviewed the patient's lab results. as per [facility] 04/28/25 14:15 04/28/25 14:15 Labs: Lab Results 04/28/25 04/28/25 Range/Units 14:15 14:15 WBC 6.7 (4.8-10.8) X10*3/uL RBC 4.30 L (4.60-5.80) X10*6/uL Hgb 13.3 L (14.0-18.0) g/dl Hct 38.1 L (42.0-52.0) % MCV 88.6 (80.0-98.0) fL MCH 30.9 (27.0-33.0) pg MCHC 34.9 (31.0-36.0) g/dl RDW 13.2 (11.0-16.0) % Plt Count 203 (160-400) X10*3/uL MPV 9.2 L (9.4-12.4) fL Immature Gran % (Auto) 0.9 H (0.0-0.4) % Neut % (Auto) 76.2 H (45-73) % Lymph % (Auto) 13.3 L (20-40) % [place] % (Auto) 8.8 (2-11) % Eos % (Auto) 0.1 (0-4) % Baso % (Auto) 0.7 (0-2) % Lymph # (Auto) 0.9 L (1.2-4.9) X10*3/uL [place] # (Auto) 0.6 (0.1-1.2) X10*3/uL Eos # (Auto) 0.0 (0.0-0.4) X10*3/uL Baso # (Auto) 0.1 (0.0-0.2) X10*3/uL Abs Immat Gran (auto) 0.06 H (0.00-0.03) X10*3/uL Absolute Neuts (auto) 5.1 (2.0-8.3) x10*3/uL Absolute Nucleated RBC 0.000 (0.0-0.012) X10*3/uL Nucleated RBC % (auto) 0.0 (0.0-0.2) /100WBC PT 13.8 H (11.2-13.5) SEC INR 1.1 (0.9-1.1) Sodium 138 (135-145) mmol/L Potassium 3.7 (3.3-5.1) mmol/L Chloride 104 (96-108) mmol/L Carbon Dioxide 23 (22-29) mmol/L Anion Gap 15 (12-20) BUN 11 (9-16) mg/dL Creatinine 0.62 (0.5-1.4) mg/dL Estim Creat Clear Calc 136.2 Estimated GFR > 60 Random Glucose 144 H (60-115) mg/dL Calcium 9.2 D (8.4-10.2) mg/dL Total Bilirubin 0.9 (0.0-1.0) mg/dL AST 32 (5-37) U/L ALT 26 (0-40) U/L Alkaline Phosphatase 61 (39-117) U/L Troponin I High Sens < 2.7 (<3.5-35.0) ng/L NT-Pro-B Natriuret Pep 54.1 Cancelled (<300) pg/mL Total Protein 8.3 H (6.5-8.0) g/dL Albumin 4.5 (3.5-5.0) g/dL Lipase 15 (8-78) U/L Influenza Type A (PCR) NEGATIVE (Negative) Influenza Type B (PCR) NEGATIVE (Negative) RSV RNA Qual (PCR) NEGATIVE (Negative) SARS-CoV-2 RNA (RT-PCR) NEGATIVE (Negative) Independent Interpretation I performed an independent interpretation of an: CT Scan Interpretation: CT A/P is without evidence of bowel obstruction, perforation, abscess, pneumoperitoneum. Radiology Impression Discussion of test interpretation with radiology: I have reviewed the radiologist's reading. Radiologist Impression: CT abdomen and pelvis with contrast Comparison: CT/NE/SR - CT ABDOMEN PELVIS WITH IV CONTRAST - 09/08/23 09:59 EDT Findings: No consolidation or effusion. The gallbladder and solid organs are within normal limits. No renal stones. No bowel obstruction, pneumoperitoneum, or pneumatosis. Pelvic contents unremarkable. Normal appendix. The bones are intact. IMPRESSION: No acute findings. Independent Historian Clinical information obtained from an independent historian. History obtained from or confirmed by: Spouse External Record Review External record reviewed: Inpatient record, Office record and Outpatient record Prescription Management I considered prescription management with: Other Discharge Plan Discharge Clinical Impression: Constipation Patient Disposition: Home, Self-Care Instructions: Constipation (DC) Additional Instructions: You were evaluated in the emergency department today for chest and abdominal pain, nausea and vomiting and constipation after surgery. Your CT scan did not show evidence of a bowel obstruction. Your labs were reassuring. You tested negative for COVID and flu. Your symptoms are likely due to constipation. We recommend that you continue to avoid using the prescribed oxycodone as this can worsen constipation. We also recommend that you continue to use the docusate prescribed to you. You are also being prescribed MiraLax and senna for constipation, use these medications as prescribed. You are also being prescribed ondansetron which you can use every 8 hours as needed for nausea and vomiting. We recommend that you follow up with your primary care provider this week. We also recommend that you follow up with the orthopedic office on Wednesday. Return to the emergency department if you develop persistent vomiting, worsening abdominal pain, have blood in your vomit or stool, develop fever 100.4? F or greater or any other new or concerning symptoms. Prescriptions: New ondansetron 4 mg tablet,disintegrating 4 mg PO Q8H PRN (Reason: nausea and vomiting) Qty: 10 0RF polyethylene glycol 3350 17 gram powder in packet 17 g PO DAILY PRN (Reason: constipation) Qty: 14 0RF senna 8.6 mg capsule 8.6 mg PO BID PRN (Reason: constipation) Qty: 14 0RF No Action losartan-hydrochlorothiazide 100-12.5 mg tablet 1 tab PO DAILY Qty: 30 0RF cholecalciferol (vitamin D3) 50 mcg (2,000 unit) capsule 50 mcg PO DAILY 90 Days Qty: 90 3RF amlodipine 5 mg tablet 5 mg PO DAILY Qty: 90 1RF acetaminophen 325 mg Tablet 650 mg PO Q6H PRN (Reason: Pain, Mild 1-3,Fever,Headache) 30 Days Qty: 240 0RF aspirin 325 mg Tablet 325 mg PO BID 42 Days Qty: 84 0RF celecoxib 200 mg Capsule 200 mg PO BID 30 Days Qty: 60 0RF docusate sodium 100 mg Capsule 100 mg PO BID 30 Days Qty: 60 0RF oxycodone 5 mg Tablet 5 mg PO Q4H PRN (Reason: Pain, Moderate(Pain Scale 4-6)) 7 Days Qty: 42 0RF Rx Instructions: Partial Fill upon patient request. (DME) blood pressure monitor Kit See Rx Instructions .Route Qty: 1 0RF Rx Instructions: As directed loratadine 10 mg tablet 10 mg PO DAILY PRN (Reason: allergy symptoms) 90 Days Qty: 90 3RF (DME) Folding Front Wheeled walker See Rx Instructions .ROUTE .MEDSUPPLY Qty: 1 0RF Rx Instructions: Duration: 99 days clotrimazole [Athlete's Foot (clotrimazole)] 1 % cream 1 appl topical BID PRN (Reason: Rash) fluticasone propionate 50 mcg/actuation spray,suspension 1 spray intranasal DAILY PRN (Reason: Nasal Congestion) Rx Instructions: administer into each nostril doxepin 10 mg capsule 10 mg PO BEDTIME PRN (Reason: insomnia) pantoprazole 40 mg tablet,delayed release (DR/EC) 40 mg PO DAILY Qty: 90 1RF fluoxetine 10 mg tablet 10 mg PO DAILY 90 Days Qty: 90 1RF Print Language: Talisha Uzbek
[2025-04-28 13:56] VITALS: BP 156/99; PULSE 80; RESP 18; O2SAT 98; BMI 26.6
[2025-04-28 14:16] VITALS: BP 155/99; PULSE 78; RESP 22; TEMP 36.7; O2SAT 95
[2025-04-28 14:19] LABS: MANUAL DIFF FLAG NO
[2025-04-28 14:21] LABS: Hematocrit 38.1 % (42.0-52.0); Hemoglobin 13.3 g/dl (14.0-18.0); Imm Gran Abs Auto 0.06 X10*3/uL (0.00-0.03); Imm Gran Pct Auto 0.9 % (0.0-0.4); Lymphocytes Absolute Auto 0.9 X10*3/uL (1.2-4.9); Mean Corpuscular HGB Conc 34.9 g/dl (31.0-36.0); Mean Corpuscular Hemoglobin 30.9 pg (27.0-33.0); Mean Corpuscular Volume 88.6 fL (80.0-98.0); NRBC Abs Auto 0.000 X10*3/uL (0.0-0.012); NRBC Pct Auto 0.0 /100WBC (0.0-0.2); Platelet Count 203 X10*3/uL (160-400); Red Blood Count 4.30 X10*6/uL (4.60-5.80); White Blood Count 6.7 X10*3/uL (4.8-10.8)
[2025-04-28 14:26] LABS: INTERNATIONAL NORM RATIO 1.1 (0.9-1.1); Prothrombin Time 13.8 SEC (11.2-13.5)
[2025-04-28 14:43] LABS: Alanine Aminotransferase 26 U/L (0-40); Albumin Level 4.5 g/dL (3.5-5.0); Alkaline Phosphatase 61 U/L (39-117); Anion Gap 15 (12-20); Aspartate Amino Transferase 32 U/L (5-37); Blood Urea Nitrogen 11 mg/dL (9-16); Calcium 9.2 mg/dL (8.4-10.2); Carbon Dioxide 23 mmol/L (22-29); Chloride 104 mmol/L (96-108); Creatinine Clr Calc Pharmacy 136.2; Estimated Glomerular Filt Rate > 60; Lipase 15 U/L (8-78); Potassium 3.7 mmol/L (3.3-5.1); Sodium 138 mmol/L (135-145); Total Protein 8.3 g/dL (6.5-8.0)
[2025-04-28 14:46] LABS: NT Pro B Type Natriuretic Pept 54.1 pg/mL (<300); Troponin-I High Sensitivity < 2.7 ng/L (<3.5-35.0)
[2025-04-28 15:02] LABS: Resp Syncy Virus RNA Qual PCR NEGATIVE (Negative); SARS COV2 PCR INHOUSE NEGATIVE (Negative)
[2025-04-28] MEDS: iohexoL 350 MG/ML 100 ML INFUS..BTL IV (15:42)
[2025-04-28 17:19] VITALS: BP 139/85; PULSE 76; RESP 18; TEMP 36.7; O2SAT 95
== END 2025-04-28 17:32 | disposition home or self-care (01) ==
PROVIDERS: Physician Assistant; Emergency Provider Emergency Medicine Emergency Medical Services; PCP Internal Medicine
DX: K59.03 Drug induced constipation (principal); R51.9 Headache, unspecified; K21.9 Gastro-esophageal reflux disease without esophagitis; I10 Essential (primary) hypertension; Z96.651 Presence of right artificial knee joint
CPT/HCPCS: 36415; 74177; 80053; 83690; 83880; 84484; 85025; 85610; 87637; 93005; 96365; 96375; 99285; J0131; J1885; J2405; Q9967

== ENCOUNTER → 2025-04-28 13:41 | Outpatient (BNV) | payer OTHER, SELFPAY | PROVIDERS: Emergency Provider Emergency Medicine Emergency Medical Services; PCP Internal Medicine; Visit Provider Internal Medicine | DX: R07.9 Chest pain, unspecified (principal) | CPT/HCPCS: 93010 ==

== ENCOUNTER → 2025-04-28 15:06 | Outpatient (BNV) | payer OTHER, SELFPAY | PROVIDERS: Emergency Provider Emergency Medicine Emergency Medical Services; PCP Internal Medicine; Visit Provider Radiology Diagnostic Radiology | DX: K59.00 Constipation, unspecified (principal); R11.10 Vomiting, unspecified | CPT/HCPCS: 74177 ==

== ENCOUNTER 2025-05-01 12:54 | Outpatient (AMB) | payer OTHER, SELFPAY ==
--- NOTE | 2025-05-01 13:27 | A.OFFVIS_ITS ---
Intake Visit Reasons: PO: R UKA w/NE 04/25/25-bandage change Intake Note: Rain is a 54 year old male who presents today for a banage change status post Right knee UKA with . Patient reports no pain at the moment. Allergies adhesive tape Allergy (Intermediate, Verified 05/01/25 13:28) Itching/blisters HPI HPI PO: R UKA w/NE 04/25/25-bandage change: Details: Mr. Hernandez is a 54-year-old male who presents to the office today status post right knee unicompartment arthroplasty performed on 04/25/2025. Patient states that he noticed some staining on the Aquacel dressing and therefore was instructed to come in for a bandage change. COUNT INCLUDES THE [facility] Medical History White coat syndrome with hypertension Anxiety Renal pelvis enlarged on ultrasound Lumbar spondylosis Obesity (BMI 30-39.9) H. pylori infection Vitamin D deficiency Pure hypercholesterolemia Allergic rhinitis GERD without esophagitis Benign essential hypertension Surgical History Hx of tonsillectomy Hx of colonoscopy (~03/2022) Hx of esophagogastroduodenoscopy Family History Sister Lupus Social History Household Members: Family Housing: House Are you a primary healthcare analyst to a significant other at home: No Do you presently have visiting nurse or other home services: No Alcohol intake: current Alcohol intake frequency: does not drink Patient Tobacco Use Status: Never used Tobacco e-Cigarette/Vaping Use: Never Used Second Hand Smoke Exposure: No service: No 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 [place] intact. No surroun ding erythema or drainage. No signs of infection. Minimal bloody drainage on the Aquacel dressing. Able to dorsiflex and plantar flex. NVI. Psych Appearance: grossly normal Mental Status: mental status grossly normal Attitude: cooperative Assessment & Plan Assessment & Plan (1) Status post unicompartmental knee replacement, right: Code(s): Z96.651 - Presence of right artificial knee joint Category: Surgical Plan Mr. Hernandez is a 54-year-old male who presents to the office today status post right knee unicompartment arthroplasty performed on 04/25/2025. Patient states that he noticed some staining on the Aquacel dressing and therefore was instructed to come in for a bandage change. While in the office today, Aquacel dressing was removed. I examined the incision site in which there were no signs of infection or active drainage. [place] remain intact. I cleaned the incision site with ChloraPrep and re dressed with a new Aquacel dressing. Patient will follow up at his normally scheduled follow up appointment, sooner if needed. Coding Level of Care Code Global (12854) Diagnoses Status post unicompartmental knee replacement, right Z96.651
== END 2025-05-01 13:37 | disposition home or self-care (01) ==
LOC: HO.HOS 12:54
PROVIDERS: PCP Internal Medicine; Visit Provider Physician Assistant
DX: Z96.651 Presence of right artificial knee joint (principal)
CPT/HCPCS: 99024

== ENCOUNTER → 2025-05-01 12:54 | Outpatient (BNVA) | payer OTHER, SELFPAY | PROVIDERS: PCP Internal Medicine; Visit Provider Physician Assistant | DX: Z98.890 Other specified postprocedural states (principal); Z96.651 Presence of right artificial knee joint | CPT/HCPCS: 99212 ==

== ENCOUNTER 2025-05-10 09:55 | Outpatient (AMB) | payer OTHER, SELFPAY ==
--- NOTE | 2025-05-10 10:07 | A.OFFVIS_ITS ---
Intake Visit Reasons: 1stPO:R UKA w/NE 04/25/25 Intake Note: Rain is a 54 year old male who presents today for a post operative appointment status post Right knee UKA done on 04/25/[address] Gonzalez. Patient reports he is doing well. he mentions that his pain is a 3 out 10 on the pain scale. 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 Hernandez is a 54-year-old male who presents to the office today accompanied by his daughter status post right knee unicompartment arthroplasty performed on 04/25/[address] Gonzalez. Patient states that he did have a small fall but landed on the opposite knee. He did not noticed an increase in pain or decrease in motion. He has been able to ambulate without difficulty. He has been working with physical therapy at home and transitions to outpatient physical therapy on 05/18/2025. No additional complaints. [facility] Medical History White coat syndrome with hypertension Anxiety Renal pelvis enlarged on ultrasound Lumbar spondylosis Obesity (BMI 30-39.9) H. pylori infection Vitamin D deficiency Pure hypercholesterolemia Allergic rhinitis GERD without esophagitis Benign essential hypertension Surgical History Hx of tonsillectomy Hx of colonoscopy (~03/2022) Hx of esophagogastroduodenoscopy Family History Sister Lupus Social History Household Members: Family Housing: House Are you a primary rn complex care to a significant other at home: No Do you presently have visiting nurse or other home services: No Alcohol intake: current Alcohol intake frequency: does not drink Patient Tobacco Use Status: Never used Tobacco e-Cigarette/Vaping Use: Never Used Second Hand Smoke Exposure: No service: No 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 Di intact. No surrounding erythema or drainage. No signs of infection. Able to perform a straight leg raise. Range of motion 0-90 degrees. Able to dorsiflex and plantar flex. NVI. Psych Appearance: grossly normal Mental Status: mental status grossly normal Attitude: cooperative Assessment & Plan Assessment & Plan (1) Status post unicompartmental knee replacement, right: Code(s): Z96.651 - Presence of right artificial knee joint Category: Surgical Plan Mr. Hernandez is a 54-year-old male who presents to the office today status post right knee unicompartment arthroplasty performed on 04/25/[address] Gonzalez. Patient states that he did have a small fall but landed on the opposite knee. He did not noticed an increase in pain or decrease in motion. He has been able to ambulate without difficulty. He has been working with physical therapy at home and transitions to outpatient physical therapy on 05/18/2025. No additional complaints. While in the office today, di were removed and Steri-Strips were applied. Patient was educated to continue taking aspirin for 6 weeks status post surgery. He will begin outpatient physical therapy beginning 05/18/2025. He is not using any assistive devices to ambulate. Follow up will be in [address] Gonzalez with x-rays, sooner if needed. Coding Level of Care Code Global (58447) Diagnoses Status post unicompartmental knee replacement, right Z96.651
== END 2025-05-10 10:36 | disposition home or self-care (01) ==
LOC: HO.HOS 09:56
PROVIDERS: PCP Physician Assistant; Visit Provider Physician Assistant
DX: Z96.651 Presence of right artificial knee joint (principal)
CPT/HCPCS: 99024

== ENCOUNTER → 2025-05-10 09:55 | Outpatient (BNVA) | payer OTHER, SELFPAY | PROVIDERS: PCP Physician Assistant; Visit Provider Physician Assistant | DX: Z47.1 Aftercare following joint replacement surgery (principal); Z96.651 Presence of right artificial knee joint | CPT/HCPCS: 99212 ==

== ENCOUNTER 2025-05-18 09:53 | Outpatient (REF) | payer OTHER, SELFPAY ==
[2025-05-18 10:12] LABS: MANUAL DIFF FLAG NO
[2025-05-18 10:43] LABS: Hematocrit 40.3 % (42.0-52.0); Hemoglobin 13.5 g/dl (14.0-18.0); Imm Gran Abs Auto 0.07 X10*3/uL (0.00-0.03); Imm Gran Pct Auto 1.6 % (0.0-0.4); Lymphocytes Absolute Auto 1.2 X10*3/uL (1.2-4.9); Mean Corpuscular HGB Conc 33.5 g/dl (31.0-36.0); Mean Corpuscular Hemoglobin 30.8 pg (27.0-33.0); Mean Corpuscular Volume 91.8 fL (80.0-98.0); NRBC Abs Auto 0.000 X10*3/uL (0.0-0.012); NRBC Pct Auto 0.0 /100WBC (0.0-0.2); Platelet Count 236 X10*3/uL (160-400); Red Blood Count 4.39 X10*6/uL (4.60-5.80); White Blood Count 4.4 X10*3/uL (4.8-10.8)
[2025-05-18 11:01] LABS: Appearance Urine Clear; Glucose Urine UA Negative (Negative); PH 6.5 (5.0-9.0); Specific Gravity - Urine 1.020 (1.005-1.025)
[2025-05-18 11:15] LABS: Alanine Aminotransferase 61 U/L (0-40); Albumin Level 4.5 g/dL (3.5-5.0); Alkaline Phosphatase 84 U/L (39-117); Anion Gap 13 (12-20); Aspartate Amino Transferase 38 U/L (5-37); Blood Urea Nitrogen 17 mg/dL (9-16); Calcium 9.3 mg/dL (8.4-10.2); Carbon Dioxide 27 mmol/L (22-29); Chloride 103 mmol/L (96-108); Cholesterol 186 mg/dL (<200); Estimated Glomerular Filt Rate > 60; HDL Cholesterol 36 mg/dL (>40); Potassium 3.8 mmol/L (3.3-5.1); Sodium 139 mmol/L (135-145); Total Protein 7.9 g/dL (6.5-8.0); Triglycerides 96 mg/dL (<150)
[2025-05-18 13:38] LABS: Free T4 (Free Thyroxine) 0.97 ng/dL (0.71-1.85)
== END 2025-05-18 09:54 | disposition home or self-care (01) ==
LOC: HO.LAB 09:53
PROVIDERS: PCP Internal Medicine; Visit Provider Internal Medicine
DX: R73.01 Impaired fasting glucose (principal); E55.9 Vitamin D deficiency, unspecified; R30.0 Dysuria; E78.00 Pure hypercholesterolemia, unspecified; D64.9 Anemia, unspecified
CPT/HCPCS: 36415; 80053; 80061; 81003; 82306; 83036; 84439; 84443; 85025

== ENCOUNTER 2025-05-30 10:49 | Outpatient (AMB) | payer OTHER, SELFPAY ==
--- NOTE | 2025-05-30 10:59 | MHC.PC.OV ---
Vital Signs 05/30/25 11:02 Height 5 ft 9 in Weight 190 lb 8 oz BMI 28.1 BP 118/68 Blood Pressure Location Lt brachial Position Sitting Pulse 78 Pulse Source Pulse Oximeter Temp 97.3 F Temp Source Temporal Artery Scan Pulse Oximetry (%) 96 Oxygen Delivery Method Room Air Intake Visit Reasons: 6 month f/u Intake Note: Patient is here to follow up on Chronic, pain, HTN, Hypercholesterolemia. Epic Specialist Required: No Warehouse Distribution Specialist: Not Required per policy Accompanied by: Self / Same As Patient Allergies adhesive tape Allergy (Intermediate, Verified 05/30/25 11:18) Itching/blisters Medication List - Last Reconciled 05/30/25 by Juan Brooke MD acetaminophen 650 mg (2 x 325 mg) PO Q6H PRN 30 days amlodipine 5 mg PO DAILY aspirin 325 mg PO BID 42 days blood pressure monitor As directed celecoxib 200 mg PO BID 30 days cholecalciferol (vitamin D3) 50 mcg PO DAILY 90 days clotrimazole 1% (Athlete's Foot (clotrimazole)) 1 appl topical BID PRN docusate sodium 100 mg PO BID 30 days doxepin 10 mg PO BEDTIME PRN fluoxetine 10 mg PO DAILY 90 days fluticasone propionate 50 mcg/actuation 1 spray intranasal DAILY PRN [Folding Front Wheeled walker Duration: 99 days] loratadine 10 mg PO DAILY PRN 90 days losartan-hydrochlorothiazide 100-12.5 mg 1 tab PO DAILY ondansetron 4 mg PO Q8H PRN oxycodone 5 mg PO Q4H PRN 7 days pantoprazole 40 mg PO DAILY polyethylene glycol 3350 17 grams PO DAILY PRN sennosides (senna) 8.6 mg PO BID PRN Tobacco use date assessed: 05/30/25 Dental Screening Dental Screen Date: 03/14/25 HPI 6 month f/u HPI Details - The patient is a 54 year old male coming in today for his routine follow up visit - The patient reports experiencing a recurrent cough for the past 1-2 weeks, which he feels is worse when he lies down to sleep at night. - He is also requesting some weight loss medication due to concerns about his right knee - recalls that he was previously advised to lose weight before his right knee surgery last month (UKA) - States that his knee is still bothering him a lot and that his surgery only provided some relief of his knee pain - He has been going to physical therapy for his knee for a couple of weeks now - He complains of dry and itchy skin, particularly on his legs - states that he has been applying some lotion on his legs daily for the past couple of weeks now but it seems to be only helping minimally - For a history of hypertension, he takes daily medication and is advised to avoid salty foods. - Past medical history is notable for a liver issue while he was in [place], which he reports is now resolved, and a previous CAT scan that was normal. - He also requests refills for his allergy nasal spray and his Tylenol - His lab results from labs done a couple of weeks ago show that his cholesterol is 20% higher than the previous check, and his blood sugar is at a borderline level. [facility] Medical History White coat syndrome with hypertension Anxiety Renal pelvis enlarged on ultrasound Lumbar spondylosis Obesity (BMI 30-39.9) H. pylori infection Vitamin D deficiency Pure hypercholesterolemia Allergic rhinitis GERD without esophagitis Benign essential hypertension Surgical History (Updated 05/31/25 @ 18:12 by Juan Brooke MD) History of knee surgery Hx of tonsillectomy Hx of colonoscopy (~03/2022) Hx of esophagogastroduodenoscopy Family History Sister Lupus Social History Household Members: Family Housing: House Are you a primary career and guidance counselor to a significant other at home: No Do you presently have visiting nurse or other home services: No Alcohol intake: current Alcohol intake frequency: does not drink Patient Tobacco Use Status: Never used Tobacco e-Cigarette/Vaping Use: Never Used Second Hand Smoke Exposure: No service: No Current occupational status: employed 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, 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 Current occupational exposures/hazards: No Cognitive needs: No Hearing needs: No Vision needs: No Questionnaire Thrive Questionnaire Date Thrive assessed: 10/03/24 I am a: Patient What is your living situation today?: I have a steady place to live Within the past 12 months, did the food you bought not last and you didn't have the money to get more?: Often true Within the past 12 months, did you worry whether your food would run out before you got money to buy more?: Often true Do you have trouble paying for medicines?: Yes Do you have trouble getting transportation to medical appointments?: Yes Do you have trouble paying your heating and electricity bill?: I choose not to answer this question Do you have trouble taking care of your child, family member or friend?: I choose not to answer this question Do you have trouble with day-to-day activities such as bathing, preparing meals, shopping, managing finances, etc.?: I choose not to answer this question Are you currently unemployed and looking for a job?: I choose not to answer this question Are you interested in more education?: I choose not to answer this question Currently or been in a relationship where the following occur: I choose not to answer THRIVE Score: 3 ROB-7 AMB Questionnaire ROB-7 Date ROB - 7 assessed: 01/11/25 Source: Developed by Drs. Steven Oquendo, Aminta Rodriguez, Eliu Roe and colleagues, with an educational deneen from [employer]. Review of Systems Const Denies chills, Denies fatigue, Denies fever(s) and Denies headache(s) ENT Denies dysphagia, Denies dizziness, Denies otalgia, Denies headache(s), Denies neck pain, Denies odynophagia and Denies sore throat Card Denies rapid heart rate, Denies irregular heart rhythm, Denies palpitations and Denies dyspnea Resp Reports chest congestion (very minimal), Reports cough (recurrent - see HPI) and Denies dyspnea GI Denies abdominal pain, Denies constipation, Denies dysphagia, Denies heartburn, Denies diarrhea, Denies nausea, Denies odynophagia and Denies vomiting Denies difficulty urinating, Denies dysuria and Denies urinary frequency Musc Reports back pain (over the lower back, on and off), Reports arthralgias (in the right knee - (+) some relief with surgery last month) and Denies neck pain Skin/Breast Reports dry skin (on both legs), Reports pruritus (on both legs) and Denies rash Neuro Denies dizziness, Denies headache(s) and Denies paresthesias Endo Denies fatigue and Denies palpitations Physical exam (Primary Care) Vital Signs: Last Vital Signs Temp 97.3 F 05/30/25 11:02 Pulse 78 05/30/25 11:02 BP 118/68 05/30/25 11:02 Pulse Ox 96 05/30/25 11:02 Oxygen Delivery Method Room Air 05/30/25 11:02 BMI result Body Mass Index 28.1 Tobacco/Smoking Status: Tobacco use Status Tobacco use date assessed 05/30/25 05/30/25 11:09 Patient Tobacco Use Status Never used Tobacco 05/30/25 11:09 e-Cigarette/Vaping Use Never Used 05/30/25 11:09 Thrive Assessment: Date of Thrive Assessment Date Thrive assessed 10/03/24 05/30/25 11:09 Currently or been in a relationship where the following occur: I choose not to answer Const General: no acute distress and alert HENMT Throat: Yes posterior oropharynx normal and Yes tonsils normal (no TP congestion) Neck Neck: Yes supple and No lymphadenopathy Thyroid: Thyroid normal Resp Auscultation: clear to auscultation bilaterally, no rales and no wheezes Cardio Rate: regular rate Rhythm: regular rhythm Heart sounds: no murmurs GI Palpation (GI): Soft to palpation and nontender Auscultation: normal bowel sounds General: Yes no CVA tenderness Back/Spine/Pelvis Back: no CVA tenderness Thoracic/Lumbar Spine: lumbar spinal tenderness (mild) Skin General skin exam: dry skin (on both lower legs) Rashes: no rashes Extrem General: Yes no clubbing, cyanosis or edema Right lower extremity: knee Details: tenderness; no swelling Results Reviewed Results Reviewed: Laboratory Tests 05/18/25 05/18/25 10:04 10:11 WBC 4.4 L Hgb 13.5 L Hct 40.3 L Plt Count 236 Sodium 139 Potassium 3.8 Creatinine 0.80 Estimated GFR > 60 Fasting Glucose 106 H Hemoglobin A1c % 6.0 Calcium 9.3 AST 38 H ALT 61 H Triglycerides 96 Cholesterol 186 LDL Cholesterol, Calc 131 H HDL Cholesterol 36 L 25-OH Vitamin D Total 39.7 TSH 4.02 H Free T4 0.97 Ur Specific Anita 1.020 Urine Protein Negative Urine Glucose (UA) Negative Urine Blood Negative Urine Nitrite Negative Ur Leukocyte Esterase Negative Coding Level of Care Code Est Pt Level 4 (67389) Add On Problem Visit Only Diagnoses Patellofemoral arthritis of right knee M17.11 Benign essential hypertension I10 Pure hypercholesterolemia E78.00 GERD without esophagitis K21.9 Impaired fasting glucose R73.01 Allergic rhinitis, unspecified seasonality, unspecified trigger J30.9 Allergic rhinitis trigger: unspecified Allergic rhinitis seasonality: unspecified Upper respiratory tract infection, unspecified type J06.9 URI type: unspecified URI Vitamin D deficiency E55.9 Lumbar spondylosis M47.816 Insomnia, unspecified type G47.00 Insomnia type: unspecified Anxiety F41.9 Obesity, class 1 E66.811 Assessment & Plan Assessment & Plan (1) Patellofemoral arthritis of right knee: Code(s): M17.11 - Unilateral primary osteoarthritis, right knee Category: Medical Plan: Patient underwent a unilateral right knee arthroplasty last month on 04/25/[address] Gonzalez at [facility] Patient states that his knee pain has improved somewhat with surgery and he is currently still going to physical therapy for his knee Continue Tylenol PRN for pain - Rx refilled Follow up with orthopedics as scheduled (2) Benign essential hypertension: Code(s): I10 - Essential (primary) hypertension Category: Medical Plan: Reinforced low sodium diet - goal is systolic BP of 120 mm or less Continue Losartan-HCT 100-12.5 mg QD and Amlodipine 5 mg QD He is reminded to continue monitoring his blood pressure regularly (3) Pure hypercholesterolemia: Code(s): E78.00 - Pure hypercholesterolemia, unspecified Category: Medical Plan: Results of his labs done a couple of weeks ago reviewed and discussed with patient - he is cautioned that his cholesterol numbers have increased slightly from previous Reinforced low cholesterol diet Will recheck his labs and fasting lipids in 3 months for follow up (4) GERD without esophagitis: Comment: EGD- Barretts surveillance- r/o esophagitis, PUD, non ulcer dyspepsia- avoid culprits- continue ppi- daily Code(s): K21.9 - Gastro-esophageal reflux disease without esophagitis Category: Medical Plan: Dietary restrictions reinforced Continue Pantoprazole 40 mg QD Follow up with GI as scheduled (5) Impaired fasting glucose: Code(s): R73.01 - Impaired fasting glucose Category: Medical Plan: His serum glucose was still slightly elevated at 106 mg/dl on his recent labs; his HgbA1c was again at 6.0%, same as when it was last checked - have reminded him that this still places him in the borderline diabetic category Reinforced low calorie/low carb diet (6) Allergic rhinitis: Code(s): J30.9 - Allergic rhinitis, unspecified Category: Medical Qualifiers: Allergic rhinitis trigger: unspecified Allergic rhinitis seasonality: unspecified Qualified Code(s): J30.9 - Allergic rhinitis, unspecified Plan: Continue Loratadine 10 mg QD PRN and Fluticasone 50 mcg nasal spray QD PRN (Rx refilled) (7) Upper respiratory tract infection: Code(s): J06.9 - Acute upper respiratory infection, unspecified Category: Medical Qualifiers: URI type: unspecified URI Qualified Code(s): J06.9 - Acute upper respiratory infection, unspecified Plan: As requested, will start him empirically on Azithromycin QD x 5 days 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 miss work or call out sick (8) Vitamin D deficiency: Code(s): E55.9 - Vitamin D deficiency, unspecified Category: Medical Plan: Continue Vitamin D3 2000 units QD (9) Lumbar spondylosis: Code(s): M47.816 - Spondylosis without myelopathy or radiculopathy, lumbar region Category: Medical Plan: Reinforced activity and weight-lifting restrictions to avoid aggravating his low back pain He has been experiencing recurrent low back pain since he slipped on ice/snow and fell on his driveway a couple of years ago Lumbar spine x-rays done in August 2022 revealed (+) age indeterminate compression deformities at T12, L1 and L2 and moderate spondylosis at L5-S1 with some degree of central canal stenosis and neural foraminal encroachment Lumbar spine MRI done in October 2022 revealed chronic upper endplate fracture deformities at T12, L1, and L2 with associated superior endplate Schmorl's nodes and resultant mild central height loss. No new compression fracture deformity. Also (+) mild multilevel lumbar spondylosis without significant spinal canal stenosis. At L5-S1, a broad-based central disc protrusion causes asymmetric left subarticular zone narrowing with abutment along the traversing left S1 nerve root. Mild to moderate bilateral L5-S1 neural foraminal stenosis with contact along the exiting L5 nerve roots Patient states that his low back pain has calmed down a lot since then and he will call if his back pain starts to act up again He has been advised that if his low back pain gets worse, we can consider referring him to neurosurgery for further evaluation and management (10) Insomnia: Code(s): G47.00 - Insomnia, unspecified Category: Medical Qualifiers: Insomnia type: unspecified Qualified Code(s): G47.00 - Insomnia, unspecified Plan: Sleep hygiene reinforced Continue Doxepin 10 mg Q HS PRN (11) Anxiety: Code(s): F41.9 - Anxiety disorder, unspecified Category: Medical Plan: Continue Fluoxetine 10 mg QD (12) Obesity, class 1: Code(s): E66.811 - Obesity, class 1 Category: Medical Plan: Reinforced diet/exercise as tolerated/lose weight Have advised him that he is not really significantly overweight, with his BMI just at 28.5 and that it is not worth risking the side effects from the GLP-1s just to lose a few pounds Have also advised him that at his current weight, his insurance will likely NOT cover the Rx for him anyway Have advised him to try some OTC [place] instead to see if this will help him lose a little of his weight and get his BMI down somewhat but advised him that he still needs to watch his diet and stay active Plan Follow up in 3 months Orders: Orders TSH reflex Free T4 3 Months E78.00 - Pure hypercholesterolemia, unspecified Hemoglobin A1c 3 Months R73.01 - Impaired fasting glucose Complete Blood Count Auto Diff 3 Months D64.9 - Anemia, unspecified Comprehensive Embarrass. Panel Fast 3 Months E78.00 - Pure hypercholesterolemia, unspecified Lipid Panel 3 Months E78.00 - Pure hypercholesterolemia, unspecified UA CC w/rflx Micro + Cult 3 Months R30.0 - Dysuria Vitamin D 25-OH Total 3 Months E55.9 - Vitamin D deficiency, unspecified Medications: New azithromycin take 500 mg today (day 1), then 250 mg for 4 days (days 2-5) PO 6 tabs 0RF fluticasone propionate 50 mcg/actuation administer into each nostril 1 spray intranasal DAILY PRN 16 grams 3RF Nasal Congestion Refilled acetaminophen 650 mg (2 x 325 mg) PO Q6H PRN 240 tabs 0RF Pain, Mild 1-3,Fever,Headache 30 days
[2025-05-30 11:02] VITALS: BP 118/68; PULSE 78; TEMP 36.3; O2SAT 96; BMI 28.1
== END 2025-05-30 11:33 | disposition home or self-care (01) ==
LOC: HO.HMCH 10:50
PROVIDERS: PCP Internal Medicine; Visit Provider Internal Medicine
DX: M17.11 Unilateral primary osteoarthritis, right knee (principal); I10 Essential (primary) hypertension; E78.00 Pure hypercholesterolemia, unspecified; K21.9 Gastro-esophageal reflux disease without esophagitis; R73.01 Impaired fasting glucose; J30.9 Allergic rhinitis, unspecified; J06.9 Acute upper respiratory infection, unspecified; E55.9 Vitamin D deficiency, unspecified; M47.816 Spondylosis without myelopathy or radiculopathy, lumbar region; G47.00 Insomnia, unspecified; F41.9 Anxiety disorder, unspecified; E66.811 Obesity, class 1

== ENCOUNTER → 2025-05-30 10:49 | Outpatient (BNVA) | payer OTHER, SELFPAY | PROVIDERS: PCP Internal Medicine; Visit Provider Internal Medicine | DX: M17.11 Unilateral primary osteoarthritis, right knee (principal); I10 Essential (primary) hypertension; E78.00 Pure hypercholesterolemia, unspecified; K21.9 Gastro-esophageal reflux disease without esophagitis; R73.01 Impaired fasting glucose; J30.9 Allergic rhinitis, unspecified; J06.9 Acute upper respiratory infection, unspecified; E55.9 Vitamin D deficiency, unspecified; M47.816 Spondylosis without myelopathy or radiculopathy, lumbar region | CPT/HCPCS: 99212 ==